=== PATIENT | male | born 1980 | race Caucasian/White ===

== ENCOUNTER 2016-07-07 21:27 | Inpatient (IN) | payer MEDICARE, MEDICAID ==
[~2016-07-07] VITALS: Ht 172.7 cm; Wt 85.8 kg
[~2016-07-07 21:27] MED LIST: CEPH500C3 PO; CLOZ200T PO; ENAL2.5 PO; HYDR-2768 PO; HYDR50TA94 PO; LEVO50TA4 PO; LITH300 PO; NALT50TA PO; ZOLP5TAB3 PO
[2016-07-07 21:29] VITALS: BP 150/85; PULSE 64; RESP 18; TEMP 97.6; O2SAT 100
[2016-07-07] MEDS ORDERED: HYDR25TA5 PO (21:45)
[2016-07-07] MEDS ORDERED: LITH300C2 PO (21:45)
[2016-07-07] MEDS ORDERED: LITH600C PO (21:45)
[2016-07-07] MEDS ORDERED: VIST50CA PO (21:45)
[2016-07-07] MEDS ORDERED: CLOZ50TA PO (21:56)
[2016-07-07] MEDS ORDERED: NALT50TA3 PO (21:56)
[2016-07-07] MEDS ORDERED: SYNT25TA PO (21:56)
[2016-07-07] MEDS ORDERED: HYDR50TA94 PO (21:57)
[2016-07-07 23:01] LABS: AUTOMATED NEUTROPHIL # 6.4 TH/MM3 (1.8-7.7); BASOPHIL # 0.1 TH/MM3 (0-0.2); BASOPHIL % 0.9 % (0.0-2.0); EOSINOPHIL # 0.4 TH/MM3 (0-0.4); EOSINOPHIL % 3.7 % (0.0-4.0); HEMATOCRIT 45.1 % (39.0-51.0); HEMO FLAGS DIFF FINAL; LYMPH % 30.4 % (9.0-44.0); LYMPHOCYTE # 3.4 TH/MM3 (1.0-4.8); MEAN CELL VOLUME 81.5 FL (80.0-100.0); MEAN CORPUSCULAR HEMOGLOBIN 28.1 PG (27.0-34.0); MEAN CORPUSCULAR HGB CONC 34.5 % (32.0-36.0); MONO % 8.6 % (0.0-8.0); NEUT % 56.4 % (16.0-70.0); PLATELET COUNT 180 TH/MM3 (150-450); RED BLOOD COUNT 5.53 MIL/MM3 (4.50-5.90); RED CELL DISTRIBUTION WIDTH 13.2 % (11.6-17.2); WHITE BLOOD COUNT 11.3 TH/MM3 (4.0-11.0)
--- NOTE | 2016-07-07 23:17 | PD ---
HPI Chief Complaint: Medication Refill Request Time Seen by Provider: 23:13 Travel History International Travel<30 days: No Contact w/Intl Traveler<30days: No Traveled to known affect area: No History of Present Illness HPI 36-year-old white male presents to emergency department requesting psychological evaluation. He states that he has not slept in over 3 days. He feels that his medication is requiring readjustment. He states that he is been on indications now for over 5 years and feels that 250 mg is too high. He feels like it needs to be reduced down to 150 mg. He states that he has not taken his last 3 days of medications due to this. He is having increasing anxiety. He has spoken to a psychiatrist but he has not adjusted his medications. He did not get any additional medicines for his anxiety. He lives at [facility]. He denies any suicidal or homicidal ideation. He states that he merely would like to have his medications readjusted. He would also like something for sleep. He denies any recent illness. No toxic ingestions. He states that he does not drink, smoke or do drugs. He claims that he is been compliant with all his other medications. [facility] Past Medical History Narrative Medical Bipolar, schizophrenia, hypertension Bipolar Disorder: Yes Anxiety: Yes Hypertension: Yes Insomnia: Yes Psychiatric: Yes Immunizations Current: Yes Schizophrenia: Yes (SCHIZOAFFECTIVE) Tetanus Vaccination: < 5 Years Past Surgical History Narrative Surgical Fever fracture with ORIF and hardware removal. Other Surgery: Yes (FEMUR FRACTURE A CHILD RIGHT LEG(HARDWARE REMOVED)) Social History Alcohol Use: No Tobacco Use: No Substance Use: No Allergies-Medications (Allergen,Severity, Reaction): Coded Allergies: No Known Allergies (Unverified , 07/07/16) Reported Meds & Prescriptions Reported Meds & Active Scripts Active Reported Synthroid (Levothyroxine Sodium) 25 Mcg Tab 50 Mcg PO DAILY Naltrexone (Naltrexone HCl) 50 Mg Tab 50 Mg PO DAILY Clozapine 50 Mg Tab 250 Mg PO HS Vistaril (Hydroxyzine Pamoate) 50 Mg Cap 50 Mg PO BID Hydrochlorothiazide 25 Mg Tab 25 Mg PO DAILY [place] Carbonate 600 Mg Cap 600 Mg PO HS [place] Carbonate 300 Mg Cap 300 Mg PO DAILY Review of Systems Except as stated in HPI: all other systems reviewed are Neg Psychiatric: Positive: Anxiety, Mood Disorder, No: Depression, Suicidal Ideations, Disorder of Thought, Substance Abuse, Homicidal Ideation Physical Exam Narrative GENERAL: Well-nourished, well-developed patient. SKIN: Warm and dry. HEAD: Normocephalic and atraumatic. EYES: No scleral icterus. No injection or drainage. ENT: No nasal drainage noted. Mucous membranes pink. Airway patent. NECK: Supple, trachea midline. Moves head freely without obvious discomfort. CARDIOVASCULAR: Regular rate and rhythm without murmurs, gallops, or rubs. RESPIRATORY: Breath sounds equal bilaterally. No accessory muscle use. GASTROINTESTINAL: Abdomen soft, non-tender, nondistended. EXTREMITIES: No cyanosis or edema. BACK: Nontender without obvious deformity. No CVA tenderness. NEURO: Patient is alert and oriented. no sensorimotor deficits. Nonfocal. Normal speech. PSYCH: No delusions. No auditory or visual hallucinations. Data Data Last Documented VS Vital Signs Date Time Temp Pulse Resp B/P Pulse Ox O2 Delivery O2 Flow Rate FiO2 07/07/16 21:29 97.6 64 18 150/85 100 Orders Complete Blood Count With Diff (07/07/16 22:22) Comprehensive Metabolic Panel (07/07/16 22:22) Psych Screen (07/07/16 22:22) [place] (Li) (07/07/16 22:22) Drug Screen, Random Urine (07/07/16 22:22) Alcohol (Ethanol) (07/07/16 22:22) Labs Laboratory Tests Test 07/07/16 22:41 White Blood Count 11.3 TH/MM3 Red Blood Count 5.53 MIL/MM3 Hemoglobin 15.6 GM/DL Hematocrit 45.1 % Mean Corpuscular Volume 81.5 FL Mean Corpuscular Hemoglobin 28.1 PG Mean Corpuscular Hemoglobin 34.5 % Concent Red Cell Distribution Width 13.2 % Platelet Count 180 TH/MM3 Mean Platelet Volume 10.4 FL Neutrophils (%) (Auto) 56.4 % Lymphocytes (%) (Auto) 30.4 % Monocytes (%) (Auto) 8.6 % Eosinophils (%) (Auto) 3.7 % Basophils (%) (Auto) 0.9 % Neutrophils # (Auto) 6.4 TH/MM3 Lymphocytes # (Auto) 3.4 TH/MM3 Monocytes # (Auto) 1.0 TH/MM3 Eosinophils # (Auto) 0.4 TH/MM3 Basophils # (Auto) 0.1 TH/MM3 CBC Comment DIFF FINAL Differential Comment Sodium Level 137 MEQ/L Potassium Level 4.0 MEQ/L Chloride Level 103 MEQ/L Carbon Dioxide Level 28.0 MEQ/L Anion Gap 6 MEQ/L Blood Urea Nitrogen 10 MG/DL Creatinine 1.12 MG/DL Estimat Glomerular Filtration 74 ML/MIN Rate Random Glucose 96 MG/DL Calcium Level 9.2 MG/DL Total Bilirubin 0.4 MG/DL Aspartate Amino Transf 18 U/L (AST/SGOT) Alanine Aminotransferase 25 U/L (ALT/SGPT) Alkaline Phosphatase 79 U/L Total Protein 7.1 GM/DL Albumin 4.3 GM/DL Urine Opiates Screen NEG Urine Barbiturates Screen NEG Urine Amphetamines Screen NEG Urine Benzodiazepines Screen NEG [place] Level 0.4 MEQ/L Urine Cocaine Screen NEG Urine Cannabinoids Screen NEG Ethyl Alcohol Level LESS THAN 3 MG/DL MDM Medical Decision Making Medical Screen Exam Complete: Yes Emergency Medical Condition: Yes Medical Record Reviewed: Yes Interpretation(s) Laboratory Tests Test 07/07/16 22:41 White Blood Count 11.3 TH/MM3 Red Blood Count 5.53 MIL/MM3 Hemoglobin 15.6 GM/DL Hematocrit 45.1 % Mean Corpuscular Volume 81.5 FL Mean Corpuscular Hemoglobin 28.1 PG Mean Corpuscular Hemoglobin 34.5 % Concent Red Cell Distribution Width 13.2 % Platelet Count 180 TH/MM3 Mean Platelet Volume 10.4 FL Neutrophils (%) (Auto) 56.4 % Lymphocytes (%) (Auto) 30.4 % Monocytes (%) (Auto) 8.6 % Eosinophils (%) (Auto) 3.7 % Basophils (%) (Auto) 0.9 % Neutrophils # (Auto) 6.4 TH/MM3 Lymphocytes # (Auto) 3.4 TH/MM3 Monocytes # (Auto) 1.0 TH/MM3 Eosinophils # (Auto) 0.4 TH/MM3 Basophils # (Auto) 0.1 TH/MM3 CBC Comment DIFF FINAL Differential Comment Sodium Level 137 MEQ/L Potassium Level 4.0 MEQ/L Chloride Level 103 MEQ/L Carbon Dioxide Level 28.0 MEQ/L Anion Gap 6 MEQ/L Blood Urea Nitrogen 10 MG/DL Creatinine 1.12 MG/DL Estimat Glomerular Filtration 74 ML/MIN Rate Random Glucose 96 MG/DL Calcium Level 9.2 MG/DL Total Bilirubin 0.4 MG/DL Aspartate Amino Transf 18 U/L (AST/SGOT) Alanine Aminotransferase 25 U/L (ALT/SGPT) Alkaline Phosphatase 79 U/L Total Protein 7.1 GM/DL Albumin 4.3 GM/DL Urine Opiates Screen NEG Urine Barbiturates Screen NEG Urine Amphetamines Screen NEG Urine Benzodiazepines Screen NEG [place] Level 0.4 MEQ/L Urine Cocaine Screen NEG Urine Cannabinoids Screen NEG Ethyl Alcohol Level LESS THAN 3 MG/DL Differential Diagnosis MDM: High Differential diagnoses: Schizophrenia, schizoaffective disorder, bipolar, anxiety, depression, adjustment reaction, mood disorder NOS, ODD, depressive disorder NOS, dementia, dementia with agitation, psychosis NOS, substance induced mood disorder, intermittent explosive disorder, Asperger syndrome, infection,electrolyte abnormality, malingering. Narrative Course Mental health screening discussed with the patient. Psychiatric screen ordered. The patient's been medically cleared. This is medical clearance Diagnosis Primary Impression: Medical clearance for psychiatric admission Condition: Stable Alex Bello Jul 07, 2016 23:17
[2016-07-07 23:20] LABS: ALKALINE PHOSPHATASE 79 U/L (45-117); TOTAL BILIRUBIN ADULT 0.4 MG/DL (0.2-1.0)
[2016-07-07 23:21] LABS: ALT (GPT) 25 U/L (12-78); ANION GAP 6 MEQ/L (5-15); AST (GOT) 18 U/L (15-37); BLOOD UREA NITROGEN 10 MG/DL (7-18); CHLORIDE 103 MEQ/L (98-107); GLOMERULAR FILTRATION RATE 74 ML/MIN (>89); SODIUM (NA) 137 MEQ/L (136-145)
[2016-07-07 23:23] LABS: AMPHETAMINE, URINE NEG (NEG); BARBITURATES, URINE NEG (NEG); COCAINE, URINE NEG (NEG)
[2016-07-08 00:45] VITALS: BP 135/87; PULSE 70; RESP 18; O2SAT 100
[2016-07-08] MEDS ORDERED: hydrOXYzine HCL 50 MG/ML VIAL IM ONE (03:00)
[2016-07-08 03:45] VITALS: BP 152/78; PULSE 72; RESP 14; O2SAT 98
[2016-07-08] MEDS ORDERED: ACETAMINOPHEN 325 MG TAB PO ONE (03:45)
[2016-07-08 06:22] VITALS: BP 144/82; PULSE 68; RESP 16; O2SAT 99
[2016-07-08 08:06] VITALS: BP 123/79; PULSE 53; RESP 20; O2SAT 99
[2016-07-08 11:27] VITALS: BP 150/89; PULSE 60; RESP 16; TEMP 97.6; O2SAT 99
[2016-07-08] MEDS ORDERED: cloZAPine 25 MG TAB PO SCH (13:30)
--- NOTE | 2016-07-08 13:32 | HHI.HP ---
Provisional Diagnosis Admission Date Jul 08, 2016 at 10:06 Eugene I. Schizoaffective disorder, paranoid type Eugene II. Deferred Eugene III. Hypertension, hypothyroidism Eugene IV. Noncompliance with medications Eugene V. 40 Certification of Person's Competence To Provide Express and Informed Consent I have personally examined Noe Brown , a person being served at [facility] on, Jul 08, 2016 13:18. Express and informed consent means consent voluntarily given in writing, by a competent person, after sufficient explanation and disclosure of the subject matter involved to enable the person to make a knowing and willful decision without any element of force, fraud, deceit, duress, or other form of constraint or coercion. This person is 18 years of age or older, is not now known to be incompetent to consent to treatment with a guardian advocate, and does not have a health care surrogate or proxy currently making medical treatment decisions. I have found this person to be one of the following: [X] Competent to provide express and informed consent, as defined above, for voluntary admission to this facility and is competent to provide express and informed consent for treatment. He/she has the consistent capacity to make well reasoned, willful, and knowing decisions concerning his or her medical or mental health treatment. The person fully and consistently understands the purpose of the admission for examination/placement and is fully capable of personally exercising all rights assured [place] Incompetent to provide express and informed consent to voluntary admission, and this is incompetent to provide express and informed consent to treatment. The person must be transferred to involuntary status and a petition for a guardian advocate filed with the Circuit Court. [] Refusing to provide express and informed consent to voluntary admission but is competent to provide express and informed consent for treatment. The person must be discharged or transferred to involuntary status. Form shall be completed within 24 hours of a person's arrival at the receiving facility and filed in the clinical record of each person: 1. Admitted on a voluntary basis 2. Permitted to provide express and informed consent to his/her own treatment 3. Allowed to transfer from involuntary to voluntary status 4. Prior to permitting a person to consent to his or her own treatment after having been previously found incompetent to consent to treatment. History of Present Illness Capacity: Has Capacity HPI The patient is a 36-year-old man, single, unemployed, lives at [facility], with psychiatric history of schizoaffective disorder, multiple hospitalizations in the past, suicidal attempts, he is on clozapine 250 mg, lithium 300 mg twice a day, hydroxyzine 25 mg twice a day, medical history hypertension and hypothyroidism,who presents to emergency department requesting psychological evaluation. He states that he has not slept in over 3 days "because I have been hearing voices, voices making fun of me, and calling my name". Patient says that he hasn't taken his clock sorry for 4 days now. He says that he decided to stop taking it "because I thought that he was a very high-dose fro me". He says that since he stopped taking Clozaril the voices has come back and he also has been feeling paranoid. Patient reports sad mood, anxiety related with perceptual disturbances. He denies suicidal or homicidal ideation, he denies visual and auditory hallucinations. Patient is fully oriented 3, no gross cognitive impairment is observed. No agitation, no aggressive behavior reported. Patient denies the use of drugs and alcohol. Review of Systems Constitutional: DENIES: Diaphoretic episodes, Fatigue, Fever, Weight gain, Weight loss, Chills, Dizziness, Change in appetite, Night Sweats Endocrine: DENIES: Heat/cold intolerance, Polydipsia, Polyuria, Polyphagia Eyes: DENIES: Blurred vision, Diplopia, Eye inflammation, Eye pain, Vision loss , Photosensitivity, Double Vision Ears, nose, mouth, throat: DENIES: Tinnitus, Hearing loss, Vertigo, Nasal discharge, Oral lesions, Throat pain, Hoarseness, Ear Pain, Running Nose, Epistaxis, Sinus Pain, Toothache, Odynophagia Respiratory: DENIES: Apneas, Cough, Snoring, Wheezing, Hemoptysis, Sputum production, Shortness of breath Cardiovascular: DENIES: Chest pain, Palpitations, Syncope, Dyspnea on Exertion , PND, Lower Extremity Edema, Orthopnea, Claudication Genitourinary: DENIES: Sexual dysfunction, Urinary frequency, Urinary incontinence, Urgency, Hematuria, Dysuria, Nocturia, Penile Discharge, Testicular Pain, Testicular Swelling Musculoskeletal: DENIES: Joint pain, Muscle aches, Stiffness, Joint Swelling, Back pain, Neck pain Integumentary: DENIES: Abnormal pigmentation, Nail changes, Pruritus, Rash Hematologic/lymphatic: DENIES: Bruising, Lymphadenopathy Immunologic/allergic: DENIES: Eczema, Urticaria Neurologic: COMPLAINS OF: Abnormal gait, Headache, Localized weakness, Paresthesias, Seizures, Speech Problems, Tremor, Poor Balance Psychiatric: COMPLAINS OF: Mood changes, Hallucinations Past Psych History Violence risk - self (6 mos) Increased Substance Abuse History Drugs/Alcohol past 12 months Patient denies the use of alcohol and drugs in the last 2 years Past Family Social History Coded Allergies: No Known Allergies (Unverified , 07/07/16) Reported Medications Levothyroxine (Synthroid)25 Mcg Tab50 Mcg PO DAILY #30 TAB Ref 0 07/07/16 Naltrexone 50 Mg Tab50 Mg PO DAILY Ref 0 07/07/16 Clozapine 50 Mg [id number] Mg PO HS Ref 0 07/07/16 Hydroxyzine Pamoate (Vistaril)50 Mg Cap50 Mg PO BID Ref 0 07/07/16 Hydrochlorothiazide 25 Mg Tab25 Mg PO DAILY #30 TAB Ref 0 07/07/[address] [place] Carbonate 600 Mg [id number] Mg PO HS Ref 0 07/07/[address] Carbonate 300 Mg [id number] Mg PO DAILY Ref 0 07/07/16 Discontinued Reported Medications Hydroxyzine HCl 50 Mg Tab50 Mg PO BID Ref 0 07/07/16 Enalapril Maleate 2.5 Mg Tab2.5 Mg PO DAILY 05/03/14 Current Medications Medications (Trade) Dose Ordered Sig/Shyann Route Start Time Stop Time Status Last Admin (Hydrodiuril) 25 mg DAILY PO 07/08/16 13:15 UNV (Vistaril) 50 mg BID PO 07/08/16 13:15 UNV (Synthroid) 50 mcg DAILY PO 07/08/16 13:15 UNV ([place] Carbonate) 300 mg DAILY PO 07/08/16 13:15 UNV ([place] Carbonate) 600 mg HS PO 07/08/16 21:00 UNV (Clozaril) 25 mg BID PO 07/08/16 13:30 Family History His mother has schizoaffective disorder Social History Patient lives in [facility]. Patient's Strengths (min. 2) Good insight Physical Exam Vital Signs Vital Signs Date Time Temp Pulse Resp B/P Pulse Ox O2 Delivery O2 Flow Rate FiO2 07/08/16 11:27 97.6 60 16 150/89 99 07/08/16 08:06 Room Air Lab Results [place] level is 0.4, WBC 11.3, toxicology is negative, BAL negative Mental Status Examination Appearance man, regular street clothes, good hygiene, he is calm and cooperative Orientation: x3 Memory: Unremarkable Thought Process: Logical, Goal Directed Thought Content: Unremarkable Hallucination Type: Auditory Suicidal Ideation: No Previous Suicide Attempts: No Homicidal Ideation: No Previous Homicide Attempts: No Insight: Good Affect: Other (inappropriate at times) Mood: Euthymic Motor Activity: Normal gait Assessment & Plan Problem List: (1) Schizoaffective disorder Assessment & Plan: On somatic evaluation patient reports progressively increased in severity and intensity auditory hallucinations of voices calling his name, making derogatory comments about him and paranoia of people wanting to hurt him. Psychotic exacerbation is related recent discontinuation of Clozaril 250 mg. Patient has an extensive history of hospitalizations, and psychosis refractory to multiple antipsychotics. At this moment the patient represents an increased risk of danger to self and others and needs psychiatric hospitalization for stabilization. Patient has a good insight of his psychiatric condition and was to be admitted in voluntarily basis. Will continue lithium 900 mg daily, but 100 mg in the morning, 600 mg at night. We will start Clozaril in 25 mg twice a day with the plan of increasing rapidly to previous dosing. Extensive psychoeducation, supportive motivation provided. curing room worker intervention for psychosocial assessment, collateral information, counseling, and to start discharge planning. Safety measures will be taken. Patient will participate in individual and group therapies. ICD Code: F25.9 Assessment & Plan Estimated LOS: days Problem Qualifiers (1) Schizoaffective disorder: Qualified Code: F25.0 - Schizoaffective disorder, bipolar type Omari Morin MD Jul 08, 2016 13:32
[2016-07-08] MEDS: HYDROCHLOROTHIAZIDE 25 MG TAB PO SCH (14:15)
[2016-07-08] MEDS: LEVOTHYROXINE SODIUM 50 MCG TAB PO SCH (14:15)
[2016-07-08] MEDS: LITHIUM CARBONATE 300 MG CAP PO SCH ×2 (14:15→20:57)
[2016-07-08 18:00] VITALS: BP 120/83; PULSE 63; RESP 18; TEMP 98.6; O2SAT 100
[2016-07-08] MEDS: cloZAPine 25 MG TAB PO SCH (20:57)
[2016-07-09] MEDS: LEVOTHYROXINE SODIUM 50 MCG TAB PO SCH (05:47)
[2016-07-09 06:50] VITALS: BP 107/65; PULSE 50; RESP 17; TEMP 98.4; O2SAT 95
[2016-07-09] MEDS: HYDROCHLOROTHIAZIDE 25 MG TAB PO SCH (08:34)
[2016-07-09] MEDS: LITHIUM CARBONATE 300 MG CAP PO SCH ×2 (08:35→21:13)
--- NOTE | 2016-07-09 14:54 | HHI.PYPN ---
Subjective Remarks Patient is calm, pleasant and cooperative. He continues to report hearing voices. He continues to have paranoid thinking. His medicines have been reordered but he has not responded to them adequately. Review of Systems ROS Limitations: Clinical Condition Objective Alert: Yes [place]: Person, Place, Date, Situation Mood: Calm Affect: Euthymic Memory Intact: Immediate, Recent, Remote Hallucinations: Auditory Delusions: Yes Delusion Type: Paranoid, Other Suicidal: Ideation Homicidal: Ideation Insight/Judgment Impaired Vitals/IOs Vital Signs Date Time Temp Pulse Resp B/P Pulse Ox O2 Delivery O2 Flow Rate FiO2 07/09/16 06:50 98.4 50 17 107/65 95 07/08/16 08:06 Room Air Intake and Output 07/08/16 07/08/16 07/09/16 08:00 16:00 00:00 Intake Total 360 ml Balance 360 ml Assessment & Plan Problem List: (1) Schizoaffective disorder ICD Code: F25.9 Assessment & Plan Estimated LOS: 5 days patient needs time to respond to his medicines. Justification for Cont. Inpt. Likely to decompensate with lower level of care. Problem Qualifiers (1) Schizoaffective disorder: Qualified Code: F25.0 - Schizoaffective disorder, bipolar type Manuel Mensah MD July 09, 2016 14:54
[2016-07-09] MEDS: cloZAPine 25 MG TAB PO SCH (21:13)
[2016-07-09 22:15] VITALS: BP 113/63; PULSE 70; RESP 18; TEMP 97.5; O2SAT 100
[2016-07-10 06:07] VITALS: BP 96/52; PULSE 52; RESP 18; TEMP 98.4; O2SAT 100
[2016-07-10] MEDS: LEVOTHYROXINE SODIUM 50 MCG TAB PO SCH (06:10)
[2016-07-10 07:53] LABS: BLOOD UREA NITROGEN 15 MG/DL (7-18); CHLORIDE 104 MEQ/L (98-107); GLOMERULAR FILTRATION RATE 77 ML/MIN (>89); POTASSIUM 3.8 MEQ/L (3.5-5.1); SODIUM (NA) 139 MEQ/L (136-145)
[2016-07-10 07:57] LABS: ANION GAP 5 MEQ/L (5-15); BICARBONATE 29.8 MEQ/L (21.0-32.0); HDL CHOLESTEROL 31.4 MG/DL (40.0-60.0); LDL CHOLESTEROL 85 MG/DL (0-99)
[2016-07-10] MEDS: LITHIUM CARBONATE 300 MG CAP PO SCH ×2 (08:38→21:15)
[2016-07-10] MEDS: HYDROCHLOROTHIAZIDE 25 MG TAB PO SCH (08:38)
[2016-07-10 14:14] LABS: HEMOGLOBIN A1b 0.9 %; HEMOGLOBIN F 0.8 %; HEMOGLOBIN LA1C 1.7 %; HEMOGLOBIN P3 3.3 %
--- NOTE | 2016-07-10 14:43 | HHI.PYPN ---
Subjective Remarks Continues to be hypomanic with rapid and sometimes pressured speech. Continues to demonstrate flight of ideas and elevated mood. Wants to go back on Clozaril but is afraid of being given too high a dose. Review of Systems ROS Limitations: Clinical Condition Objective Alert: Yes [place]: Person, Place, Date, Situation Mood: Calm Affect: Euthymic Memory Intact: Immediate, Recent, Remote Hallucinations: Auditory Delusions: Yes Delusion Type: Paranoid, Other Suicidal: Ideation Homicidal: Ideation Insight/Judgment Impaired Labs Test 07/10/16 06:13 Sodium Level 139 MEQ/L Potassium Level 3.8 MEQ/L Chloride Level 104 MEQ/L Carbon Dioxide Level 29.8 MEQ/L Anion Gap 5 MEQ/L Blood Urea Nitrogen 15 MG/DL Creatinine 1.08 MG/DL Estimat Glomerular Filtration 77 ML/MIN Rate Random Glucose 83 MG/DL Calcium Level 9.3 MG/DL Triglycerides Level 309 MG/DL Cholesterol Level 178 MG/DL LDL Cholesterol 85 MG/DL HDL Cholesterol 31.4 MG/DL Cholesterol/HDL Ratio 5.66 RATIO Vitals/IOs Vital Signs Date Time Temp Pulse Resp B/P Pulse Ox O2 Delivery O2 Flow Rate FiO2 07/10/16 06:07 98.4 52 18 96/52 100 07/08/16 08:06 Room Air Assessment & Plan Problem List: (1) Schizoaffective disorder ICD Code: F25.9 Assessment & Plan Estimated LOS: 5 days will titrate Clozaril per patient's request. Justification for Cont. Inpt. Likely to decompensate at lower level of care. Problem Qualifiers (1) Schizoaffective disorder: Qualified Code: F25.0 - Schizoaffective disorder, bipolar type Manuel Mensah MD July 10, 2016 14:43
[2016-07-10 16:59] VITALS: BP 118/68; PULSE 60; RESP 18; TEMP 99.3; O2SAT 97
[2016-07-10] MEDS ORDERED: cloZAPine 25 MG TAB PO SCH (21:00)
[2016-07-11 05:58] VITALS: BP 93/53; PULSE 55; RESP 18; TEMP 97.6; O2SAT 98
[2016-07-11] MEDS: LEVOTHYROXINE SODIUM 50 MCG TAB PO SCH (06:01)
[2016-07-11] MEDS: HYDROCHLOROTHIAZIDE 25 MG TAB PO SCH (09:00)
[2016-07-11] MEDS: LITHIUM CARBONATE 300 MG CAP PO SCH ×2 (09:00→21:23)
[2016-07-11 18:08] VITALS: BP 147/85; PULSE 54; RESP 18; TEMP 97.4; O2SAT 100
[2016-07-11] MEDS ORDERED: cloZAPine 25 MG TAB PO SCH (21:00)
[2016-07-12 06:27] VITALS: BP 114/56; PULSE 53; RESP 16; TEMP 97.6; O2SAT 98
[2016-07-12] MEDS: LEVOTHYROXINE SODIUM 50 MCG TAB PO SCH (06:31)
[2016-07-12] MEDS: LITHIUM CARBONATE 300 MG CAP PO SCH ×2 (08:40→21:20)
[2016-07-12] MEDS: HYDROCHLOROTHIAZIDE 25 MG TAB PO SCH (08:40)
--- NOTE | 2016-07-12 10:43 | HHI.PYPN ---
Subjective Remarks Continues to demonstrate rapid speech and flight of ideas. Appears to be tolerating medications adequately although as this physician increase his Clozaril, patient appears more sedated during the morning. This physician continues to believe we should titrate the dose of Clozaril to 150 mg at bedtime. Patient accepts this. Review of Systems ROS Limitations: Clinical Condition Objective Alert: Yes [place]: Person, Place, Date, Situation Mood: Anxious Affect: Manic Memory Intact: Immediate, Recent, Remote Hallucinations: Auditory Delusions: Yes Delusion Type: Other Suicidal: Ideation Homicidal: Ideation Insight/Judgment Impaired Vitals/IOs Vital Signs Date Time Temp Pulse Resp B/P Pulse Ox O2 Delivery O2 Flow Rate FiO2 07/12/16 06:27 97.6 53 16 114/56 98 07/08/16 08:06 Room Air Assessment & Plan Problem List: (1) Schizoaffective disorder ICD Code: F25.9 Assessment & Plan Estimated LOS: 3 days will continue to titrate Clozaril at 25 mg increments, daily, up to 150 mg. We will assess lithium level prior to discharge. Justification for Cont. Inpt. Needs continued treatment to titrate Clozaril to therapeutic level. Problem Qualifiers (1) Schizoaffective disorder: Qualified Code: F25.0 - Schizoaffective disorder, bipolar type Manuel Mensah MD July 12, 2016 10:43
[2016-07-12 20:22] VITALS: BP 133/69; PULSE 68; RESP 17; TEMP 98.3; O2SAT 98
[2016-07-12] MEDS ORDERED: cloZAPine 25 MG TAB PO SCH (21:00)
[2016-07-13] MEDS: LEVOTHYROXINE SODIUM 50 MCG TAB PO SCH (05:36)
[2016-07-13 06:11] VITALS: BP 101/64; PULSE 60; RESP 18; TEMP 96.7; O2SAT 97
[2016-07-13] MEDS: LITHIUM CARBONATE 300 MG CAP PO SCH ×2 (09:01→21:30)
[2016-07-13] MEDS: HYDROCHLOROTHIAZIDE 25 MG TAB PO SCH (09:01)
--- NOTE | 2016-07-13 13:40 | HHI.PYPN ---
Subjective Remarks Slowly improving ricky. Remains cooperative. Will titrate up his Clozaril per plan. Objective Alert: Yes [place]: Person, Place, Date, Situation Mood: Anxious Affect: Manic Memory Intact: Immediate, Recent, Remote Hallucinations: Auditory Delusions: Yes Delusion Type: Other Suicidal: Ideation Homicidal: Ideation Insight/Judgment Impaired Vitals/IOs Vital Signs Date Time Temp Pulse Resp B/P Pulse Ox O2 Delivery O2 Flow Rate FiO2 07/13/16 06:11 96.7 60 18 101/64 97 Assessment & Plan Problem List: (1) Schizoaffective disorder ICD Code: F25.9 Assessment & Plan Estimated LOS: 7 days Cont to require stabalization on Clozaril. Justification for Cont. Inpt. Hypomanic and likely to decompensate at lower level of care. Problem Qualifiers (1) Schizoaffective disorder: Qualified Code: F25.0 - Schizoaffective disorder, bipolar type Manuel Mensah MD July 13, 2016 13:40
[2016-07-13 18:49] VITALS: BP 137/60; PULSE 73; RESP 18; TEMP 99.2; O2SAT 99
[2016-07-13] MEDS: cloZAPine 25 MG TAB PO SCH (21:30)
[2016-07-13] MEDS: cloZAPine 100 MG TAB PO SCH (21:30)
[2016-07-14] MEDS ORDERED: MAGNESIUM HYDROXIDE SUSP 30 ML CUP PO PRN (00:45)
[2016-07-14] MEDS ORDERED: LORazepam 2 MG/ML VIAL IM PRN (00:45)
[2016-07-14] MEDS ORDERED: ACETAMINOPHEN 325 MG TAB PO PRN (00:45)
[2016-07-14] MEDS ORDERED: ALUMINUM/MAGNESIUM/SIMETH 30 ML CUP PO PRN (00:45)
[2016-07-14 05:26] VITALS: BP 133/81; PULSE 95; RESP 20; TEMP 97.8; O2SAT 98
[2016-07-14 05:50] VITALS: BP 103/56; PULSE 59; RESP 16; TEMP 97.4; O2SAT 99
[2016-07-14] MEDS: LEVOTHYROXINE SODIUM 50 MCG TAB PO SCH (05:57)
[2016-07-14] MEDS: HYDROCHLOROTHIAZIDE 25 MG TAB PO SCH (08:57)
[2016-07-14] MEDS: LITHIUM CARBONATE 300 MG CAP PO SCH ×2 (08:58→21:09)
--- NOTE | 2016-07-14 15:45 | HHI.PYPN ---
Subjective Remarks Patient was seen and case discussed with nursing. Patient is elevated, hyperverbal and pressured. He is perseverative on his Clazuril. Says his sleep has improved to 6-7 hours. Denies auditory hallucinations at this time. Behaving well per nursing and compliant with medications. Mood remains elevated Objective Alert: Yes [place]: Person, Place, Date, Situation Mood: Anxious Affect: Labile, Manic Memory Intact: Immediate, Recent, Remote Hallucinations: Auditory (denies today) Delusions: Yes Delusion Type: Other Suicidal: Ideation Homicidal: Ideation Insight/Judgment Fair Vitals/IOs Vital Signs Date Time Temp Pulse Resp B/P Pulse Ox O2 Delivery O2 Flow Rate FiO2 07/14/16 05:50 97.4 59 16 103/56 99 Assessment & Plan Problem List: (1) Schizoaffective disorder ICD Code: F25.9 Assessment & Plan Continue current treatment plan Justification for Cont. Inpt. Patient will decompensate in a less restrictive setting Problem Qualifiers (1) Schizoaffective disorder: Qualified Code: F25.0 - Schizoaffective disorder, bipolar type Carlos Desai DO July 14, 2016 15:45
[2016-07-14 18:04] VITALS: BP 136/82; PULSE 69; RESP 18; TEMP 98.2; O2SAT 97
[2016-07-14] MEDS: cloZAPine 25 MG TAB PO SCH (21:08)
[2016-07-14] MEDS: cloZAPine 100 MG TAB PO SCH (21:09)
[2016-07-15] MEDS: LEVOTHYROXINE SODIUM 50 MCG TAB PO SCH (06:20)
[2016-07-15 06:34] VITALS: BP 105/53; PULSE 59; RESP 17; TEMP 98.4; O2SAT 97
[2016-07-15] MEDS: HYDROCHLOROTHIAZIDE 25 MG TAB PO SCH (09:20)
[2016-07-15] MEDS: LITHIUM CARBONATE 300 MG CAP PO SCH ×2 (09:20→21:30)
--- NOTE | 2016-07-15 11:17 | HHI.PYPN ---
Subjective Remarks Patient was seen and case discussed with nursing. Patient makes various psychotic statements today. Describes auditory hallucinations of the mafia telling him to go suck a ruby. He says he feels that other people have control of spiritual energy that can cause him to do things. Remains seclusive to his room. Speech remains pressured Objective Alert: Yes [place]: Person, Place, Date, Situation Mood: Anxious Affect: Labile, Manic Memory Intact: Immediate, Recent, Remote Hallucinations: Auditory (various bizarre statements) Delusions: Yes Delusion Type: Other (bizarre delusions, sexual delusions) Suicidal: Ideation (denies) Homicidal: Ideation (denies) Insight/Judgment Poor Vitals/IOs Vital Signs Date Time Temp Pulse Resp B/P Pulse Ox O2 Delivery O2 Flow Rate FiO2 07/15/16 06:34 98.4 59 17 105/53 97 Assessment & Plan Problem List: (1) Schizoaffective disorder ICD Code: F25.9 Assessment & Plan Consider increasing antipsychotic medication Justification for Cont. Inpt. Patient will decompensate in a less restrictive setting Problem Qualifiers (1) Schizoaffective disorder: Qualified Code: F25.0 - Schizoaffective disorder, bipolar type Carlos Desai DO July 15, 2016 11:17
[2016-07-15] MEDS: LORazepam 1 MG TAB PO PRN (19:35)
[2016-07-15] MEDS: cloZAPine 100 MG TAB PO SCH (21:31)
[2016-07-15] MEDS: cloZAPine 25 MG TAB PO SCH (21:31)
[2016-07-15 21:58] VITALS: BP 109/60; PULSE 51; RESP 16; TEMP 96.4; O2SAT 98
[2016-07-16] MEDS: LEVOTHYROXINE SODIUM 50 MCG TAB PO SCH (06:09)
[2016-07-16 06:15] VITALS: BP 98/50; PULSE 65; RESP 16; TEMP 98.1
[2016-07-16] MEDS: LITHIUM CARBONATE 300 MG CAP PO SCH ×2 (09:12→21:00)
[2016-07-16] MEDS: HYDROCHLOROTHIAZIDE 25 MG TAB PO SCH (09:12)
--- NOTE | 2016-07-16 16:49 | HHI.PYPN ---
Subjective Remarks Patient feels he remains slightly manic. He had an episode yesterday where he became irritable. Tolerating the medicine and slept better. Review of Systems Except as stated in HPI: all other systems reviewed are Neg Objective Alert: Yes [place]: Person, Place, Date, Situation Mood: Anxious Affect: Labile, Manic Memory Intact: Immediate, Recent, Remote Hallucinations: Auditory (various bizarre statements) Delusions: Yes Delusion Type: Other (bizarre delusions, sexual delusions) Suicidal: Ideation (denies) Homicidal: Ideation (denies) Insight/Judgment Impaired Vitals/IOs Vital Signs Date Time Temp Pulse Resp B/P Pulse Ox O2 Delivery O2 Flow Rate FiO2 07/16/16 06:15 98.1 65 16 98/50 07/15/16 21:58 98 Assessment & Plan Problem List: (1) Schizoaffective disorder ICD Code: F25.9 Assessment & Plan Estimated LOS: 1-2 days titrate Clozaril one more time. Justification for Cont. Inpt. Titrating dose of medication. Problem Qualifiers (1) Schizoaffective disorder: Qualified Code: F25.0 - Schizoaffective disorder, bipolar type Manuel Mensah MD July 16, 2016 16:49
[2016-07-16] MEDS ORDERED: PILL SPLITTER OTHER PRN (17:15)
[2016-07-16 18:00] VITALS: BP 137/85; PULSE 90; RESP 19; TEMP 96.4; O2SAT 97
[2016-07-16] MEDS: LORazepam 1 MG TAB PO PRN (21:40)
[2016-07-17 04:43] VITALS: BP 105/52; PULSE 68; RESP 18; TEMP 97.3; O2SAT 98
[2016-07-17] MEDS: LEVOTHYROXINE SODIUM 50 MCG TAB PO SCH (06:16)
[2016-07-17 07:57] LABS: AUTOMATED NEUTROPHIL # 4.4 TH/MM3 (1.8-7.7); BASOPHIL # 0.1 TH/MM3 (0-0.2); BASOPHIL % 0.7 % (0.0-2.0); EOSINOPHIL # 0.4 TH/MM3 (0-0.4); HEMATOCRIT 42.6 % (39.0-51.0); HEMO FLAGS DIFF FINAL; LYMPH % 26.9 % (9.0-44.0); LYMPHOCYTE # 2.1 TH/MM3 (1.0-4.8); MEAN CELL VOLUME 81.9 FL (80.0-100.0); MEAN CORPUSCULAR HEMOGLOBIN 28.5 PG (27.0-34.0); MEAN CORPUSCULAR HGB CONC 34.8 % (32.0-36.0); MONO % 9.3 % (0.0-8.0); NEUT % 58.1 % (16.0-70.0); PLATELET COUNT 149 TH/MM3 (150-450); RED CELL DISTRIBUTION WIDTH 13.3 % (11.6-17.2); WHITE BLOOD COUNT 7.6 TH/MM3 (4.0-11.0)
[2016-07-17] MEDS: HYDROCHLOROTHIAZIDE 25 MG TAB PO SCH (09:33)
[2016-07-17] MEDS: LITHIUM CARBONATE 300 MG CAP PO SCH ×2 (09:33→21:19)
[2016-07-17 18:12] VITALS: BP 142/75; PULSE 108; RESP 18; TEMP 99; O2SAT 95
[2016-07-17] MEDS: LORazepam 1 MG TAB PO PRN (20:33)
[2016-07-17] MEDS: cloZAPine 100 MG TAB PO SCH ×2 (21:00→21:19)
[2016-07-18] MEDS: LEVOTHYROXINE SODIUM 50 MCG TAB PO SCH (05:19)
[2016-07-18 06:13] VITALS: BP 106/51; PULSE 67; RESP 16; TEMP 97.8
[2016-07-18] MEDS: LITHIUM CARBONATE 300 MG CAP PO SCH ×2 (09:31→21:12)
[2016-07-18] MEDS: HYDROCHLOROTHIAZIDE 25 MG TAB PO SCH (09:31)
--- NOTE | 2016-07-18 14:31 | HHI.PYPN ---
Subjective Remarks This is psychiatric progress note for July 17, 2016. Patient continues to be hypomanic but is improved. Cooperative and calm. Wants his 150 mg of Clozaril at bedtime. Review of Systems Except as stated in HPI: all other systems reviewed are Neg Objective Alert: Yes [place]: Person, Place, Date, Situation Mood: Anxious Affect: Labile, Manic Memory Intact: Immediate, Recent, Remote Hallucinations: Auditory (various bizarre statements) Delusions: Yes Delusion Type: Other (bizarre delusions, sexual delusions) Suicidal: Ideation (denies) Homicidal: Ideation (denies) Insight/Judgment Impaired Vitals/IOs Vital Signs Date Time Temp Pulse Resp B/P Pulse Ox O2 Delivery O2 Flow Rate FiO2 07/18/16 06:13 97.8 67 16 106/51 07/17/16 18:12 95 Assessment & Plan Problem List: (1) Schizoaffective disorder ICD Code: F25.9 Assessment & Plan Estimated LOS: 2 days patient needs slightly more time to stabilize on Clozaril. Justification for Cont. Inpt. Likely to decompensate at lower level of care. Problem Qualifiers (1) Schizoaffective disorder: Qualified Code: F25.0 - Schizoaffective disorder, bipolar type Manuel Mensah MD July 18, 2016 14:31
--- NOTE | 2016-07-18 14:32 | HHI.PYPN ---
Subjective Remarks Patient states he wants to stay until tomorrow. He did not sleep well last night. He remains hypomanic. Review of Systems Except as stated in HPI: all other systems reviewed are Neg Objective Alert: Yes [place]: Person, Place, Date, Situation Mood: Anxious Affect: Labile, Manic Memory Intact: Immediate, Recent, Remote Hallucinations: Auditory (various bizarre statements) Delusions: Yes Delusion Type: Other (bizarre delusions, sexual delusions) Suicidal: Ideation (denies) Homicidal: Ideation (denies) Insight/Judgment Impaired Vitals/IOs Vital Signs Date Time Temp Pulse Resp B/P Pulse Ox O2 Delivery O2 Flow Rate FiO2 07/18/16 06:13 97.8 67 16 106/51 07/17/16 18:12 95 Assessment & Plan Problem List: (1) Schizoaffective disorder ICD Code: F25.9 Assessment & Plan Estimated LOS: 1 days continue Clozaril. Justification for Cont. Inpt. Will decompensate without appropriate disposition. Problem Qualifiers (1) Schizoaffective disorder: Qualified Code: F25.0 - Schizoaffective disorder, bipolar type Manuel Mensah MD July 18, 2016 14:32
[2016-07-18 17:43] VITALS: BP 139/87; PULSE 63; RESP 16; TEMP 98.4; O2SAT 94
[2016-07-18] MEDS: LORazepam 1 MG TAB PO PRN (20:41)
[2016-07-18] MEDS: cloZAPine 100 MG TAB PO SCH (21:09)
[2016-07-19] MEDS: LEVOTHYROXINE SODIUM 50 MCG TAB PO SCH (05:52)
[2016-07-19 06:12] VITALS: BP 98/65; PULSE 64; RESP 18; TEMP 98.4; O2SAT 100
[2016-07-19] MEDS: HYDROCHLOROTHIAZIDE 25 MG TAB PO SCH (08:36)
[2016-07-19] MEDS: LITHIUM CARBONATE 300 MG CAP PO SCH (08:36)
--- NOTE | 2016-07-19 14:07 | HHI.DS ---
Psychiatry Discharge Summary Inpatient Psychiatric care?: Yes Advance Directive: No Reason Not Provided: Declined Mental Health AdvanceDirective: No Health Care Proxy: No Admission Admission Date Jul 08, 2016 at 10:06 Admission Diagnosis: (1) Schizoaffective disorder ICD Code: F25.9 Brief History The patient is a 36-year-old man, single, unemployed, lives at [facility], with psychiatric history of schizoaffective disorder, multiple hospitalizations in the past, suicidal attempts, he is on clozapine 250 mg, lithium 300 mg twice a day, hydroxyzine 25 mg twice a day, medical history hypertension and hypothyroidism,who presents to emergency department requesting psychological evaluation. He states that he has not slept in over 3 days "because I have been hearing voices, voices making fun of me, and calling my name". Patient says that he hasn't taken his clock sorry for 4 days now. He says that he decided to stop taking it "because I thought that he was a very high-dose fro me". He says that since he stopped taking Clozaril the voices has come back and he also has been feeling paranoid. Patient reports sad mood, anxiety related with perceptual disturbances. He denies suicidal or homicidal ideation, he denies visual and auditory hallucinations. Patient is fully oriented 3, no gross cognitive impairment is observed. No agitation, no aggressive behavior reported. Patient denies the use of drugs and alcohol. Tobacco Use In Past 30 Days: No Tobacco Past 30 Days Alcohol Use: Never Hospital Course Participated in individual and group therapies. Placed on Clozaril and titrated up to 150 mg at night. No procedures performed. Results Blood Pressure 98 / 65 Vital Signs Date Time Temp Pulse Resp B/P Pulse Ox O2 Delivery O2 Flow Rate FiO2 07/19/16 06:12 98.4 64 18 98/65 100 Laboratory Tests Test 07/17/16 07:23 Platelet Count 149 TH/MM3 (150-450) Monocytes (%) (Auto) 9.3 % (0.0-8.0) Eosinophils (%) (Auto) 5.0 % (0.0-4.0) Summary of Procedures None Pending results at discharge: No Medications # of Antipsychotic meds at D/C: 1 Appropriate >1 Antipsych meds?: 1 Approp Antipsych med options 1 - Minimum of three failed multiple trials of monotherapy. 2 - Documented plan to taper to monotherapy due to previous use of multiple meds OR cross-taper in progress at D/C. 3 - Documentation of augmentation of Clozapine. 4 - Justification other than those listed in allowable values 1-3, document here : Discharge Discharge Date: July 19, 2016 Discharge Diagnosis: (1) Schizoaffective disorder ICD Code: F25.9 Mental Status Exam at Disch No suicidal or homicidal ideation, plan or intent. Cognition intact. Verbally contracts for safety. No psychotic symptoms. Pt Condition on Discharge: Stable Discharge Disposition: Discharge Home Discharge Instructions Diet Instructions: As Tolerated, No Restrictions Activities you can perform: Regular-No Restrictions Discharge Time <= 30 minutes Discharge/Advance Care Plan Health Problems: (1) Schizoaffective disorder Goals to promote your health * To prevent worsening of your condition and complications * To maintain your health at the optimal level Directions to meet your goals Take your medications as prescribed Follow your dietary instruction Follow activity as directed Keep your appointments as scheduled Take your immunizations and boosters as scheduled If your symptoms worsen call your PCP, if no PCP go to Urgent Care Center or Emergency Room For 01/10 questions related to your inpatient stay or results of tests pending at discharge, please contact Dr. Manuel Mensah at Smoking is Dangerous to Your Health. Avoid second hand smoking Problem Qualifiers (1) Schizoaffective disorder: Qualified Code: F25.0 - Schizoaffective disorder, bipolar type Manuel Mensah MD July 19, 2016 14:07
[2016-07-19] MEDS ORDERED: HYDR50CA PO (14:11)
[2016-07-19] MEDS ORDERED: LITH300C2 PO ×2 (14:11)
[2016-07-19] MEDS ORDERED: HYDR25TA5 PO (14:11)
[2016-07-19] MEDS ORDERED: CLOZ100 PO (14:11)
[2016-07-19] MEDS ORDERED: LEVO.05 PO (14:11)
== END 2016-07-19 14:55 | disposition home or self-care (01) | DRG 885 ==
LOC: NEPD 21:27 → H260 07-08 09:56 → NEPD 07-08 10:05 → H260 07-08 10:06
PROVIDERS: ADMIT Psychiatry & Neurology Psychiatry; ATTEND Psychiatry & Neurology Psychiatry
DX: F25.0 Schizoaffective disorder, bipolar type (principal); Z91.14 Patient's other noncompliance with medication regimen; I10 Essential (primary) hypertension; E03.9 Hypothyroidism, unspecified; Z91.5 Personal history of self-harm; F41.9 Anxiety disorder, unspecified; G47.00 Insomnia, unspecified
CPT/HCPCS: 80048; 80053; 80061; 80178; 80307; 83036; 85025; 96372; J3410

== ENCOUNTER 2016-08-27 11:18 | Inpatient (IN) | payer MEDICARE, MEDICAID ==
[~2016-08-27] VITALS: Ht 180.3 cm; Wt 86.4 kg
[~2016-08-27 11:18] MED LIST changes: -CEPH500C3 PO; +CLOZ100 PO; -CLOZ200T PO; +CLOZ50TA PO; -ENAL2.5 PO; -HYDR-2768 PO; +HYDR25TA5 PO; +HYDR50CA PO; -HYDR50TA94 PO; +LEVO.05 PO; -LEVO50TA4 PO; -LITH300 PO; +LITH300C2 PO; -NALT50TA PO; +NALT50TA3 PO; -ZOLP5TAB3 PO
[2016-08-27 11:19] VITALS: BP 142/77; PULSE 80; RESP 15; TEMP 98.2; O2SAT 98
--- NOTE | 2016-08-27 11:57 | PD ---
HPI Chief Complaint: Psychiatric Symptoms Time Seen by Provider: 11:49 Travel History International Travel<30 days: No Contact w/Intl Traveler<30days: No Traveled to known affect area: No History of Present Illness HPI 36-year-old male comes in the emergency Department voluntarily with history of depression, suicidal ideation, homicidal ideation, and admission of auditory hallucinations. She was recently hospitalized here with medications in placed in a [facility] house approximately 2 months ago. He states he was doing well at first but he is continued to have increasing anxiety and difficulty sleeping since that time. He is not feels medications are currently working. He denies any type of additional drug use or changes in his medications. He does not feel safe and is here for psychiatric evaluation. He has no medical complaints at this time. He has no known drug allergies. PFSH Past Medical History Bipolar Disorder: Yes Anxiety: Yes Hypertension: Yes Insomnia: Yes Psychiatric: Yes Immunizations Current: Yes Schizophrenia: Yes (SCHIZOAFFECTIVE) Past Surgical History Other Surgery: Yes (FEMUR FRACTURE A CHILD RIGHT LEG(HARDWARE REMOVED)) Social History Alcohol Use: No Tobacco Use: No Substance Use: Yes (Hx Marijuana) Allergies-Medications (Allergen,Severity, Reaction): Coded Allergies: No Known Allergies (Unverified , 08/27/16) Reported Meds & Prescriptions Reported Meds & Active Scripts Active [place] Carbonate 300 Mg Cap 600 Mg PO HS [place] Carbonate 300 Mg Cap 300 Mg PO DAILY Synthroid (Levothyroxine Sodium) 50 Mcg Tab 50 Mcg PO DAILY@06 Hydroxyzine Pamoate 50 Mg Cap 50 Mg PO BID Hydrochlorothiazide 25 Mg Tab 25 Mg PO DAILY Clozaril (Clozapine) 100 Mg Tab 50 Mg PO 3 QHS Reported Naltrexone (Naltrexone HCl) 50 Mg Tab 50 Mg PO DAILY Clozapine 50 Mg Tab 250 Mg PO HS Review of Systems General / Constitutional: No: Fever Eyes: No: Visual changes HENT: No: Headaches Cardiovascular: No: Chest Pain or Discomfort Respiratory: No: Shortness of Breath Gastrointestinal: No: Abdominal Pain Genitourinary: No: Dysuria Musculoskeletal: No: Pain Skin: No Rash Neurologic: No: Weakness Psychiatric: Positive: Anxiety, Depression, Suicidal Ideations, Homicidal Ideation, No: Disorder of Thought, Mood Disorder, Substance Abuse Endocrine: No: Polydipsia Hematologic/Lymphatic: No: Easy Bruising Physical Exam Narrative GENERAL: Patient appears anxious with pressured speech. SKIN: Warm and dry. Normal color. Normal turgor. HEAD: Atraumatic. Normocephalic. EYES: Pupils equal and round. No scleral icterus. No injection or drainage. ENT: No nasal bleeding or discharge. Mucous membranes pink and moist. NECK: Trachea midline. Supple and nontender. CARDIOVASCULAR: Regular rate and rhythm. RESPIRATORY: No accessory muscle use. Clear to auscultation. Breath sounds equal bilaterally. MUSCULOSKELETAL: Extremities without clubbing, cyanosis, or edema. No obvious deformities. NEUROLOGICAL: Awake and alert. No obvious cranial nerve deficits. Motor grossly within normal limits. Five out of 5 muscle strength in the arms and legs. Normal speech. PSYCHIATRIC: Patient has pressured speech and appears manic. He is appropriate however and cooperative. Data Data Last Documented VS Vital Signs Date Time Temp Pulse Resp B/P Pulse Ox O2 Delivery O2 Flow Rate FiO2 08/27/16 12:23 88 16 08/27/16 11:19 98.2 142/77 98 Orders Complete Blood Count With Diff (08/27/16 11:57) Comprehensive Metabolic Panel (08/27/16 11:57) Psych Screen (08/27/16 11:57) Drug Screen, Random Urine (08/27/16 11:57) Lorazepam (Ativan) (08/27/16 12:00) Labs Laboratory Tests Test 08/27/16 12:00 White Blood Count 9.0 TH/MM3 Red Blood Count 5.56 MIL/MM3 Hemoglobin 15.5 GM/DL Hematocrit 45.2 % Mean Corpuscular Volume 81.3 FL Mean Corpuscular Hemoglobin 27.9 PG Mean Corpuscular Hemoglobin 34.3 % Concent Red Cell Distribution Width 13.1 % Platelet Count 166 TH/MM3 Mean Platelet Volume 9.7 FL Neutrophils (%) (Auto) 62.6 % Lymphocytes (%) (Auto) 26.0 % Monocytes (%) (Auto) 8.1 % Eosinophils (%) (Auto) 2.6 % Basophils (%) (Auto) 0.7 % Neutrophils # (Auto) 5.6 TH/MM3 Lymphocytes # (Auto) 2.3 TH/MM3 Monocytes # (Auto) 0.7 TH/MM3 Eosinophils # (Auto) 0.2 TH/MM3 Basophils # (Auto) 0.1 TH/MM3 CBC Comment DIFF FINAL Differential Comment Sodium Level 138 MEQ/L Potassium Level 4.1 MEQ/L Chloride Level 104 MEQ/L Carbon Dioxide Level 25.3 MEQ/L Anion Gap 9 MEQ/L Blood Urea Nitrogen 12 MG/DL Creatinine 1.06 MG/DL Estimat Glomerular Filtration 79 ML/MIN Rate Random Glucose 91 MG/DL Calcium Level 9.7 MG/DL Total Bilirubin 0.5 MG/DL Aspartate Amino Transf 11 U/L (AST/SGOT) Alanine Aminotransferase 21 U/L (ALT/SGPT) Alkaline Phosphatase 85 U/L Total Protein 7.1 GM/DL Albumin 4.3 GM/DL Urine Opiates Screen NEG Urine Barbiturates Screen NEG Urine Amphetamines Screen NEG Urine Benzodiazepines Screen NEG Urine Cocaine Screen NEG Urine Cannabinoids Screen NEG MDM Medical Decision Making Medical Screen Exam Complete: Yes Emergency Medical Condition: Yes Differential Diagnosis Anxiety. Manic. Need for psychiatric evaluation. Narrative Course Patient appears medically stable at time of exam. Labs ordered including CBC, CMP, urinalysis, urine drug screen, and psych screen is ordered. Patient is medically stable for psychiatric evaluation. Diagnosis Primary Impression: Medical clearance for psychiatric admission Additional Impression: Schizoaffective disorder Qualified Code: F25.9 - Schizoaffective disorder, unspecified type Condition: Stable Moustapha Mary Aug 27, 2016 11:57
[2016-08-27] MEDS ORDERED: LORazepam 1 MG TAB PO ONE (12:00)
[2016-08-27 12:18] LABS: AUTOMATED NEUTROPHIL # 5.6 TH/MM3 (1.8-7.7); BASOPHIL # 0.1 TH/MM3 (0-0.2); BASOPHIL % 0.7 % (0.0-2.0); EOSINOPHIL # 0.2 TH/MM3 (0-0.4); EOSINOPHIL % 2.6 % (0.0-4.0); HEMATOCRIT 45.2 % (39.0-51.0); HEMO FLAGS DIFF FINAL; LYMPHOCYTE # 2.3 TH/MM3 (1.0-4.8); MEAN CELL VOLUME 81.3 FL (80.0-100.0); MEAN CORPUSCULAR HEMOGLOBIN 27.9 PG (27.0-34.0); MEAN CORPUSCULAR HGB CONC 34.3 % (32.0-36.0); MONO % 8.1 % (0.0-8.0); NEUT % 62.6 % (16.0-70.0); PLATELET COUNT 166 TH/MM3 (150-450); RED BLOOD COUNT 5.56 MIL/MM3 (4.50-5.90); RED CELL DISTRIBUTION WIDTH 13.1 % (11.6-17.2)
[2016-08-27 12:37] LABS: AMPHETAMINE, URINE NEG (NEG); BARBITURATES, URINE NEG (NEG); COCAINE, URINE NEG (NEG)
[2016-08-27 12:43] LABS: ANION GAP 9 MEQ/L (5-15); BICARBONATE 25.3 MEQ/L (21.0-32.0); BLOOD UREA NITROGEN 12 MG/DL (7-18); CHLORIDE 104 MEQ/L (98-107); GLOMERULAR FILTRATION RATE 79 ML/MIN (>89); POTASSIUM 4.1 MEQ/L (3.5-5.1); SODIUM (NA) 138 MEQ/L (136-145)
[2016-08-27 12:44] LABS: ALT (GPT) 21 U/L (12-78)
[2016-08-27 12:46] LABS: ALKALINE PHOSPHATASE 85 U/L (45-117); AST (GOT) 11 U/L (15-37); TOTAL BILIRUBIN ADULT 0.5 MG/DL (0.2-1.0)
[2016-08-27] MEDS ORDERED: LORazepam 1 MG TAB PO PRN (15:45)
[2016-08-27] MEDS ORDERED: LORazepam 0.5 MG TAB PO PRN (15:45)
[2016-08-27] MEDS ORDERED: LORazepam 2 MG/ML VIAL IM PRN ×2 (15:45)
[2016-08-27] MEDS ORDERED: MAGNESIUM HYDROXIDE SUSP 30 ML CUP PO PRN (15:45)
[2016-08-27] MEDS ORDERED: ACETAMINOPHEN 325 MG TAB PO PRN (15:45)
[2016-08-27] MEDS: HYDROCHLOROTHIAZIDE 25 MG TAB PO SCH (15:45)
[2016-08-27] MEDS ORDERED: traZODone HCL 50 MG TAB PO PRN (15:45)
[2016-08-27] MEDS ORDERED: ALUMINUM/MAGNESIUM/SIMETH 30 ML CUP PO PRN (15:45)
--- NOTE | 2016-08-27 15:59 | HHI.HP ---
Provisional Diagnosis Admission Date Aug 27, 2016 at 15:44 Arnold I. Schizoaffective disorder, bipolar type Certification of Person's Competence To Provide Express and Informed Consent I have personally examined Noe Brown , a person being served at [facility] on, Aug 27, 2016 15:49. Express and informed consent means consent voluntarily given in writing, by a competent person, after sufficient explanation and disclosure of the subject matter involved to enable the person to make a knowing and willful decision without any element of force, fraud, deceit, duress, or other form of constraint or coercion. This person is 18 years of age or older, is not now known to be incompetent to consent to treatment with a guardian advocate, and does not have a health care surrogate or proxy currently making medical treatment decisions. I have found this person to be one of the following: [X] Competent to provide express and informed consent, as defined above, for voluntary admission to this facility and is competent to provide express and informed consent for treatment. He/she has the consistent capacity to make well reasoned, willful, and knowing decisions concerning his or her medical or mental health treatment. The person fully and consistently understands the purpose of the admission for examination/placement and is fully capable of personally exercising all rights assured [place] Incompetent to provide express and informed consent to voluntary admission, and this is incompetent to provide express and informed consent to treatment. The person must be transferred to involuntary status and a petition for a guardian advocate filed with the Circuit Court. [] Refusing to provide express and informed consent to voluntary admission but is competent to provide express and informed consent for treatment. The person must be discharged or transferred to involuntary status. Form shall be completed within 24 hours of a person's arrival at the receiving facility and filed in the clinical record of each person: 1. Admitted on a voluntary basis 2. Permitted to provide express and informed consent to his/her own treatment 3. Allowed to transfer from involuntary to voluntary status 4. Prior to permitting a person to consent to his or her own treatment after having been previously found incompetent to consent to treatment. History of Present Illness Capacity: Has Capacity HPI This is a 36-year-old male admitted voluntarily. Patient is well known to this physician from previous psychiatric hospitalizations. He has a history of schizoaffective disorder, bipolar type. He has been living at a [facility]iary house with people who have drug and alcohol problems. He states he has been hearing voices that they want to kill him. He is reportedly experiencing both suicidal and homicidal thoughts as well as experiencing panic attacks. He states that he is scared for his life. He would like help adjusting his medications and help with his thinking. He reports "I do not want to harm society". He has also indicated to the emergency department staff that he was here 5 weeks ago and needs to get his medications level and his anxiety reduced. He wants to leave his current neighborhood because it is not good and he is "hearing a lot of voices, a voice of other men threatening to kill me and it makes me act out in my thoughts." Upon interview with this physician, the patient is obviously demonstrating racing thoughts, flight of ideas, reported auditory hallucinations and suicidal ideation. He feels his recent environment markedly escalated his anxiety and therefore his auditory hallucinations increased and he began having suicidal thoughts. He does not feel he can control himself and would like to be admitted for stabilization and medication change. Review of Systems Except as stated in HPI: all other systems reviewed are Neg Past Psych History Psychological trauma history Multiple episodes of inpatient and outpatient psychiatric treatment. He is currently seen by a nurse practitioner, Ale, at [facility]. Last hospitalization here at [facility] was approximately 6 weeks ago. Violence risk - others (6 mos) Moderate Violence risk - self (6 mos) High Substance Abuse History Drugs/Alcohol past 12 months Denied Past Family Social History Coded Allergies: No Known Allergies (Unverified , 08/27/16) Active Scripts [place] Carbonate 300 Mg [id number] Mg PO HS #60 CAP Prov:Manuel Mensah MD 07/19/16 [place] Carbonate 300 Mg [id number] Mg PO DAILY #30 CAP Prov:Manuel Mensah MD 07/19/16 Levothyroxine (Synthroid)50 Mcg Tab50 Mcg PO DAILY@06 #30 TAB Prov:Manuel Mensah MD 07/19/16 Hydroxyzine Pamoate 50 Mg Cap50 Mg PO BID #60 CAP Prov:Manuel Mensah MD 07/19/16 Hydrochlorothiazide 25 Mg Tab25 Mg PO DAILY #30 TAB Prov:Manuel Mensah MD 07/19/16 Clozapine (Clozaril)100 Mg Tab50 Mg PO 3 qhs #90 TAB Prov:Manuel Mensah MD 07/19/16 Reported Medications Naltrexone 50 Mg Tab50 Mg PO DAILY Ref 0 07/07/16 Clozapine 50 Mg [id number] Mg PO HS Ref 0 07/07/16 Current Medications Medications (Trade) Dose Ordered Sig/Shyann Route Start Time Stop Time Status Last Admin (Ativan) 1 mg Q6H PRN PO 08/27/16 15:45 (Ativan Inj) 1 mg Q6H PRN IM 08/27/16 15:45 (Ativan) 0.5 mg Q12H PRN PO 08/27/16 15:45 UNV (Ativan Inj) 0.5 mg Q12H PRN IM 08/27/16 15:45 UNV (Tylenol) 650 mg Q4H PRN PO 08/27/16 15:45 (Milk Of Magnesia Liq) 30 ml DAILY PRN PO 08/27/16 15:45 UNV (Mag-Al Plus Susp Liq) 30 ml Q6H PRN PO 08/27/16 15:45 UNV (Desyrel) 50 mg HS PRN PO 08/27/16 15:45 UNV Family History Denied for mental illness, substance abuse and alcoholism. Social History Patient is currently unemployed. He receives Medicaid and states he has been accepted for Social Security disability and Medicare. He does not generally abuse alcohol or drugs. He has indeed been living in a penitentiary house since his last hospitalization here at [facility]. Patient's Strengths (min. 2) Verbal and resilient. Physical Exam GENERAL: SKIN: Warm and dry. HEAD: Normocephalic. EYES: No scleral icterus. No injection or drainage. NECK: Supple, trachea midline. No JVD or lymphadenopathy. CARDIOVASCULAR: Regular rate and rhythm without murmurs, gallops, or rubs. RESPIRATORY: Breath sounds equal bilaterally. No accessory muscle use. GASTROINTESTINAL: Abdomen soft, non-tender, nondistended. MUSCULOSKELETAL: No cyanosis, or edema. BACK: Nontender without obvious deformity. No CVA tenderness. Vital Signs Vital Signs Date Time Temp Pulse Resp B/P Pulse Ox O2 Delivery O2 Flow Rate FiO2 08/27/16 12:23 88 16 08/27/16 11:19 98.2 142/77 98 Mental Status Examination Speech: Rapid, Circumstantial, Tangential Orientation: x3 Memory: Unremarkable Thought Process: Circumstantial, Flight of Ideas, Goal Directed Thought Content: Bizarre thinking, Paranoid, Ideas of Reference Hallucination Type: Auditory Attention and Concentration: Abnormal Suicidal Ideation: Yes Previous Suicide Attempts: No Homicidal Ideation: Yes Previous Homicide Attempts: No Insight: Fair Judgment: WNL, Unrealistic Affect: Anxious Mood: Anxious Motor Activity: Normal gait Assessment & Plan Problem List: (1) Schizoaffective disorder, bipolar type ICD Code: F25.0 Assessment & Plan Estimated LOS: days this is a 36-year-old male with a multiyear history of schizoaffective disorder, bipolar type. He is in a living situation that markedly increases his anxiety and thereby his auditory hallucinations and thereby his suicidal ideations. At this time he is considered at high risk for harming himself and he presented himself voluntarily as a result. The patient does not feel that his medications are adequately controlling his hallucinations and paranoia. This physician is admitting him in order to reevaluate his medicines and stabilize him. The patient will get lithium levels and make sure his lithium is in the therapeutic range. He will also have his electrolytes and CBC checked. Because he is on Clozaril, he may be subject to blood dyscrasias, which need to be evaluated with a CBC. He also needs the electrolytes checked due to his anxious lifestyle. He also needs his electrolytes checked because he is on lithium and we do not know how much water he is consuming or if he's possibly toxic. This physician has also ordered vitamin B-12 and vitamin D levels to ascertain if he has a vitamin deficiency exacerbating his psychosis. Furthermore, the patient has a history of thyroid disease and therefore his TSH is being evaluated to determine if it is contributing to his mood or psychosis. Finally, he will also get an EKG to determine his cardiac conduction and response to his multiple psychotropic medicines. This physician spoke with the patient's nurse regarding his current behavior. This physician will also ask the patient's admitting coordinator to assist with information gathering and placement with outpatient disposition. Manuel Mensah MD Aug 27, 2016 15:59
[2016-08-27 18:00] VITALS: BP 145/97; PULSE 202; RESP 18; TEMP 98.6; O2SAT 98
[2016-08-27 18:47] VITALS: BP 145/97; PULSE 74; RESP 16; TEMP 98.6; O2SAT 98
[2016-08-27] MEDS: LITHIUM CARBONATE 300 MG CAP PO SCH (20:47)
[2016-08-27] MEDS: cloZAPine 100 MG TAB PO SCH (20:48)
[2016-08-28] MEDS: LEVOTHYROXINE SODIUM 50 MCG TAB PO SCH (06:09)
[2016-08-28 06:23] VITALS: BP 97/61; PULSE 64; RESP 18; TEMP 97.1; O2SAT 98
[2016-08-28] MEDS: LITHIUM CARBONATE 300 MG CAP PO SCH ×2 (08:30→21:36)
[2016-08-28] MEDS: HYDROCHLOROTHIAZIDE 25 MG TAB PO SCH (08:32)
[2016-08-28] MEDS ORDERED: NALTREXONE HCL 50 MG TAB PO SCH (09:00)
--- NOTE | 2016-08-28 09:50 | HHI.PYPN ---
Subjective Remarks Patient seen and examined with counselor. Chart reviewed. Case discussed with nursing staff. On my examination today, the patient presents as somewhat vigilant. He says that he has been dealing with a lot of "situational stress and a hostile environment" referring to the sober living where he has been residing. He says that he has been experiencing auditory hallucinations of people threatening to kill him. He denies any suicidal or homicidal ideation. He endorses a high level of anxiety. He reports that he follows with Ale at [employer]. He works at [employer]. His current medications are clozapine and lithium. He says that he has not been on the naltrexone in several months. He says that he is unable to tolerate a higher dose of Clozaril pain because it worsens his anxiety. He also endorses previous unsuccessful trials of Seroquel, Geodon and Abilify. He also reports that he was unable to tolerate typical antipsychotics when they have been tried in the past. Denies side effects from current medications. No physical complaints. Review of Systems ROS Limitations: Psychotic Except as stated in HPI: all other systems reviewed are Neg Objective Alert: Yes [place]: Person, Place, Date, Situation Mood: Anxious Affect: Blunted Memory Intact: Comment (intact on clinical exam) Hallucinations: Auditory (as noted above), Visual (no VH) Delusions: Yes Delusion Type: Other (watchful and vigilant, possibly some degree of paranoia) Suicidal: Ideation (denies suicidal ideation) Homicidal: Ideation (denies homicidal ideation) Insight/Judgment Fair Remarks No motor abnormalities noted. Thought process linear. Speech within normal limits for rate, tone and volume. Grooming and hygiene fair. Labs Test 08/27/16 12:00 White Blood Count 9.0 TH/MM3 Red Blood Count 5.56 MIL/MM3 Hemoglobin 15.5 GM/DL Hematocrit 45.2 % Mean Corpuscular Volume 81.3 FL Mean Corpuscular Hemoglobin 27.9 PG Mean Corpuscular Hemoglobin 34.3 % Concent Red Cell Distribution Width 13.1 % Platelet Count 166 TH/MM3 Mean Platelet Volume 9.7 FL Neutrophils (%) (Auto) 62.6 % Lymphocytes (%) (Auto) 26.0 % Monocytes (%) (Auto) 8.1 % Eosinophils (%) (Auto) 2.6 % Basophils (%) (Auto) 0.7 % Neutrophils # (Auto) 5.6 TH/MM3 Lymphocytes # (Auto) 2.3 TH/MM3 Monocytes # (Auto) 0.7 TH/MM3 Eosinophils # (Auto) 0.2 TH/MM3 Basophils # (Auto) 0.1 TH/MM3 CBC Comment DIFF FINAL Differential Comment Sodium Level 138 MEQ/L Potassium Level 4.1 MEQ/L Chloride Level 104 MEQ/L Carbon Dioxide Level 25.3 MEQ/L Anion Gap 9 MEQ/L Blood Urea Nitrogen 12 MG/DL Creatinine 1.06 MG/DL Estimat Glomerular Filtration 79 ML/MIN Rate Random Glucose 91 MG/DL Calcium Level 9.7 MG/DL Total Bilirubin 0.5 MG/DL Aspartate Amino Transf 11 U/L (AST/SGOT) Alanine Aminotransferase 21 U/L (ALT/SGPT) Alkaline Phosphatase 85 U/L Total Protein 7.1 GM/DL Albumin 4.3 GM/DL Urine Opiates Screen NEG Urine Barbiturates Screen NEG Urine Amphetamines Screen NEG Urine Benzodiazepines Screen NEG Urine Cocaine Screen NEG Urine Cannabinoids Screen NEG Labs reviewed. Mild thrombocytopenia, within patient's historic baseline. GFR decreased, again within his historic baseline. Vitals/IOs Vital Signs Date Time Temp Pulse Resp B/P Pulse Ox O2 Delivery O2 Flow Rate FiO2 08/28/16 06:23 97.1 64 18 97/61 98 Assessment & Plan Problem List: (1) Schizoaffective disorder, bipolar type ICD Code: F25.0 Assessment & Plan Continue Clozaril pain as ordered. Continue lithium as ordered, could consider titrating this agent if needed for mood stabilization. Add Latuda 40 mg with dinner with plans to titrate to effect. Risks and benefits of this medication discussed with patient. Encouraged participation in groups and unit activities. Continue to monitor on the inpatient unit. Continue other medications and care as ordered. Justification for Cont. Inpt. Impairment in reality construction. Medication changes in process. High risk for decompensation in a less restrictive environment. Discharge Planning Pending psychiatric stabilization. I anticipate the patient will require between 5 and 7 inpatient days. Request HC Surrog/Guard Advoc?: No Javad Connolly MD Aug 28, 2016 09:49
[2016-08-28 10:06] LABS: AUTOMATED NEUTROPHIL # 3.5 TH/MM3 (1.8-7.7); BASOPHIL % 0.8 % (0.0-2.0); EOSINOPHIL # 0.3 TH/MM3 (0-0.4); EOSINOPHIL % 4.2 % (0.0-4.0); HEMO FLAGS DIFF FINAL; LYMPH % 30.3 % (9.0-44.0); LYMPHOCYTE # 1.8 TH/MM3 (1.0-4.8); MEAN CELL VOLUME 81.8 FL (80.0-100.0); MEAN CORPUSCULAR HEMOGLOBIN 28.5 PG (27.0-34.0); MEAN CORPUSCULAR HGB CONC 34.8 % (32.0-36.0); MONO % 7.3 % (0.0-8.0); NEUT % 57.4 % (16.0-70.0); PLATELET COUNT 148 TH/MM3 (150-450); RED BLOOD COUNT 5.25 MIL/MM3 (4.50-5.90); RED CELL DISTRIBUTION WIDTH 13.1 % (11.6-17.2); WHITE BLOOD COUNT 6.1 TH/MM3 (4.0-11.0)
[2016-08-28 10:57] LABS: ALKALINE PHOSPHATASE 75 U/L (45-117); ALT (GPT) 19 U/L (12-78); ANION GAP 12 MEQ/L (5-15); AST (GOT) 10 U/L (15-37); BLOOD UREA NITROGEN 11 MG/DL (7-18); CHLORIDE 103 MEQ/L (98-107); GLOMERULAR FILTRATION RATE 75 ML/MIN (>89); HDL CHOLESTEROL 30.3 MG/DL (40.0-60.0); LDL CHOLESTEROL 78 MG/DL (0-99); POTASSIUM 3.8 MEQ/L (3.5-5.1); SODIUM (NA) 140 MEQ/L (136-145); TOTAL BILIRUBIN ADULT 0.3 MG/DL (0.2-1.0)
[2016-08-28 15:44] VITALS: BP 121/57; PULSE 55; RESP 17; TEMP 97.5; O2SAT 100
[2016-08-28 16:43] LABS: HEMOGLOBIN A1a 1.1 %; HEMOGLOBIN A1b 0.9 %; HEMOGLOBIN Ao 86.8 %; HEMOGLOBIN F 0.8 %; HEMOGLOBIN LA1C 1.8 %; HEMOGLOBIN P3 3.2 %
[2016-08-28] MEDS: LURASIDONE 40 MG TAB PO SCH (18:00)
[2016-08-28] MEDS: cloZAPine 100 MG TAB PO SCH (21:37)
[2016-08-29] MEDS: LEVOTHYROXINE SODIUM 50 MCG TAB PO SCH (05:36)
[2016-08-29 05:50] VITALS: BP 95/50; PULSE 56; RESP 17; TEMP 97.3; O2SAT 99
[2016-08-29] MEDS: LITHIUM CARBONATE 300 MG CAP PO SCH ×2 (08:54→21:22)
[2016-08-29] MEDS: HYDROCHLOROTHIAZIDE 25 MG TAB PO SCH ×2 (09:00→16:17)
--- NOTE | 2016-08-29 12:31 | HHI.PYPN ---
Subjective Remarks Patient seen and examined with counselor. Chart reviewed. Case discussed with nursing staff. On my examination today, the patient remains somewhat pressured and interpersonally intense. He says that the addition of Latuda has helped "slow my thoughts down and quiet my mind." He continues to endorse some vague AH but no reported CAH. He feels less anxious on the inpatient unit. Denies side effects from medications but reluctant to titrate Latuda on daily basis because he is fearful that this will make him overly sedated. No physical complaints. Review of Systems ROS Limitations: Psychotic, Poor Historian Except as stated in HPI: all other systems reviewed are Neg Objective Alert: Yes [place]: Person, Place, Date, Situation Mood: Anxious (lessened today) Affect: Blunted Memory Intact: Comment (remains intact) Hallucinations: Auditory (lessening) Delusions: No Delusion Type: Other (no delusions elicited today) Suicidal: Ideation (no SI) Homicidal: Ideation (no HI) Insight/Judgment Fair Remarks Thought process linear. Speech remains little pressured. Grooming and hygiene good. Labs Labs reviewed. Vitals/IOs Vital Signs Date Time Temp Pulse Resp B/P Pulse Ox O2 Delivery O2 Flow Rate FiO2 08/29/16 05:50 97.3 56 17 95/50 99 Assessment & Plan Problem List: (1) Schizoaffective disorder, bipolar type ICD Code: F25.0 Assessment & Plan Continue Latuda augmenting clozapine as ordered. To consider further titration of this agent. Continue other psychotropics as ordered. Continue to monitor on the inpatient unit. Continue other medications and care as ordered. Justification for Cont. Inpt. Impairment in reality construction. High risk for decompensation in a less restrictive environment. Discharge Planning Pending psychiatric stabilization. Request HC Surrog/Guard Advoc?: No Javad Connolly MD Aug 29, 2016 12:31
[2016-08-29 16:23] VITALS: BP 165/92; PULSE 18; RESP 18; TEMP 98.2; O2SAT 97
[2016-08-29] MEDS: LURASIDONE 40 MG TAB PO SCH (17:55)
[2016-08-29] MEDS: cloZAPine 100 MG TAB PO SCH (21:22)
[2016-08-30] MEDS: LEVOTHYROXINE SODIUM 50 MCG TAB PO SCH (06:00)
[2016-08-30 06:17] VITALS: BP 109/55; PULSE 97; RESP 16; TEMP 97.8; O2SAT 98
[2016-08-30] MEDS: LITHIUM CARBONATE 300 MG CAP PO SCH ×2 (08:17→21:22)
[2016-08-30] MEDS: HYDROCHLOROTHIAZIDE 25 MG TAB PO SCH (08:19)
--- NOTE | 2016-08-30 15:19 | HHI.PYPN ---
Subjective Remarks Patient seen and examined. Chart reviewed. Case discussed with nursing staff. Nursing informs me that the patient was charted as having received a dose of trazodone to which he has a listed allergy yesterday evening. However, nursing staff has spoken with the patient and he has told them that he did not in fact take the trazodone. Patient has been no behavioral problem, nor has he had any physical complaints. On my examination today, the patient says that he did not take the trazodone. He says that when he has had trazodone in the past he has felt confused. Allergies list indicates that the patient develops a rash from trazodone. On my examination today, the patient says that he feels like the Latuda is working "perfect." He says "I haven't been having any racing thoughts , I can focus better, I have not been feeling manic." He denies any suicidal or homicidal ideation. He denies any audiovisual hallucinations. Mood is good. Denies side effects from medications. No physical complaints. No rash. Patient says he might go to stay with some friends of his in [facility] after discharge. Review of Systems Except as stated in HPI: all other systems reviewed are Neg Objective Alert: Yes [place]: Person, Place, Date, Situation Mood: Calm Affect: Euthymic Memory Intact: Comment (intact) Hallucinations: Other (denies AVH) Delusions: No Delusion Type: Other (no delusional material) Suicidal: Ideation (denies SI) Homicidal: Ideation (denies HI) Insight/Judgment Fair Remarks No abnormal motor movements noted. Thought process linear. Grooming and hygiene good. Speech remains a little hurried not really pressured. No visible rash. Labs Labs reviewed. Vitals/IOs Vital Signs Date Time Temp Pulse Resp B/P Pulse Ox O2 Delivery O2 Flow Rate FiO2 08/30/16 06:17 97.8 97 16 109/55 98 Assessment & Plan Problem List: (1) Schizoaffective disorder, bipolar type ICD Code: F25.0 Assessment & Plan Continue Latuda as ordered. Patient is pleased with this medication as it is currently dosed and does not wish to make adjustments at this time. Continue other psychotropics as ordered. Continue other medications and care as ordered. Justification for Cont. Inpt. Discharge planning Discharge Planning Anticipate discharge tomorrow, Saturday or perhaps Saturday. Request HC Surrog/Guard Advoc?: No Javad Connolly MD Aug 30, 2016 15:19
[2016-08-30 17:02] VITALS: BP 159/92; PULSE 63; RESP 17; TEMP 97.3; O2SAT 99
[2016-08-30] MEDS: LURASIDONE 40 MG TAB PO SCH (17:33)
[2016-08-30] MEDS: cloZAPine 100 MG TAB PO SCH (21:22)
[2016-08-31] MEDS: LEVOTHYROXINE SODIUM 50 MCG TAB PO SCH (05:31)
[2016-08-31 05:38] VITALS: BP 103/58; PULSE 58; RESP 16; TEMP 98; O2SAT 98
[2016-08-31] MEDS: LITHIUM CARBONATE 300 MG CAP PO SCH (08:57)
[2016-08-31] MEDS: HYDROCHLOROTHIAZIDE 25 MG TAB PO SCH (08:57)
[2016-08-31] MEDS ORDERED: CHOLECALCIFEROL (VIT D3) 1000 UNIT TAB PO SCH (09:00)
[2016-08-31] MEDS ORDERED: CLOZ100 PO (13:24)
[2016-08-31] MEDS ORDERED: LORA-392 PO (13:24)
[2016-08-31] MEDS ORDERED: VITA1000 PO (13:24)
[2016-08-31] MEDS ORDERED: LURA40 PO (13:24)
[2016-08-31] MEDS ORDERED: HYDR25TA5 PO (13:24)
--- NOTE | 2016-08-31 13:24 | HHI.DS ---
Psychiatry Discharge Summary Inpatient Psychiatric care?: Yes Advance Directive: No Reason Not Provided: Refused Mental Health AdvanceDirective: No Health Care Proxy: No Admission Admission Date Aug 27, 2016 at 15:44 Admission Diagnosis: (1) Schizoaffective disorder, bipolar type ICD Code: F25.0 Brief History This is a 36-year-old male admitted voluntarily. Patient is well known to this physician from previous psychiatric hospitalizations. He has a history of schizoaffective disorder, bipolar type. He has been living at a longterm house with people who have drug and alcohol problems. He states he has been hearing voices that they want to kill him. He is reportedly experiencing both suicidal and homicidal thoughts as well as experiencing panic attacks. He states that he is scared for his life. He would like help adjusting his medications and help with his thinking. He reports "I do not want to harm society". He has also indicated to the emergency department staff that he was here 5 weeks ago and needs to get his medications level and his anxiety reduced. He wants to leave his current neighborhood because it is not good and he is "hearing a lot of voices, a voice of other men threatening to kill me and it makes me act out in my thoughts." Upon interview with this physician, the patient is obviously demonstrating racing thoughts, flight of ideas, reported auditory hallucinations and suicidal ideation. He feels his recent environment markedly escalated his anxiety and therefore his auditory hallucinations increased and he began having suicidal thoughts. He does not feel he can control himself and would like to be admitted for stabilization and medication change. Tobacco Use In Past 30 Days: 4 or Less Cigarettes/Day Alcohol Use: Never Hospital Course Patient was admitted to a locked, inpatient psychiatric unit. Appropriate precautions were in place throughout patient's hospital stay. Patient was seen and examined daily on the unit by psychiatry and also visited by counselor. Psychotropic medications were adjusted. Patient tolerated medication changes well without side effects. Patient had improvement in presenting psychiatric symptomatology during the course of his hospital stay. There was no evidence of any suicidality or homicidality on the inpatient unit. Patient remained in good behavioral control and was medication compliant. On the day of discharge: Patient seen and examined. Chart reviewed. Case discussed with nursing staff. No behavioral issues noted overnight. On my examination today, the patient is in good spirits. He feels improved versus admission and is requesting discharge from the inpatient psychiatric unit. No depressive or hypomanic/ manic symptoms. He denies any audiovisual hallucinations and I can elicit no delusional beliefs. He denies any suicidal or homicidal ideation, intent or plan on direct questioning. Denies side effects from medications. No physical complaints. Weighing the acute, chronic, and protective factors and based on the available evidence, I manager administrative to reasonable degree of medical certainty that the patient is at low imminent risk of harm to self or others from a mental illness as defined under the [place] act and his level of function is adequate for outpatient care. Patient will be discharged today with psychiatric follow- up as arranged by counselor. Patient is also follow-up with primary care. I have counseled the patient regarding warning signs for need to return to the psychiatric emergency room as part of the general safety plan. I have also cautioned the patient against combining any of his psychotropics with drugs or alcohol. Results Blood Pressure 103 / 58 Vital Signs Date Time Temp Pulse Resp B/P Pulse Ox O2 Delivery O2 Flow Rate FiO2 08/31/16 05:38 98.0 58 16 103/58 98 Laboratory Results Test 08/28/16 09:03 Hemoglobin A1c 5.2 % (4.3-6.0) Triglycerides Level 271 MG/DL (42-150) Cholesterol Level 162 MG/DL (120-200) LDL Cholesterol 78 MG/DL (0-99) HDL Cholesterol 30.3 MG/DL (40.0-60.0) Summary of Procedures None done Imaging None done Pending results at discharge: No Medications # of Antipsychotic meds at D/C: 2 Appropriate >1 Antipsych meds?: 3 Approp Antipsych med options 1 - Minimum of three failed multiple trials of monotherapy. 2 - Documented plan to taper to monotherapy due to previous use of multiple meds OR cross-taper in progress at D/C. 3 - Documentation of augmentation of Clozapine. 4 - Justification other than those listed in allowable values 1-3, document here : Discharge Discharge Date: Aug 31, 2016 Discharge Diagnosis: (1) Schizoaffective disorder, bipolar type Diagnosis: Principal (stabilized) ICD Code: F25.0 GAF on discharge is 60 Mental Status Exam at Disch Patient is casually dressed. He is well groomed. He is awake and alert and oriented 3. No abnormal motor movements noted. Speech is within normal limits for rate, tone and volume. Language and fund of knowledge seemed at least average. Focus and concentration intact. Memory intact on clinical exam. Mood is good and affect is full and reactive. Thought process linear. No loosening of associations. No evident delusional material. Denies audiovisual hallucinations. Denies suicidal or homicidal ideation, intent or plan. Insight and judgment are fair. Pt Condition on Discharge: Stable Discharge Disposition: Discharge Home Discharge Instructions Diet Instructions: As Tolerated, No Restrictions Activities you can perform: Weight Bearing as Miguel Scheduled Appointment: as per counselor's notes New Orders: PLATELET COUNT - 1 Week New Medications: Lorazepam (Ativan) 0.5 Mg Tab 0.5 MG PO Q6H PRN ANXIETY AND/OR AGITATION #7 Ref 0 TAB Cholecalciferol (D 1000) 1,000 Unit Tab 1000 UNITS PO DAILY Vitamin D Supplement Days 15 Ref 1 TAB Clozapine (Clozaril) 100 Mg Tab 100 MG PO HS Order is to update med rec only. Pt has adequate supply. Mental Health Days 0 Ref 0 TAB Levothyroxine (Synthroid) 50 Mcg Tab 50 MCG PO DAILY@06 Mental Health Days 15 Ref 1 TAB Lurasidone (Latuda) 40 Mg Tab 40 MG PO WITH DINNER Mental Health Days 15 Ref 1 TAB Continued Medications: Hydrochlorothiazide (Hydrochlorothiazide) 25 Mg Tab 25 MG PO DAILY Blood Pressure Management Days 15 Ref 1 TAB (This prescription has been renewed) [place] Carbonate ([place] Carbonate) 300 Mg Cap 300 MG PO DAILY Depression Control #30 CAP [place] Carbonate ([place] Carbonate) 300 Mg Cap 600 MG PO HS Depression Control #60 CAP Discontinued Medications: Clozapine (Clozapine) 50 Mg Tab 250 MG PO HS Schizophrenia Ref 0 TAB Clozapine (Clozaril) 100 Mg Tab 50 MG PO 3 qhs Psychosis #90 TAB Hydroxyzine Pamoate (Hydroxyzine Pamoate) 50 Mg Cap 50 MG PO BID Anxiety #60 CAP Naltrexone (Naltrexone) 50 Mg Tab 50 MG PO DAILY Ref 0 TAB Discharge Time <= 30 minutes Discharge/Advance Care Plan Health Problems: (1) Schizoaffective disorder, bipolar type Goals to promote your health * To prevent worsening of your condition and complications * To maintain your health at the optimal level Directions to meet your goals Take your medications as prescribed Follow your dietary instruction Follow activity as directed Keep your appointments as scheduled Take your immunizations and boosters as scheduled If your symptoms worsen call your PCP, if no PCP go to Urgent Care Center or Emergency Room For 01/10 questions related to your inpatient stay or results of tests pending at discharge, please contact Dr. Javad Connolly at Smoking is Dangerous to Your Health. Avoid second hand smoking Javad Connolly MD Aug 31, 2016 13:24
[2016-08-31] MEDS ORDERED: LEVO.05 PO (14:02)
[2016-08-31] MEDS ORDERED: LITH600C PO (16:55)
[2016-08-31] MEDS ORDERED: CLOZ100T3 PO (16:55)
[2016-08-31] MEDS ORDERED: HYDR50TA94 PO (16:55)
[2016-08-31] MEDS ORDERED: LITH300T3 PO (16:55)
== END 2016-08-31 13:45 | disposition home or self-care (01) | DRG 885 ==
LOC: NEPD 11:18 → NEDA 15:44 → H260 17:43
PROVIDERS: ADMIT Psychiatry & Neurology Psychiatry; ATTEND Psychiatry & Neurology Psychiatry
DX: F25.0 Schizoaffective disorder, bipolar type (principal); R45.851 Suicidal ideations; R45.850 Homicidal ideations; F41.0 Panic disorder [episodic paroxysmal anxiety]
CPT/HCPCS: 80053; 80061; 80307; 82306; 82607; 83036; 84443; 85025

== ENCOUNTER 2017-01-24 15:38 | Inpatient (IN) | payer MEDICARE, OTHER ==
[~2017-01-24] VITALS: Ht 180.3 cm; Wt 88.2 kg
[~2017-01-24 15:38] MED LIST changes: -CLOZ100 PO; +CLOZ100T3 PO; -CLOZ50TA PO; -HYDR50CA PO; +HYDR50TA94 PO; -LITH300C2 PO; +LITH300T3 PO; +LITH600C PO; +LORA-392 PO; +LURA40 PO; -NALT50TA3 PO; +VITA1000 PO
[2017-01-24 15:39] VITALS: BP 142/95; PULSE 93; RESP 20; TEMP 99.1; O2SAT 100
[2017-01-24] MEDS ORDERED: LURA1TAB2 PO (17:04)
[2017-01-24 17:23] LABS: AUTOMATED NEUTROPHIL # 7.6 TH/MM3 (1.8-7.7); BASOPHIL # 0.1 TH/MM3 (0-0.2); EOSINOPHIL # 0.3 TH/MM3 (0-0.4); EOSINOPHIL % 2.3 % (0.0-4.0); HEMATOCRIT 47.3 % (39.0-51.0); HEMO FLAGS DIFF FINAL; LYMPH % 23.7 % (9.0-44.0); LYMPHOCYTE # 2.7 TH/MM3 (1.0-4.8); MEAN CELL VOLUME 86.1 FL (80.0-100.0); MEAN CORPUSCULAR HEMOGLOBIN 29.4 PG (27.0-34.0); MEAN CORPUSCULAR HGB CONC 34.2 % (32.0-36.0); MONO % 6.1 % (0.0-8.0); NEUT % 66.9 % (16.0-70.0); PLATELET COUNT 164 TH/MM3 (150-450); RED CELL DISTRIBUTION WIDTH 13.3 % (11.6-17.2); WHITE BLOOD COUNT 11.4 TH/MM3 (4.0-11.0)
--- NOTE | 2017-01-24 17:33 | PD ---
HPI Chief Complaint: Suicide Ideation/Attempt Time Seen by Provider: 16:55 Travel History International Travel<30 days: No Contact w/Intl Traveler<30days: No Traveled to known affect area: No History of Present Illness HPI 36-year-old male that presents to the ED for evaluation of suicidal ideation. Per patient has a history of schizoaffective disorder. His been compliant with his medications but continues to have symptoms. Per patient he recently lost his mother and this has put more stress on him. Patient denies any actual plan but states that he has hallucinations and thoughts of hurting himself. Per patient he also been having more panic attacks. Per patient he believes his medications aren't helping him. He denies any medical issues alert and tired disorder and hypertension. He takes his medications as prescribed. He has an allergy to trazodone. He denies any other medical issue. Per patient the symptoms have been exacerbated secondary to the mother's that recently. Patient came here voluntarily to seek help. He denies any homicidal ideation. No drug abuse or alcohol. PFSH Past Medical History Bipolar Disorder: Yes Anxiety: Yes Depression: Yes Cardiovascular Problems: No Diabetes: No Headaches: No Hypertension: Yes Insomnia: Yes Psychiatric: Yes (Bipolar) Immunizations Current: Yes Schizophrenia: Yes (SCHIZOAFFECTIVE) Seizures: No Past Surgical History Other Surgery: Yes (FEMUR FRACTURE A CHILD RIGHT LEG(HARDWARE REMOVED)) Social History Alcohol Use: Yes Tobacco Use: Yes Substance Use: Yes (OPIATES, MARIJUANA AT TIMES) Allergies-Medications (Allergen,Severity, Reaction): Coded Allergies: trazodone (Unverified Allergy, Intermediate, Rash, 10/23/16) Reported Meds & Prescriptions Reported Meds & Active Scripts Active [place] Carbonate 600 Mg Cap 600 Mg PO HS 15 Days [place] Carbonate 300 Mg Tab 300 Mg PO DAILY 15 Days Clozapine 100 Mg Tab 100 Mg PO HS 15 Days Synthroid (Levothyroxine Sodium) 50 Mcg Tab 50 Mcg PO DAILY@06 15 Days D 1000 (Cholecalciferol) 1,000 Unit Tab 1,000 Units PO DAILY 15 Days Hydrochlorothiazide 25 Mg Tab 25 Mg PO DAILY 15 Days Reported Latuda (Lurasidone) 60 Mg Tab 60 Mg PO HS Review of Systems Except as stated in HPI: all other systems reviewed are Neg Physical Exam Narrative GENERAL: SKIN: Warm and dry. HEAD: Atraumatic. Normocephalic. EYES: Pupils equal and round. No scleral icterus. No injection or drainage. ENT: No nasal bleeding or discharge. Mucous membranes pink and moist. Tongue is midline. No uvula deviation. NECK: Trachea midline. No JVD. CARDIOVASCULAR: Regular rate and rhythm. No murmurs, S3, S4. RESPIRATORY: No accessory muscle use. Clear to auscultation. Breath sounds equal bilaterally. GASTROINTESTINAL: Abdomen soft, non-tender, nondistended. Hepatic and splenic margins not palpable. MUSCULOSKELETAL: Extremities without clubbing, cyanosis, or edema. No obvious deformities. Full range of motion of the upper and lower extremities bilaterally. 2+ pulses bilaterally. NEUROLOGICAL: Awake and alert. No obvious cranial nerve deficits. Motor grossly within normal limits. Five out of 5 muscle strength in the arms and legs. Normal speech. PSYCHIATRIC: Appropriate mood and affect; insight and judgment normal. Data Data Last Documented VS Vital Signs Date Time Temp Pulse Resp B/P (MAP) Pulse Ox O2 Delivery O2 Flow Rate FiO2 01/24/17 15:39 99.1 93 20 142/95 (111) 100 Room Air Orders Orders Complete Blood Count With Diff (01/24/17 16:55) Comprehensive Metabolic Panel (01/24/17 16:55) Psych Screen (01/24/17 16:55) Drug Screen, Random Urine (01/24/17 16:55) Alcohol (Ethanol) (01/24/17 16:55) Salicylates (Aspirin) (01/24/17 16:55) Tylenol (Acetaminophen) (01/24/17 16:55) Labs Laboratory Tests Test 01/24/17 17:10 White Blood Count 11.4 TH/MM3 Red Blood Count 5.50 MIL/MM3 Hemoglobin 16.2 GM/DL Hematocrit 47.3 % Mean Corpuscular Volume 86.1 FL Mean Corpuscular Hemoglobin 29.4 PG Mean Corpuscular Hemoglobin Concent 34.2 % Red Cell Distribution Width 13.3 % Platelet Count 164 TH/MM3 Mean Platelet Volume 10.9 FL Neutrophils (%) (Auto) 66.9 % Lymphocytes (%) (Auto) 23.7 % Monocytes (%) (Auto) 6.1 % Eosinophils (%) (Auto) 2.3 % Basophils (%) (Auto) 1.0 % Neutrophils # (Auto) 7.6 TH/MM3 Lymphocytes # (Auto) 2.7 TH/MM3 Monocytes # (Auto) 0.7 TH/MM3 Eosinophils # (Auto) 0.3 TH/MM3 Basophils # (Auto) 0.1 TH/MM3 CBC Comment DIFF FINAL Differential Comment MDM Medical Decision Making Medical Screen Exam Complete: Yes Emergency Medical Condition: Yes Medical Record Reviewed: Yes Interpretation(s) CBC Diagram 01/24/17 17:10 Differential Diagnosis Depression versus suicidal ideation versus anxiety versus adjustment disorder versus mood disorder versus bipolar disorder versus schizophrenia versus paranoid disorder versus psychosis versus substance abuse versus alcohol abuse versus alcohol induced psychosis versus homicidality addition versus cutting versus personality disorder Narrative Course 36-year-old male that presents to the ED for evaluation of psych. Patient was properly examined and was found to have signs and symptoms consistent psychiatric illness. No sign of acute medical distress. Labs were drawn. Patient was medically cleared. Okay to be seen by psych. Mental health screening was discussed with the patient. Diagnosis Primary Impression: Schizoaffective disorder Qualified Codes: F25.0 - Schizoaffective disorder, bipolar type Jermaine Mirza Jan 24, 2017 17:33
[2017-01-24 17:59] LABS: ANION GAP 7 MEQ/L (5-15)
[2017-01-24 18:00] VITALS: BP 125/80; PULSE 56; RESP 18; TEMP 97.7; O2SAT 99
[2017-01-24 18:06] LABS: ALKALINE PHOSPHATASE 89 U/L (45-117); ALT (GPT) 27 U/L (12-78); AST (GOT) 20 U/L (15-37); BICARBONATE 28.4 MEQ/L (21.0-32.0); BLOOD UREA NITROGEN 11 MG/DL (7-18); CHLORIDE 102 MEQ/L (98-107); GLOMERULAR FILTRATION RATE 71 ML/MIN (>89); POTASSIUM 4.4 MEQ/L (3.5-5.1); SODIUM (NA) 137 MEQ/L (136-145); TOTAL BILIRUBIN ADULT 0.4 MG/DL (0.2-1.0)
[2017-01-24 18:15] LABS: ACETAMINOPHEN LESS THAN 2.0 MCG/ML (10.0-30.0); ALCOHOL LESS THAN 3 MG/DL (0-5)
[2017-01-25 02:22] VITALS: BP 138/71; PULSE 62; RESP 17; O2SAT 99
[2017-01-25 06:25] VITALS: BP 123/64; PULSE 64; RESP 18; TEMP 97.9; O2SAT 98
[2017-01-25 11:08] VITALS: BP 140/73; PULSE 60; RESP 16; TEMP 98; O2SAT 100
[2017-01-25] MEDS ORDERED: diphenhydrAMINE HCL 50 MG CAP PO PRN (12:00)
[2017-01-25] MEDS ORDERED: MAGNESIUM HYDROXIDE SUSP 30 ML CUP PO PRN (12:00)
[2017-01-25] MEDS ORDERED: diphenhydrAMINE HCL 50 MG/ML VIAL IM PRN (12:00)
[2017-01-25] MEDS ORDERED: ACETAMINOPHEN 325 MG TAB PO PRN (12:00)
[2017-01-25] MEDS ORDERED: ALUMINUM/MAGNESIUM/SIMETH 30 ML CUP PO PRN (12:00)
[2017-01-25] MEDS ORDERED: LORazepam 2 MG/ML VIAL IM PRN (12:00)
--- NOTE | 2017-01-25 12:12 | HHI.HP ---
Provisional Diagnosis Admission Date Jan 25, 2017 at 11:55 [place] I. Schizoaffective disorder Certification of Person's Competence To Provide Express and Informed Consent I have personally examined Noe Brown , a person being served at [facility] on, Jan 25, 2017 12:10. Express and informed consent means consent voluntarily given in writing, by a competent person, after sufficient explanation and disclosure of the subject matter involved to enable the person to make a knowing and willful decision without any element of force, fraud, deceit, duress, or other form of constraint or coercion. This person is 18 years of age or older, is not now known to be incompetent to consent to treatment with a guardian advocate, and does not have a health care surrogate or proxy currently making medical treatment decisions. I have found this person to be one of the following: [X] Competent to provide express and informed consent, as defined above, for voluntary admission to this facility and is competent to provide express and informed consent for treatment. He/she has the consistent capacity to make well reasoned, willful, and knowing decisions concerning his or her medical or mental health treatment. The person fully and consistently understands the purpose of the admission for examination/placement and is fully capable of personally exercising all rights [place] Incompetent to provide express and informed consent to voluntary admission, and this is incompetent to provide express and informed consent to treatment. The person must be transferred to involuntary status and a petition for a guardian advocate filed with the Circuit Court. [] Refusing to provide express and informed consent to voluntary admission but is competent to provide express and informed consent for treatment. The person must be discharged or transferred to involuntary status. Form shall be completed within 24 hours of a person's arrival at the receiving facility and filed in the clinical record of each person: 1. Admitted on a voluntary basis 2. Permitted to provide express and informed consent to his/her own treatment 3. Allowed to transfer from involuntary to voluntary status 4. Prior to permitting a person to consent to his or her own treatment after having been previously found incompetent to consent to treatment. History of Present Illness Capacity: Has Capacity HPI 36-year-old male with history of schizoaffective disorder, presents voluntarily for evaluation and treatment due to increasing thoughts of suicide and command auditory hallucinations. Patient is well known to this physician from previous treatment here at [facility]. On this occasion, he states that he has been compliant with his psychotropic medicine. Unfortunately, his mother recently and he has decompensated since that time. He feels his medicines are not adequately treating his symptoms. He is reporting auditory hallucinations of a command nature, telling him to harm himself. The patient states he does not have a specific plan but he is quite anxious and depressed secondary to the loss of his mother as well as his ongoing auditory hallucinations. He is unable to verbally contract for safety but he is willing to be admitted voluntarily. Review of Systems Psychiatric: COMPLAINS OF: Anxiety, Depression, Hallucinations, Suicidal Ideation Except as stated in HPI: all other systems reviewed are Neg Past Psych History Psychological trauma history Denied for psychological trauma although the patient did recently lose his mother. Violence risk - others (6 mos) Minimal Violence risk - self (6 mos) High Substance Abuse History Drugs/Alcohol past 12 months Denied Past Family Social History Coded Allergies: trazodone (Unverified Allergy, Intermediate, Rash, 10/23/16) Active Scripts Sudden [place] Carbonate (Sudden Valley Carbonate) 600 Mg Cap, 600 MG PO HS for Mental Health for 15 Days, CAP 1 Refill Prov:Javad Connolly MD 08/31/16 [place]den [place] Carbonate ([place]den [place] Carbonate) 300 Mg Tab, 300 MG PO DAILY for Mental Health for 15 Days, TAB 1 Refill Prov:Javad Connolly MD 08/31/16 Clozapine (Clozapine) 100 Mg Tab, 100 MG PO HS for Mental Health for 15 Days, TAB 1 Refill Prov:Javad Connolly MD 08/31/16 Levothyroxine (Synthroid) 50 Mcg Tab, 50 MCG PO DAILY@06 for Mental Health for 15 Days, TAB 1 Refill Prov:Javad Connolly MD 08/31/16 Cholecalciferol (D 1000) 1,000 Unit Tab, 1000 UNITS PO DAILY for Vitamin D Supplement for 15 Days, TAB 1 Refill Prov:Javad Connolly MD 08/31/16 Hydrochlorothiazide (Hydrochlorothiazide) 25 Mg Tab, 25 MG PO DAILY for Blood Pressure Management for 15 Days, TAB 1 Refill Prov:Javad Connolly MD 08/31/16 Reported Medications Lurasidone (Latuda) 60 Mg Tab, 60 MG PO HS, TAB 0 Refills 01/24/17 Discontinued Scripts Hydroxyzine HCl (Hydroxyzine HCl) 50 Mg Tab, 50 MG PO BID for Mental Health for 15 Days, TAB 1 Refill Prov:Javad Connolly MD 08/31/16 Lorazepam (Ativan) 0.5 Mg Tab, 0.5 MG PO Q6H Y for ANXIETY AND/OR AGITATION, #7 TAB 0 Refills Prov:Javad Connolly MD 08/31/16 Lurasidone (Latuda) 40 Mg Tab, 40 MG PO WITH DINNER for Mental Health for 15 Days, TAB 1 Refill Prov:Javad Connolly MD 08/31/16 Current Medications Medications (Trade) Dose Ordered Sig/Shyann Route Start Time Stop Time Status Last Admin (Ativan) 1 mg Q6H PRN PO 01/25/17 12:00 (Ativan Inj) 1 mg Q6H PRN IM 01/25/17 12:00 (Benadryl) 50 mg Q6H PRN PO 01/25/17 12:00 (Benadryl Inj) 50 mg Q6H PRN IM 01/25/17 12:00 (Tylenol) 650 mg Q4H PRN PO 01/25/17 12:00 (Milk Of Magnesia Liq) 30 ml DAILY PRN PO 01/25/17 12:00 (Mag-Al Plus Susp Liq) 30 ml Q6H PRN PO 01/25/17 12:00 (Vitamin D3) 1,000 units DAILY PO 01/26/17 09:00 (Clozaril) 100 mg HS PO 01/25/17 21:00 UNV (Hydrodiuril) 25 mg DAILY PO 01/25/17 12:00 UNV (Synthroid) 50 mcg DAILY@06 PO 01/26/17 06:00 UNV (Lithotabs) 300 mg DAILY PO 01/25/17 12:00 UNV ([place] Carbonate) 600 mg HS PO 01/25/17 21:00 UNV (Latuda) 60 mg HS PO 01/25/17 21:00 UNV Family Psych History Positive for mood and anxiety disorders. Social History Unemployed and lives on disability. Denies alcohol and substance abuse. Positive for benzodiazepines but these are likely prescribed for him, either here in the emergency department or as an outpatient. Not . Has minimal family support. Patient's Strengths (min. 2) Verbal and has access to healthcare. Physical Exam GENERAL: SKIN: Warm and dry. HEAD: Normocephalic. EYES: No scleral icterus. No injection or drainage. NECK: Supple, trachea midline. No JVD or lymphadenopathy. CARDIOVASCULAR: Regular rate and rhythm without murmurs, gallops, or rubs. RESPIRATORY: Breath sounds equal bilaterally. No accessory muscle use. GASTROINTESTINAL: Abdomen soft, non-tender, nondistended. MUSCULOSKELETAL: No cyanosis, or edema. BACK: Nontender without obvious deformity. No CVA tenderness. Vital Signs Vital Signs Date Time Temp Pulse Resp B/P (MAP) Pulse Ox O2 Delivery O2 Flow Rate FiO2 01/25/17 11:08 98.0 60 16 140/73 (95) 100 Room Air Lab Results Test 01/24/17 17:10 White Blood Count 11.4 TH/MM3 Red Blood Count 5.50 MIL/MM3 Hemoglobin 16.2 GM/DL Hematocrit 47.3 % Mean Corpuscular Volume 86.1 FL Mean Corpuscular Hemoglobin 29.4 PG Mean Corpuscular Hemoglobin Concent 34.2 % Red Cell Distribution Width 13.3 % Platelet Count 164 TH/MM3 Mean Platelet Volume 10.9 FL Neutrophils (%) (Auto) 66.9 % Lymphocytes (%) (Auto) 23.7 % Monocytes (%) (Auto) 6.1 % Eosinophils (%) (Auto) 2.3 % Basophils (%) (Auto) 1.0 % Neutrophils # (Auto) 7.6 TH/MM3 Lymphocytes # (Auto) 2.7 TH/MM3 Monocytes # (Auto) 0.7 TH/MM3 Eosinophils # (Auto) 0.3 TH/MM3 Basophils # (Auto) 0.1 TH/MM3 CBC Comment DIFF FINAL Differential Comment Blood Urea Nitrogen 11 MG/DL Creatinine 1.16 MG/DL Random Glucose 105 MG/DL Total Protein 7.8 GM/DL Albumin 4.5 GM/DL Calcium Level 9.3 MG/DL Alkaline Phosphatase 89 U/L Aspartate Amino Transf (AST/SGOT) 20 U/L Alanine Aminotransferase (ALT/SGPT) 27 U/L Total Bilirubin 0.4 MG/DL Sodium Level 137 MEQ/L Potassium Level 4.4 MEQ/L Chloride Level 102 MEQ/L Carbon Dioxide Level 28.4 MEQ/L Anion Gap 7 MEQ/L Estimat Glomerular Filtration Rate 71 ML/MIN Salicylates Level LESS THAN 1.7 MG/DL Urine Opiates Screen NEG Acetaminophen Level LESS THAN 2.0 MCG/ML Urine Barbiturates Screen NEG Urine Amphetamines Screen NEG Urine Benzodiazepines Screen POS Urine Cocaine Screen NEG Urine Cannabinoids Screen NEG Ethyl Alcohol Level LESS THAN 3 MG/DL Mental Status Examination Appearance: Disheveled Consciousness: Alert Orientation: x4 Motor Activity: Normal gait Speech: Unremarkable Language: Adequate Fund of Knowledge: Adequate Attention and Concentration: Adequate Memory: Unremarkable Mood: Sad, Anxious Affect: Sad, Anxious Thought Process & Associations: Other Thought Content: Hallucinations Hallucination Type: Auditory Delusion Type: None Suicidal Ideation: Yes Suicidal Plan: No Suicidal Intention: Yes Homicidal Ideation: No Homicidal Plan: No Homicidal Intention: No Insight: Fair Judgment: Impulsive Assessment & Plan Problem List: (1) Schizoaffective disorder ICD Codes: F25.9 - Schizoaffective disorder, unspecified Status: Acute Assessment & Plan Estimated LOS: days. 36-year-old male with history of schizoaffective disorder , presents voluntarily due to the of his mother, with command auditory hallucinations telling him to kill himself. Patient does express suicidal ideation with intent but he currently has no plan. He is felt to be at high risk for harming himself and is therefore being admitted for further evaluation and treatment. This physician has ordered a CBC and comprehensive metabolic panel to determine if the patient has an infectious process or metabolic process which is causing or contributing to his psychosis and depression. Patient is also ordered to have a thyroid-stimulating hormone level, vitamin B-12 and vitamin D levels, again to ascertain if deficiencies in these areas are causing or contributing to his psychosis. He is noted to have a history of thyroid disease and a hospitalist consult has been ordered to address this issue as well as the patient's issue of hypertension. Patient is also noted to be on lithium and HCTZ, which may cause electrolyte imbalances and this is being evaluated by the hospitalist. This physician is also ordered an EKG to determine the patient cardiac conduction status while he has been taking lithium and HCTZ and to determine if there are better alternatives which might not adversely affect his cardiac conduction. This physician spoke with the patient's nurse regarding his recent behavior. Case management will be involved to assist with further information gathering and disposition planning. Problem Qualifiers (1) Schizoaffective disorder: Qualified Codes: F25.0 - Schizoaffective disorder, bipolar type Manuel Mensah MD Jan 25, 2017 12:12
[2017-01-25] MEDS ORDERED: PILL SPLITTER OTHER PRN (12:30)
--- NOTE | 2017-01-25 13:10 | PD.CONS ---
HPI Service [facility] Hospitalists Consult Requested By Dr. Mensah Reason for Consult History of thyroid disease and hypertension. Please evaluate and treat. Patient noted to be on HCTZ and lithium. Primary Care Physician Unknown Diagnoses: (1) Hypothyroidism (2) Hypertension (3) Tobacco abuse History of Present Illness The patient is a 36-year-old male with history of hypertension and hypothyroidism who is currently admitted to the inpatient psychiatric service. Hospitalist consultation was requested for management of his chronic medical problems. He states that his blood pressure has been well controlled and is compliant with his medication. He states that his thyroid labs were normal when checked about 2 weeks ago. He states that he is trying to quit smoking. He denies chest pain, dyspnea, nausea, vomiting. Review of Systems Constitutional: DENIES: Fever, Chills, Night Sweats Eyes: DENIES: Blurred vision, Vision loss Ears, nose, mouth, throat: DENIES: Hearing loss Respiratory: DENIES: Cough, Wheezing, Sputum production, Shortness of breath Cardiovascular: DENIES: Chest pain, Palpitations, Dyspnea on Exertion, Lower Extremity Edema Gastrointestinal: DENIES: Abdominal pain, Constipation, Diarrhea, Nausea, Vomiting Genitourinary: DENIES: Urinary frequency, Urinary incontinence, Urgency, Hematuria, Dysuria, Nocturia Musculoskeletal: DENIES: Joint pain, Muscle aches Integumentary: DENIES: Pruritus, Rash Hematologic/lymphatic: DENIES: Bruising Neurologic: DENIES: Headache Past Family Social History Allergies: Coded Allergies: trazodone (Unverified Allergy, Intermediate, Rash, 10/23/16) Past Medical History Hypertension Hyperlipidemia Schizoaffective disorder Anxiety Past Surgical History Femur fracture repair Reported Medications See list Family History Psychiatric illness Mother of lung cancer Social History Smokes one half pack per day, states that he is trying to quit. Drinks alcohol 2 -3 times per week, approximately 3 drinks each time. Occasionally takes a benzodiazepine on the street to self medicate. Denies IV drug use. Physical Exam Vital Signs Vital Signs Date Time Temp Pulse Resp B/P (MAP) Pulse Ox O2 Delivery O2 Flow Rate FiO2 01/25/17 11:08 98.0 60 16 140/73 (95) 100 Room Air 01/25/17 06:25 97.9 64 18 123/64 (83) 98 01/25/17 02:22 62 17 138/71 (93) 99 Room Air 01/24/17 18:00 97.7 56 18 125/80 (95) 99 Room Air 01/24/17 15:39 99.1 93 20 142/95 (111) 100 Room Air Physical Exam GENERAL: Well-nourished, well-developed male in no acute distress. HEENT: Normocephalic, atraumatic. Pupils equal, round and reactive. Extraocular movements intact. No scleral icterus. No injection or drainage. Oropharynx is clear. Mucous membranes are moist. CARDIOVASCULAR: Regular rate and rhythm without murmurs, gallops, or rubs. RESPIRATORY: Clear to auscultation. No wheezes, rales, or rhonchi. Breathing is non-labored. GASTROINTESTINAL: Abdomen soft, non-tender, nondistended. EXTREMITIES: No lower extremity edema. No calf tenderness. PSYCH: Alert and oriented x 3. Laboratory Laboratory Tests Test 01/24/17 17:10 White Blood Count 11.4 Red Blood Count 5.50 Hemoglobin 16.2 Hematocrit 47.3 Mean Corpuscular Volume 86.1 Mean Corpuscular Hemoglobin 29.4 Mean Corpuscular Hemoglobin Concent 34.2 Red Cell Distribution Width 13.3 Platelet Count 164 Mean Platelet Volume 10.9 Neutrophils (%) (Auto) 66.9 Lymphocytes (%) (Auto) 23.7 Monocytes (%) (Auto) 6.1 Eosinophils (%) (Auto) 2.3 Basophils (%) (Auto) 1.0 Neutrophils # (Auto) 7.6 Lymphocytes # (Auto) 2.7 Monocytes # (Auto) 0.7 Eosinophils # (Auto) 0.3 Basophils # (Auto) 0.1 CBC Comment DIFF FINAL Differential Comment Blood Urea Nitrogen 11 Creatinine 1.16 Random Glucose 105 Total Protein 7.8 Albumin 4.5 Calcium Level 9.3 Alkaline Phosphatase 89 Aspartate Amino Transf (AST/SGOT) 20 Alanine Aminotransferase (ALT/SGPT) 27 Total Bilirubin 0.4 Sodium Level 137 Potassium Level 4.4 Chloride Level 102 Carbon Dioxide Level 28.4 Anion Gap 7 Estimat Glomerular Filtration Rate 71 Salicylates Level LESS THAN 1.7 Urine Opiates Screen NEG Acetaminophen Level LESS THAN 2.0 Urine Barbiturates Screen NEG Urine Amphetamines Screen NEG Urine Benzodiazepines Screen POS Urine Cocaine Screen NEG Urine Cannabinoids Screen NEG Ethyl Alcohol Level LESS THAN 3 Result Diagram: 01/24/17 17101/24/17 171 Assessment and Plan Assessment and Plan 1. Schizoaffective disorder: Management per psychiatry. 2. Hypertension: Blood pressure well controlled. Continue HCTZ. 3. Hypothyroidism: Continue Synthroid. Check thyroid labs. 4. Tobacco abuse: Counseled to quit smoking. [facility] will sign off. Please reconsult if thyroid labs are abnormal or other medical issues arise. Paul Vail MD Jan 25, 2017 13:09
[2017-01-25 15:10] VITALS: BP 143/82; PULSE 55; RESP 18; TEMP 96.5; O2SAT 100
[2017-01-25] MEDS: LITHIUM CARBONATE 300 MG TAB PO SCH (15:32)
[2017-01-25] MEDS: HYDROCHLOROTHIAZIDE 25 MG TAB PO SCH (15:32)
[2017-01-25] MEDS ORDERED: LURASIDONE 40 MG TAB PO SCH (21:00)
[2017-01-25] MEDS: cloZAPine 100 MG TAB PO SCH (21:03)
[2017-01-25] MEDS: LITHIUM CARBONATE 300 MG CAP PO SCH (21:04)
[2017-01-25] MEDS: LORazepam 1 MG TAB PO PRN (21:26)
[2017-01-26 05:55] VITALS: BP 103/62; PULSE 55; RESP 16; TEMP 98; O2SAT 98
[2017-01-26] MEDS: LEVOTHYROXINE SODIUM 50 MCG TAB PO SCH (06:15)
[2017-01-26] MEDS: LITHIUM CARBONATE 300 MG TAB PO SCH (09:00)
[2017-01-26] MEDS: CHOLECALCIFEROL (VIT D3) 1000 UNIT TAB PO SCH (09:27)
[2017-01-26 09:43] VITALS: BP 123/57
[2017-01-26] MEDS: HYDROCHLOROTHIAZIDE 25 MG TAB PO SCH (09:48)
[2017-01-26 10:44] LABS: BASOPHIL % 0.6 % (0.0-2.0); EOSINOPHIL # 0.2 TH/MM3 (0-0.4); EOSINOPHIL % 3.1 % (0.0-4.0); HEMATOCRIT 43.7 % (39.0-51.0); HEMO FLAGS DIFF FINAL; LYMPH % 25.1 % (9.0-44.0); MEAN CELL VOLUME 85.4 FL (80.0-100.0); MONO % 7.9 % (0.0-8.0); NEUT % 63.3 % (16.0-70.0); PLATELET COUNT 135 TH/MM3 (150-450); RED BLOOD COUNT 5.11 MIL/MM3 (4.50-5.90); RED CELL DISTRIBUTION WIDTH 13.4 % (11.6-17.2)
[2017-01-26 11:04] LABS: ALT (GPT) 21 U/L (12-78); ANION GAP 5 MEQ/L (5-15); AST (GOT) 13 U/L (15-37); BICARBONATE 30.1 MEQ/L (21.0-32.0); BLOOD UREA NITROGEN 14 MG/DL (7-18); CHLORIDE 105 MEQ/L (98-107); GLOMERULAR FILTRATION RATE 69 ML/MIN (>89); POTASSIUM 3.8 MEQ/L (3.5-5.1); SODIUM (NA) 140 MEQ/L (136-145)
[2017-01-26 11:32] LABS: ALKALINE PHOSPHATASE 71 U/L (45-117); HDL CHOLESTEROL 34.3 MG/DL (40.0-60.0); LDL CHOLESTEROL 66 MG/DL (0-99); TOTAL BILIRUBIN ADULT 0.4 MG/DL (0.2-1.0)
--- NOTE | 2017-01-26 15:47 | EKG ---
Date Performed: 01/26/2017 Time Performed: 10:17:18 PTAGE: 36 years EKG: SINUS BRADYCARDIA BORDERLINE RIGHT AXIS DEVIATION BORDERLINE ECG NO PREVIOUS TRACING DOCTOR: Javad Samuels Interpretating Date/Time 01/26/2017 15:45:41
--- NOTE | 2017-01-26 15:55 | HHI.PYPN ---
Subjective Remarks Pt seen and discussed with staff. He continues to respond to internal stimuli and c/o of AH and depressed mood. He reports that he was on a higher dose of clozapine but dose was lowered because he felt more agitated. He states that latuda addition has been helpful but he is still symptomatic. He has not been diligent about making sure he takes medication with proper amount of calories. No SI/HI. Mental Status Examination Appearance: Disheveled Consciousness: Alert Orientation: x4 Motor Activity: Normal gait Speech: Unremarkable Language: Adequate Fund of Knowledge: Adequate Attention and Concentration: Adequate Memory: Unremarkable Mood: Sad, Anxious Affect: Sad, Anxious Thought Process & Associations: Other Thought Content: Hallucinations Hallucination Type: Auditory Delusion Type: None Suicidal Ideation: Yes Suicidal Plan: No Suicidal Intention: No Homicidal Ideation: No Homicidal Plan: No Homicidal Intention: No Insight: Fair Judgment: Impulsive Results Labs Test 01/26/17 10:10 White Blood Count 8.0 TH/MM3 Red Blood Count 5.11 MIL/MM3 Hemoglobin 14.8 GM/DL Hematocrit 43.7 % Mean Corpuscular Volume 85.4 FL Mean Corpuscular Hemoglobin 29.0 PG Mean Corpuscular Hemoglobin Concent 34.0 % Red Cell Distribution Width 13.4 % Platelet Count 135 TH/MM3 Mean Platelet Volume 10.8 FL Neutrophils (%) (Auto) 63.3 % Lymphocytes (%) (Auto) 25.1 % Monocytes (%) (Auto) 7.9 % Eosinophils (%) (Auto) 3.1 % Basophils (%) (Auto) 0.6 % Neutrophils # (Auto) 5.0 TH/MM3 Lymphocytes # (Auto) 2.0 TH/MM3 Monocytes # (Auto) 0.6 TH/MM3 Eosinophils # (Auto) 0.2 TH/MM3 Basophils # (Auto) 0.0 TH/MM3 CBC Comment DIFF FINAL Differential Comment Blood Urea Nitrogen 14 MG/DL Creatinine 1.19 MG/DL Random Glucose 82 MG/DL Total Protein 6.5 GM/DL Albumin 3.7 GM/DL Calcium Level 8.6 MG/DL Alkaline Phosphatase 71 U/L Aspartate Amino Transf (AST/SGOT) 13 U/L Alanine Aminotransferase (ALT/SGPT) 21 U/L Total Bilirubin 0.4 MG/DL Sodium Level 140 MEQ/L Potassium Level 3.8 MEQ/L Chloride Level 105 MEQ/L Carbon Dioxide Level 30.1 MEQ/L Anion Gap 5 MEQ/L Estimat Glomerular Filtration Rate 69 ML/MIN Triglycerides Level 330 MG/DL Cholesterol Level 166 MG/DL LDL Cholesterol 66 MG/DL HDL Cholesterol 34.3 MG/DL Cholesterol/HDL Ratio 4.83 RATIO Vitamin B12 Level 679 PG/ML 25-Hydroxy Vitamin D Total 31.8 ng/ML Thyroid Stimulating Hormone 3rd Gen 0.859 uIU/ML Vitals/IOs Vital Signs Date Time Temp Pulse Resp B/P (MAP) Pulse Ox O2 Delivery O2 Flow Rate FiO2 01/26/17 09:43 123/57 (79) 01/26/17 05:55 98.0 55 16 98 01/25/17 11:08 Room Air Assessment & Plan Problem List: (1) Schizoaffective disorder ICD Codes: F25.9 - Schizoaffective disorder, unspecified Status: Acute Assessment & Plan Will change administration of latuda to dinner time and titrate dose. Estimated LOS: days Justification for Cont. Inpt. impairments in reality testing. Problem Qualifiers (1) Schizoaffective disorder: Qualified Codes: F25.0 - Schizoaffective disorder, bipolar type Ledy Gallagher MD Jan 26, 2017 15:55
[2017-01-26] MEDS ORDERED: LURASIDONE 40 MG TAB PO SCH (17:00)
[2017-01-26 17:42] VITALS: BP 122/55; PULSE 54; RESP 16; TEMP 98.6; O2SAT 98
[2017-01-26] MEDS: LITHIUM CARBONATE 300 MG CAP PO SCH (21:37)
[2017-01-26] MEDS: cloZAPine 100 MG TAB PO SCH (21:38)
[2017-01-27 05:56] VITALS: BP 107/65; PULSE 55; RESP 16; TEMP 98.2; O2SAT 98
[2017-01-27] MEDS: LEVOTHYROXINE SODIUM 50 MCG TAB PO SCH (06:12)
[2017-01-27] MEDS: CHOLECALCIFEROL (VIT D3) 1000 UNIT TAB PO SCH (09:35)
[2017-01-27] MEDS: HYDROCHLOROTHIAZIDE 25 MG TAB PO SCH (09:35)
[2017-01-27] MEDS: LITHIUM CARBONATE 300 MG TAB PO SCH (09:35)
[2017-01-27 10:09] LABS: HEMOGLOBIN A1a 1.2 %; HEMOGLOBIN A1b 0.9 %; HEMOGLOBIN Ao 86.2 %; HEMOGLOBIN LA1C 1.9 %; HEMOGLOBIN P3 3.4 %
--- NOTE | 2017-01-27 14:04 | HHI.PYPN ---
Subjective Remarks Pt seen and discussed with staff. Pt has been seclusive to room and bed most of the day. He reported to RN he felt as if he had "an episode of psychosis" . He c /o of disordered thoughts. No SI/HI. Mental Status Examination Appearance: Disheveled Consciousness: Alert Orientation: x4 Motor Activity: Normal gait Speech: Unremarkable Language: Adequate Fund of Knowledge: Adequate Attention and Concentration: Adequate Memory: Unremarkable Mood: Sad, Anxious Affect: Sad, Anxious Thought Process & Associations: Other Thought Content: Hallucinations Hallucination Type: Auditory Delusion Type: None Suicidal Ideation: Yes Suicidal Plan: No Suicidal Intention: No Homicidal Ideation: No Homicidal Plan: No Homicidal Intention: No Insight: Fair Judgment: Impulsive Results Vitals/IOs Vital Signs Date Time Temp Pulse Resp B/P (MAP) Pulse Ox O2 Delivery O2 Flow Rate FiO2 01/27/17 05:56 98.2 55 16 107/65 (79) 98 01/25/17 11:08 Room Air Assessment & Plan Problem List: (1) Schizoaffective disorder ICD Codes: F25.9 - Schizoaffective disorder, unspecified Status: Acute Assessment & Plan increase latuda to 80mg to target psychosis. Estimated LOS: days Justification for Cont. Inpt. psychosis Problem Qualifiers (1) Schizoaffective disorder: Qualified Codes: F25.0 - Schizoaffective disorder, bipolar type Ledy Gallagher MD Jan 27, 2017 14:04
[2017-01-27] MEDS ORDERED: LURASIDONE 40 MG TAB PO SCH ×2 (17:00→21:00)
[2017-01-27 17:31] VITALS: BP 136/78; PULSE 61; RESP 17; TEMP 97.4; O2SAT 61; O2SAT 97
[2017-01-27] MEDS: LITHIUM CARBONATE 300 MG CAP PO SCH (21:19)
[2017-01-27] MEDS: LURASIDONE 40 MG TAB PO SCH (21:19)
[2017-01-27] MEDS: LORazepam 1 MG TAB PO PRN (21:20)
[2017-01-27] MEDS: cloZAPine 100 MG TAB PO SCH (21:20)
[2017-01-28] MEDS: LEVOTHYROXINE SODIUM 50 MCG TAB PO SCH (05:53)
[2017-01-28 06:30] VITALS: BP 107/61; PULSE 56; RESP 16; TEMP 98.5; O2SAT 98
[2017-01-28] MEDS: LITHIUM CARBONATE 300 MG TAB PO SCH (09:29)
[2017-01-28] MEDS: HYDROCHLOROTHIAZIDE 25 MG TAB PO SCH (09:30)
[2017-01-28] MEDS: CHOLECALCIFEROL (VIT D3) 1000 UNIT TAB PO SCH (09:30)
--- NOTE | 2017-01-28 11:27 | HHI.PYPN ---
Subjective Remarks Patient seen and examined. Chart reviewed. Case discussed with nursing staff who notes that the patient has been quiet and somewhat seclusive but no real behavioral problem. On my examination today, the patient cites the recent passing of his mother as an acute stressor and cause for this hospitalization. He displays an anxious, somewhat obsessional, style and has compiled an extensive journal of symptoms and questions. Reading from this document, he notes that he has "semi-frequent and very severe psychosis problems at work" as well as "constant anxiety and OCD-like symptoms." He says that one of his goals is to stop smoking tobacco. He does admit that he occasionally self- medicates with alcohol, although presenting toxicology was negative for this substance. He reports resolving AH, no CAH reported. He feels like the Latuda is helping and prefers to take it at HS (noting, before I even ask, that he is taking it with 350cals). He feels like scheduled benzos have been helpful in the past for his anxiety and requests that we consider adding one now. Extensive d/w pt re: R/B/A of adding a scheduled benzodiazepine. I highlight the potential risk for dependence on benzos. I have reviewed his E-FORCSE report and see no controlled substance Rx in last year. Denies side effects from medications. No physical complaints. Review of Systems Except as stated in HPI: all other systems reviewed are Neg Mental Status Examination Appearance: Appropriate Consciousness: Alert, Vigilant Orientation: x4 Motor Activity: Normal gait, Other (no motor abnormalities noted) Speech: Other (somewhat stilted in quality and mildly loud) Language: Adequate Fund of Knowledge: Adequate Attention and Concentration: Adequate Memory: Unremarkable Mood: Anxious Affect: Anxious Thought Process & Associations: Circumstantial Thought Content: Hallucinations Hallucination Type: Auditory ("mild". No CAH.) Delusion Type: None Suicidal Ideation: No Homicidal Ideation: No Insight: Fair Judgment: Impulsive Results Labs Item Value Date Time White Blood Count 8.0 TH/MM3 01/26/17 1010 Hemoglobin 14.8 GM/DL 01/26/17 1010 Platelet Count 135 TH/MM3 L 01/26/17 1010 Sodium Level 140 MEQ/L 01/26/17 1010 Potassium Level 3.8 MEQ/L 01/26/17 1010 Chloride Level 105 MEQ/L 01/26/17 1010 Carbon Dioxide Level 30.1 MEQ/L 01/26/17 1010 Blood Urea Nitrogen 14 MG/DL 01/26/17 1010 Creatinine 1.19 MG/DL 01/26/17 1010 Estimat Glomerular Filtration Rate 69 ML/MIN L 01/26/17 1010 Random Glucose 82 MG/DL 01/26/17 1010 Aspartate Amino Transf (AST/SGOT) 13 U/L L 01/26/17 1010 Alanine Aminotransferase (ALT/SGPT) 21 U/L 01/26/17 1010 Alkaline Phosphatase 71 U/L 01/26/17 1010 Vitamin B12 Level 679 PG/ML 01/26/17 1010 25-Hydroxy Vitamin D Total 31.8 ng/ML 01/26/17 1010 Thyroid Stimulating Hormone 3rd Gen 0.859 uIU/ML 01/26/17 1010 Urine Benzodiazepines Screen POS H 01/24/17 1710 Ethyl Alcohol Level LESS THAN 3 MG/DL 01/24/17 1710 Laboratories reviewed. Mild thrombocytopenia noted. Toxicological findings noted. It does not appear that her lithium level was obtained so far this hospitalization. I did order a lithium level and BMP stat this morning with instructions for RN to call lab if not done in ~1 hour, but it does not appear this was done. I have instructed the nurse to call the lab to have these labs drawn pre-dose this evening. Vitals/IOs Vital Signs Date Time Temp Pulse Resp B/P (MAP) Pulse Ox O2 Delivery O2 Flow Rate FiO2 01/28/17 06:30 98.5 56 16 107/61 (76) 98 01/25/17 11:08 Room Air Intake and Output 01/28/17 01/28/17 01/29/17 08:00 16:00 00:00 Intake Total 240 ml Balance 240 ml Assessment & Plan Problem List: (1) Schizoaffective disorder ICD Codes: F25.9 - Schizoaffective disorder, unspecified Status: Acute Assessment & Plan Add Klonopin 0.5mg BID for anxiety. Continue Latuda 80mg qHS per patient preference augmenting clozapine. I see from my previous notes that patient cannot tolerate a higher dose of clozapine. Continue lithium as ordered and follow up lithium level and BMP. Hospitalist input noted and appreciated. Continue other meds and care as ordered. Justification for Cont. Inpt. Med changes. Discharge Planning Total ELOS: 5-7 days. Request HC Surrog/Guard Advoc?: No Problem Qualifiers (1) Schizoaffective disorder: Qualified Codes: F25.0 - Schizoaffective disorder, bipolar type Javad Connolly MD Jan 28, 2017 11:27
[2017-01-28 14:01] LABS: BICARBONATE 26.2 MEQ/L (21.0-32.0); POTASSIUM 3.6 MEQ/L (3.5-5.1)
[2017-01-28 18:12] VITALS: BP 131/73; PULSE 61; RESP 18; TEMP 98.2; O2SAT 99
[2017-01-28] MEDS: cloZAPine 100 MG TAB PO SCH (21:21)
[2017-01-28] MEDS: clonazePAM 0.5 MG TAB PO SCH (21:21)
[2017-01-28] MEDS: LITHIUM CARBONATE 300 MG CAP PO SCH (21:22)
[2017-01-28] MEDS: LURASIDONE 40 MG TAB PO SCH (21:22)
[2017-01-29 05:39] VITALS: BP 119/58; PULSE 53; RESP 18; TEMP 98.2; O2SAT 98
[2017-01-29] MEDS: LEVOTHYROXINE SODIUM 50 MCG TAB PO SCH (05:49)
--- NOTE | 2017-01-29 08:41 | HHI.PYPN ---
Subjective Remarks Patient seen and examined with nurse. Chart reviewed. Case discussed in treatment team and with nursing staff. No behavioral issues noted overnight. On my examination today, patient reports that he is feeling "awesome." He slept well overnight. He feels more level and less anxious with addition of Klonopin. He reports decreased obsessionality, decreased irritability. He denies SI/HI. Denies AVH. I can elicit no delusional material. Denies side effects from medications. No physical complaints. Review of Systems Except as stated in HPI: all other systems reviewed are Neg Mental Status Examination Appearance: Appropriate Consciousness: Alert Orientation: x4 Motor Activity: Normal gait, Other (no motor abnormalities noted) Speech: Other (somewhat stilted in quality and mildly loud) Language: Adequate Fund of Knowledge: Adequate Attention and Concentration: Adequate Memory: Unremarkable Mood: Good Affect: Appropriate, Euthymic Thought Process & Associations: Logical, Linear Thought Content: Appropriate Hallucination Type: None Delusion Type: None Suicidal Ideation: No Suicidal Plan: No Suicidal Intention: No Homicidal Ideation: No Homicidal Plan: No Homicidal Intention: No Insight: Fair Judgment: Adequate (fair) Results Labs Test 01/28/17 13:00 01/28/17 20:27 Blood Urea Nitrogen 13 MG/DL Creatinine 1.08 MG/DL Random Glucose 110 MG/DL Calcium Level 9.2 MG/DL Sodium Level 139 MEQ/L Potassium Level 3.6 MEQ/L Chloride Level 104 MEQ/L Carbon Dioxide Level 26.2 MEQ/L Anion Gap 9 MEQ/L Estimat Glomerular Filtration Rate 77 ML/MIN [place] Level 0.7 MEQ/L 0.5 MEQ/L Labs reviewed. GFR improved. Initial lithium level of 0.7 was drawn and inappropriately early and post-dose. Repeat lithium level of 0.5 was appropriately drawn. Vitals/IOs Vital Signs Date Time Temp Pulse Resp B/P (MAP) Pulse Ox O2 Delivery O2 Flow Rate FiO2 01/29/17 05:39 98.2 53 18 119/58 (78) 98 01/25/17 11:08 Room Air Intake and Output 01/29/17 01/29/17 01/30/17 08:00 16:00 00:00 Intake Total 360 ml Balance 360 ml Assessment & Plan Problem List: (1) Schizoaffective disorder ICD Codes: F25.9 - Schizoaffective disorder, unspecified Status: Acute Assessment & Plan Continue current psychotropics as ordered. I have discussed with patient the risks and benefits of titrating lithium to bring level within the therapeutic range, and the patient prefers to hold off on making changes to this medication and discussed with his outpatient provider. Given that he seems to be doing well from a psychiatric standpoint, I have no objection to this plan. Continue other medications and care as ordered. Justification for Cont. Inpt. Final discharge planning Discharge Planning Anticipate discharge tomorrow, Saturday. Case discussed with counselor. Request HC Surrog/Guard Advoc?: No Problem Qualifiers (1) Schizoaffective disorder: Qualified Codes: F25.0 - Schizoaffective disorder, bipolar type Javad Connolly MD Jan 29, 2017 08:41
[2017-01-29] MEDS: clonazePAM 0.5 MG TAB PO SCH ×2 (09:15→21:27)
[2017-01-29] MEDS: CHOLECALCIFEROL (VIT D3) 1000 UNIT TAB PO SCH (09:15)
[2017-01-29] MEDS: HYDROCHLOROTHIAZIDE 25 MG TAB PO SCH (09:16)
[2017-01-29] MEDS: LITHIUM CARBONATE 300 MG TAB PO SCH (09:16)
--- NOTE | 2017-01-29 13:09 | PD.TTN ---
Patient Problems 1. Discharge planning 2. Medication compliance 3. Knowledge deficit 4. Lack of coping skills Progress Toward Goals Provider Present: Dr. Barry Connolly Provider Input: Dr. Connolly's treatment team met to discuss patient's treatment plan, discharge, and medication. Patient presents anxious, possible discharge today or tomorrow. Will follow with outpatient services. Patient is medication compliant. Nurse(s) Input: Patient's nurse Marnie reports patient is overly pleasant and complimentary. Focused on medication dose and effects. Agrees that tomorrow will be a good day shea be discharged. Attending groups Psychiatric Counselors Present: ESTRADA Wolf Psych Therapist Input: Patient presents pleasant, cooperative, anxious, affect appropriate. Patient's speech was clear, organized and pressured. Patient is denying suicidal and homicidal ideation. Patient reports he will follow up with his psychiatrist and therapist located at the facility [facility] when discharged. Patient made good eye contact. Patient reports once discharged will go home with family. Patient is medication compliant. eating and sleeping well. Does not present with any delusional content or with any delusional content Group Spec/RT/OT/VIDES Present: PEEWEE Walker Spec/RT/OT/VIDES Input: Patient has been isolating to his bed. Patient has not attended any groups Ginny Charles Jan 29, 2017 13:09
[2017-01-29 18:00] VITALS: BP 118/73; PULSE 58; RESP 16; TEMP 98.1; O2SAT 99
[2017-01-29] MEDS: LITHIUM CARBONATE 300 MG CAP PO SCH (21:26)
[2017-01-29] MEDS: cloZAPine 100 MG TAB PO SCH (21:26)
[2017-01-29] MEDS: LURASIDONE 40 MG TAB PO SCH (21:27)
[2017-01-30 05:33] VITALS: BP 114/57; PULSE 53; RESP 18; TEMP 97.8; O2SAT 98
[2017-01-30] MEDS: LEVOTHYROXINE SODIUM 50 MCG TAB PO SCH (06:09)
[2017-01-30] MEDS: CHOLECALCIFEROL (VIT D3) 1000 UNIT TAB PO SCH (08:31)
[2017-01-30] MEDS: clonazePAM 0.5 MG TAB PO SCH (08:31)
[2017-01-30] MEDS: LITHIUM CARBONATE 300 MG TAB PO SCH (08:31)
[2017-01-30] MEDS: HYDROCHLOROTHIAZIDE 25 MG TAB PO SCH (08:31)
[2017-01-30] MEDS ORDERED: LEVO.05 PO (10:25)
[2017-01-30] MEDS ORDERED: CLON.5 PO (10:25)
[2017-01-30] MEDS ORDERED: HYDR25TA5 PO (10:25)
[2017-01-30] MEDS ORDERED: LURA80 PO (10:25)
--- NOTE | 2017-01-30 10:25 | HHI.DS ---
Psychiatry Discharge Summary Inpatient Psychiatric care?: Yes Advance Directive: No Reason Not Provided: refused Mental Health AdvanceDirective: No Health Care Proxy: No Admission Admission Date Jan 25, 2017 at 11:55 Admission Diagnosis: (1) Schizoaffective disorder, bipolar type ICD Code: F25.0 - Schizoaffective disorder, bipolar type Brief History 36-year-old male with history of schizoaffective disorder, presents voluntarily for evaluation and treatment due to increasing thoughts of suicide and command auditory hallucinations. Patient is well known to this physician from previous treatment here at [facility]. On this occasion, he states that he has been compliant with his psychotropic medicine. Unfortunately, his mother recently and he has decompensated since that time. He feels his medicines are not adequately treating his symptoms. He is reporting auditory hallucinations of a command nature, telling him to harm himself. The patient states he does not have a specific plan but he is quite anxious and depressed secondary to the loss of his mother as well as his ongoing auditory hallucinations. He is unable to verbally contract for safety but he is willing to be admitted voluntarily. Tobacco Use In Past 30 Days: 5 or More Cigarettes/Day Alcohol Use: Monthly or Less Hospital Course Patient was admitted to a locked, inpatient psychiatric unit. A general medical consultation was obtained. Appropriate precautions were in place throughout patient's hospital stay. Patient was seen and examined daily on the unit by psychiatry and also visited by counselor. Psychotropic medications were adjusted. Patient tolerated medications well without side effects. Patient had improvement in presenting psychiatric symptomatology during the course of his hospital stay. There was no evidence of any suicidality or homicidality on the inpatient unit. The patient's behavior remained in good control and he was compliant with medications. On the day of discharge: Patient seen and examined. Chart reviewed. Case discussed with counselor and with nurse. No behavioral issues noted overnight. On my examination today, the patient reports that he feels ready to leave the hospital today. He denies any suicidal or homicidal ideation, intent or plan on direct questioning and contracts for safety. Mood is good and I can elicit no depressive or hypomanic/ manic symptoms. He is future oriented. He is looking forward to spending time with his father and paternal grandmother. He says that he is feeling "way less agitated. Less anxious." He denies any audiovisual hallucinations. I can elicit no delusional material. He denies any side effects from medications. No physical complaints. Weighing the acute, chronic, and protective factors and based on the available evidence, I factory lay out engineer to a reasonable degree of medical certainty that the patient is at low imminent risk of harm to self or others from a mental illness as defined under the Qu[place] act and is level of function is adequate for outpatient care. The patient has maximized benefit from this inpatient psychiatric hospital stay and will be discharged today with psychiatric follow-up as arranged by counselor. Patient is also to follow-up with primary care. I have counseled the patient regarding warning signs for need to return to the psychiatric emergency room as part of a general safety plan. Results Blood Pressure 114 / 57 Vital Signs Date Time Temp Pulse Resp B/P (MAP) Pulse Ox O2 Delivery O2 Flow Rate FiO2 01/30/17 05:33 97.8 53 18 114/57 (76) 98 Laboratory Tests Test 01/28/17 13:00 01/28/17 20:27 Random Glucose 110 MG/DL (74-106) Estimat Glomerular Filtration Rate 77 ML/MIN (>89) Laboratory Results Test 01/26/17 10:10 01/28/17 20:27 Cholesterol Level 166 MG/DL (120-200) HDL Cholesterol 34.3 MG/DL (40.0-60.0) Hemoglobin A1c 5.2 % (4.3-6.0) LDL Cholesterol 66 MG/DL (0-99) Triglycerides Level 330 MG/DL (42-150) [place]d Level 0.5 MEQ/L (0.5-1.5) Summary of Procedures None done Imaging None done Pending results at discharge: No Medications # of Antipsychotic meds at D/C: 2 Appropriate >1 Antipsych meds?: 4 Approp Antipsych med options 1 - Minimum of three failed multiple trials of monotherapy. 2 - Documented plan to taper to monotherapy due to previous use of multiple meds OR cross-taper in progress at D/C. 3 - Documentation of augmentation of Clozapine. 4 - Justification other than those listed in allowable values 1-3, document here : More than one antipsychotic required for acute stabilization Discharge Discharge Date: Jan 30, 2017 Discharge Diagnosis: (1) Schizoaffective disorder, bipolar type Diagnosis: Principal (stabilized) ICD Code: F25.0 - Schizoaffective disorder, bipolar type Status: Acute Pt Condition on Discharge: Stable Discharge Disposition: Discharge Home Discharge Instructions Diet Instructions: As Tolerated, No Restrictions Activities you can perform: Weight Bearing as Miguel Scheduled Appointment: as per counselor's notes New Medications: Lurasidone (Latuda) 80 Mg Tab 80 MG PO HS for Mental Health for 15 Days, TAB 1 Refill Take with food. Clonazepam (Klonopin) 0.5 Mg Tab 0.5 MG PO Q12HR for Mental Health for 15 Days, TAB 1 Refill Continued Medications: Cholecalciferol (D 1000) 1,000 Unit Tab 1000 UNITS PO DAILY for Vitamin D Supplement for 15 Days, TAB 1 Refill Clozapine (Clozapine) 100 Mg Tab 100 MG PO HS for Mental Health for 15 Days, TAB 1 Refill Hydrochlorothiazide (Hydrochlorothiazide) 25 Mg Tab 25 MG PO DAILY for Blood Pressure Management for 15 Days, TAB 1 Refill (This prescription has been renewed) Levothyroxine (Synthroid) 50 Mcg Tab 50 MCG PO DAILY@06 for Mental Health for 15 Days, TAB 1 Refill (This prescription has been renewed) Decherd Carbonate (Decherd Carbonate) 300 Mg Tab 300 MG PO DAILY for Mental Health for 15 Days, TAB 1 Refill Decherd Carbonate (Decherd Carbonate) 600 Mg Cap 600 MG PO HS for Mental Health for 15 Days, CAP 1 Refill Discontinued Medications: Lurasidone (Latuda) 60 Mg Tab 60 MG PO HS, TAB 0 Refills Discharge Time <= 30 minutes Mental Status Examination Appearance: Appropriate Consciousness: Alert Orientation: x4 Motor Activity: Normal gait, Other (no abnormal motor movements noted) Speech: Unremarkable Language: Adequate Fund of Knowledge: Adequate Attention and Concentration: Adequate Memory: Unremarkable Mood: Good Affect: Appropriate, Euthymic Thought Process & Associations: Intact, Logical, Goal directed, Linear Thought Content: Appropriate Hallucination Type: None Delusion Type: None Suicidal Ideation: No Suicidal Plan: No Suicidal Intention: No Homicidal Ideation: No Homicidal Plan: No Homicidal Intention: No Insight: Adequate Judgment: Adequate Discharge/Advance Care Plan Health Problems: (1) Schizoaffective disorder Goals to promote your health * To prevent worsening of your condition and complications * To maintain your health at the optimal level Directions to meet your goals Take your medications as prescribed Follow your dietary instruction Follow activity as directed Keep your appointments as scheduled Take your immunizations and boosters as scheduled If your symptoms worsen call your PCP, if no PCP go to Urgent Care Center or Emergency Room For 01/10 questions related to your inpatient stay or results of tests pending at discharge, please contact Dr. Javad Connolly at Smoking is Dangerous to Your Health. Avoid second hand smoking Javad Connolly MD Jan 30, 2017 10:25
== END 2017-01-30 12:45 | disposition home or self-care (01) | DRG 885 ==
LOC: NEPJ 15:38 → NEDA 01-25 11:55 → H260 01-25 15:10 → H250 01-30 11:13
PROVIDERS: ADMIT Psychiatry & Neurology Psychiatry; ATTEND Psychiatry & Neurology Psychiatry
DX: F25.0 Schizoaffective disorder, bipolar type (principal); R45.851 Suicidal ideations; I10 Essential (primary) hypertension; E03.9 Hypothyroidism, unspecified; F17.210 Nicotine dependence, cigarettes, uncomplicated; E78.5 Hyperlipidemia, unspecified; F41.0 Panic disorder [episodic paroxysmal anxiety]
CPT/HCPCS: 80048; 80053; 80061; 80178; 80307; 82306; 82607; 83036; 84443; 85025; 93005

== ENCOUNTER 2017-05-07 05:44 | Inpatient (IN) | payer MEDICARE, MEDICAID ==
[~2017-05-07] VITALS: Ht 180.3 cm; Wt 90.8 kg
[~2017-05-07 05:44] MED LIST changes: +CLON.5 PO; -HYDR50TA94 PO; -LORA-392 PO; -LURA40 PO; +LURA80 PO
[2017-05-07 05:47] VITALS: BP_SYST 182; BP_SYST 189; BP_DIAS 102; BP_DIAS 95; PULSE 75; RESP 16; TEMP 99.1; O2SAT 100
--- NOTE | 2017-05-07 06:37 | PD ---
HPI Chief Complaint: Psychiatric Symptoms Time Seen by Provider: 06:01 Travel History International Travel<30 days: No Contact w/Intl Traveler<30days: No Traveled to known affect area: No History of Present Illness HPI Patient is a 37-year-old male presenting voluntarily to the emergency department for psychiatric evaluation. Patient reports increased hallucinations for the last 2 weeks. He reports noncompliance with medications , he states that he does not know why he has not been taking his medicines correctly. Patient admits to drinking alcohol and taking Xanax. He states he takes a Xanax every other day or so. He denies drinking daily. He felt as if he was going through detox. He denies any suicidal or homicidal ideations. He has no physical complaints at this time. Symptom onset was gradual, symptom severity is moderate, symptoms are exacerbated due to medication noncompliance and possibly due to alcohol. PFSH Past Medical History Bipolar Disorder: Yes Anxiety: Yes Depression: Yes Cancer: No Cardiovascular Problems: No Diabetes: No Genitourinary: No Headaches: No Hypertension: Yes Insomnia: Yes Musculoskeletal: No Neurologic: No Psychiatric: Yes Reproductive: No Respiratory: No Immunizations Current: Yes Schizophrenia: Yes (SCHIZOAFFECTIVE) Seizures: No Past Surgical History Other Surgery: Yes (FEMUR FRACTURE A CHILD RIGHT LEG(HARDWARE REMOVED)) Social History Alcohol Use: Yes Tobacco Use: Yes Substance Use: Yes (beer and benzos) Allergies-Medications (Allergen,Severity, Reaction): Coded Allergies: trazodone (Unverified Allergy, Intermediate, Rash, 05/07/17) Reported Meds & Prescriptions Reported Meds & Active Scripts Active Latuda (Lurasidone) 80 Mg Tab 80 Mg PO HS 15 Days Take with food. Klonopin (Clonazepam) 0.5 Mg Tab 0.5 Mg PO Q12HR 15 Days Synthroid (Levothyroxine Sodium) 50 Mcg Tab 50 Mcg PO DAILY@06 15 Days Hydrochlorothiazide 25 Mg Tab 25 Mg PO DAILY 15 Days Moran Carbonate 600 Mg Cap 600 Mg PO HS 15 Days Moran Carbonate 300 Mg Tab 300 Mg PO DAILY 15 Days Clozapine 100 Mg Tab 100 Mg PO HS 15 Days Review of Systems Except as stated in HPI: all other systems reviewed are Neg Psychiatric: Positive: Disorder of Thought, Mood Disorder Physical Exam Narrative GENERAL: Well-developed, well-nourished, well-appearing male. Presenting in no acute distress. SKIN: Warm and dry. HEAD: Atraumatic. Normocephalic. EYES: Pupils equal and round. No scleral icterus. No injection or drainage. ENT: No nasal bleeding or discharge. Mucous membranes pink and moist. NECK: Trachea midline. No JVD. CARDIOVASCULAR: Regular rate and rhythm. RESPIRATORY: No accessory muscle use. Clear to auscultation. Breath sounds equal bilaterally. GASTROINTESTINAL: Abdomen soft, non-tender, nondistended. Hepatic and splenic margins not palpable. MUSCULOSKELETAL: Extremities without clubbing, cyanosis, or edema. No obvious deformities. NEUROLOGICAL: Awake and alert. No obvious cranial nerve deficits. Motor grossly within normal limits. Five out of 5 muscle strength in the arms and legs. Normal speech. PSYCHIATRIC: Appropriate mood and affect; insight and judgment normal. Data Data Last Documented VS Vital Signs Date Time Temp Pulse Resp B/P (MAP) Pulse Ox O2 Delivery O2 Flow Rate FiO2 05/07/17 05:47 99.1 75 16 182/95 (124) 100 Orders Orders Complete Blood Count With Diff (05/07/17 06:02) Comprehensive Metabolic Panel (05/07/17 06:02) Thyroid Stimulating Hormone (05/07/17 06:02) Psych Screen (05/07/17 06:02) Moran (Li) (05/07/17 06:02) Drug Screen, Random Urine (05/07/17 06:02) Labs Laboratory Tests Test 05/07/17 06:25 White Blood Count 8.4 TH/MM3 Red Blood Count 5.26 MIL/MM3 Hemoglobin 15.7 GM/DL Hematocrit 44.2 % Mean Corpuscular Volume 84.1 FL Mean Corpuscular Hemoglobin 29.9 PG Mean Corpuscular Hemoglobin Concent 35.5 % Red Cell Distribution Width 12.9 % Platelet Count 153 TH/MM3 Mean Platelet Volume 9.8 FL Neutrophils (%) (Auto) 71.5 % Lymphocytes (%) (Auto) 20.0 % Monocytes (%) (Auto) 6.9 % Eosinophils (%) (Auto) 1.1 % Basophils (%) (Auto) 0.5 % Neutrophils # (Auto) 6.0 TH/MM3 Lymphocytes # (Auto) 1.7 TH/MM3 Monocytes # (Auto) 0.6 TH/MM3 Eosinophils # (Auto) 0.1 TH/MM3 Basophils # (Auto) 0.0 TH/MM3 CBC Comment AUTO DIFF MDM Medical Decision Making Medical Screen Exam Complete: Yes Emergency Medical Condition: Yes Interpretation(s) Vital Signs Date Time Temp Pulse Resp B/P (MAP) Pulse Ox O2 Delivery O2 Flow Rate FiO2 05/07/17 05:47 99.1 75 16 182/95 (124) 100 Differential Diagnosis Metabolic abnormality versus substance abuse versus psychosis versus schizoaffective disorder versus other Narrative Course Patient is a 37-year-old male presented voluntarily to the emergency department for psychiatric evaluation. Patient is well-appearing, calm, cooperative and pleasant. Mental health screening discussed with the patient. Psychiatric screen ordered. Labs are pending, care of patient transferred to Moustapha CHAVES who will determine patient's disposition. Lisa Jane May 07, 2017 06:37
[2017-05-07 06:44] LABS: BASOPHIL % 0.5 % (0.0-2.0); EOSINOPHIL # 0.1 TH/MM3 (0-0.4); EOSINOPHIL % 1.1 % (0.0-4.0); HEMATOCRIT 44.2 % (39.0-51.0); HEMOGLOBIN 15.7 GM/DL (13.0-17.0); LYMPHOCYTE # 1.7 TH/MM3 (1.0-4.8); MEAN CELL VOLUME 84.1 FL (80.0-100.0); MEAN CORPUSCULAR HEMOGLOBIN 29.9 PG (27.0-34.0); MEAN CORPUSCULAR HGB CONC 35.5 % (32.0-36.0); MEAN PLATELET VOLUME 9.8 FL (7.0-11.0); MONO % 6.9 % (0.0-8.0); MONOCYTE # 0.6 TH/MM3 (0-0.9); NEUT % 71.5 % (16.0-70.0); PLATELET COUNT 153 TH/MM3 (150-450); RED BLOOD COUNT 5.26 MIL/MM3 (4.50-5.90); RED CELL DISTRIBUTION WIDTH 12.9 % (11.6-17.2); WHITE BLOOD COUNT 8.4 TH/MM3 (4.0-11.0)
[2017-05-07 06:57] LABS: ALBUMIN 4.2 GM/DL (3.4-5.0); AST (GOT) 17 U/L (15-37); BICARBONATE 26.3 MEQ/L (21.0-32.0); BLOOD UREA NITROGEN 8 MG/DL (7-18); CALCIUM 8.9 MG/DL (8.5-10.1); CHLORIDE 104 MEQ/L (98-107); CREATININE 1.04 MG/DL (0.60-1.30); GLOMERULAR FILTRATION RATE 80 ML/MIN (>89); GLUCOSE,RANDOM 102 MG/DL (74-106); SODIUM (NA) 136 MEQ/L (136-145)
[2017-05-07 07:08] LABS: ALKALINE PHOSPHATASE 82 U/L (45-117); ALT (GPT) 17 U/L (12-78); TOTAL BILIRUBIN ADULT 0.5 MG/DL (0.2-1.0); TOTAL PROTEIN 7.3 GM/DL (6.4-8.2)
[2017-05-07 07:13] LABS: OVALOCYTES 1+ (NORMAL)
[2017-05-07] MEDS ORDERED: LORazepam 1 MG TAB PO ONE (07:30)
--- NOTE | 2017-05-07 07:30 | PD ---
Physical Exam Date Seen by Provider: May 07, 2017 Time Seen by Provider: 07:29 Narrative 37-year-old male previously seen by Lisa Jane NP, I turned over to me at shift change, with voluntary arrival at the emergency department for psychiatric evaluation. Patient admits to substance abuse, and is here for suicidal ideation and detox. Data Data Last Documented VS Vital Signs Date Time Temp Pulse Resp B/P (MAP) Pulse Ox O2 Delivery O2 Flow Rate FiO2 05/07/17 05:47 99.1 75 16 182/95 (124) 100 Orders Orders Complete Blood Count With Diff (05/07/17 06:02) Comprehensive Metabolic Panel (05/07/17 06:02) Thyroid Stimulating Hormone (05/07/17 06:02) Psych Screen (05/07/17 06:02) [place] (Li) (05/07/17 06:02) Drug Screen, Random Urine (05/07/17 06:02) Lorazepam (Ativan) (05/07/17 07:30) Labs Laboratory Tests Test 05/07/17 06:25 White Blood Count 8.4 TH/MM3 Red Blood Count 5.26 MIL/MM3 Hemoglobin 15.7 GM/DL Hematocrit 44.2 % Mean Corpuscular Volume 84.1 FL Mean Corpuscular Hemoglobin 29.9 PG Mean Corpuscular Hemoglobin Concent 35.5 % Red Cell Distribution Width 12.9 % Platelet Count 153 TH/MM3 Mean Platelet Volume 9.8 FL Neutrophils (%) (Auto) 71.5 % Lymphocytes (%) (Auto) 20.0 % Monocytes (%) (Auto) 6.9 % Eosinophils (%) (Auto) 1.1 % Basophils (%) (Auto) 0.5 % Neutrophils # (Auto) 6.0 TH/MM3 Lymphocytes # (Auto) 1.7 TH/MM3 Monocytes # (Auto) 0.6 TH/MM3 Eosinophils # (Auto) 0.1 TH/MM3 Basophils # (Auto) 0.0 TH/MM3 CBC Comment AUTO DIFF Differential Comment AUTO DIFF CONFIRMED Platelet Estimate LOW Platelet Morphology Comment ENLARGED Ovalocytes 1+ Blood Urea Nitrogen 8 MG/DL Creatinine 1.04 MG/DL Random Glucose 102 MG/DL Total Protein 7.3 GM/DL Albumin 4.2 GM/DL Calcium Level 8.9 MG/DL Alkaline Phosphatase 82 U/L Aspartate Amino Transf (AST/SGOT) 17 U/L Alanine Aminotransferase (ALT/SGPT) 17 U/L Total Bilirubin 0.5 MG/DL Sodium Level 136 MEQ/L Potassium Level 3.9 MEQ/L Chloride Level 104 MEQ/L Carbon Dioxide Level 26.3 MEQ/L Anion Gap 6 MEQ/L Estimat Glomerular Filtration Rate 80 ML/MIN Thyroid Stimulating Hormone 3rd Gen 1.330 uIU/ML Urine Opiates Screen NEG Urine Barbiturates Screen NEG Urine Amphetamines Screen NEG Urine Benzodiazepines Screen NEG [place] Level LESS THAN 0.1 MEQ/L Urine Cocaine Screen NEG Urine Cannabinoids Screen NEG MDM Medical Record Reviewed: Yes Supervised Visit with DAVIS: Yes Differential Diagnosis Metabolic abnormality versus substance abuse versus psychosis versus schizoaffective disorder versus other Narrative Course Labs are reviewed and the patient is felt to be medically stable for psychiatric evaluation. Patient is given 1 mg of lorazepam p.o. for his anxiety and agitation in the department. Patient is medically cleared for psychiatric evaluation. Condition: Stable Moustapha Mary May 07, 2017 07:30
[2017-05-07 07:41] VITALS: BP 151/89; PULSE 69; RESP 20; O2SAT 98
[2017-05-07] MEDS ORDERED: HALOPERIDOL LACTATE 5 MG/ML AMP IM ONE (07:45)
--- NOTE | 2017-05-07 10:15 | PD ---
History of Present Illness Chief Complaint: Schizoaffective disorder, bipolar type Time Seen by Provider: 09:53 Travel History International Travel<30 Days: No Contact w/Intl Traveler<30days: No Known affected area: No Legal Status Legal Status: Voluntary History of Present Illness: Mr. Brown is a 37-year-old single, male who presents to the ED voluntarily for complaints of suicidal ideation and auditory and visual hallucinations. He has had multiple visits to this facility. His last inpatient admission was January 2017. Reviewed electronic medical record and labs. Discussed patient's case with staff. I examined Mr. Brown in room D 38 in the main ED. He is awake alert and oriented. He is neatly groomed and clean.0 his speech is pressured but organized. He maintains eye contact almost to the point of staring. Mr. Brown reports that he has been hearing derogatory auditory hallucinations, and "specks of light". He advises that he drank approximately 8 beers and 4 hours yesterday. He states that when he enters his manic phase, he feels it is okay to drink alcohol, but "afterwards I always feel terrible". When asked if he was currently experiencing thoughts of self-harm, Mr. Brown reported that he had "thought about smashed my head against the window". He reports previous threatened suicide but no actual attempts. He also exhibits some religiosity, stating that "God delivered me in The demons out of my body, I feel a little better now". Mr. Brown advises that his current outpatient provider is from [facility] and he needs to get established with someone local. He reports being compliant with his medications. His last inpatient stay was in January here. Denies chronic substance abuse. Toxicology screen negative. He receives Social Security disability and works at [employer]. He reports that he rents a room. Mr. Brown states that he has an uncle and aunt in the area whom he is close with and are supportive. He denies history of violence. Mr. Brown and endorses suicidal ideation however, his plan is vague. He does report feeling homicidal towards "the demons in me and the people working against me, but not anyone here". Patient appears to be experiencing some paranoid delusions. [facility] Past Medical History Narrative Medical Cleared medically by ED staff. Bipolar Disorder: Yes Anxiety: Yes Depression: Yes Cancer: No Cardiovascular Problems: No Diabetes: No Genitourinary: No Headaches: No Hypertension: Yes Insomnia: Yes Musculoskeletal: No Neurologic: No Psychiatric: Yes Reproductive: No Respiratory: No Immunizations Current: Yes Schizophrenia: Yes (SCHIZOAFFECTIVE) Seizures: No Past Surgical History Other Surgery: Yes (FEMUR FRACTURE A CHILD RIGHT LEG(HARDWARE REMOVED)) Psychiatric History Psychiatric History Last inpatient admission for schizoaffective disorder was to this facility in January 2017. Hx Psychiatric Treatment: PATIENT WAS LAST ADMITTED TO [facility] FROM 08/27/16 TO 08/31/16 FOR SCHIZOAFFECTIVE DISORDER, BIPOLAR History of Inpatient Treatment: Yes Social History Patient is on Social Security disability. 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 Works at [employer]. Denies chronic use of alcohol and illicit substances. Reports an uncle and aunt in the area whom are supportive. He is single and has never been . Hx Alcohol Use: Yes Hx Tobacco Use: Yes Hx Substance Use: Yes (beer and benzos) Substance Use Type: Alcohol, Marijuana, Benzos (Valium,Xanax), Cocaine, Synth Opiates-Pain Pills Other Substances Used: CLEAN SINCE OVER A YEAR Hx of Substance Use Treatment: No Family Psychiatric History Mr. Brown states that his father has suffered with addiction, and his uncle Tomás has been diagnosed with bipolar disorder. He denies any familial suicide attempts. Allergies-Medications (Allergen,Severity, Reaction): Coded Allergies: trazodone (Unverified Allergy, Intermediate, Rash, 05/07/17) Reported Meds & Prescriptions Reported Meds & Active Scripts Active Latuda (Lurasidone) 80 Mg Tab 80 Mg PO HS 15 Days Take with food. Klonopin (Clonazepam) 0.5 Mg Tab 0.5 Mg PO Q12HR 15 Days Synthroid (Levothyroxine Sodium) 50 Mcg Tab 50 Mcg PO DAILY@06 15 Days Hydrochlorothiazide 25 Mg Tab 25 Mg PO DAILY 15 Days [place] Carbonate 600 Mg Cap 600 Mg PO HS 15 Days [place] Carbonate 300 Mg Tab 300 Mg PO DAILY 15 Days Clozapine 100 Mg Tab 100 Mg PO HS 15 Days Mental Status Examination Appearance: Appropriate, Well dressed/well groomed Consciousness: Alert Orientation: x4 Motor Activity: Normal gait Speech: Pressured, Rapid Language: Adequate Fund of Knowledge: Adequate Attention and Concentration: Adequate (Extremely attentive) Memory: Unremarkable Mood: Appropriate, Good Affect: Anxious Thought Process & Associations: Intact, Linear Thought Content: Bizarre thinking (Wants to kill the demons), Hallucinations ( Reports auditory and visual), Delusional (Vague paranoia) Hallucination Type: Auditory (Reports derogatory voices), Visual ("Specks of light") Delusion Type: Paranoid Suicidal Ideation: Yes Suicidal Plan: No (Vague) Suicidal Intention: No Homicidal Ideation: No (Reports only against his delusions.) Homicidal Plan: No Homicidal Intention: No Insight: Fair Judgment: Impulsive MDM Medical Decision Making Medical Record Reviewed: Yes Assessment/Plan Mr. Brown is a 37-year-old single, male who presents to the emergency department with complaints of auditory and visual hallucinations, and thoughts of self-harm. He is presenting with heightened religiosity, and reporting some paranoia against his hallucinations. He does endorse thoughts of self-harm which seem to come and go. His speech is pressured and he remains extremely attentive throughout the interview, although he has to be redirected to answer questions on multiple occasions. His mood is anxious but pleasant. His memory is intact. At this time, due to his thoughts of self-harm, hallucinations, and delusion he meets inpatient criteria. He will be admitted to the 2600 unit for psychiatric stabilization and medication adjustments as required. Orders Orders Complete Blood Count With Diff (05/07/17 06:02) Comprehensive Metabolic Panel (05/07/17 06:02) Thyroid Stimulating Hormone (05/07/17 06:02) Psych Screen (05/07/17 06:02) [place] (Li) (05/07/17 06:02) Drug Screen, Random Urine (05/07/17 06:02) Lorazepam (Ativan) (05/07/17 07:30) Haloperidol Inj (Haldol Inj) (05/07/17 07:45) Results Vital Signs Date Time Temp Pulse Resp B/P (MAP) Pulse Ox O2 Delivery O2 Flow Rate FiO2 05/07/17 07:41 69 20 151/89 (109) 98 Room Air 05/07/17 05:47 99.1 75 16 182/95 (124) 100 Laboratory Tests Test 05/07/17 06:25 White Blood Count 8.4 Red Blood Count 5.26 Hemoglobin 15.7 Hematocrit 44.2 Mean Corpuscular Volume 84.1 Mean Corpuscular Hemoglobin 29.9 Mean Corpuscular Hemoglobin Concent 35.5 Red Cell Distribution Width 12.9 Platelet Count 153 Mean Platelet Volume 9.8 Neutrophils (%) (Auto) 71.5 Lymphocytes (%) (Auto) 20.0 Monocytes (%) (Auto) 6.9 Eosinophils (%) (Auto) 1.1 Basophils (%) (Auto) 0.5 Neutrophils # (Auto) 6.0 Lymphocytes # (Auto) 1.7 Monocytes # (Auto) 0.6 Eosinophils # (Auto) 0.1 Basophils # (Auto) 0.0 CBC Comment AUTO DIFF Differential Comment AUTO DIFF CONFIRMED Platelet Estimate LOW Platelet Morphology Comment ENLARGED Ovalocytes 1+ Blood Urea Nitrogen 8 Creatinine 1.04 Random Glucose 102 Total Protein 7.3 Albumin 4.2 Calcium Level 8.9 Alkaline Phosphatase 82 Aspartate Amino Transf (AST/SGOT) 17 Alanine Aminotransferase (ALT/SGPT) 17 Total Bilirubin 0.5 Sodium Level 136 Potassium Level 3.9 Chloride Level 104 Carbon Dioxide Level 26.3 Anion Gap 6 Estimat Glomerular Filtration Rate 80 Thyroid Stimulating Hormone 3rd Gen 1.330 Urine Opiates Screen NEG Urine Barbiturates Screen NEG Urine Amphetamines Screen NEG Urine Benzodiazepines Screen NEG [place] Level LESS THAN 0.1 Urine Cocaine Screen NEG Urine Cannabinoids Screen NEG Diagnosis Primary Impression: Schizoaffective disorder, bipolar type Admitting Information Admitting Physician Requests: Admit Condition: Stable LivanAnnita allen LORETA May 07, 2017 10:15
[2017-05-07] MEDS ORDERED: ACETAMINOPHEN 325 MG TAB PO PRN (10:30)
[2017-05-07] MEDS ORDERED: ALUMINUM/MAGNESIUM/SIMETH 30 ML CUP PO PRN (10:30)
[2017-05-07] MEDS ORDERED: MAGNESIUM HYDROXIDE SUSP 30 ML CUP PO PRN (10:30)
[2017-05-07 11:25] VITALS: BP 131/81; PULSE 71; RESP 18; TEMP 97.6; O2SAT 100
[2017-05-07] MEDS: HYDROCHLOROTHIAZIDE 25 MG TAB PO SCH (16:00)
[2017-05-07 18:27] VITALS: BP 134/62; PULSE 57; RESP 16; TEMP 98.5; O2SAT 99
[2017-05-07] MEDS: clonazePAM 0.5 MG TAB PO SCH (20:47)
[2017-05-07] MEDS: LITHIUM CARBONATE 300 MG CAP PO SCH (20:47)
[2017-05-07] MEDS: cloZAPine 100 MG TAB PO SCH (20:47)
[2017-05-07] MEDS ORDERED: LURASIDONE 80 MG TAB PO SCH (21:00)
--- NOTE | 2017-05-07 21:51 | EKG ---
Date Performed: 05/07/2017 Time Performed: 10:34:29 PTAGE: 37 years EKG: SINUS BRADYCARDIA BORDERLINE ECG PREVIOUS TRACING : 01/26/2017 10.17 Since the prior tracing, there has been no significant pretty jinny DOCTOR: Yocasta Wellington Interpretating Date/Time 05/07/2017 21:49:21
[2017-05-08] MEDS: LEVOTHYROXINE SODIUM 50 MCG TAB PO SCH (06:06)
[2017-05-08 06:22] VITALS: BP 119/76; PULSE 75; RESP 16; TEMP 97.8; O2SAT 96
[2017-05-08 08:43] LABS: BICARBONATE 30.2 MEQ/L (21.0-32.0); BLOOD UREA NITROGEN 11 MG/DL (7-18); CALCIUM 9.3 MG/DL (8.5-10.1); CHLORIDE 105 MEQ/L (98-107); CHOLESTEROL 178 MG/DL (120-200); CREATININE 1.04 MG/DL (0.60-1.30); GLOMERULAR FILTRATION RATE 80 ML/MIN (>89); GLUCOSE,RANDOM 85 MG/DL (74-106); SODIUM (NA) 141 MEQ/L (136-145)
[2017-05-08 08:45] LABS: CHOLESTEROL/ HDL RATIO 4.54 RATIO; HDL CHOLESTEROL 39.2 MG/DL (40.0-60.0); LDL CHOLESTEROL 86 MG/DL (0-99); TRIGLYCERIDES 265 MG/DL (42-150)
[2017-05-08 11:06] LABS: HEMOGLOBIN A1C 5.1 % (4.3-6.0)
--- NOTE | 2017-05-08 11:07 | HHI.HP ---
Provisional Diagnosis Admission Date May 07, 2017 at 10:26 [place] I. 1. Schizoaffective disorder, bipolar type, acute exacerbation 2. Alcohol abuse [place] II. Deferred Certification of Person's Competence To Provide Express and Informed Consent I have personally examined Noe Brown , a person being served at [facility] on, May 08, 2017 11:07. Express and informed consent means consent voluntarily given in writing, by a competent person, after sufficient explanation and disclosure of the subject matter involved to enable the person to make a knowing and willful decision without any element of force, fraud, deceit, duress, or other form of constraint or coercion. This person is 18 years of age or older, is not now known to be incompetent to consent to treatment with a guardian advocate, and does not have a health care surrogate or proxy currently making medical treatment decisions. I have found this person to be one of the following: [x] Competent to provide express and informed consent, as defined above, for voluntary admission to this facility and is competent to provide express and informed consent for treatment. He/she has the consistent capacity to make well reasoned, willful, and knowing decisions concerning his or her medical or mental health treatment. The person fully and consistently understands the purpose of the admission for examination/placement and is fully capable of personally exercising all rights assured [place] Incompetent to provide express and informed consent to voluntary admission, and this is incompetent to provide express and informed consent to treatment. The person must be transferred to involuntary status and a petition for a guardian advocate filed with the Circuit Court. [] Refusing to provide express and informed consent to voluntary admission but is competent to provide express and informed consent for treatment. The person must be discharged or transferred to involuntary status. Form shall be completed within 24 hours of a person's arrival at the receiving facility and filed in the clinical record of each person: 1. Admitted on a voluntary basis 2. Permitted to provide express and informed consent to his/her own treatment 3. Allowed to transfer from involuntary to voluntary status 4. Prior to permitting a person to consent to his or her own treatment after having been previously found incompetent to consent to treatment. History of Present Illness Capacity: Has Capacity Psych Chief Complaint: Psychosis HPI Mr. Brown is a 37-year-old male with a history of schizoaffective disorder, well known to the psychiatric service here from previous admissions who presented to the emergency department voluntarily for psychiatric evaluation. He was seen by the psychiatric nurse practitioner in the ED. Reviewing the electronic medical record, I note that the patient was most recently admitted under my care in January of last year. Patient seen and examined with nurse. Chart reviewed. Case discussed with nursing staff. On my examination today, the patient is somewhat disheveled. He says that he relapsed to drinking on Saturday evening and in the middle of the night on Saturday he started hallucinating. He also says that there was "a spiritual component, demons inside my soul. God released me from it." He denies AVH presently. He denies suicidal or homicidal ideation. Mood is somewhat dysphoric. No hypomanic or manic symptoms. The patient admits that he is been off of his psychotropic medications for about the last week or so, and his lithium level was undetectable in the ED. Remainder of the psychiatric ROS is negative. The patient has no physical complaints. Past psychiatric history: The patient has a history of schizoaffective disorder. He follows at [facility] in [place] and remains on psychotropic medications as he was discharged last time, except his Latuda has been tapered to 60 mg per day. His most recent psychiatric admission was here at [place] [place]. He denies any interval suicide attempts. Family history: No reported changes from previous assessments. Chemical dependency history: Patient reports that he had 6 or 7 beers on Saturday. Prior to that he had been more or less sober with only a few drinks in the last several months by his report. Social history: Patient reports that he lives in [place] with friends. 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 Review of Systems Except as stated in HPI: all other systems reviewed are Neg Past Family Social History Coded Allergies: trazodone (Unverified Allergy, Intermediate, Rash, 05/07/17) Past Medical History See EMR Active Scripts Lurasidone (Latuda) 80 Mg Tab, 80 MG PO HS for Mental Health for 15 Days, TAB 1 Refill Take with food. Prov:Javad Connolly MD 01/30/17 Clonazepam (Klonopin) 0.5 Mg Tab, 0.5 MG PO Q12HR for Mental Health for 15 Days , TAB 1 Refill Prov:Javad Connolly MD 01/30/17 Levothyroxine (Synthroid) 50 Mcg Tab, 50 MCG PO DAILY@06 for Mental Health for 15 Days, TAB 1 Refill Prov:Javad Connolly MD 01/30/17 Hydrochlorothiazide (Hydrochlorothiazide) 25 Mg Tab, 25 MG PO DAILY for Blood Pressure Management for 15 Days, TAB 1 Refill Prov:Javad Connolly MD 01/30/17 Morrice Carbonate (Morrice Carbonate) 600 Mg Cap, 600 MG PO HS for Mental Health for 15 Days, CAP 1 Refill Prov:Javad Connolly MD 08/31/16 Morrice Carbonate (Morrice Carbonate) 300 Mg Tab, 300 MG PO DAILY for Mental Health for 15 Days, TAB 1 Refill Prov:Javad Connolly MD 08/31/16 Clozapine (Clozapine) 100 Mg Tab, 100 MG PO HS for Mental Health for 15 Days, TAB 1 Refill Prov:Javad Connolly MD 08/31/16 Discontinued Scripts Cholecalciferol (D 1000) 1,000 Unit Tab, 1000 UNITS PO DAILY for Vitamin D Supplement for 15 Days, TAB 1 Refill Prov:Javad Connolly MD 08/31/16 Current Medications Medications (Trade) Dose Ordered Sig/Shyann Route Start Time Stop Time Status Last Admin (Tylenol) 650 mg Q4H PRN PO 05/07/17 10:30 (Milk Of Magnesia Liq) 30 ml DAILY PRN PO 05/07/17 10:30 (Mag-Al Plus Susp Liq) 30 ml Q6H PRN PO 05/07/17 10:30 (KlonoPIN) 0.5 mg Q12HR PO 05/07/17 21:00 05/07/17 20:47 (Clozaril) 100 mg HS PO 05/07/17 21:00 05/07/17 20:47 (Hydrodiuril) 25 mg DAILY PO 05/07/17 14:45 05/07/17 16:00 (Synthroid) 50 mcg DAILY@06 PO 05/08/17 06:00 05/08/17 06:06 (Lithotabs) 300 mg DAILY PO 05/08/17 09:00 (Morrice Carbonate) 600 mg HS PO 05/07/17 21:00 05/07/17 20:47 (Latuda) 80 mg HS PO 05/07/17 21:00 Physical Exam Physical exam completed by ED provider. On my examination today, the patient appears to be in no acute physical distress. No signs of intoxication or withdrawal noted. No motor abnormalities noted otherwise. Labs and vitals reviewed: Vital Signs Vital Signs Date Time Temp Pulse Resp B/P (MAP) Pulse Ox O2 Delivery O2 Flow Rate FiO2 05/08/17 06:22 97.8 75 16 119/76 (90) 96 05/07/17 07:41 Room Air Lab Results Item Value Date Time White Blood Count 8.4 TH/MM3 05/07/17 0625 Hemoglobin 15.7 GM/DL 05/07/17 06 Platelet Count 153 TH/MM3 05/07/17 0625 Sodium Level 141 MEQ/L 05/08/17 0705 Potassium Level 3.8 MEQ/L 05/08/17 0705 Chloride Level 105 MEQ/L 05/08/17 0705 Carbon Dioxide Level 30.2 MEQ/L 05/08/17 0705 Blood Urea Nitrogen 11 MG/DL 05/08/17 0705 Creatinine 1.04 MG/DL 05/08/17 0705 Estimat Glomerular Filtration Rate 80 ML/MIN L 05/08/17 0705 Thyroid Stimulating Hormone 3rd Gen 1.330 uIU/ML 05/07/17 0625 Aspartate Amino Transf (AST/SGOT) 17 U/L 05/07/17 0625 Alanine Aminotransferase (ALT/SGPT) 17 U/L 05/07/17 0625 Alkaline Phosphatase 82 U/L 05/07/17 0625 Mental Status Examination Appearance: Other (mildly disheveled but maintaining basic hygiene) Consciousness: Alert Orientation: x4 Motor Activity: Other (no motor abnormalities noted) Speech: Unremarkable Language: Adequate Fund of Knowledge: Adequate Attention and Concentration: Adequate Memory: Unremarkable Mood: Appropriate Affect: Anxious Thought Process & Associations: Intact, Linear Thought Content: Other (episcopalian preoccupation but generally appropriate) Hallucination Type: None Delusion Type: None Suicidal Ideation: No Suicidal Plan: No Suicidal Intention: No Homicidal Ideation: No Homicidal Plan: No Homicidal Intention: No Insight: Fair Judgment: Impulsive Assessment & Plan Problem List: (1) Schizoaffective disorder, bipolar type ICD Codes: F25.0 - Schizoaffective disorder, bipolar type Status: Acute (2) Alcohol abuse ICD Codes: F10.10 - Alcohol abuse, uncomplicated Assessment & Plan 37-year-old male with psychiatric history as detailed above who is presently voluntarily admitted to the inpatient unit. On my examination today, the patient reports 1 week of medication nonadherence and relapse to heavier drinking with subsequent onset of psychotic symptoms. Patient's lithium level was undetectable in the ED. Patient requires psychiatric hospitalization at this time for observation and stabilization. Admit inpatient. Voluntary status. Resume psychotropic medications: Morrice 300/600 mg, clozapine 100 mg at bedtime, Latuda 60 mg with dinner, Klonopin 0.5 mg twice daily. Renal function and TSH unremarkable. Plan to check a lithium level after the appropriate interval. ANC is adequate for clozapine therapy. Atarax as needed for anxiety. Monitor for any withdrawal. Vitals every shift. Counselor to see. Disposition planning. Encourage participation in groups and unit activities. Estimated length of stay: 3-5 days. Discharge Planning Pending psychiatric stabilization Request HC Surrog/Guard Advoc?: No Javad Connolly MD May 08, 2017 11:07
[2017-05-08] MEDS: clonazePAM 0.5 MG TAB PO SCH ×2 (11:27→21:15)
[2017-05-08] MEDS: LITHIUM CARBONATE 300 MG TAB PO SCH (11:27)
[2017-05-08] MEDS: HYDROCHLOROTHIAZIDE 25 MG TAB PO SCH (11:27)
[2017-05-08] MEDS ORDERED: PILL SPLITTER OTHER PRN (11:45)
[2017-05-08] MEDS ORDERED: LURASIDONE 40 MG TAB PO SCH (18:00)
[2017-05-08 18:13] VITALS: BP 126/71; PULSE 54; RESP 18; TEMP 97.6; O2SAT 100
[2017-05-08] MEDS: LITHIUM CARBONATE 300 MG CAP PO SCH (21:14)
[2017-05-08] MEDS: cloZAPine 100 MG TAB PO SCH (21:14)
[2017-05-09 05:28] VITALS: BP 113/66; PULSE 67; RESP 16; TEMP 98.2; O2SAT 98
[2017-05-09] MEDS: LEVOTHYROXINE SODIUM 50 MCG TAB PO SCH (06:00)
[2017-05-09] MEDS: clonazePAM 0.5 MG TAB PO SCH ×2 (08:09→20:31)
[2017-05-09] MEDS: HYDROCHLOROTHIAZIDE 25 MG TAB PO SCH (08:09)
[2017-05-09] MEDS: LITHIUM CARBONATE 300 MG TAB PO SCH (08:09)
--- NOTE | 2017-05-09 12:05 | HHI.PYPN ---
Subjective Chief Complaint: Psychosis Remarks Patient seen and examined with nurse. Chart reviewed. Case discussed with nursing staff. No behavioral issues noted overnight. On my examination today, the patient reports that his mood is "great." He denies any AVH. No SI or HI. Denies side effects from medications but is requesting that his Latuda be moved back to HS as he feels foggy headed if he takes it with dinner. He tells me without prompting that he knows he needs to take the Latuda with 350cal. No physical complaints. Hopeful for discharge tomorrow. Review of Systems Except as stated in HPI: all other systems reviewed are Neg Mental Status Examination Appearance: Appropriate Consciousness: Alert Orientation: x4 Motor Activity: Other (no abnormal motor movements noted) Speech: Unremarkable Language: Adequate Fund of Knowledge: Adequate Attention and Concentration: Adequate Memory: Unremarkable Mood: Appropriate Affect: Appropriate Thought Process & Associations: Intact, Logical, Goal directed, Linear Thought Content: Appropriate Hallucination Type: None Delusion Type: None Suicidal Ideation: No Suicidal Plan: No Suicidal Intention: No Homicidal Ideation: No Homicidal Plan: No Homicidal Intention: No Insight: Adequate Judgment: Adequate Mental Status Exam Remarks No signs of withdrawal noted. Results Labs Labs reviewed. No new labs. Vitals/IOs Vital Signs Date Time Temp Pulse Resp B/P (MAP) Pulse Ox O2 Delivery O2 Flow Rate FiO2 05/09/17 05:28 98.2 67 16 113/66 (82) 98 05/07/17 07:41 Room Air Assessment & Plan Problem List: (1) Schizoaffective disorder, bipolar type ICD Codes: F25.0 - Schizoaffective disorder, bipolar type Status: Acute (2) Alcohol abuse ICD Codes: F10.10 - Alcohol abuse, uncomplicated Assessment & Plan Adjust Latuda dosing per patient preference. Continue other psychotropics as ordered. Continue to monitor on the inpatient unit. Continue other medications and care as ordered. Justification for Cont. Inpt. Risk for decompensation. Discharge Planning Anticipate discharge tomorrow, Saturday. Patient will require a lithium level and BMP in 2-3 days after discharge. I will discuss the case with counselor. Request HC Surrog/Guard Advoc?: No Javad Connolly MD May 09, 2017 12:05
[2017-05-09 17:40] VITALS: BP 129/59; PULSE 57; RESP 16; TEMP 98.5; O2SAT 98
[2017-05-09] MEDS: cloZAPine 100 MG TAB PO SCH (20:31)
[2017-05-09] MEDS: LITHIUM CARBONATE 300 MG CAP PO SCH (20:31)
[2017-05-09] MEDS ORDERED: LURASIDONE 40 MG TAB PO SCH (21:00)
[2017-05-10] MEDS: LEVOTHYROXINE SODIUM 50 MCG TAB PO SCH (05:18)
[2017-05-10 05:24] VITALS: BP 122/73; PULSE 67; RESP 16; TEMP 97.3; O2SAT 99
[2017-05-10] MEDS: LITHIUM CARBONATE 300 MG TAB PO SCH (09:19)
[2017-05-10] MEDS: clonazePAM 0.5 MG TAB PO SCH (09:19)
[2017-05-10] MEDS: HYDROCHLOROTHIAZIDE 25 MG TAB PO SCH (09:19)
--- NOTE | 2017-05-10 11:18 | HHI.DS ---
Psychiatry Discharge Summary Inpatient Psychiatric care?: Yes Advance Directive: No Reason Not Provided: Due to Patient Condition Mental Health AdvanceDirective: No Health Care Proxy: No Admission Admission Date May 07, 2017 at 10:26 Admission Diagnosis: (1) Schizoaffective disorder, bipolar type ICD Code: F25.0 - Schizoaffective disorder, bipolar type (2) Alcohol abuse ICD Code: F10.10 - Alcohol abuse, uncomplicated Brief History Mr. Brown is a 37-year-old male with a history of schizoaffective disorder, well known to the psychiatric service here from previous admissions who presented to the emergency department voluntarily for psychiatric evaluation. He was seen by the psychiatric nurse practitioner in the ED. Reviewing the electronic medical record, I note that the patient was most recently admitted under my care in January of last year. Patient seen and examined with nurse. Chart reviewed. Case discussed with nursing staff. On my examination today, the patient is somewhat disheveled. He says that he relapsed to drinking on Saturday evening and in the middle of the night on Saturday he started hallucinating. He also says that there was "a spiritual component, demons inside my soul. God released me from it." He denies AVH presently. He denies suicidal or homicidal ideation. Mood is somewhat dysphoric. No hypomanic or manic symptoms. The patient admits that he is been off of his psychotropic medications for about the last week or so, and his lithium level was undetectable in the ED. Remainder of the psychiatric ROS is negative. The patient has no physical complaints. Past psychiatric history: The patient has a history of schizoaffective disorder. He follows at [facility] in [place] and remains on psychotropic medications as he was discharged last time, except his Latuda has been tapered to 60 mg per day. His most recent psychiatric admission was here at [facility]. He denies any interval suicide attempts. Family history: No reported changes from previous assessments. Chemical dependency history: Patient reports that he had 6 or 7 beers on Saturday. Prior to that he had been more or less sober with only a few drinks in the last several months by his report. Social history: Patient reports that he lives in [place] with friends. 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 Tobacco Use In Past 30 Days: 5 or More Cigarettes/Day Alcohol Use: 2-3 Times Per Week Hospital Course Patient was admitted to a locked, inpatient psychiatric unit. He was medically cleared by the emergency department staff. There are appropriate precautions in place throughout his stay. He was seen and examined daily while on the unit by psychiatry; he also is visited by a counselor. Psychotropic medications were adjusted. Patient tolerated these medications without side effect. Patient reports improvement in his symptoms during the course of his stay. He has shown no evidence of suicide duality or homicidality while on the unit. His behavior has remained in good control, and he has been compliant with all medications. On the day of his discharge: Reviewed in electronic medical record , and discussed case with staff. Patient examined in his room with nurse present. Also discussed case with counselor. There were no behavioral issues noted overnight. During today's examination, he reports that he had a good night sleep, and he has a healthy appetite. Patient denies thoughts of self- harm, homicidal ideation, auditory or visual hallucinations, and is not delusional. Mr. Brown states "I have stabilized quite well". He has no physical complaints at this time, and denies any side effects from medication. Weighing the acute, chronic, protective factors and based upon the available evidence, I judged to reasonable degree of medical certainty this patient is at low imminent risk of harm to self or others from a mental illness as defined under the Quiros act his level of function is adequate for outpatient care. He has maximized benefit from this inpatient psychiatric hospital stay and will be discharged today with psychiatric follow-up as arranged by counselor. He is also to follow-up with his primary care. I have counseled the patient regarding warning signs for need to return to psychiatric emergency room as part of a general safety plan. Results Blood Pressure 122 / 73 Vital Signs Date Time Temp Pulse Resp B/P (MAP) Pulse Ox O2 Delivery O2 Flow Rate FiO2 05/10/17 05:24 97.3 67 16 122/73 (89) 99 05/07/17 07:41 Room Air Laboratory Tests Test 05/08/17 07:05 Estimat Glomerular Filtration Rate 80 ML/MIN (>89) Triglycerides Level 265 MG/DL (42-150) HDL Cholesterol 39.2 MG/DL (40.0-60.0) Laboratory Results Test 05/07/17 06:25 05/08/17 07:05 [place] Level LESS THAN 0.1 MEQ/L Cholesterol Level 178 MG/DL (120-200) HDL Cholesterol 39.2 MG/DL (40.0-60.0) Hemoglobin A1c 5.1 % (4.3-6.0) LDL Cholesterol 86 MG/DL (0-99) Triglycerides Level 265 MG/DL (42-150) Summary of Procedures None done. Imaging None done. Pending results at discharge: No Medications # of Antipsychotic meds at D/C: 2 Appropriate >1 Antipsych meds?: 4 Approp Antipsych med options 1 - Minimum of three failed multiple trials of monotherapy. 2 - Documented plan to taper to monotherapy due to previous use of multiple meds OR cross-taper in progress at D/C. 3 - Documentation of augmentation of Clozapine. 4 - Justification other than those listed in allowable values 1-3, document here : Discharge Discharge Date: May 10, 2017 Discharge Diagnosis: (1) Schizoaffective disorder, bipolar type Diagnosis: Principal (Stabilized) ICD Code: F25.0 - Schizoaffective disorder, bipolar type Status: Acute Pt Condition on Discharge: Stable Discharge Disposition: Discharge Home Discharge Instructions Diet Instructions: As Tolerated, No Restrictions Activities you can perform: Weight Bearing as Miguel Scheduled Appointment: [facility] Appointment Date: May 15, 2017 Appointment Time: 8:30 a.m. Discharge Time > 30 minutes Mental Status Examination Appearance: Appropriate Consciousness: Alert Orientation: x4 Motor Activity: Other (no abnormal motor movements noted) Speech: Unremarkable Language: Adequate Fund of Knowledge: Adequate Attention and Concentration: Adequate Memory: Unremarkable Mood: Appropriate Affect: Appropriate Thought Process & Associations: Intact, Logical, Goal directed, Linear Thought Content: Appropriate Hallucination Type: None Delusion Type: None Suicidal Ideation: No Suicidal Plan: No Suicidal Intention: No Homicidal Ideation: No Homicidal Plan: No Homicidal Intention: No Insight: Adequate Judgment: Adequate Discharge/Advance Care Plan Health Problems: (1) Schizoaffective disorder, bipolar type (2) Alcohol abuse Goals to promote your health * To prevent worsening of your condition and complications * To maintain your health at the optimal level Directions to meet your goals Take your medications as prescribed Follow your dietary instruction Follow activity as directed Keep your appointments as scheduled Take your immunizations and boosters as scheduled If your symptoms worsen call your PCP, if no PCP go to Urgent Care Center or Emergency Room For 24/7 questions related to your inpatient stay or results of tests pending at discharge, please contact Dr. Annita Licona at Smoking is Dangerous to Your Health. Avoid second hand smoking Annita Licona May 10, 2017 11:18
[2017-05-10] MEDS ORDERED: CLOZ100T3 PO (11:24)
[2017-05-10] MEDS ORDERED: LITH300T3 PO (11:24)
[2017-05-10] MEDS ORDERED: LITH600C PO (11:24)
[2017-05-10] MEDS ORDERED: CLON.5 PO (11:24)
[2017-05-10] MEDS ORDERED: LURA80 PO (11:24)
== END 2017-05-10 14:50 | disposition home or self-care (01) | DRG 885 ==
LOC: NEPD 05:44 → NEDA 10:26 → H260 11:19
PROVIDERS: ADMIT Psychiatry & Neurology Psychiatry; ATTEND Psychiatry & Neurology Psychiatry
DX: F25.0 Schizoaffective disorder, bipolar type (principal); Z91.14 Patient's other noncompliance with medication regimen; F10.10 Alcohol abuse, uncomplicated
CPT/HCPCS: 80048; 80053; 80061; 80178; 80307; 83036; 84443; 85025; 93005; 99285

== ENCOUNTER 2017-05-28 10:59 | Emergency (ER) | payer MEDICARE, OTHER ==
[~2017-05-28 10:59] MED LIST changes: -VITA1000 PO
[2017-05-28 12:03] VITALS: BP 142/96; PULSE 72; RESP 16; TEMP 98.4; O2SAT 99
--- NOTE | 2017-05-28 12:18 | PD ---
HPI Chief Complaint: Medication Refill Request Time Seen by Provider: 12:16 Travel History International Travel<30 days: No Contact w/Intl Traveler<30days: No Traveled to known affect area: No History of Present Illness HPI 37 YO M presents to the ED requesting medication refill. Patient states that he takes clonazepam for anxiety, last dose 4 days ago. On presentation he complains of anxiety attack at work. He states that he has been taking the medications as prescribed and was last provided a 7 day supply at last visit on 05/07. History Past Medical Histgory Hx Cancer: No Social History Alcohol Use: Yes Tobacco Use: Yes Allergies-Medications (Allergen,Severity, Reaction): Coded Allergies: trazodone (Unverified Allergy, Intermediate, Rash, 05/07/17) Reported Meds & Prescriptions Reported Meds & Active Scripts Active Latuda (Lurasidone) 80 Mg Tab 80 Mg PO HS 7 Days Take with food. Klonopin (Clonazepam) 0.5 Mg Tab 0.5 Mg PO Q12HR 7 Days [place] Carbonate 600 Mg Cap 600 Mg PO HS 7 Days [place] Carbonate 300 Mg Tab 300 Mg PO DAILY 7 Days Clozapine 100 Mg Tab 100 Mg PO HS 7 Days Synthroid (Levothyroxine Sodium) 50 Mcg Tab 50 Mcg PO DAILY@06 15 Days Hydrochlorothiazide 25 Mg Tab 25 Mg PO DAILY 15 Days Review of Systems Except as stated in HPI: all other systems reviewed are Neg Physical Exam Narrative GENERAL: Well-nourished, well-developed anxious white male in no acute distress. SKIN: Focused skin assessment warm/dry. HEAD: Normocephalic. EYES: No scleral icterus. No injection or drainage. Pupils pinpoint bilaterally. NECK: Supple, trachea midline. No JVD or lymphadenopathy. CARDIOVASCULAR: Regular rate and rhythm without murmurs, gallops, or rubs. RESPIRATORY: Breath sounds clear and equal bilaterally. No accessory muscle use. GASTROINTESTINAL: Abdomen soft, non-tender, nondistended. MUSCULOSKELETAL: No cyanosis, or edema. BACK: Nontender without obvious deformity. No CVA tenderness. Data Data Last Documented VS Vital Signs Date Time Temp Pulse Resp B/P (MAP) Pulse Ox O2 Delivery O2 Flow Rate FiO2 05/28/17 12:03 98.4 72 16 142/96 (111) 99 MDM Medical Screen Exam Complete: Yes Emergency Medical Condition: No Narrative Course 37 YO M presents to the ED requesting medication refill. Patient states that he takes clonazepam for anxiety, last dose 4 days ago. On presentation he complains of anxiety attack at work. He states that he has been taking the medications as prescribed and was last provided a 7 day supply at last visit on 05/07. Vitals reviewed. On exam this is an anxious white male in no acute distress. Pupils are pinpoint bilaterally. Exam otherwise unremarkable. I reviewed [facility]. Patient was prescribed 60 tablets of 0.5 mg clonazepam on 05/16. When confronted with this information the patient does admit that he was prescribed these pills. He also admits that he has been misusing them. I explained to the patient that due to concerns about his misuse and history of substance abuse I would not refill this prescription. The patient became belligerent, cursing. He can follow up with [facility] for treatment for substance abuse. A medical screening exam was performed: At the time of evaluation the presenting medical condition was determined not to be of an emergent nature. The patient was given the option of receiving additional care, but declined. Patient was given options for additional community resources from which to obtain care. The Patient Has Been advised to seek medical attention for their presenting complaint. The patient has been advised to return to the ER at any time if an emergent condition develops. Primary Impression: Encounter for medical screening examination Condition: Alexus Torres May 28, 2017 12:18
== END 2017-05-28 13:26 | disposition left against medical advice (07) ==
LOC: NED 10:59 → NEPK 13:26
DX: F41.1 Generalized anxiety disorder (principal)
CPT/HCPCS: 99281

== ENCOUNTER 2017-07-09 15:39 | Inpatient (IN) | payer MEDICARE, MEDICAID ==
[~2017-07-09] VITALS: Ht 180.3 cm; Wt 89.0 kg
[2017-07-09 15:47] VITALS: BP 181/100; PULSE 83; RESP 20; TEMP 99.3; O2SAT 98
--- NOTE | 2017-07-09 15:57 | PD ---
HPI Chief Complaint: Psychiatric Symptoms Time Seen by Provider: 15:55 Travel History International Travel<30 days: No Contact w/Intl Traveler<30days: No Traveled to known affect area: No History of Present Illness HPI 37-year-old male presents to the emergency department with complaint of depression and suicidal ideation for the past 4 months. He says he has "been in a living situation that is very turbulent and the people are trying to kill him in the "spiritual world."" He has history of schizoaffective bipolar disorder and says he has been compliant with his medications. He says he does not feel safe at the place that he lives. He feels like they are going to kill him. He has been buying them Roxicet and benzodiazepines at their request so they do not harm him. He reports both auditory and visual hallucinations. Says he is having equal thoughts. Reports suicidal ideation but has no current plan. Reports homicidal ideations and having thoughts to harm people but does not have a current plan. He says "all of his thoughts are all in his mind." He reports taking Roxicet and his prescribed Klonopin. He denies other illicit drug use. Denies IV drug use. Reports alcohol use. Symptoms aggravated by his living situation. No known relieving factors. Onset and duration chronic. Allergies to trazodone. Does not have a primary care provider. Has a psychiatrist and has a appointment on July 11. Psychiatrist is Dr. Evans. Has no other medical complaints. No other modifying factors or associated signs and symptoms. PFSH Past Medical History Arthritis: No Asthma: No Bipolar Disorder: Yes Anxiety: Yes Depression: Yes Heart Rhythm Problems: No Cancer: No Cardiovascular Problems: No High Cholesterol: No Chest Pain: No Congestive Heart Failure: No COPD: No Cerebrovascular Accident: No Diabetes: No GERD: No Genitourinary: No Headaches: No Hiatal Hernia: No Hypertension: Yes Insomnia: Yes Kidney Stones: No Musculoskeletal: No Neurologic: No Psychiatric: Yes (Schizoaffective Disorder, Schizophrenia, BiPolar Disorder) Reproductive: No Respiratory: No Immunizations Current: Yes Migraines: No Renal Failure: No Schizophrenia: Yes (SCHIZOAFFECTIVE) Seizures: No Sleep Apnea: No Ulcer: No Past Surgical History Abdominal Surgery: No Ear Surgery: No Endocrine Surgery: No Eye Surgery: No Genitourinary Surgery: No Gynecologic Surgery: No Oral Surgery: No Thoracic Surgery: No Other Surgery: Yes (FEMUR FRACTURE A CHILD RIGHT LEG(HARDWARE REMOVED)) Social History Alcohol Use: Yes Tobacco Use: Yes Substance Use: Yes (beer and benzos) Allergies-Medications (Allergen,Severity, Reaction): Coded Allergies: trazodone (Unverified Allergy, Intermediate, Rash, 07/09/17) Reported Meds & Prescriptions Reported Meds & Active Scripts Active Latuda (Lurasidone) 80 Mg Tab 80 Mg PO HS 7 Days Take with food. Klonopin (Clonazepam) 0.5 Mg Tab 0.5 Mg PO Q12HR 7 Days [place] Carbonate 600 Mg Cap 600 Mg PO HS 7 Days [place] Carbonate 300 Mg Tab 300 Mg PO DAILY 7 Days Clozapine 100 Mg Tab 100 Mg PO HS 7 Days Synthroid (Levothyroxine Sodium) 50 Mcg Tab 50 Mcg PO DAILY@06 15 Days Hydrochlorothiazide 25 Mg Tab 25 Mg PO DAILY 15 Days Review of Systems Except as stated in HPI: all other systems reviewed are Neg Physical Exam Narrative GENERAL: Well-nourished, well-developed male patient, in no acute distress SKIN: Warm and dry. HEAD: Atraumatic. Normocephalic. EYES: Pupils equal and round. ENT: Mucosa pink and moist. NECK: Supple. Trachea midline. CARDIOVASCULAR: Regular rate and rhythm. No murmur appreciated. RESPIRATORY: No accessory muscle use. Clear to auscultation. Breath sounds equal bilaterally. GASTROINTESTINAL: Abdomen soft, non-tender, nondistended. Hepatic and splenic margins not palpable. Bowel sounds are active 4 quadrants. MUSCULOSKELETAL: No obvious deformities. No clubbing. No cyanosis. No edema. NEUROLOGICAL: Awake and alert. Oriented 3. No obvious cranial nerve deficits. Motor grossly within normal limits. Normal speech. Moves all extremities. 5/5 strength to all extremities. PSYCHIATRIC: Delusional thought processes. Hallucinations. Data Data Last Documented VS Vital Signs Date Time Temp Pulse Resp B/P (MAP) Pulse Ox O2 Delivery O2 Flow Rate FiO2 07/09/17 15:47 99.3 83 20 181/100 (127) 98 Orders Orders Complete Blood Count With Diff (07/09/17 15:57) Comprehensive Metabolic Panel (07/09/17 15:57) Thyroid Stimulating Hormone (07/09/17 15:57) Psych Screen (07/09/17 15:57) Drug Screen, Random Urine (07/09/17 15:57) Alcohol (Ethanol) (07/09/17 15:57) Salicylates (Aspirin) (07/09/17 15:57) Tylenol (Acetaminophen) (07/09/17 15:57) [place] (Li) (07/09/17 16:39) Diet Regular Basic (07/09/17 Dinner) Labs Laboratory Tests Test 07/09/17 16:45 White Blood Count 12.4 TH/MM3 Red Blood Count 5.35 MIL/MM3 Hemoglobin 15.8 GM/DL Hematocrit 46.2 % Mean Corpuscular Volume 86.4 FL Mean Corpuscular Hemoglobin 29.5 PG Mean Corpuscular Hemoglobin Concent 34.2 % Red Cell Distribution Width 13.2 % Platelet Count 152 TH/MM3 Mean Platelet Volume 10.4 FL Neutrophils (%) (Auto) 78.4 % Lymphocytes (%) (Auto) 13.7 % Monocytes (%) (Auto) 6.3 % Eosinophils (%) (Auto) 1.1 % Basophils (%) (Auto) 0.5 % Neutrophils # (Auto) 9.7 TH/MM3 Lymphocytes # (Auto) 1.7 TH/MM3 Monocytes # (Auto) 0.8 TH/MM3 Eosinophils # (Auto) 0.1 TH/MM3 Basophils # (Auto) 0.1 TH/MM3 CBC Comment DIFF FINAL Differential Comment Salicylates Level 1.8 MG/DL Urine Opiates Screen NEG Urine Barbiturates Screen NEG Urine Amphetamines Screen NEG Urine Benzodiazepines Screen NEG [place] Level 0.2 MEQ/L Urine Cocaine Screen NEG Urine Cannabinoids Screen NEG MDM Medical Decision Making Medical Screen Exam Complete: Yes Emergency Medical Condition: Yes Medical Record Reviewed: Yes Differential Diagnosis Psychosis, schizoaffective disorder, medical clearance for psychiatric admission Narrative Course Patient presents voluntarily. Dr. Hernandez evaluated the patient and initiate a Quiros act. Physical examination and vital signs are essentially unremarkable. Patient has no medical complaints to report. Psych screen has been ordered. If the laboratory results are unremarkable, the patient will be medically cleared for psychiatric evaluation and disposition. Diagnosis Primary Impression: Encounter for psychological evaluation Condition: Stable Irene Berry July 09, 2017 15:57
[2017-07-09 17:19] LABS: AUTOMATED NEUTROPHIL # 9.7 TH/MM3 (1.8-7.7); BASOPHIL # 0.1 TH/MM3 (0-0.2); BASOPHIL % 0.5 % (0.0-2.0); EOSINOPHIL # 0.1 TH/MM3 (0-0.4); EOSINOPHIL % 1.1 % (0.0-4.0); HEMATOCRIT 46.2 % (39.0-51.0); HEMOGLOBIN 15.8 GM/DL (13.0-17.0); LYMPH % 13.7 % (9.0-44.0); LYMPHOCYTE # 1.7 TH/MM3 (1.0-4.8); MEAN CELL VOLUME 86.4 FL (80.0-100.0); MEAN CORPUSCULAR HEMOGLOBIN 29.5 PG (27.0-34.0); MEAN CORPUSCULAR HGB CONC 34.2 % (32.0-36.0); MEAN PLATELET VOLUME 10.4 FL (7.0-11.0); MONO % 6.3 % (0.0-8.0); MONOCYTE # 0.8 TH/MM3 (0-0.9); NEUT % 78.4 % (16.0-70.0); PLATELET COUNT 152 TH/MM3 (150-450); RED BLOOD COUNT 5.35 MIL/MM3 (4.50-5.90); RED CELL DISTRIBUTION WIDTH 13.2 % (11.6-17.2); WHITE BLOOD COUNT 12.4 TH/MM3 (4.0-11.0)
[2017-07-09 17:40] LABS: ALBUMIN 4.3 GM/DL (3.4-5.0); ALT (GPT) 24 U/L (12-78); AST (GOT) 19 U/L (15-37); BICARBONATE 25.1 MEQ/L (21.0-32.0); BLOOD UREA NITROGEN 15 MG/DL (7-18); CALCIUM 8.7 MG/DL (8.5-10.1); CHLORIDE 109 MEQ/L (98-107); CREATININE 1.21 MG/DL (0.60-1.30); GLOMERULAR FILTRATION RATE 67 ML/MIN (>89); GLUCOSE,RANDOM 105 MG/DL (74-106); SODIUM (NA) 142 MEQ/L (136-145)
[2017-07-09 17:50] LABS: ALKALINE PHOSPHATASE 82 U/L (45-117); TOTAL BILIRUBIN ADULT 0.4 MG/DL (0.2-1.0); TOTAL PROTEIN 7.2 GM/DL (6.4-8.2)
[2017-07-09 18:03] LABS: ACETAMINOPHEN LESS THAN 2.0 MCG/ML (10.0-30.0)
[2017-07-09 22:54] VITALS: BP 120/81; PULSE 58; RESP 17; O2SAT 99
[2017-07-10 05:57] VITALS: BP 127/58; PULSE 58; RESP 16; O2SAT 98
[2017-07-10] MEDS ORDERED: MAGNESIUM HYDROXIDE SUSP 30 ML CUP PO PRN (08:45)
[2017-07-10] MEDS ORDERED: LORazepam 0.5 MG TAB PO PRN (08:45)
[2017-07-10] MEDS ORDERED: ACETAMINOPHEN 325 MG TAB PO PRN (08:45)
[2017-07-10] MEDS ORDERED: LORazepam 1 MG TAB PO PRN (08:45)
[2017-07-10] MEDS ORDERED: LORazepam 2 MG/ML VIAL IM PRN ×2 (08:45)
[2017-07-10] MEDS ORDERED: ALUMINUM/MAGNESIUM/SIMETH 30 ML CUP PO PRN (08:45)
[2017-07-10] MEDS: HYDROCHLOROTHIAZIDE 25 MG TAB PO SCH (09:00)
[2017-07-10 09:20] VITALS: BP 122/68; PULSE 50; RESP 16; TEMP 98.2; O2SAT 100
[2017-07-10] MEDS: LITHIUM CARBONATE 300 MG TAB PO SCH ×2 (10:39→20:26)
[2017-07-10] MEDS: clonazePAM 0.5 MG TAB PO SCH ×2 (10:40→20:26)
[2017-07-10] MEDS: NICOTINE 21 MG/24 HR PATCH T-DERMAL SCH (10:40)
--- NOTE | 2017-07-10 12:05 | HHI.HP ---
Provisional Diagnosis Admission Date July 10, 2017 at 08:39 [place] I. Schizoaffective disorder, bipolar type, cocaine and alcohol use disorder [place] II. 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 [place] III. Hypothyroidism and HTN A[place] IV. Multiple psychiatric admissions A[place] V. 40 Certification of Person's Competence To Provide Express and Informed Consent I have personally examined Noe Brown , a person being served at [facility] on, July 10, 2017 11:46. Express and informed consent means consent voluntarily given in writing, by a competent person, after sufficient explanation and disclosure of the subject matter involved to enable the person to make a knowing and willful decision without any element of force, fraud, deceit, duress, or other form of constraint or coercion. This person is 18 years of age or older, is not now known to be incompetent to consent to treatment with a guardian advocate, and does not have a health care surrogate or proxy currently making medical treatment decisions. I have found this person to be one of the following: [] Competent to provide express and informed consent, as defined above, for voluntary admission to this facility and is competent to provide express and informed consent for treatment. He/she has the consistent capacity to make well reasoned, willful, and knowing decisions concerning his or her medical or mental health treatment. The person fully and consistently understands the purpose of the admission for examination/placement and is fully capable of personally exercising all rights [place] Incompetent to provide express and informed consent to voluntary admission, and this is incompetent to provide express and informed consent to treatment. The person must be transferred to involuntary status and a petition for a guardian advocate filed with the Circuit Court. [x] Refusing to provide express and informed consent to voluntary admission but is competent to provide express and informed consent for treatment. The person must be discharged or transferred to involuntary status. Form shall be completed within 24 hours of a person's arrival at the receiving facility and filed in the clinical record of each person: 1. Admitted on a voluntary basis 2. Permitted to provide express and informed consent to his/her own treatment 3. Allowed to transfer from involuntary to voluntary status 4. Prior to permitting a person to consent to his or her own treatment after having been previously found incompetent to consent to treatment. History of Present Illness Capacity: Has Capacity HPI The patient is 37-year-old presents man, domiciled with friends in [place], single, unemployed, supported by [facility], with psychiatric history of schizoaffective disorder, alcohol and cocaine use disorder, multiple psychiatric hospitalizations, previous suicidal attempts, he is well known by our service, his last hospitalization was here at [facility] in April 2017, recommendation reviewed, is currently in lithium 300 mg in the morning, 600 at night, Latuda 60 mg, clozapine 100 mg at bedtime, clonazepam 0.5 mg twice daily , he has medical history hypertension and hypothyroidism, who was brought to the emergency department with complaint of depression and suicidal ideation for the past 4 months. On psychiatric evaluation the patient is calm, superficially cooperative, with a prominent flat affect, internally preoccupied , guarded and with concrete thought process. He says he has "been in a living situation that is very turbulent and the people are trying to kill him in the "spiritual world." . He says he does not feel safe at the place that he lives. He feels like they are going to kill him. He states that they have been trespassing his personal space, they have "been hearing his telephone conversations, still my morning and eating my food". The patient reports that he feels very stressed "I am about to lose to control myself" he reports that he has been hearing voices to telling him to kill himself or kill them. The patient started crying profusely stating "if they want to kill me and will have to defend myself and I am going to have to kill". The patient seems to be quite anxious and dysregulated. He reports that he is fully compliant with his psychotropics. He reports that he uses alcohol just occasionally, as well as cocaine. He has not used cocaine or alcohol in the last week. His toxicology is negative. The patient is fully oriented 3. No attention deficit, no fluctuation of consciousness present. The patient is no agitated or aggressive. Review of Systems Constitutional: DENIES: Diaphoretic episodes, Fatigue, Fever, Weight gain, Weight loss, Chills, Dizziness, Change in appetite, Night Sweats Endocrine: DENIES: Heat/cold intolerance, Polydipsia, Polyuria, Polyphagia Eyes: DENIES: Blurred vision, Diplopia, Eye inflammation, Eye pain, Vision loss , Photosensitivity, Double Vision Ears, nose, mouth, throat: DENIES: Tinnitus, Hearing loss, Vertigo, Nasal discharge, Oral lesions, Throat pain, Hoarseness, Ear Pain, Running Nose, Epistaxis, Sinus Pain, Toothache, Odynophagia Respiratory: DENIES: Apneas, Cough, Snoring, Wheezing, Hemoptysis, Sputum production, Shortness of breath Cardiovascular: DENIES: Chest pain, Palpitations, Syncope, Dyspnea on Exertion , PND, Lower Extremity Edema, Orthopnea, Claudication Gastrointestinal: DENIES: Abdominal pain, Black stools, Bloody stools, Constipation, Diarrhea, Nausea, Vomiting, Difficulty Swallowing, Anorexia Genitourinary: DENIES: Sexual dysfunction, Urinary frequency, Urinary incontinence, Urgency, Hematuria, Dysuria, Nocturia, Penile Discharge, Testicular Pain, Testicular Swelling Musculoskeletal: DENIES: Joint pain, Muscle aches, Stiffness, Joint Swelling, Back pain, Neck pain Integumentary: DENIES: Abnormal pigmentation, Nail changes, Pruritus, Rash Hematologic/lymphatic: DENIES: Bruising, Lymphadenopathy Immunologic/allergic: DENIES: Eczema, Urticaria Neurologic: DENIES: Abnormal gait, Headache, Localized weakness, Paresthesias, Seizures, Speech Problems, Tremor, Poor Balance Psychiatric: COMPLAINS OF: Mood changes, Suicidal Ideation, Homicidal Ideation , Delusions, DENIES: Anxiety, Confusion, Depression, Hallucinations, Agitation Past Psych History Violence risk - self (6 mos) Increased Substance Abuse History Drugs/Alcohol past 12 months Patient reports occasional use of alcohol and cocaine Past Family Social History Coded Allergies: trazodone (Unverified Allergy, Intermediate, Rash, 07/09/17) Active Scripts Lurasidone (Latuda) 80 Mg Tab, 80 MG PO HS for Mental Health for 7 Days, #7 TAB 1 Refill Take with food. Prov:Annita Licona 05/10/17 Clonazepam (Klonopin) 0.5 Mg Tab, 0.5 MG PO Q12HR for Mental Health for 7 Days, #14 TAB 1 Refill Prov:Annita Licona 05/10/17 [place] Pryor Carbonate ([place]or Carbonate) 600 Mg Cap, 600 MG PO HS for Mental Health for 7 Days, #7 CAP 1 Refill Prov:Annita Licona 05/10/17 [place] Carbonate ([place] Carbonate) 300 Mg Tab, 300 MG PO DAILY for Mental Health for 7 Days, #7 TAB 1 Refill Prov:Annita LiconaP 05/10/17 Clozapine (Clozapine) 100 Mg Tab, 100 MG PO HS for Mental Health for 7 Days, #7 TAB 1 Refill Prov:Annita LiconaP 05/10/17 Levothyroxine (Synthroid) 50 Mcg Tab, 50 MCG PO DAILY@06 for Mental Health for 15 Days, TAB 1 Refill Prov:Javad Connolly MD 01/30/17 Hydrochlorothiazide (Hydrochlorothiazide) 25 Mg Tab, 25 MG PO DAILY for Blood Pressure Management for 15 Days, TAB 1 Refill Prov:Javad Connolly MD 01/30/17 Current Medications Medications (Trade) Dose Ordered Sig/Shyann Route Start Time Stop Time Status Last Admin (KlonoPIN) 0.5 mg Q12HR PO 07/10/17 09:00 07/10/17 10:40 (Clozaril) 100 mg HS PO 07/10/17 21:00 (Hydrodiuril) 25 mg DAILY PO 07/10/17 09:00 (Synthroid) 50 mcg DAILY@06 PO 07/11/17 06:00 (Lithotabs) 300 mg DAILY PO 07/10/17 09:00 07/10/17 10:39 (Lithotabs) 600 mg HS PO 07/10/17 21:00 (Latuda) 80 mg HS PO 07/10/17 21:00 (Ativan) 1 mg Q6H PRN PO 07/10/17 08:45 (Ativan Inj) 1 mg Q6H PRN IM 07/10/17 08:45 (Tylenol) 650 mg Q4H PRN PO 07/10/17 08:45 (Milk Of Magnesia Liq) 30 ml DAILY PRN PO 07/10/17 08:45 (Mag-Al Plus Susp Liq) 30 ml Q6H PRN PO 07/10/17 08:45 (Habitrol 21 Mg Patch.24 Hr) 1 patch DAILY T-DERMAL 07/10/17 09:00 07/10/17 10:40 Miscellaneous Information 1 HS T-DERMAL 07/10/17 21:00 Family Psych History No family psychiatric history Social History Patient was born raised in [place], he lives in [place] with friends, he is unemployed, supported by [facility], single, he reports that he has some college education Patient's Strengths (min. 2) Outpatient psychiatric care, compliant with medication Physical Exam No tremors, no EPS, no psychomotor agitation or retardation, no gait disturbance Vital Signs Vital Signs Date Time Temp Pulse Resp B/P (MAP) Pulse Ox O2 Delivery O2 Flow Rate FiO2 07/10/17 09:21 07/10/17 09:20 98.2 50 16 100 07/10/17 05:57 Room Air Lab Results Test 07/09/17 16:45 White Blood Count 12.4 TH/MM3 Red Blood Count 5.35 MIL/MM3 Hemoglobin 15.8 GM/DL Hematocrit 46.2 % Mean Corpuscular Volume 86.4 FL Mean Corpuscular Hemoglobin 29.5 PG Mean Corpuscular Hemoglobin Concent 34.2 % Red Cell Distribution Width 13.2 % Platelet Count 152 TH/MM3 Mean Platelet Volume 10.4 FL Neutrophils (%) (Auto) 78.4 % Lymphocytes (%) (Auto) 13.7 % Monocytes (%) (Auto) 6.3 % Eosinophils (%) (Auto) 1.1 % Basophils (%) (Auto) 0.5 % Neutrophils # (Auto) 9.7 TH/MM3 Lymphocytes # (Auto) 1.7 TH/MM3 Monocytes # (Auto) 0.8 TH/MM3 Eosinophils # (Auto) 0.1 TH/MM3 Basophils # (Auto) 0.1 TH/MM3 CBC Comment DIFF FINAL Differential Comment Blood Urea Nitrogen 15 MG/DL Creatinine 1.21 MG/DL Random Glucose 105 MG/DL Total Protein 7.2 GM/DL Albumin 4.3 GM/DL Calcium Level 8.7 MG/DL Alkaline Phosphatase 82 U/L Aspartate Amino Transf (AST/SGOT) 19 U/L Alanine Aminotransferase (ALT/SGPT) 24 U/L Total Bilirubin 0.4 MG/DL Sodium Level 142 MEQ/L Potassium Level 3.5 MEQ/L Chloride Level 109 MEQ/L Carbon Dioxide Level 25.1 MEQ/L Anion Gap 8 MEQ/L Estimat Glomerular Filtration Rate 67 ML/MIN Thyroid Stimulating Hormone 3rd Gen 0.428 uIU/ML Salicylates Level 1.8 MG/DL Urine Opiates Screen NEG Acetaminophen Level LESS THAN 2.0 MCG/ML Urine Barbiturates Screen NEG Urine Amphetamines Screen NEG Urine Benzodiazepines Screen NEG [place] Level 0.2 MEQ/L Urine Cocaine Screen NEG Urine Cannabinoids Screen NEG Ethyl Alcohol Level LESS THAN 3 MG/DL Mental Status Examination Appearance: Appropriate Consciousness: Alert Orientation: x4 Motor Activity: Normal gait Speech: Unremarkable Language: Adequate Fund of Knowledge: Adequate Attention and Concentration: Adequate Memory: Unremarkable Mood: Angry Affect: Other (Odd) Thought Process & Associations: Intact, Goal directed Thought Content: Appropriate, Ideas of reference, Preoccupations, Delusional Hallucination Type: Auditory Delusion Type: Paranoid Suicidal Ideation: Yes Suicidal Plan: No Suicidal Intention: No Homicidal Ideation: Yes Homicidal Plan: No Homicidal Intention: No Insight: Poor Judgment: Poor Assessment & Plan Problem List: (1) Schizoaffective disorder, bipolar type ICD Codes: F25.0 - Schizoaffective disorder, bipolar type Status: Acute Assessment & Plan: Psychiatric evaluation the patient presents with flat/odd affect, goal directed and concrete thought process, paranoid and reference delusions, the patient reports that people from his last residential facility has been following him, went to kill him, are recording his telephone conversations and he is so stressed that he wants to kill himself or kill them. Patient seems to be in acute distress, dysregulated he also reports commanding type auditory hallucinations of voices telling him to "kill himself or to kill them". This is a patient with a extensive history of schizoaffective disorder, multiple psychiatric hospitalizations, substance abuse , previous suicide attempts, well known by the service, and at this moment due to the level of psychosis and distress the patient is in a high risk of danger to self and others and he needs psychiatric hospitalization for stabilization. I will restart his outpatient psychotropics, clozapine 100 mg hs, Latuda 60 mg daily, lithium 300/600, clonazepam 0.5 mg twice daily. Will order lithium levels. Transfer patient to 2700 unit. We will consult psychiatry for second opinion. jet worker intervention for psychosocial assessment, collateral information, individual and group therapies, to coordinate safe discharge. Brief supportive psychotherapy and psychoeducation provided. Assessment & Plan Estimated LOS: Omari Al MD July 10, 2017 12:05
[2017-07-10] MEDS: LURASIDONE 80 MG TAB PO SCH (20:26)
[2017-07-10] MEDS: REMOVE OLD NICODERM (NICOTINE) PATCH T-DERMAL SCH (20:31)
[2017-07-10] MEDS ORDERED: cloZAPine 100 MG TAB PO SCH (21:00)
[2017-07-11] MEDS: LEVOTHYROXINE SODIUM 50 MCG TAB PO SCH ×2 (06:00→06:21)
[2017-07-11 06:02] VITALS: PULSE 57; RESP 17; TEMP 98.3; O2SAT 100
[2017-07-11 06:57] LABS: BICARBONATE 26.2 MEQ/L (21.0-32.0); BLOOD UREA NITROGEN 13 MG/DL (7-18); CALCIUM 9.1 MG/DL (8.5-10.1); CHLORIDE 112 MEQ/L (98-107); CHOLESTEROL 164 MG/DL (120-200); CREATININE 1.07 MG/DL (0.60-1.30); GLOMERULAR FILTRATION RATE 78 ML/MIN (>89); GLUCOSE,RANDOM 93 MG/DL (74-106); SODIUM (NA) 143 MEQ/L (136-145); TRIGLYCERIDES 249 MG/DL (42-150)
[2017-07-11 07:00] LABS: CHOLESTEROL/ HDL RATIO 5.17 RATIO; HDL CHOLESTEROL 31.7 MG/DL (40.0-60.0); LDL CHOLESTEROL 83 MG/DL (0-99)
[2017-07-11] MEDS: clonazePAM 0.5 MG TAB PO SCH ×2 (08:51→21:01)
[2017-07-11] MEDS: HYDROCHLOROTHIAZIDE 25 MG TAB PO SCH (08:51)
[2017-07-11] MEDS: NICOTINE 21 MG/24 HR PATCH T-DERMAL SCH (08:52)
[2017-07-11] MEDS: LITHIUM CARBONATE 300 MG TAB PO SCH ×2 (08:52→21:03)
[2017-07-11 12:44] LABS: HEMOGLOBIN A1C 4.9 % (4.3-6.0)
--- NOTE | 2017-07-11 13:53 | HHI.PYPN ---
Subjective Remarks Patient initially seen and admitted by Dr. Nash his psychiatric H&P reviewed and agreed with. I have finished the initial psychiatric template orders and review of the med reconciliation. Patient seen by me in his room with nurse Iman, he is alert oriented with rapid pressured speech quite intense and somewhat intrusive. Though overall calm acknowledge living in a stressful situation renting a room in a trailer with people who do use drugs. He acknowledges being noncompliant albeit somewhat inadvertently with his medications. He goes to [facility] in the [facility] because she can get his Klonopin prescribed through that mental health clinic. He is vague about some intermittent auditory hallucinations, though he does deny suicidality with me. Patient lithium level was low at 0.2 on admission we will continue his medication as ordered at this time recheck lithium level in about 2 days we will increase his Clozaril to 150 mg at bedtime. We will continue the Klonopin at 0.5 twice daily but no other benzos. Will discuss with him possible placement in a more appropriate situation Review of Systems Except as stated in HPI: all other systems reviewed are Neg Mental Status Examination Appearance: Appropriate Consciousness: Alert Orientation: x4 Motor Activity: Normal gait Speech: Unremarkable Language: Adequate Fund of Knowledge: Adequate Attention and Concentration: Adequate Memory: Unremarkable Mood: Angry Affect: Other (Odd) Thought Process & Associations: Intact, Goal directed Thought Content: Appropriate, Ideas of reference, Preoccupations, Delusional Hallucination Type: Auditory Delusion Type: Paranoid Suicidal Ideation: Yes Suicidal Plan: No Suicidal Intention: No Homicidal Ideation: Yes Homicidal Plan: No Homicidal Intention: No Insight: Poor Judgment: Poor Results Labs Test 07/11/17 06:04 Blood Urea Nitrogen 13 MG/DL Creatinine 1.07 MG/DL Random Glucose 93 MG/DL Calcium Level 9.1 MG/DL Sodium Level 143 MEQ/L Potassium Level 4.0 MEQ/L Chloride Level 112 MEQ/L Carbon Dioxide Level 26.2 MEQ/L Anion Gap 5 MEQ/L Estimat Glomerular Filtration Rate 78 ML/MIN Triglycerides Level 249 MG/DL Cholesterol Level 164 MG/DL LDL Cholesterol 83 MG/DL HDL Cholesterol 31.7 MG/DL Cholesterol/HDL Ratio 5.17 RATIO Vitals/IOs Vital Signs Date Time Temp Pulse Resp B/P (MAP) Pulse Ox O2 Delivery O2 Flow Rate FiO2 07/11/17 06:02 98.3 57 17 100 07/10/17 05:57 Room Air Assessment & Plan Problem List: (1) Schizoaffective disorder, bipolar type ICD Codes: F25.0 - Schizoaffective disorder, bipolar type Status: Acute Assessment & Plan Estimated LOS: days patient remained somewhat manic and psychotic foot appear somewhat softer. He does have some small amount of insight into his disease. For now continue treatment she medication adjustments above Justification for Cont. Inpt. At this time patient would decompensate a place to a lower level of care Discharge Planning We perhaps need to find a placement for this gentleman Javier Hinson MD July 11, 2017 13:53
[2017-07-11 18:00] VITALS: BP 129/62; PULSE 68; RESP 18; TEMP 98.2; O2SAT 99
[2017-07-11] MEDS: REMOVE OLD NICODERM (NICOTINE) PATCH T-DERMAL SCH (21:00)
[2017-07-11] MEDS: cloZAPine 100 MG TAB PO SCH (21:01)
[2017-07-11] MEDS: LURASIDONE 80 MG TAB PO SCH (21:01)
[2017-07-12 05:55] VITALS: BP 118/77; PULSE 94; RESP 18; TEMP 97.1; O2SAT 98
[2017-07-12 05:57] VITALS: BP 118/77; PULSE 94; RESP 18; TEMP 97.1; O2SAT 98
[2017-07-12] MEDS: LEVOTHYROXINE SODIUM 50 MCG TAB PO SCH (06:31)
[2017-07-12] MEDS: NICOTINE 21 MG/24 HR PATCH T-DERMAL SCH (09:00)
[2017-07-12] MEDS: LITHIUM CARBONATE 300 MG TAB PO SCH ×2 (09:11→21:03)
[2017-07-12] MEDS: clonazePAM 0.5 MG TAB PO SCH ×2 (09:11→21:02)
[2017-07-12] MEDS: HYDROCHLOROTHIAZIDE 25 MG TAB PO SCH (09:12)
--- NOTE | 2017-07-12 09:52 | HHI.PYPN ---
Subjective Remarks Patient seen in the activities room with Counselor Saranya, chart reviewed, patient discussed with nurse, patient complaint medications. Today he states the voices are diminished and not intrusive. He denies suicidality. He continues to express a willingness to go to a sober living facility.. We will check lithium level over on 07/14 Review of Systems Except as stated in HPI: all other systems reviewed are Neg Mental Status Examination Appearance: Appropriate Consciousness: Alert Orientation: x4 Motor Activity: Normal gait Speech: Unremarkable Language: Adequate Fund of Knowledge: Adequate Attention and Concentration: Adequate Memory: Unremarkable Mood: Angry Affect: Other (Odd) Thought Process & Associations: Intact, Goal directed Thought Content: Appropriate, Ideas of reference, Preoccupations, Delusional Hallucination Type: Auditory Delusion Type: Paranoid Suicidal Ideation: Yes Suicidal Plan: No Suicidal Intention: No Homicidal Ideation: Yes Homicidal Plan: No Homicidal Intention: No Insight: Poor Judgment: Poor Results Vitals/IOs Vital Signs Date Time Temp Pulse Resp B/P (MAP) Pulse Ox O2 Delivery O2 Flow Rate FiO2 07/12/17 05:57 97.1 94 18 118/77 (91) 98 07/10/17 05:57 Room Air Assessment & Plan Problem List: (1) Schizoaffective disorder, bipolar type ICD Codes: F25.0 - Schizoaffective disorder, bipolar type Status: Acute Assessment & Plan Estimated LOS: days patient complaint medications, says the voices are diminishing, denies suicidality. Continues to get verification of willingness to go to sober living, though is done this before and want up finding his own living accommodations Justification for Cont. Inpt. At this time patient would decompensate a place to the lower level of care Discharge Planning Possible sober living facility Javier Hinson MD July 12, 2017 09:52
[2017-07-12 16:43] VITALS: BP 120/67; PULSE 79; RESP 17; TEMP 97.7; O2SAT 99
[2017-07-12] MEDS: REMOVE OLD NICODERM (NICOTINE) PATCH T-DERMAL SCH (21:00)
[2017-07-12] MEDS: cloZAPine 100 MG TAB PO SCH (21:02)
[2017-07-12] MEDS: LURASIDONE 80 MG TAB PO SCH (21:02)
[2017-07-13 06:24] VITALS: BP 119/67; PULSE 58; RESP 16; TEMP 97.5; O2SAT 100
[2017-07-13] MEDS: LEVOTHYROXINE SODIUM 50 MCG TAB PO SCH (06:39)
[2017-07-13] MEDS: LITHIUM CARBONATE 300 MG TAB PO SCH ×2 (08:57→21:16)
[2017-07-13] MEDS: HYDROCHLOROTHIAZIDE 25 MG TAB PO SCH (08:57)
[2017-07-13] MEDS: clonazePAM 0.5 MG TAB PO SCH ×2 (08:57→21:15)
[2017-07-13] MEDS: NICOTINE 21 MG/24 HR PATCH T-DERMAL SCH (08:57)
--- NOTE | 2017-07-13 15:22 | HHI.PYPN ---
Subjective Remarks Patient was seen and case discussed with nursing. Patient is pleasant and cooperative with exam. He continues to improve. Describes his date today is "calming down." Denies any hallucinations. Insight improving Mental Status Examination Appearance: Appropriate Consciousness: Alert Orientation: x4 Motor Activity: Normal gait Speech: Unremarkable Language: Adequate Fund of Knowledge: Adequate Attention and Concentration: Adequate Memory: Unremarkable Mood: Angry Affect: Other (Odd) Thought Process & Associations: Intact, Goal directed Thought Content: Appropriate, Ideas of reference, Preoccupations, Delusional Hallucination Type: Auditory Delusion Type: Paranoid Suicidal Ideation: Yes Suicidal Plan: No Suicidal Intention: No Homicidal Ideation: Yes Homicidal Plan: No Homicidal Intention: No Insight: Adequate Judgment: Poor Results Vitals/IOs Vital Signs Date Time Temp Pulse Resp B/P (MAP) Pulse Ox O2 Delivery O2 Flow Rate FiO2 07/13/17 06:24 97.5 58 16 119/67 (84) 100 07/10/17 05:57 Room Air Assessment & Plan Problem List: (1) Schizoaffective disorder, bipolar type ICD Codes: F25.0 - Schizoaffective disorder, bipolar type Status: Acute Assessment & Plan Continue current treatment plan Justification for Cont. Inpt. Patient would decompensate in a less restrictive setting Carlos Desai DO July 13, 2017 15:22
[2017-07-13 18:17] VITALS: BP 124/79; PULSE 78; RESP 18; TEMP 99.9; O2SAT 99
[2017-07-13] MEDS: REMOVE OLD NICODERM (NICOTINE) PATCH T-DERMAL SCH (21:00)
[2017-07-13] MEDS: LURASIDONE 80 MG TAB PO SCH (21:15)
[2017-07-13] MEDS: cloZAPine 100 MG TAB PO SCH (21:15)
[2017-07-14 06:43] VITALS: BP 111/66; PULSE 67; RESP 17; TEMP 97.2; O2SAT 99
[2017-07-14] MEDS: LEVOTHYROXINE SODIUM 50 MCG TAB PO SCH (06:49)
[2017-07-14] MEDS: clonazePAM 0.5 MG TAB PO SCH ×2 (08:57→20:15)
[2017-07-14] MEDS: HYDROCHLOROTHIAZIDE 25 MG TAB PO SCH (08:57)
[2017-07-14] MEDS: LITHIUM CARBONATE 300 MG TAB PO SCH ×2 (08:57→20:16)
[2017-07-14] MEDS: NICOTINE 21 MG/24 HR PATCH T-DERMAL SCH (08:57)
--- NOTE | 2017-07-14 14:14 | HHI.PYPN ---
Subjective Remarks Patient was seen and case discussed with nursing. Patient is pleasant and cooperative with exam. He expresses his gratitude for treatment. Is looking forward to discharge. No psychotic symptoms elicited. Compliant with medications and is behaving well on the unit Mental Status Examination Appearance: Appropriate Consciousness: Alert Orientation: x4 Motor Activity: Normal gait Speech: Unremarkable Language: Adequate Fund of Knowledge: Adequate Attention and Concentration: Adequate Memory: Unremarkable Mood: Angry Affect: Other (Odd) Thought Process & Associations: Intact, Goal directed Thought Content: Appropriate, Ideas of reference, Preoccupations, Delusional Hallucination Type: None Delusion Type: Paranoid Suicidal Ideation: Yes Suicidal Plan: No Suicidal Intention: No Homicidal Ideation: Yes Homicidal Plan: No Homicidal Intention: No Insight: Adequate Judgment: Poor Results Vitals/IOs Vital Signs Date Time Temp Pulse Resp B/P (MAP) Pulse Ox O2 Delivery O2 Flow Rate FiO2 07/14/17 06:43 97.2 67 17 111/66 (81) 99 Assessment & Plan Problem List: (1) Schizoaffective disorder, bipolar type ICD Codes: F25.0 - Schizoaffective disorder, bipolar type Status: Acute Assessment & Plan Continue current treatment plan Justification for Cont. Inpt. Patient would decompensate in a less restrictive setting Carlos Desai DO July 14, 2017 14:14
[2017-07-14 17:13] VITALS: BP 136/85; PULSE 72; RESP 16; TEMP 98.3; O2SAT 99
[2017-07-14] MEDS: LURASIDONE 80 MG TAB PO SCH (20:15)
[2017-07-14] MEDS: cloZAPine 100 MG TAB PO SCH (20:15)
[2017-07-14] MEDS: REMOVE OLD NICODERM (NICOTINE) PATCH T-DERMAL SCH (21:00)
[2017-07-15] MEDS: LEVOTHYROXINE SODIUM 50 MCG TAB PO SCH (05:01)
[2017-07-15 07:12] VITALS: BP 116/71; PULSE 71; RESP 19; TEMP 97.9; O2SAT 99
[2017-07-15] MEDS: NICOTINE 21 MG/24 HR PATCH T-DERMAL SCH (09:00)
[2017-07-15] MEDS: LITHIUM CARBONATE 300 MG TAB PO SCH (09:25)
[2017-07-15] MEDS: HYDROCHLOROTHIAZIDE 25 MG TAB PO SCH (09:25)
[2017-07-15] MEDS: clonazePAM 0.5 MG TAB PO SCH (09:25)
[2017-07-15] MEDS ORDERED: LEVO.05 PO (09:42)
[2017-07-15] MEDS ORDERED: CLON.5 PO (09:42)
[2017-07-15] MEDS ORDERED: HYDR25TA5 PO (09:42)
[2017-07-15] MEDS ORDERED: LURA80 PO (09:43)
[2017-07-15] MEDS ORDERED: LITH300T3 PO (09:43)
[2017-07-15] MEDS ORDERED: CLOZ100T PO (09:43)
--- NOTE | 2017-07-15 09:52 | HHI.DS ---
Psychiatry Discharge Summary Inpatient Psychiatric care?: Yes Advance Directive: No Reason Not Provided: Due to Patient Condition Mental Health AdvanceDirective: No Health Care Proxy: No Admission Admission Date July 10, 2017 at 08:39 Admission Diagnosis: (1) Schizoaffective disorder, bipolar type ICD Code: F25.0 - Schizoaffective disorder, bipolar type Brief History The patient is 37-year-old presents man, domiciled with friends in [place], single, unemployed, supported by [facility], with psychiatric history of schizoaffective disorder, alcohol and cocaine use disorder, multiple psychiatric hospitalizations, previous suicidal attempts, he is well known by our service, his last hospitalization was here at [facility] in April 2017, recommendation reviewed, is currently in lithium 300 mg in the morning, 600 at night, Latuda 60 mg, clozapine 100 mg at bedtime, clonazepam 0.5 mg twice daily , he has medical history hypertension and hypothyroidism, who was brought to the emergency department with complaint of depression and suicidal ideation for the past 4 months. On psychiatric evaluation the patient is calm, superficially cooperative, with a prominent flat affect, internally preoccupied , guarded and with concrete thought process. He says he has "been in a living situation that is very turbulent and the people are trying to kill him in the "spiritual world." . He says he does not feel safe at the place that he lives. He feels like they are going to kill him. He states that they have been trespassing his personal space, they have "been hearing his telephone conversations, still my morning and eating my food". The patient reports that he feels very stressed "I am about to lose to control myself" he reports that he has been hearing voices to telling him to kill himself or kill them. The patient started crying profusely stating "if they want to kill me and will have to defend myself and I am going to have to kill". The patient seems to be quite anxious and dysregulated. He reports that he is fully compliant with his psychotropics. He reports that he uses alcohol just occasionally, as well as cocaine. He has not used cocaine or alcohol in the last week. His toxicology is negative. The patient is fully oriented 3. No attention deficit, no fluctuation of consciousness present. The patient is no agitated or aggressive. Tobacco Use In Past 30 Days: 5 or More Cigarettes/Day Alcohol Use: 2-4 Times Per Month Hospital Course Patient's hospital course was uneventful, he showed compliance with medication from day of admission. The adjustment of medications did help him calm his paranoia and psychosis. His mood stabilized. He denied suicidality and homicidality voices or visions. Patient is seen today said he slept well had a good weekend. That he feels "much more focused" today he feels the adjustment in the Clozaril dose was significant in his improvement. At the stomach feel patient has reached maximum benefit of this hospitalization. He states he has a place to stay with a friend of his for a few days while he determines future placement. He feels safe going there is a sober environment. He also will be following up with [facility] in the [facility] thus patient will be discharged today with Rx 1 month though also only a one-week supply of the Klonopin with one refill will be given. Results Blood Pressure 116 / 71 Vital Signs Date Time Temp Pulse Resp B/P (MAP) Pulse Ox O2 Delivery O2 Flow Rate FiO2 07/15/17 07:12 97.9 71 19 116/71 (86) 99 Laboratory Results Test 07/09/17 16:45 07/11/17 06:04 [place] 0.2 MEQ/L (0.5-1.5) Cholesterol Level 164 MG/DL (120-200) HDL Cholesterol 31.7 MG/DL (40.0-60.0) Hemoglobin A1c 4.9 % (4.3-6.0) LDL Cholesterol 83 MG/DL (0-99) Triglycerides Level 249 MG/DL (42-150) Summary of Procedures None done Pending results at discharge: No Medications # of Antipsychotic meds at D/C: 2 Appropriate >1 Antipsych meds?: 3 Approp Antipsych med options 1 - Minimum of three failed multiple trials of monotherapy. 2 - Documented plan to taper to monotherapy due to previous use of multiple meds OR cross-taper in progress at D/C. 3 - Documentation of augmentation of Clozapine. 4 - Justification other than those listed in allowable values 1-3, document here : Discharge Discharge Date: July 15, 2017 Discharge Diagnosis: (1) Schizoaffective disorder, bipolar type Diagnosis: Principal ICD Code: F25.0 - Schizoaffective disorder, bipolar type Status: Acute Pt Condition on Discharge: Stable Discharge Disposition: Discharge Home Discharge Instructions Diet Instructions: As Tolerated, No Restrictions Activities you can perform: Regular-No Restrictions Scheduled Appointment: Shortness of care Discharge Time > 30 minutes Mental Status Examination Appearance: Appropriate Consciousness: Alert Orientation: x4 Motor Activity: Normal gait Speech: Unremarkable Language: Adequate Fund of Knowledge: Adequate Attention and Concentration: Adequate Memory: Unremarkable Mood: Angry Affect: Other (Odd) Thought Process & Associations: Intact, Goal directed Thought Content: Appropriate, Ideas of reference, Preoccupations, Delusional Hallucination Type: None Delusion Type: Paranoid Suicidal Ideation: Yes Suicidal Plan: No Suicidal Intention: No Homicidal Ideation: Yes Homicidal Plan: No Homicidal Intention: No Insight: Adequate Judgment: Poor Discharge/Advance Care Plan Health Problems: (1) Schizoaffective disorder, bipolar type Goals to promote your health * To prevent worsening of your condition and complications * To maintain your health at the optimal level Directions to meet your goals Take your medications as prescribed Follow your dietary instruction Follow activity as directed Keep your appointments as scheduled Take your immunizations and boosters as scheduled If your symptoms worsen call your PCP, if no PCP go to Urgent Care Center or Emergency Room For 01/10 questions related to your inpatient stay or results of tests pending at discharge, please contact Dr. Javier Hinson at Smoking is Dangerous to Your Health. Avoid second hand smoking Javier Hinson MD July 15, 2017 09:52
== END 2017-07-15 12:45 | disposition home or self-care (01) | DRG 885 ==
LOC: NEPD 15:39 → NEDA 07-10 08:39 → H270 07-10 09:15
PROVIDERS: ADMIT Psychiatry & Neurology Psychiatry; ATTEND Psychiatry & Neurology Psychiatry
DX: F25.0 Schizoaffective disorder, bipolar type (principal); R45.851 Suicidal ideations; R45.850 Homicidal ideations; F41.9 Anxiety disorder, unspecified; I10 Essential (primary) hypertension; G47.00 Insomnia, unspecified; E03.9 Hypothyroidism, unspecified; F14.10 Cocaine abuse, uncomplicated; Z72.0 Tobacco use; Z91.19 Patient's noncompliance with other medical treatment and regimen; Z91.5 Personal history of self-harm
CPT/HCPCS: 80048; 80053; 80061; 80178; 80307; 83036; 84443; 85025; 99285

== ENCOUNTER 2017-09-05 11:39 | Inpatient (IN) ==
[2017-09-08] MEDS ORDERED: Levothyroxine 50 MCG Tablet ONE (05:03)
[2017-09-08] MEDS ORDERED: clonazePAM 0.5 MG Tablet ONE (07:49)
[2017-09-08] MEDS ORDERED: hydroCHLOROthiazide 25 MG Tablet ONE (07:50)
[2017-09-08] MEDS ORDERED: Aluminum/Magnesium/Simethacone Susp 30 ML UDC PO PRN (08:13)
[2017-09-08] MEDS ORDERED: Acetaminophen 325 MG Tablet PO PRN (08:16)
[2017-09-08] MEDS: clonazePAM 0.5 MG Tablet PO SCH ×2 (09:22→21:01)
[2017-09-08] MEDS: hydroCHLOROthiazide 25 MG Tablet PO SCH (09:23)
--- NOTE | 2017-09-08 13:04 | P.PNPSY ---
Subjective Remarks: Patient was seen and case discussed with nursing. Patient is in bright spirits today. He is now compliant with his Clozaril now that the dosing was changed to nightly. Patient says that his hallucinations have resolved with the higher dose. He is tolerating the medications well without any side effects. Social on the unit. Eating and sleeping well. Says he is looking forward to getting back to work Mental Status Examination Appearance: Appropriate Consciousness: Alert Orientation: x4 Motor Activity: Normal gait Speech: Unremarkable Language: Adequate Fund of Knowledge: Adequate Attention and Concentration: Adequate Memory: Unremarkable Mood: Appropriate Affect: Appropriate Thought Process & Associations: Intact Thought Content: Appropriate Hallucination Type: None Delusion Type: None Suicidal Ideation: No Suicidal Plan: No Suicidal Intention: No Homicidal Ideation: No Homicidal Plan: No Homicidal Intention: No Insight: Adequate Judgment: Adequate Assessment and Plan - Assessment (1) Schizoaffective disorder, bipolar type Code(s): F25.0 - Schizoaffective disorder, bipolar type Status: Acute - Plan Plan: Estimated LOS: [] days Continue current treatment plan Justification for Continued Inpatient Stay: Patient would decompensate in a less restrictive setting
[2017-09-09] MEDS: Levothyroxine 50 MCG Tablet PO SCH (06:33)
[2017-09-09] MEDS: hydroCHLOROthiazide 25 MG Tablet PO SCH (09:28)
[2017-09-09] MEDS: clonazePAM 0.5 MG Tablet PO SCH ×2 (09:29→21:38)
--- NOTE | 2017-09-09 14:20 | P.PNPSY ---
Subjective Remarks: Patient seen and examined with nurse in coverage for Dr. Hinson. Chart reviewed. Case discussed with nursing staff. No behavioral issues noted overnight. On my examination today, the patient is in good spirits. He tells me that he had a "very bad episode of psychosis last " but believes that this was short lived and is resolved now. He is looking forward to getting back to work and also wants to get involved in Alcoholics Anonymous again after discharge. He would like to leave the hospital tomorrow. He denies any SI or HI. Denies any AVH. No side effects from medications, and he is pleased with his current psychotropic regimen. No physical complaints. Vital Signs Temp Pulse Resp BP Pulse Ox 09/09/17 05:57 97.8 F 59 L 16 107/62 99 09/08/17 18:00 98.7 F 69 18 120/80 97 Intake and Output 09/09/17 09/09/17 09/09/17 06:59 14:59 22:59 Other: Weight 90.3 kg Labs reviewed. ANC adequate for clozapine therapy. [place] level subtherapeutic. Review of Systems All other systems reviewed negative except as stated in HPI Mental Status Examination Appearance: Appropriate Consciousness: Alert Orientation: Person, Place (At least) Motor Activity: Normal gait, Other (No motor abnormalities noted) Speech: Unremarkable Language: Adequate Fund of Knowledge: Adequate Attention and Concentration: Adequate Memory: Unremarkable (Grossly intact on clinical exam) Mood: Appropriate Affect: Appropriate, Euthymic Thought Process & Associations: Intact, Logical, Linear Thought Content: Appropriate Hallucination Type: None Delusion Type: None Suicidal Ideation: No Suicidal Plan: No Suicidal Intention: No Homicidal Ideation: No Homicidal Plan: No Homicidal Intention: No Insight: Adequate Judgment: Adequate Assessment and Plan - Assessment (1) Schizoaffective disorder, bipolar type Code(s): F25.0 - Schizoaffective disorder, bipolar type Status: Acute - Plan Plan: Continue current psychotropic medications as ordered. Continue to monitor on the inpatient unit. Continue other medications and care as ordered. Justification for Continued Inpatient Stay: Final discharge planning Discharge Planning: Possible discharge tomorrow, Saturday
[2017-09-10] MEDS: Levothyroxine 50 MCG Tablet PO SCH (06:47)
[2017-09-10] MEDS: hydroCHLOROthiazide 25 MG Tablet PO SCH (08:26)
[2017-09-10] MEDS: clonazePAM 0.5 MG Tablet PO SCH (08:26)
--- NOTE | 2017-09-10 10:36 | P.DSPSY ---
Psychiatry Discharge Summary Inpatient Psychiatric care?: Yes Advance Directives: No Mental Health Advance Directive: No Health Care Proxy: No - Admission Admission Date: September 05, 2017 16:02 - Admission Diagnosis (1) Schizoaffective disorder, bipolar type Code(s): F25.0 - Schizoaffective disorder, bipolar type Brief History: Patient is a 37-year-old white male known to us from multiple prior contacts comes here voluntarily complaining of increased auditory hallucinations and suicidal ideation. Patient seen and screened in the ED urine toxicology negative lithium level less than 0.2. Of interest patient was hospitalized here 07/09/17 through 07/15/17 under visit [id number] under my care. Patient states he had an episode yesterday of what he calls "psychosis" with increased auditory hallucinations of a command nature threatening to himself telling him to kill himself or perhaps kill others. Patient became distraught by them did come to the hospital for assessment of this. 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 Patient lives with a roommate. He says he has a good relationship with this man. Patient states he also did miss 3 or 4 days worth of his lithium, and has has had a few episodes of drinking beer. He denies any other drug use. However he states that he has no suicidal ideation today since he is not hearing voices today. He does follow outpatient care through [facility]. At this time patient does not meet criteria for further psychiatric hospitalization on a voluntary basis I will increase patient's Clozaril back up to 150 mg daily from 100 mg daily, we will continue his lithium total daily dose of 900 mg recheck a level in a few days. We will continue his Latuda at 60 mg daily we will monitor him over the weekend. Patient is making a good attempt to live as independently as he possibly can Tobacco Use In Past 30 Days: Yes How Often Do You Have a Drink Containing Alcohol: Monthly or less Hospital Course: Patient was admitted to a locked, inpatient psychiatric unit. Appropriate precautions were in place throughout patient's hospital stay. Patient was seen and examined on the unit by psychiatry and also visited by counselor. Psychotropic medications were adjusted. Patient tolerated medication changes well without side effects. Patient had improvement in presenting psychiatric symptomatology during the course of his hospital stay. There was no evidence of any suicidality or homicidality on the inpatient unit. There was no evidence of self-care deficit. On the day of discharge: Patient seen and examined with nurse. Chart reviewed. Case discussed with nursing staff. No behavioral issues noted overnight. Case discussed in treatment team. On my examination today, the patient reports that he feels very much improved and ready for discharge today. He is requesting discharge today from the inpatient psychiatric unit today. He denies any suicidal or homicidal ideation, intent or plan and contracts for safety. I can elicit no depressive or hypomanic/ manic symptoms. He denies any audiovisual hallucinations. I can elicit no delusional material. There is no evidence of impairment in reality construction. He denies side effects from medications. He has no physical complaints. Weighing the relevant factors and based on the available evidence, I dressage judge that the patient does not meet criteria for involuntary psychiatric hospitalization. There is no evidence of any imminent risk of harm to self or others from mental illness, nor is there evidence of self-care deficit to substantiate involuntary psychiatric hospitalization. The patient is requesting discharge from the inpatient psychiatric unit today, and I have no basis to retain him over his objection. Patient will be discharged home today with psychiatric follow-up as arranged by counselor. Patient is also to follow up with primary care. I have supported the patient in his desire for abstinence from alcohol. Patient says that he plans to pursue Alcoholics Anonymous and seems to have good insight into chemical dependency issues. I have reminded the patient to return to the psychiatric emergency room for any concerning symptoms as part of a general safety plan. - Discharge Discharge Date: 09/10/17 - Discharge Diagnosis (1) Schizoaffective disorder, bipolar type Diagnosis: Principal (Stabilized) Code(s): F25.0 - Schizoaffective disorder, bipolar type Status: Acute Discharge Disposition: Home - Discharge Instructions Discharge Diet: Regular Diet Activities You Can Perform: Weight Bearing As Tolerat - Discharge Time > 30 minutes Mental Status Examination Appearance: Appropriate Consciousness: Alert Orientation: x4 Motor Activity: Normal gait, Other (No abnormal motor movements noted. No signs of withdrawal noted.) Speech: Unremarkable Language: Adequate Fund of Knowledge: Adequate Attention and Concentration: Adequate Memory: Unremarkable (Remains grossly intact on clinical exam) Mood: Appropriate, Good Affect: Appropriate, Euthymic Thought Process & Associations: Intact, Logical, Goal directed, Linear Thought Content: Appropriate Hallucination Type: None Delusion Type: None Suicidal Ideation: No Suicidal Plan: No Suicidal Intention: No Homicidal Ideation: No Homicidal Plan: No Homicidal Intention: No Insight: Adequate Judgment: Adequate Discharge/Advance Care Plan - Results Vital Signs: Last Vital Signs Temp 97.8 F 09/09/17 05:57 Pulse 59 L 09/09/17 05:57 Resp 16 09/09/17 05:57 BP 107/62 09/09/17 05:57 Pulse Ox 99 09/09/17 05:57 Lab Results: Laboratory Results Hemoglobin A1c 4.9 % (4.3-6.0) 09/06/17 10:18 Triglycerides 190 MG/DL (42-150) H 09/06/17 10:18 Cholesterol 217 MG/DL (120-200) H 09/06/17 10:18 HDL Cholesterol 40.7 MG/DL (40.0-60.0) 09/06/17 10:18 [place] 0.2 MEQ/L (0.5-1.5) L 09/05/17 12:21 Summary of Procedures: None done Pending Results: None - Medications Number of antipsychotic medications at discharge: 2 Appropriate use of more than 1 antipsychotic med: Justification other than those in allowable values 1-3, document here: (Required multiple antipsychotics for stabilization) - Discharge Care Plan Goals to Promote Your Health: * To prevent worsening of your condition and complications * To maintain your health at the optimal level Directions to Meet Your Goals: Take your medications as prescribed Follow your dietary instruction Follow activity as directed Keep your appointments as scheduled Take your immunizations and boosters as scheduled If your symptoms worsen call your PCP, if no PCP go to Urgent Care Center or Emergency Room For 01/10 questions related to your inpatient stay or results of tests pending at discharge, please contact Dr. Javad Connolly MD at Smoking is Dangerous to Your Health. Avoid second hand smoking
== END 2017-09-10 12:35 | disposition home or self-care (01) ==
LOC: H260 16:02
PROVIDERS: ADMIT Psychiatry & Neurology Psychiatry; ATTEND Psychiatry & Neurology Psychiatry

== ENCOUNTER 2017-11-12 17:18 | Inpatient (IN) ==
--- NOTE | 2017-11-12 18:39 | ED ---
HPI General Chief Complaint: Psychiatric Symptoms Stated Complaint: Anahy carlos Time Seen by Provider: 11/12/17 17:38 Source: patient Mode of arrival: ambulatory Limitations: no limitations History of Present Illness HPI Narrative: 37-year-old male, with history of schizoaffective bipolar disorder, presents to the emergency department voluntarily for psychiatric evaluation. He says he is having thoughts of suicide. Denies a plan. Says the has put a knife to his wrist in the past, but has not made any action to kill himself. Says he is feeling "very psychotic." He reports visual and auditory hallucinations. Says the voices are saying evil things to him. Says he is compliant with his psychiatric and hypothyroid medications. He reports marijuana use. Reports alcohol use occasionally. Denies IV drug use. Denies chest pain, shortness of breath, abdominal pain, nausea, vomiting, change in urine or stool. No treatments tried. Onset unknown. Duration chronic. Says it has been going on since he was 22-23 years old. Says it is aggravated by his hallucinations. No known relieving factors. His psychiatrist is Dr. Emmanuel. No primary care provider. No known allergies. History of hypertension, hypothyroidism. Has no other medical complaints. No other modifying factors or associated signs and symptoms. Related Data Home Medications Medication Instructions Recorded Confirmed clonazepam 0.5 mg PO BID 09/07/17 11/12/17 clozapine 150 mg PO HS 09/07/17 09/07/17 lithium carbonate 300 mg PO BID 09/07/17 09/07/17 Latuda 60 PO HS 11/12/17 hydrochlorothiazide 25 PO DAILY 11/12/17 levothyroxine 0.25 PO DAILY 11/12/17 Allergies Allergy/AdvReac Type Severity Reaction Status Date / Time trazodone Allergy Intermediate Agitation Verified 09/09/17 21:27 Review of Systems ROS: all other systems reviewed are negative PMFSH Social History Social History Substance History: Past History How Often Do You Have a Drink Containing Alcohol: Monthly or less Recent Travel in [facility] within the Last 8 Weeks: No Exam Narrative Exam Narrative: GENERAL: Well-nourished, well-developed male patient, in no acute distress SKIN: Warm and dry. HEAD: Atraumatic. Normocephalic. EYES: Pupils equal and round. ENT: Mucosa pink and moist. NECK: Supple. Trachea midline. CARDIOVASCULAR: Regular rate and rhythm. No murmur appreciated. RESPIRATORY: No accessory muscle use. Clear to auscultation. Breath sounds equal bilaterally. GASTROINTESTINAL: Abdomen soft, non-tender, nondistended. Hepatic and splenic margins not palpable. Bowel sounds are active 4 quadrants. MUSCULOSKELETAL: No obvious deformities. No clubbing. No cyanosis. No edema. BACK: No CVA tenderness. NEUROLOGICAL: Awake and alert. Oriented 3. No obvious cranial nerve deficits. Motor grossly within normal limits. Normal speech. Moves all extremities. 5/5 strength to all extremities. PSYCHIATRIC: No delusional thought processes. No hallucinations. Course Initial Documented Vital Signs Temperature 98.5 F 11/12/17 17:26 Pulse Rate 108 H 11/12/17 17:26 Respiratory Rate 18 11/12/17 17:26 Blood Pressure 178/87 H 11/12/17 17:26 Pulse Oximetry 98 11/12/17 17:26 Last Documented Vital Signs Temperature 98.5 F 11/12/17 17:26 Pulse Rate 108 H 11/12/17 17:26 Respiratory Rate 18 11/12/17 17:26 Blood Pressure 178/87 H 11/12/17 17:26 Pulse Oximetry 98 11/12/17 17:26 Medical Decision Making MDM Narrative Medical decision making narrative: Patient presents voluntarily. I feel the patient is a threat to himself and Quiros act initiated at this time. Physical examination and vital signs are essentially unremarkable. Patient has no medical complaints to report. Psych screen has been ordered. If the laboratory results are unremarkable, the patient will be medically cleared for psychiatric evaluation and disposition. Patient's laboratory tests have been reviewed. Is considered medically cleared. Medical Screen Exam Complete: Yes Emergency Medical Condition: Yes Lab Data Result diagrams: 11/12/17 20:28 11/12/17 20:28 Lab Results 11/12/17 11/12/17 11/12/17 Range/Units 20:28 20:28 20:28 WBC 11.2 H (4.0-11.0) th/mm3 RBC 5.04 (4.50-5.90) mil/mm3 Hgb 15.3 (13.0-17.0) gm/dL Hct 44.8 (39.0-51.0) % MCV 89.0 (80.0-100.0) fL MCH 30.4 (27.0-34.0) pg MCHC 34.1 (32.0-36.0) % RDW 13.2 (11.6-17.2) % Plt Count 125 L (150-450) th/mm3 MPV 10.4 (7.0-11.0) fL Neut % (Auto) 67.9 (16.0-70.0) % Lymph % (Auto) 24.0 (9.0-44.0) % Boyd % (Auto) 6.2 (0.0-8.0) % Eos % (Auto) 1.3 (0.0-4.0) % Baso % (Auto) 0.6 (0.0-2.0) % Neut # (Auto) 7.6 (1.8-7.7) th/mm3 Lymph # (Auto) 2.7 (1.0-4.8) th/mm3 Boyd # (Auto) 0.7 (0.0-0.9) th/mm3 Eos # (Auto) 0.1 (0.0-0.4) th/mm3 Baso # (Auto) 0.1 (0.0-0.2) th/mm3 WBC Differential . Differential Comment Auto diff final Sodium 144 (136-145) meq/L Potassium 3.6 (3.5-5.1) meq/L Chloride 105 (98-107) meq/L Carbon Dioxide 24.2 (21.0-32.0) meq/L Anion Gap 15 (5-15) meq/L BUN 9 (7-18) mg/dL Creatinine 1.04 (0.60-1.30) mg/dL Estimated GFR 80 L (>89) mL/min Random Glucose 82 (74-106) mg/dL Calcium 8.9 (8.5-10.1) mg/dL Total Bilirubin 0.4 (0.2-1.0) mg/dL AST 20 (15-37) U/L ALT 24 (12-78) U/L Alkaline Phosphatase 78 (45-117) U/L Total Protein 6.9 (6.4-8.2) g/dL Albumin 3.9 (3.4-5.0) g/dL TSH 0.277 L (0.358-3.740) uIU/mL Salicylates 2.0 L (2.8-20.0) mg/dL Urine Opiates Screen (Neg) Acetaminophen Less than 2.0 L (10.0-30.0) mcg/mL Ur Barbiturates Screen (Neg) Ur Amphetamines Screen (Neg) U Benzodiazepines Scrn (Neg) [place] (0.5-1.5) meq/L Urine Cocaine Screen (Neg) U Cannabinoids Screen (Neg) Serum Alcohol 4 (0-5) mg/dL 11/12/17 11/12/17 Range/Units 20:28 22:23 WBC (4.0-11.0) th/mm3 RBC (4.50-5.90) mil/mm3 Hgb (13.0-17.0) gm/dL Hct (39.0-51.0) % MCV (80.0-100.0) fL MCH (27.0-34.0) pg MCHC (32.0-36.0) % RDW (11.6-17.2) % Plt Count (150-450) th/mm3 MPV (7.0-11.0) fL Neut % (Auto) (16.0-70.0) % Lymph % (Auto) (9.0-44.0) % Boyd % (Auto) (0.0-8.0) % Eos % (Auto) (0.0-4.0) % Baso % (Auto) (0.0-2.0) % Neut # (Auto) (1.8-7.7) th/mm3 Lymph # (Auto) (1.0-4.8) th/mm3 Boyd # (Auto) (0.0-0.9) th/mm3 Eos # (Auto) (0.0-0.4) th/mm3 Baso # (Auto) (0.0-0.2) th/mm3 WBC Differential Differential Comment Sodium (136-145) meq/L Potassium (3.5-5.1) meq/L Chloride (98-107) meq/L Carbon Dioxide (21.0-32.0) meq/L Anion Gap (5-15) meq/L BUN (7-18) mg/dL Creatinine (0.60-1.30) mg/dL Estimated GFR (>89) mL/min Random Glucose (74-106) mg/dL Calcium (8.5-10.1) mg/dL Total Bilirubin (0.2-1.0) mg/dL AST (15-37) U/L ALT (12-78) U/L Alkaline Phosphatase (45-117) U/L Total Protein (6.4-8.2) g/dL Albumin (3.4-5.0) g/dL TSH (0.358-3.740) uIU/mL Salicylates (2.8-20.0) mg/dL Urine Opiates Screen Neg (Neg) Acetaminophen (10.0-30.0) mcg/mL Ur Barbiturates Screen Neg (Neg) Ur Amphetamines Screen Neg (Neg) U Benzodiazepines Scrn Pos H (Neg) [place] 0.1 L (0.5-1.5) meq/L Urine Cocaine Screen Neg (Neg) U Cannabinoids Screen Pos H (Neg) Serum Alcohol (0-5) mg/dL Discharge Plan Discharge Disposition Patient Disposition: 30 Still Patient Discharge Condition Condition: Stable Physicians Team ED Provider: Esteban Lombardo ED Midlevel Provider: Alex Bello Primary Care Provider: Primary Care Daphnie Monk Rxs /Orders / Referrals /Forms Prescriptions: No Action clozapine 100 mg Tablet 150 mg PO HS RF: 0 clonazepam 0.5 mg Tablet 0.5 mg PO BID RF: 0 lithium carbonate 300 mg Tablet 300 mg PO BID RF: 0 Latuda 60 PO HS RF: 0 hydrochlorothiazide 25 PO DAILY RF: 0 levothyroxine 25 mcg Tablet 0.25 PO DAILY RF: 0 Status ED Status: Medically Cleared
[2017-11-12 22:06] LABS: Baso # (Auto) 0.1 th/mm3 (0.0-0.2); Baso % (Auto) 0.6 % (0.0-2.0); Eos # (Auto) 0.1 th/mm3 (0.0-0.4); Eos % (Auto) 1.3 % (0.0-4.0); Hematocrit 44.8 % (39.0-51.0); Hemoglobin 15.3 gm/dL (13.0-17.0); Lymph # (Auto) 2.7 th/mm3 (1.0-4.8); Mean Corpuscular HGB Conc 34.1 % (32.0-36.0); Mean Corpuscular Hemoglobin 30.4 pg (27.0-34.0); Mean Platelet Volume 10.4 fL (7.0-11.0); Mono # (Auto) 0.7 th/mm3 (0.0-0.9); Mono % (Auto) 6.2 % (0.0-8.0); Neut # (Auto) 7.6 th/mm3 (1.8-7.7); Neut % (Auto) 67.9 % (16.0-70.0); Platelet Count 125 th/mm3 (150-450); Red Blood Count 5.04 mil/mm3 (4.50-5.90); Red Cell Distribution Width 13.2 % (11.6-17.2); White Blood Count 11.2 th/mm3 (4.0-11.0)
[2017-11-12 22:28] LABS: Albumin 3.9 g/dL (3.4-5.0); Anion Gap 15 meq/L (5-15); Aspartate Aminotransferase 20 U/L (15-37); Blood Urea Nitrogen 9 mg/dL (7-18); Calcium 8.9 mg/dL (8.5-10.1); Carbon Dioxide 24.2 meq/L (21.0-32.0); Chloride 105 meq/L (98-107); Glomerular Filtration Rate 80 mL/min (>89); Glucose,Random 82 mg/dL (74-106); Potassium 3.6 meq/L (3.5-5.1); Sodium 144 meq/L (136-145)
[2017-11-12 22:29] LABS: Alanine Aminotransferase 24 U/L (12-78)
[2017-11-12 22:36] LABS: Alcohol 4 mg/dL (0-5)
[2017-11-12 22:39] LABS: Alkaline Phosphatase 78 U/L (45-117); Thyroid Stimulating Hormone 0.277 uIU/mL (0.358-3.740); Total Protein 6.9 g/dL (6.4-8.2)
[2017-11-12 22:59] LABS: Amphetamine Screen,Urine Neg (Neg); Barbiturate Screen,Urine Neg (Neg); Cannabinoid Screen,Urine Pos (Neg); Cocaine Screen,Urine Neg (Neg)
[2017-11-12 23:01] LABS: Opiate Screen,Urine Neg (Neg)
[2017-11-13] MEDS ORDERED: Aluminum/Magnesium/Simethacone Susp 30 ML UDC PO PRN (01:38)
[2017-11-13] MEDS ORDERED: LORazepam 1 MG Tablet PO PRN (01:38)
[2017-11-13] MEDS ORDERED: Acetaminophen 325 MG Tablet PO PRN (01:38)
[2017-11-13] MEDS: Levothyroxine 50 MCG Tablet PO SCH (06:06)
[2017-11-13] MEDS: clonazePAM 0.5 MG Tablet PO SCH ×2 (08:11→21:25)
[2017-11-13] MEDS: hydroCHLOROthiazide 25 MG Tablet PO SCH (08:11)
--- NOTE | 2017-11-13 12:15 | P.HPPSY ---
Provisional Diagnosis Admission Date: November 12, 2017 23:29 [place] 1. Schizoaffective disorder, bipolar type, acute exacerbation [place].: Deferred Competence Certification of Person's Competence To Provide Express and Informed Consent I have personally examined Noe Brown, a person being served at [facility] on, November 13, 2017 1215. Express and informed consent means consent voluntarily given in writing, by a competent person, after sufficient explanation and disclosure of the subject matter involved to enable the person to make a knowing and willful decision without any element of force, fraud, deceit, duress, or other form of constraint or coercion. This person is 18 years of age or older, is not now known to be incompetent to consent to treatment with a guardian advocate, and does not have a health care surrogate or proxy currently making medical treatment decisions. I have found this person to be one of the following: [X] Competent to provide express and informed consent, as defined above, for voluntary admission to this facility and is competent to provide express and informed consent for treatment. He/she has the consistent capacity to make well reasoned, willful, and knowing decisions concerning his or her medical or mental health treatment. The person fully and consistently understands the purpose of the admission for examination/placement and is fully capable of personally exercising all rights assured under [place] [] Incompetent to provide express and informed consent to voluntary admission, and this is incompetent to provide express and informed consent to treatment. The person must be transferred to involuntary status and a petition for a guardian advocate filed with the Circuit Court. [] Refusing to provide express and informed consent to voluntary admission but is competent to provide express and informed consent for treatment. The person must be discharged or transferred to involuntary status. Form shall be completed within 24 hours of a person's arrival at the receiving facility and filed in the clinical record of each person: 1. Admitted on a voluntary basis 2. Permitted to provide express and informed consent to his/her own treatment 3. Allowed to transfer from involuntary to voluntary status 4. Prior to permitting a person to consent to his or her own treatment after having been previously found incompetent to consent to treatment. History of Present Illness Capacity: Has capacity Chief Complaint: Psychosis, SI History of Present Illness: Mr. Brown is a 37-year-old male with a history of schizoaffective disorder who presented to the emergency department voluntarily complaining of suicidal ideation and psychosis. [place] level was subtherapeutic and urine toxicology was positive for benzodiazepines (prescribed) and cannabis. He was placed under the Quiros act by the ED provider. Patient is well-known to the psychiatric service here from previous admissions. He was most recently admitted under my care in September of this year. Patient seen and examined with nurses. Chart reviewed. Case discussed with nursing staff. On my examination today, the patient says that following his discharge from the inpatient psychiatric unit last time he has had "a couple of psychotic episodes." He says that these episodes have been mild and transient and did not require psychiatric hospitalization, but the most recent episode which began a few days ago has seemed more persistent, and so the patient thought it prudent to come into the ED. He endorses ongoing vague hallucinations. No reported command auditory hallucinations to hurt self or others. He endorses suicidal ideation without specific plan. No reported urge to hurt himself on the inpatient unit. He does exhibit a anglican preoccupation, and anglican/philosophical concerns in general seem to be weighing heavily upon him. He tells me that "when I have a breakdown of free will, I get suicidal." He further tells me, "I am like a monroy seed cone picker, I'm always trying to do the right thing." Mood is dysphoric. No hypomanic or manic symptoms. No other psychotic material. Remainder of the psychiatric ROS is negative. No acute physical complaints. Interval psychiatric history: Patient is presently following with Dr. Emmanuel. He reports that he has been adherent with his psychotropic medication regimen, which includes Klonopin, Clozaril, lithium and Latuda. He denies any interval psychiatric admissions or suicide attempts. Family history, chemical dependency history, and social history have been previously obtained and are essentially unchanged today. See, for example, my H &P from [id number]. - Inpatient Certification I certify that the inpatient services were ordered in accordance with Medicare regulations governing the order. This includes certification that hospital inpatient services are reasonable and necessary and in the case of services not specified as inpatient-only under 42 CFR 419.22(n), that they are appropriately provided as inpatient services in accordance to with the 2-midnight benchmark under 43 CFR 412.3(e) I certify that inpatient psychiatric hospital services are medically necessary. Evaluation and treatment and/or diagnostic testing are expected to improve the patient's condition. The patient needs on a daily basis, active treatment furnished directly by or requiring the supervision of inpatient psychiatric facility personnel. Estimated Total Length of Stay (Days): 5 (3-5) Plans for Post Hospital Care: Home Review of Systems All other systems reviewed negative except as stated in [facility] - History History Provided By: Patient, Medical Record - Tobacco History Second Hand Smoke Exposure: No Tobacco Use In Past 30 Days: Yes Smoking Status: Current every day smoker Tobacco Type: Cigarettes - Alcohol History How Often Do You Have a Drink Containing Alcohol: 2 to 4 times a month - Substance Use History Substance History: Active Abuse, Past History - Substance Use Type Marijuana Status: Active Route Used: Inhalation Comment: REPORTS THAT HE USED MARIJUANA ONCE RECENTLY BUT DOES NOT USE IT OFTEN. ANGRY AT HIMSELF FOR DOING IT AND IS FEELING THE NEED TO GO TO MEETINGS OVER IT. - Travel History Recent Travel in the [place] Within the Last 8 Weeks: No Recent Travel Out of the Country Within the Last 8 Weeks: No - Immunization History Tetanus Immunization: Unsure Hx Influenza Vaccine This Season: No Quality Measures - Psychiatric History Psychological trauma history: No reported trauma history to me. - Patient Strengths Patient's strengths (minimum of 2): In monitored setting. Verbally fluent. Medications and Allergies Active Medications: Active Medications Acetaminophen (Tylenol) 650 mg PO Q4H PRN PRN Reason: Pain 1-5 or Temp >101F Al Hydrox/Mg Hydrox/Simethicone (Mag-Al Plus Susp Liq) 30 ml PO Q6H PRN PRN Reason: DYSPEPSIA Al Hydroxide/Mg Hydroxide (Milk Of Magnesia Liq) 30 ml PO Q12H PRN PRN Reason: Mild Constipation Clonazepam (Klonopin) 0.5 mg PO BID [facility] Last Admin: 11/13/17 08:11 Dose: 0.5 mg Clozapine (Clozaril) 150 mg PO HS DARREN Diphenhydramine HCl (Benadryl Inj) 50 mg IM HS PRN PRN Reason: INSOMNIA Diphenhydramine HCl (Benadryl) 50 mg PO HS PRN PRN Reason: INSOMNIA Hydrochlorothiazide (Hydrodiuril) 25 mg PO DAILY DARREN Last Admin: 11/13/17 08:11 Dose: 25 mg Levothyroxine Sodium (Synthroid) 50 mcg PO DAILY@0600 [facility] Last Admin: 11/13/17 06:06 Dose: 50 mcg [place] Carbonate ([place] Carbonate) 300 mg PO BID [facility] Last Admin: 11/13/17 08:11 Dose: 300 mg Lorazepam (Ativan) 1 mg PO Q6H PRN PRN Reason: MODERATE TO SEVERE ANXIETY Last Admin: 11/13/17 02:02 Dose: 1 mg Lorazepam (Ativan Inj) 1 mg IM Q6H PRN PRN Reason: MODERATE TO SEVERE ANXIETY Lurasidone HCl (Latuda) 60 mg PO [facility] Nicotine (Habitrol 21 Mg Patch.24 Hr) 1 patch T-DERMAL DAILY [facility] Allergies Allergy/AdvReac Type Severity Reaction Status Date / Time trazodone Allergy Intermediate Agitation Verified 09/09/17 21:27 Home Medications Medication Instructions Recorded Confirmed Type clonazepam 0.5 mg PO BID 09/07/17 11/12/17 History clozapine 150 mg PO HS 09/07/17 09/07/17 History lithium carbonate 300 mg PO BID 09/07/17 09/07/17 History Latuda 60 PO HS 11/12/17 History hydrochlorothiazide 25 PO DAILY 11/12/17 History levothyroxine 0.25 PO DAILY 11/12/17 History Results - Labs CBC & Chem 7: 11/12/17 20:28 11/12/17 20:28 Labs: Laboratory Results - last 24 hr 11/12/17 11/12/17 11/12/17 20:28 20:28 20:28 WBC 11.2 H RBC 5.04 Hgb 15.3 Hct 44.8 MCV 89.0 MCH 30.4 MCHC 34.1 RDW 13.2 Plt Count 125 L MPV 10.4 Neut % (Auto) 67.9 Lymph % (Auto) 24.0 [place] % (Auto) 6.2 Eos % (Auto) 1.3 Baso % (Auto) 0.6 Neut # (Auto) 7.6 Lymph # (Auto) 2.7 [place] # (Auto) 0.7 Eos # (Auto) 0.1 Baso # (Auto) 0.1 WBC Differential . Differential Comment Auto diff final Sodium 144 Potassium 3.6 Chloride 105 Carbon Dioxide 24.2 Anion Gap 15 BUN 9 Creatinine 1.04 Estimated GFR 80 L Random Glucose 82 Calcium 8.9 Total Bilirubin 0.4 AST 20 ALT 24 Alkaline Phosphatase 78 Total Protein 6.9 Albumin 3.9 TSH 0.277 L Salicylates 2.0 L Urine Opiates Screen Acetaminophen Less than 2.0 L Ur Barbiturates Screen Ur Amphetamines Screen U Benzodiazepines Scrn [place] Urine Cocaine Screen U Cannabinoids Screen Serum Alcohol 4 11/12/17 11/12/17 20:28 22:23 WBC RBC Hgb Hct MCV MCH MCHC RDW Plt Count MPV Neut % (Auto) Lymph % (Auto) [place] % (Auto) Eos % (Auto) Baso % (Auto) Neut # (Auto) Lymph # (Auto) [place] # (Auto) Eos # (Auto) Baso # (Auto) WBC Differential Differential Comment Sodium Potassium Chloride Carbon Dioxide Anion Gap BUN Creatinine Estimated GFR Random Glucose Calcium Total Bilirubin AST ALT Alkaline Phosphatase Total Protein Albumin TSH Salicylates Urine Opiates Screen Neg Acetaminophen Ur Barbiturates Screen Neg Ur Amphetamines Screen Neg U Benzodiazepines Scrn Pos H [place] 0.1 L Urine Cocaine Screen Neg U Cannabinoids Screen Pos H Serum Alcohol Labs reviewed. ANC adequate for clozapine therapy. Exam Vital signs: Vital Signs 11/12/17 17:26 11/13/17 00:45 11/13/17 02:17 Temperature 98.5 F 98.2 F Pulse Rate 108 H 80 61 Respiratory Rate 18 18 18 Blood Pressure 178/87 H 125/75 139/90 Pulse Oximetry 98 100 98 11/13/17 06:15 Temperature 98.4 F Pulse Rate 65 Respiratory Rate 18 Blood Pressure 139/93 H Pulse Oximetry 100 Intake & Output 11/12/17 11/13/17 11/13/17 18:59 06:59 18:59 Weight 86.183 kg 88.2 kg Other: Weight On Admission 88.2 kg Narrative: Physical examination completed by the ED provider. On my examination today, the patient appears to be in no acute physical distress. No motoric abnormalities noted. Labs and vital signs reviewed. Mental Status Examination Appearance: Appropriate Consciousness: Alert Orientation: x4 Motor Activity: Normal gait Speech: Unremarkable Language: Adequate Fund of Knowledge: Adequate Attention and Concentration: Adequate Memory: Unremarkable (Grossly intact on clinical exam) Mood: Other (Dysphoric) Affect: Other (Somewhat interpersonally intense, as is typical for patient) Thought Process & Associations: Intact Thought Content: Hallucinations Hallucination Type: Auditory Delusion Type: Other (Sabianist preoccupation) Suicidal Ideation: Yes Suicidal Plan: No Suicidal Intention: No Homicidal Ideation: No Homicidal Plan: No Homicidal Intention: No Insight: Adequate Judgment: Adequate Assessment and Plan - Assessment (1) Schizoaffective disorder, bipolar type Code(s): F25.0 - Schizoaffective disorder, bipolar type Status: Acute - Plan Plan: 37-year-old male with psychiatric history as detailed above who presents with complaints of psychosis and SI. On my examination today, patient continues to endorse vague AH and SI without specific plan. He reports that he has been adherent with psychotropic medications, although subtherapeutic lithium level of 0.1 may suggest some degree of medication nonadherence. I will plan to admit the patient to the inpatient psychiatric unit for observation and stabilization. Admit inpatient. Voluntary status. Titrate Latuda to 80 mg at bedtime to target psychotic symptoms. We have discussed the need to take this medication with food. I will continue the patient's clozapine and lithium as previously ordered. Plan to check a lithium level and BMP after the appropriate interval. TSH is somewhat low, perhaps reflective of lithium affect, nonadherence with thyroid supplement or some other factor. I will check a free T4. I will continue the patient's Klonopin as ordered. E-FORCSE report reviewed. Atarax as needed for anxiety. Benadryl as needed for sleep. R/B/A for medications discussed with patient. Vitals every shift. Counselor to see. Disposition planning. Estimated length of stay: 3-5 days. Justification for Continued Inpatient Stay: See above Discharge Planning: Pending stabilization Request Healthcare Surrogate/Guardian Advocate?: No
[2017-11-14 05:39] VITALS: RESP 16
[2017-11-14] MEDS: Levothyroxine 50 MCG Tablet PO SCH (06:04)
[2017-11-14] MEDS: hydroCHLOROthiazide 25 MG Tablet PO SCH (10:05)
[2017-11-14] MEDS: clonazePAM 0.5 MG Tablet PO SCH ×2 (10:10→20:48)
--- NOTE | 2017-11-14 13:29 | P.PNPSY ---
Subjective Chief Complaint: Psychosis, SI Remarks: Patient seen and examined with nurse. Chart reviewed. Case discussed with nursing staff. No behavioral issues noted overnight. Case discussed with counselor. On my examination today, the patient reports that he is feeling improved. He complains of some ongoing intermittent voices but denies any command auditory hallucinations. He denies any suicidal ideation. No side effects from medications. No physical complaints. Vital Signs Temp Pulse Resp BP Pulse Ox 11/14/17 05:38 97.4 F L 74 16 116/55 L 96 Intake and Output 11/14/17 11/14/17 11/14/17 06:59 14:59 22:59 Intake Total 360 / 360 Balance 360 / 360 Intake: Oral 360 / 360 Other: Weight 88.4 kg Labs reviewed. Free T4 within normal limits. Review of Systems All other systems reviewed negative except as stated in HPI Mental Status Examination Appearance: Appropriate Consciousness: Alert Orientation: x4 Motor Activity: Normal gait, Other (No motoric abnormalities noted) Speech: Unremarkable Language: Adequate Fund of Knowledge: Adequate Attention and Concentration: Adequate Memory: Unremarkable (Grossly intact on clinical exam) Mood: Appropriate Affect: Appropriate (Remains a little interpersonally intense) Thought Process & Associations: Intact Thought Content: Hallucinations Hallucination Type: Auditory Delusion Type: None Suicidal Ideation: No Suicidal Plan: No Suicidal Intention: No Homicidal Ideation: No Homicidal Plan: No Homicidal Intention: No Insight: Adequate Judgment: Adequate Assessment and Plan - Assessment (1) Schizoaffective disorder, bipolar type Code(s): F25.0 - Schizoaffective disorder, bipolar type Status: Acute - Plan Plan: Continue increased dose of Latuda as ordered. To consider further titration of this medication tomorrow if the patient continues to exhibit psychotic symptoms. Continue other psychotropics as ordered. [place] level ordered for later in the week. Continue other medications and care as ordered. Justification for Continued Inpatient Stay: Impairment in reality construction. Discharge Planning: Pending psychiatric stabilization. Request Healthcare Surrogate/Guardian Advocate?: No
[2017-11-15] MEDS: Levothyroxine 50 MCG Tablet PO SCH (05:50)
[2017-11-15 06:31] VITALS: BP 121/67; PULSE 63; TEMP 98.1; O2SAT 99
[2017-11-15] MEDS: hydroCHLOROthiazide 25 MG Tablet PO SCH (08:59)
[2017-11-15] MEDS: clonazePAM 0.5 MG Tablet PO SCH (08:59)
[2017-11-15 09:05] LABS: Calcium 9.3 mg/dL (8.5-10.1); Carbon Dioxide 28.9 meq/L (21.0-32.0); Potassium 4.2 meq/L (3.5-5.1)
--- NOTE | 2017-11-15 16:18 | P.DSPSY ---
Psychiatry Discharge Summary Inpatient Psychiatric care?: Yes Advance Directives: No Mental Health Advance Directive: No Health Care Proxy: No - Admission Admission Date: November 12, 2017 23:29 - Admission Diagnosis (1) Schizoaffective disorder, bipolar type Code(s): F25.0 - Schizoaffective disorder, bipolar type Brief History: Mr. Brown is a 37-year-old male with a history of schizoaffective disorder who presented to the emergency department voluntarily complaining of suicidal ideation and psychosis. [place] level was subtherapeutic and urine toxicology was positive for benzodiazepines (prescribed) and cannabis. He was placed under the Quiros act by the ED provider. Patient is well-known to the psychiatric service here from previous admissions. He was most recently admitted under my care in September of this year. Patient seen and examined with nurses. Chart reviewed. Case discussed with nursing staff. On my examination today, the patient says that following his discharge from the inpatient psychiatric unit last time he has had "a couple of psychotic episodes." He says that these episodes have been mild and transient and did not require psychiatric hospitalization, but the most recent episode which began a few days ago has seemed more persistent, and so the patient thought it prudent to come into the ED. He endorses ongoing vague hallucinations. No reported command auditory hallucinations to hurt self or others. He endorses suicidal ideation without specific plan. No reported urge to hurt himself on the inpatient unit. He does exhibit a islam preoccupation, and islam/philosophical concerns in general seem to be weighing heavily upon him. He tells me that "when I have a breakdown of free will, I get suicidal." He further tells me, "I am like a monroy picker feeder, I'm always trying to do the right thing." Mood is dysphoric. No hypomanic or manic symptoms. No other psychotic material. Remainder of the psychiatric ROS is negative. No acute physical complaints. Interval psychiatric history: Patient is presently following with Dr. Emmanuel. He reports that he has been adherent with his psychotropic medication regimen, which includes Klonopin, Clozaril, lithium and Latuda. He denies any interval psychiatric admissions or suicide attempts. Family history, chemical dependency history, and social history have been previously obtained and are essentially unchanged today. See, for example, my H &P from [id number]. Tobacco Use In Past 30 Days: Yes How Often Do You Have a Drink Containing Alcohol: 2 to 4 times a month Hospital Course: Patient was admitted to a locked, inpatient psychiatric unit. Appropriate precautions were in place throughout patient's hospital stay. Patient was seen and examined on the unit by psychiatry and also visited by counselor. Psychotropic medications were adjusted. Patient's Latuda was titrated to 80 mg/ day. Patient had improvement in presenting psychiatric symptomatology during the course of his hospital stay. There was no evidence of any suicidality or homicidality on the inpatient unit. There was no evidence of self-care deficit. On the day of discharge: Patient seen and examined with nurse. Chart reviewed. I note that the patient's lithium level is subtherapeutic, but I have elected not to titrate patient's lithium as his GFR is also somewhat decreased. I will instead order a repeat BMP and lithium level in one week with further adjustments as per outpatient provider. Case discussed with nursing staff. No behavioral issues noted overnight. Case discussed in treatment team. On my examination today, the patient is requesting discharge from the inpatient psychiatric unit today. He denies any suicidal or homicidal ideation, intent or plan. I can elicit no depressive or hypomanic/manic symptoms. He denies any audiovisual hallucinations. I can elicit no delusional material. There is no evidence of any impairment in reality construction. He denies side effects from medications. He has no physical complaints. Suicide and violence risk assessment on day of discharge both suggest lower imminent risk from mental illness and the patient's level of function is adequate for outpatient care. There are no significant acute risk factors. No low mood, no suicidal or homicidal ideation, no impairment in reality construction, no substance intoxication. Patient has several protective factors including access to outpatient psychiatric care and life affirming islam beliefs. Patient will be discharged today with psychiatric follow-up as arranged by counselor. Patient is also to follow up with primary care. Patient to return to psychiatric emergency room for any concerning symptoms as part of a general safety plan. - Discharge Discharge Date: 11/15/17 - Discharge Diagnosis (1) Schizoaffective disorder, bipolar type Diagnosis: Principal (Stabilized) Code(s): F25.0 - Schizoaffective disorder, bipolar type Status: Acute Discharge Disposition: Home - Discharge Instructions Discharge Diet: Regular Diet Activities You Can Perform: Weight Bearing As Tolerat - Discharge Time > 30 minutes Mental Status Examination Appearance: Appropriate Consciousness: Alert Orientation: x4 Motor Activity: Normal gait, Other (No abnormal motor movements noted) Speech: Unremarkable Language: Adequate Fund of Knowledge: Adequate Attention and Concentration: Adequate Memory: Unremarkable (Grossly intact on clinical exam) Mood: Appropriate Affect: Appropriate (Remains a little interpersonally intense), Euthymic Thought Process & Associations: Intact, Logical, Goal directed, Linear Thought Content: Appropriate Hallucination Type: None Delusion Type: None Suicidal Ideation: No Suicidal Plan: No Suicidal Intention: No Homicidal Ideation: No Homicidal Plan: No Homicidal Intention: No Insight: Adequate Judgment: Adequate Discharge/Advance Care Plan - Results Vital Signs: Last Vital Signs Temp 98.1 F 11/15/17 06:30 Pulse 63 11/15/17 06:30 Resp 16 11/15/17 06:30 BP 121/67 11/15/17 06:30 Pulse Ox 99 11/15/17 06:30 Lab Results: Abnormal Lab Results 11/15/17 11/15/17 08:08 08:08 Sodium 140 Potassium 4.2 Chloride 105 Carbon Dioxide 28.9 Anion Gap 6 BUN 14 Creatinine 1.21 Estimated GFR 67 L Random Glucose 136 H Calcium 9.3 [place] 0.3 L Laboratory Results TSH 0.277 uIU/mL (0.358-3.740) L 11/12/17 20:28 Free T4 1.05 ng/dL (0.76-1.46) 11/12/17 20:28 [place] 0.3 meq/L (0.5-1.5) L 11/15/17 08:08 Summary of Procedures: None done Pending Results: None - Medications Number of antipsychotic medications at discharge: 2 Appropriate use of more than 1 antipsychotic med: Justification other than those in allowable values 1-3, document here: (Outpatient regimen) - Discharge Care Plan Goals to Promote Your Health: * To prevent worsening of your condition and complications * To maintain your health at the optimal level Directions to Meet Your Goals: Take your medications as prescribed Follow your dietary instruction Follow activity as directed Keep your appointments as scheduled Take your immunizations and boosters as scheduled If your symptoms worsen call your PCP, if no PCP go to Urgent Care Center or Emergency Room For 01/10 questions related to your inpatient stay or results of tests pending at discharge, please contact Dr. Javad Connolly MD at [phone] Smoking is Dangerous to Your Health. Avoid second hand smoking
== END 2017-11-15 15:30 | disposition home or self-care (01) ==
LOC: NEPJ 17:18 → NEDA 23:29 → H260 11-13 00:58
PROVIDERS: ADMIT Psychiatry & Neurology Psychiatry; ATTEND Psychiatry & Neurology Psychiatry

== ENCOUNTER 2017-12-02 17:46 | Inpatient (IN) ==
[2017-12-02 18:49] LABS: Baso % (Auto) 0.3 % (0.0-2.0); Eos # (Auto) 0.1 th/mm3 (0.0-0.4); Eos % (Auto) 0.5 % (0.0-4.0); Hematocrit 45.8 % (39.0-51.0); Lymph % (Auto) 16.1 % (9.0-44.0); Mean Corpuscular Hemoglobin 30.9 pg (27.0-34.0); Mean Corpuscular Volume 88.4 fL (80.0-100.0); Mean Platelet Volume 10.3 fL (7.0-11.0); Mono # (Auto) 0.9 th/mm3 (0.0-0.9); Mono % (Auto) 6.9 % (0.0-8.0); Neut # (Auto) 9.5 th/mm3 (1.8-7.7); Neut % (Auto) 76.2 % (16.0-70.0); Platelet Count 156 th/mm3 (150-450); Red Blood Count 5.18 mil/mm3 (4.50-5.90); Red Cell Distribution Width 13.3 % (11.6-17.2); White Blood Count 12.5 th/mm3 (4.0-11.0)
[2017-12-02 19:06] LABS: Albumin 4.5 g/dL (3.4-5.0); Anion Gap 9 meq/L (5-15); Blood Urea Nitrogen 11 mg/dL (7-18); Calcium 8.7 mg/dL (8.5-10.1); Carbon Dioxide 22.5 meq/L (21.0-32.0); Chloride 108 meq/L (98-107); Glomerular Filtration Rate 67 mL/min (>89); Glucose,Random 77 mg/dL (74-106); Potassium 3.7 meq/L (3.5-5.1); Sodium 139 meq/L (136-145)
[2017-12-02 19:07] LABS: Aspartate Aminotransferase 20 U/L (15-37)
[2017-12-02 19:18] LABS: Alanine Aminotransferase 28 U/L (12-78); Alcohol 17 mg/dL (0-5); Alkaline Phosphatase 92 U/L (45-117); Total Protein 7.7 g/dL (6.4-8.2)
[2017-12-02] MEDS ORDERED: Haloperidol Inj 5 MG/ML Ampul IM ONE (19:40)
--- NOTE | 2017-12-02 20:19 | ED ---
HPI General Chief complaint: Psychiatric Symptoms Stated complaint: Psych Eval - Vol Time Seen by Provider: 12/02/17 19:13 Source: patient Mode of arrival: other Limitations: no limitations History of Present Illness HPI narrative: 37-year-old male presents emergency department under Quiros act for psychiatric evaluation. Patient has history of schizoaffective disorder. States he has been using his medication as prescribed, however he drank some alcohol about 3 days ago and took some pain pills. He states that he has been having worsening auditory and visual hallucinations. He states the voices are telling him to do "FUCKED UP THINGS" and he is seeing demons and angels. He states that he wants to kill himself in order to get away from this. He tells me he does drink one beer today. Denies any fever chills or recent illnesses. He has no other symptoms to report. Related Data Home Medications Medication Instructions Recorded Confirmed clonazepam 0.5 mg PO BID 09/07/17 11/13/17 clozapine 150 mg PO HS 09/07/17 11/13/17 lithium carbonate 300 mg PO BID 09/07/17 11/13/17 Previous Rx's Medication Instructions Recorded hydrochlorothiazide 25 mg PO DAILY tab 11/15/17 levothyroxine [Synthroid] 50 mcg PO DAILY@0600 tab 11/15/17 lurasidone [Latuda] 80 mg PO HS 15 Days #30 tab 11/15/17 Allergies Allergy/AdvReac Type Severity Reaction Status Date / Time trazodone Allergy Intermediate Agitation Verified 12/02/17 19:12 Review of Systems ROS: all other systems reviewed are negative PMFSH History History Provided By: Patient Social History Social History Substance History: No History of Abuse Second Hand Smoke Exposure: No Smoking Status: Current every day smoker Tobacco Type: Cigarettes How Often Do You Have a Drink Containing Alcohol: 2 to 4 times a month Recent Travel in [facility] within the Last 8 Weeks: No Recent Out of Country Travel within the Last 8 Weeks: No Exam Narrative Exam Narrative: GENERAL: Nourished male patient, ambulatory and in no acute distress SKIN: Focused skin assessment warm/dry. HEAD: Atraumatic. Normocephalic. EYES: Pupils equal and round. No scleral icterus. No injection or drainage. ENT: No nasal bleeding or discharge. Mucous membranes pink and moist. NECK: Trachea midline. No JVD. CARDIOVASCULAR: Regular rate and rhythm. No murmur appreciated. RESPIRATORY: No accessory muscle use. Clear to auscultation. Breath sounds equal bilaterally. GASTROINTESTINAL: Abdomen soft, non-tender, nondistended. Hepatic and splenic margins not palpable. MUSCULOSKELETAL: No obvious deformities. No clubbing. No cyanosis. No edema. NEUROLOGICAL: Awake and alert. No obvious cranial nerve deficits. Motor grossly within normal limits. Normal speech. PSYCHIATRIC: Bizarre affect Course Initial Documented Vital Signs Temperature 98.7 F 12/02/17 17:48 Pulse Rate 90 12/02/17 17:48 Respiratory Rate 16 12/02/17 17:48 Blood Pressure 171/110 H 12/02/17 17:48 Pulse Oximetry 98 12/02/17 17:48 Last Documented Vital Signs Temperature 98.4 F 12/02/17 18:29 Pulse Rate 81 12/02/17 22:59 Respiratory Rate 18 12/02/17 22:59 Blood Pressure 116/56 L 12/02/17 22:59 Pulse Oximetry 98 12/02/17 22:59 Medical Decision Making DAVIS Attestation DAVIS supervised visit: Yes MDM Narrative Medical decision making narrative: 37-year-old male presents emergency department under Quiros act for psychiatric evaluation. Patient appears without distress. Vital signs are stable. Patient is agitated, pacing the room, responding to internal stimuli. He will be given Haldol, Benadryl, and Ativan. Lab work is reviewed and without acute concern. Patient is medically cleared to undergo psychiatric screening for further evaluation and disposition. Mental health screening discussed with the patient. Psychiatric screen ordered. Medical Screen Exam Complete: Yes Emergency Medical Condition: Yes Differential Diagnosis Differential Diagnosis: Mood disorder versus personality disorder versus adjustment reaction disorder Lab Data Lab results reviewed: Yes I reviewed the patient's lab results. Result diagrams: 12/02/17 18:25 12/02/17 18:25 Lab Results 12/02/17 12/02/17 12/02/17 Range/Units 18:25 18:25 18:25 WBC 12.5 H (4.0-11.0) th/mm3 RBC 5.18 (4.50-5.90) mil/mm3 Hgb 16.0 (13.0-17.0) gm/dL Hct 45.8 (39.0-51.0) % MCV 88.4 (80.0-100.0) fL MCH 30.9 (27.0-34.0) pg MCHC 35.0 (32.0-36.0) % RDW 13.3 (11.6-17.2) % Plt Count 156 (150-450) th/mm3 MPV 10.3 (7.0-11.0) fL Neut % (Auto) 76.2 H (16.0-70.0) % Lymph % (Auto) 16.1 (9.0-44.0) % [place] % (Auto) 6.9 (0.0-8.0) % Eos % (Auto) 0.5 (0.0-4.0) % Baso % (Auto) 0.3 (0.0-2.0) % Neut # (Auto) 9.5 H (1.8-7.7) th/mm3 Lymph # (Auto) 2.0 (1.0-4.8) th/mm3 [place] # (Auto) 0.9 (0.0-0.9) th/mm3 Eos # (Auto) 0.1 (0.0-0.4) th/mm3 Baso # (Auto) 0.0 (0.0-0.2) th/mm3 WBC Differential . Differential Comment Auto diff final Sodium 139 (136-145) meq/L Potassium 3.7 (3.5-5.1) meq/L Chloride 108 H (98-107) meq/L Carbon Dioxide 22.5 (21.0-32.0) meq/L Anion Gap 9 (5-15) meq/L BUN 11 (7-18) mg/dL Creatinine 1.22 (0.60-1.30) mg/dL Estimated GFR 67 L (>89) mL/min Random Glucose 77 (74-106) mg/dL Calcium 8.7 (8.5-10.1) mg/dL Total Bilirubin 0.6 (0.2-1.0) mg/dL AST 20 (15-37) U/L ALT 28 (12-78) U/L Alkaline Phosphatase 92 (45-117) U/L Total Protein 7.7 (6.4-8.2) g/dL Albumin 4.5 (3.4-5.0) g/dL TSH 1.050 (0.358-3.740) uIU/mL Salicylates Less than 1.7 L (2.8-20.0) mg/dL Acetaminophen Less than 2.0 L (10.0-30.0) mcg/mL [place] (0.5-1.5) meq/L Serum Alcohol 17 H (0-5) mg/dL 12/02/17 Range/Units 18:25 WBC (4.0-11.0) th/mm3 RBC (4.50-5.90) mil/mm3 Hgb (13.0-17.0) gm/dL Hct (39.0-51.0) % MCV (80.0-100.0) fL MCH (27.0-34.0) pg MCHC (32.0-36.0) % RDW (11.6-17.2) % Plt Count (150-450) th/mm3 MPV (7.0-11.0) fL Neut % (Auto) (16.0-70.0) % Lymph % (Auto) (9.0-44.0) % [place] % (Auto) (0.0-8.0) % Eos % (Auto) (0.0-4.0) % Baso % (Auto) (0.0-2.0) % Neut # (Auto) (1.8-7.7) th/mm3 Lymph # (Auto) (1.0-4.8) th/mm3 [place] # (Auto) (0.0-0.9) th/mm3 Eos # (Auto) (0.0-0.4) th/mm3 Baso # (Auto) (0.0-0.2) th/mm3 WBC Differential Differential Comment Sodium (136-145) meq/L Potassium (3.5-5.1) meq/L Chloride (98-107) meq/L Carbon Dioxide (21.0-32.0) meq/L Anion Gap (5-15) meq/L BUN (7-18) mg/dL Creatinine (0.60-1.30) mg/dL Estimated GFR (>89) mL/min Random Glucose (74-106) mg/dL Calcium (8.5-10.1) mg/dL Total Bilirubin (0.2-1.0) mg/dL AST (15-37) U/L ALT (12-78) U/L Alkaline Phosphatase (45-117) U/L Total Protein (6.4-8.2) g/dL Albumin (3.4-5.0) g/dL TSH (0.358-3.740) uIU/mL Salicylates (2.8-20.0) mg/dL Acetaminophen (10.0-30.0) mcg/mL [place] 0.2 L (0.5-1.5) meq/L Serum Alcohol (0-5) mg/dL Discharge Plan Discharge Disposition Patient Disposition: 30 Still Patient Discharge Condition Condition: Stable Discharge Details Diagnosis: Schizoaffective disorder, bipolar type Physicians Team ED Provider: Irina Quiros ED Midlevel Provider: Ariana Curiel Primary Care Provider: Primary Care Daphnie Monk Rxs /Orders / Referrals /Forms Prescriptions: No Action clozapine 100 mg Tablet 150 mg PO HS RF: 0 clonazepam 0.5 mg Tablet 0.5 mg PO BID RF: 0 lithium carbonate 300 mg Tablet 300 mg PO BID RF: 0 levothyroxine [Synthroid] 50 mcg Tablet 50 mcg PO DAILY@0600 RF: 0 hydrochlorothiazide 25 mg Tablet 25 mg PO DAILY RF: 0 lurasidone [Latuda] 40 mg Tablet 80 mg PO HS 15 Days Qty: 30 RF: 1 Discharge Interventions Interventions: Vital Signs Last Done: 12/02/17 22:59 Status ED Status: Medically Cleared
[2017-12-03] MEDS ORDERED: clonazePAM 1 MG Tablet PO ONE (11:20)
--- NOTE | 2017-12-03 11:29 | ED ---
HPI - Psych - General Source: patient, RN notes reviewed, old records reviewed Mode of arrival: ambulatory Limitations: no limitations - History of Present Illness MD complaint: suicidal ideation, feels depressed Onset (ago): day(s) Duration: constant, getting worse History of same: Yes Exacerbating factors: alcohol Context: recent alcohol abuse (Decrease in his psychiatric medications), other Associated psychiatric symptoms: depression, suicidal ideation, auditory hallucinations Associated symptoms: denies other symptoms Treatments prior to arrival: none If self harm: admits thoughts of self harm - General Chief Complaint: Psychiatric Symptoms Stated Complaint: Psych Eval - Vol Time Seen by Provider: 12/03/17 11:15 - History of Present Illness HPI Narrative: History of Present Illness HPI narrative: 37-year-old, single, male with history of schizoaffective disorder, bipolar type presents to emergency department under a voluntary status for psychiatric evaluation and complaining of increased and auditory hallucinations command type to harm himself, increase in symptoms of depression for the past 3 days. He reported to ED provider " the voices are telling him to do FUCKED UP THINGS" and he is seeing derrell and eugenio. He states that he wants to "kill himself in order to get away from this" . He was at work yesterday and had to leave work due to the increase in his hallucinations. The patient states that he has decreased his current lithium dosage by half by omitting his morning dose because he felt he was too hot outside and he did not want to have complications. His lithium level is subtherapeutic at 0.2. He also has been "drinking a beer here and there" and on arrival his blood alcohol level is 17. EMR reviewed. He has had at least 6 admissions to [facility] psychiatry unit in the last year. Patient is seen in J pod. Alert and oriented. Speech is clear and logical. Patient appears quite psychologically distressed by his auditory hallucinations. He becomes very anxious and agitated but is able to de escalate very quickly with verbal redirection. He expresses his frustration that historically he has been able to" come out of his episodes" more quickly but is not feeling that way now he endorses suicidal thoughts without a plan and contracts for safety while here in the hospital. Remainder of psychiatric review of system is negative. (Luzma Sandoval) - Related Data Home Medications Medication Instructions Recorded Confirmed clonazepam 0.5 mg PO BID 09/07/17 12/03/17 clozapine 150 mg PO HS 09/07/17 12/03/17 lithium carbonate 300 mg PO BID 09/07/17 12/03/17 Previous Rx's Medication Instructions Recorded hydrochlorothiazide 25 mg PO DAILY tab 11/15/17 levothyroxine [Synthroid] 50 mcg PO DAILY@0600 tab 11/15/17 lurasidone [Latuda] 80 mg PO HS 15 Days #30 tab 11/15/17 Allergies Allergy/AdvReac Type Severity Reaction Status Date / Time trazodone Allergy Intermediate Agitation Verified 12/02/17 19:12 PMFSH - History History Provided By: Patient - Medical History Medical History: Medical History (Last Updated 12/03/17 @ 10:54 by Ivonne Villatoro RN) Hypertension Hypothyroidism Right femoral fracture Schizophrenia - Tobacco History Second Hand Smoke Exposure: No Tobacco Use In Past 30 Days: Yes Smoking Status: Heavy tobacco smoker Tobacco Type: Cigarettes - Alcohol History How Often Do You Have a Drink Containing Alcohol: 2 to 4 times a month - Substance Use History Substance History: Active Abuse - Substance Use Type Marijuana Frequency: 1-2x/month Reason for Use: Calm Down - Travel History Recent Travel in the [place] Within the Last 8 Weeks: No Recent Travel Out of the Country Within the Last 8 Weeks: No - Immunization History Tetanus Immunization: Unsure Hx Influenza Vaccine This Season: No Psychiatric History - Psychiatric History History of Inpatient Treatment: Yes Firearms in Home: No - Psychiatric History Multiple previous psychiatric hospitalizations at [facility] as well and is in other facilities. Receives outpatient psychiatric care by Dr. Emmanuel. (Luzma Sandoval) Physical Exam - General Limitations: no limitations Mental Status Examination Consciousness: Alert Orientation: x4 Motor Activity: Normal gait Speech: Unremarkable Language: Adequate Fund of Knowledge: Adequate Attention and Concentration: Inadequate Memory: Unremarkable Mood: Angry, Anxious Affect: Appropriate Thought Process & Associations: Intact, Goal directed Thought Content: Hallucinations Hallucination Type: Auditory Delusion Type: None Suicidal Ideation: Yes Suicidal Plan: No Suicidal Intention: No Homicidal Ideation: No Homicidal Plan: No Homicidal Intention: No Insight: Adequate Judgment: Adequate Initial Documented Vital Signs Temperature 98.7 F 12/02/17 17:48 Pulse Rate 90 12/02/17 17:48 Respiratory Rate 16 12/02/17 17:48 Blood Pressure 171/110 H 12/02/17 17:48 Pulse Oximetry 98 12/02/17 17:48 Last Documented Vital Signs Temperature 98.4 F 12/02/17 18:29 Pulse Rate 80 12/03/17 06:38 Respiratory Rate 18 12/03/17 06:38 Blood Pressure 127/82 12/03/17 06:38 Pulse Oximetry 99 12/03/17 06:38 MDM - Psych - Diagnosis (1) Schizoaffective disorder, bipolar type Status: Acute - Lab Data Result diagrams: 12/02/17 18:25 12/02/17 18:25 - MDM Narrative Medical decision making narrative: 37-year-old male with history of schizoaffective disorder bipolar type, known to this hospital due to previous psychiatric admissions, who in context of recent self-directed decrease in psychiatric medications Actiq has experienced an acute exacerbation of psychiatric symptoms including auditory hallucinations , command type, increase in anxiety, increase in depressed mood, suicidal ideation with no reported plan. The patient meets criteria for increase in level of care such as inpatient psychiatric treatment and will be admitted for safety, stabilization, medication adjustment. (Luzma Sandoval) - Lab Data Lab Results 12/02/17 12/02/17 12/02/17 Range/Units 18:25 18:25 18:25 WBC 12.5 H (4.0-11.0) th/mm3 RBC 5.18 (4.50-5.90) mil/mm3 Hgb 16.0 (13.0-17.0) gm/dL Hct 45.8 (39.0-51.0) % MCV 88.4 (80.0-100.0) fL MCH 30.9 (27.0-34.0) pg MCHC 35.0 (32.0-36.0) % RDW 13.3 (11.6-17.2) % Plt Count 156 (150-450) th/mm3 MPV 10.3 (7.0-11.0) fL Neut % (Auto) 76.2 H (16.0-70.0) % Lymph % (Auto) 16.1 (9.0-44.0) % [place] % (Auto) 6.9 (0.0-8.0) % Eos % (Auto) 0.5 (0.0-4.0) % Baso % (Auto) 0.3 (0.0-2.0) % Neut # (Auto) 9.5 H (1.8-7.7) th/mm3 Lymph # (Auto) 2.0 (1.0-4.8) th/mm3 [place] # (Auto) 0.9 (0.0-0.9) th/mm3 Eos # (Auto) 0.1 (0.0-0.4) th/mm3 Baso # (Auto) 0.0 (0.0-0.2) th/mm3 WBC Differential . Differential Comment Auto diff final Sodium 139 (136-145) meq/L Potassium 3.7 (3.5-5.1) meq/L Chloride 108 H (98-107) meq/L Carbon Dioxide 22.5 (21.0-32.0) meq/L Anion Gap 9 (5-15) meq/L BUN 11 (7-18) mg/dL Creatinine 1.22 (0.60-1.30) mg/dL Estimated GFR 67 L (>89) mL/min Random Glucose 77 (74-106) mg/dL Calcium 8.7 (8.5-10.1) mg/dL Total Bilirubin 0.6 (0.2-1.0) mg/dL AST 20 (15-37) U/L ALT 28 (12-78) U/L Alkaline Phosphatase 92 (45-117) U/L Total Protein 7.7 (6.4-8.2) g/dL Albumin 4.5 (3.4-5.0) g/dL TSH 1.050 (0.358-3.740) uIU/mL Salicylates Less than 1.7 L (2.8-20.0) mg/dL Acetaminophen Less than 2.0 L (10.0-30.0) mcg/mL [place] (0.5-1.5) meq/L Serum Alcohol 17 H (0-5) mg/dL 12/02/17 Range/Units 18:25 WBC (4.0-11.0) th/mm3 RBC (4.50-5.90) mil/mm3 Hgb (13.0-17.0) gm/dL Hct (39.0-51.0) % MCV (80.0-100.0) fL MCH (27.0-34.0) pg MCHC (32.0-36.0) % RDW (11.6-17.2) % Plt Count (150-450) th/mm3 MPV (7.0-11.0) fL Neut % (Auto) (16.0-70.0) % Lymph % (Auto) (9.0-44.0) % [place] % (Auto) (0.0-8.0) % Eos % (Auto) (0.0-4.0) % Baso % (Auto) (0.0-2.0) % Neut # (Auto) (1.8-7.7) th/mm3 Lymph # (Auto) (1.0-4.8) th/mm3 [place] # (Auto) (0.0-0.9) th/mm3 Eos # (Auto) (0.0-0.4) th/mm3 Baso # (Auto) (0.0-0.2) th/mm3 WBC Differential Differential Comment Sodium (136-145) meq/L Potassium (3.5-5.1) meq/L Chloride (98-107) meq/L Carbon Dioxide (21.0-32.0) meq/L Anion Gap (5-15) meq/L BUN (7-18) mg/dL Creatinine (0.60-1.30) mg/dL Estimated GFR (>89) mL/min Random Glucose (74-106) mg/dL Calcium (8.5-10.1) mg/dL Total Bilirubin (0.2-1.0) mg/dL AST (15-37) U/L ALT (12-78) U/L Alkaline Phosphatase (45-117) U/L Total Protein (6.4-8.2) g/dL Albumin (3.4-5.0) g/dL TSH (0.358-3.740) uIU/mL Salicylates (2.8-20.0) mg/dL Acetaminophen (10.0-30.0) mcg/mL [place] 0.2 L (0.5-1.5) meq/L Serum Alcohol (0-5) mg/dL
[2017-12-03] MEDS ORDERED: Aluminum/Magnesium/Simethacone Susp 30 ML UDC PO PRN (11:58)
[2017-12-03 12:41] LABS: Amphetamine Screen,Urine Neg (Neg); Barbiturate Screen,Urine Neg (Neg); Cannabinoid Screen,Urine Neg (Neg); Cocaine Screen,Urine Neg (Neg)
[2017-12-03 12:53] LABS: Opiate Screen,Urine Neg (Neg)
[2017-12-03] MEDS: hydroCHLOROthiazide 25 MG Tablet PO SCH (14:00)
[2017-12-03] MEDS: Senna/Docusate Sodium 8.6/50 MG Tablet PO SCH (20:58)
[2017-12-03] MEDS: clonazePAM 0.5 MG Tablet PO SCH (21:03)
[2017-12-04] MEDS: Levothyroxine 50 MCG Tablet PO SCH (05:56)
[2017-12-04 07:41] LABS: Calcium 8.8 mg/dL (8.5-10.1); Potassium 3.8 meq/L (3.5-5.1)
[2017-12-04 07:46] LABS: Chol/HDL Ratio 4.25 Ratio; HDL Cholesterol 41.6 mg/dL (40.0-60.0)
[2017-12-04] MEDS: hydroCHLOROthiazide 25 MG Tablet PO SCH (08:31)
[2017-12-04] MEDS: clonazePAM 0.5 MG Tablet PO SCH ×2 (08:32→21:25)
--- NOTE | 2017-12-04 09:50 | P.HPPSY ---
Provisional Diagnosis Admission Date: December 03, 2017 11:57 [place] I.: 1. Schizoaffective disorder, bipolar type 2. Alcohol abuse Canby II.: Deferred Competence Certification of Person's Competence To Provide Express and Informed Consent I have personally examined Noe Brown, a person being served at [facility] on, December 04, 2017 0950. Express and informed consent means consent voluntarily given in writing, by a competent person, after sufficient explanation and disclosure of the subject matter involved to enable the person to make a knowing and willful decision without any element of force, fraud, deceit, duress, or other form of constraint or coercion. This person is 18 years of age or older, is not now known to be incompetent to consent to treatment with a guardian advocate, and does not have a health care surrogate or proxy currently making medical treatment decisions. I have found this person to be one of the following: [X] Competent to provide express and informed consent, as defined above, for voluntary admission to this facility and is competent to provide express and informed consent for treatment. He/she has the consistent capacity to make well reasoned, willful, and knowing decisions concerning his or her medical or mental health treatment. The person fully and consistently understands the purpose of the admission for examination/placement and is fully capable of personally exercising all rights assured under [place] [] Incompetent to provide express and informed consent to voluntary admission, and this is incompetent to provide express and informed consent to treatment. The person must be transferred to involuntary status and a petition for a guardian advocate filed with the Circuit Court. [] Refusing to provide express and informed consent to voluntary admission but is competent to provide express and informed consent for treatment. The person must be discharged or transferred to involuntary status. Form shall be completed within 24 hours of a person's arrival at the receiving facility and filed in the clinical record of each person: 1. Admitted on a voluntary basis 2. Permitted to provide express and informed consent to his/her own treatment 3. Allowed to transfer from involuntary to voluntary status 4. Prior to permitting a person to consent to his or her own treatment after having been previously found incompetent to consent to treatment. History of Present Illness Capacity: Has capacity Chief Complaint: Psychosis History of Present Illness: Mr. Brown is a 37-year-old male with a history of schizoaffective disorder who presented to the emergency department voluntarily for psychiatric evaluation. He is well-known to the psychiatric service here from previous ED visits and psychiatric admissions. He was most recently admitted under my care at the beginning of this month. Patient was evaluated by the psychiatric nurse practitioner in the emergency department. EMR reviewed. Patient seen and examined. Chart reviewed. Case discussed with nursing staff. On my examination today, the patient says that he has been taking his medications as prescribed and trying to stay away from alcohol, although he did apparently drink somewhat prior to admission. He reports that at the beginning of the week he began hallucinating and "kept downgrading" and told his roommates ultimately to drive him to [place] for psychiatric evaluation. He endorses vague visual hallucinations but no auditory hallucinations. He denies suicidal or homicidal ideation. He says that he was experiencing some suicidal ideation prior to admission but "never had a plan" and says that he is "too scared to take my own life." He does say that he has been feeling somewhat more depressed and "crying a lot." He believes this is related to "circumstantial stress" including his father's medical illness. No other psychotic or mood symptoms. Remainder of the psychiatric ROS is negative. No acute physical complaints. Past psychiatric history: History of schizoaffective disorder as noted above. Follows with Dr. Emmanuel for psychiatric care on an outpatient basis and has seen a psychotherapist in the past. He is open to resuming psychotherapy now. Multiple previous inpatient psychiatric hospitalizations, most recently at the beginning of this month. Family history: Unchanged from previous assessments. Chemical dependency history: Patient admits to recent alcohol use. He says that his car has broken down and so he cannot go to [employer] meetings. Social history: Patient resides with roommates. He notes that 1 of his roommates, Yogi has mental illness issues also. Patient reports that his family is supportive. - Inpatient Certification I certify that the inpatient services were ordered in accordance with Medicare regulations governing the order. This includes certification that hospital inpatient services are reasonable and necessary and in the case of services not specified as inpatient-only under 42 CFR 419.22(n), that they are appropriately provided as inpatient services in accordance to with the 2-midnight benchmark under 43 CFR 412.3(e) I certify that inpatient psychiatric hospital services are medically necessary. Evaluation and treatment and/or diagnostic testing are expected to improve the patient's condition. The patient needs on a daily basis, active treatment furnished directly by or requiring the supervision of inpatient psychiatric facility personnel. Estimated Total Length of Stay (Days): 7 Plans for Post Hospital Care: Home Review of Systems All other systems reviewed negative except as stated in HPI [facility] - History History Provided By: Patient - Medical History Medical History: Medical History (Last Reviewed 12/03/17 @ 17:04 by Iman Forman RN) Hypertension Hypothyroidism Right femoral fracture Schizophrenia - Tobacco History Second Hand Smoke Exposure: Yes Tobacco Use In Past 30 Days: Yes Smoking Status: Heavy tobacco smoker Tobacco Type: Cigarettes - Alcohol History How Often Do You Have a Drink Containing Alcohol: Monthly or less - Substance Use History Substance History: No History of Abuse - Substance Use Type Marijuana Status: Sustained Remission Route Used: Inhalation Frequency: 1-2x/month Last Used: 17 YEARS AGO Reason for Use: Calm Down - Travel History Recent Travel in the [place] Within the Last 8 Weeks: No Recent Travel Out of the Country Within the Last 8 Weeks: No - Immunization History Tetanus Immunization: Unsure Hx Influenza Vaccine This Season: No Quality Measures - Psychiatric History Psychological trauma history: No reported trauma history to me - Patient Strengths Patient's strengths (minimum of 2): In a monitored setting. Verbally fluent. Medications and Allergies Active Medications: Active Medications Al Hydrox/Mg Hydrox/Simethicone (Mag-Al Plus Susp Liq) 30 ml PO Q6H PRN PRN Reason: DYSPEPSIA Al Hydroxide/Mg Hydroxide (Milk Of Magnesia Liq) 30 ml PO Q12H PRN PRN Reason: Mild Constipation Clonazepam (Klonopin) 0.5 mg PO BID [facility] Last Admin: 12/04/17 08:32 Dose: 0.5 mg Clozapine (Clozaril) 150 mg PO HS [facility] Last Admin: 12/03/17 20:56 Dose: 150 mg Hydrochlorothiazide (Hydrodiuril) 25 mg PO DAILY [facility] Last Admin: 12/04/17 08:31 Dose: 25 mg Levothyroxine Sodium (Synthroid) 50 mcg PO DAILY@0600 [facility] Last Admin: 12/04/17 05:56 Dose: 50 mcg Ghent Carbonate (Ghent Carbonate) 300 mg PO BID [facility] Last Admin: 12/04/17 08:31 Dose: 300 mg Lurasidone HCl (Latuda) 80 mg PO HS [facility] Last Admin: 12/03/17 20:58 Dose: 80 mg Nicotine (Habitrol 21 Mg Patch.24 Hr) 1 patch T-DERMAL DAILY [facility] Last Admin: 12/04/17 08:32 Dose: 1 patch Patch Removal (Remove Old Patch) 1 each T-DERMAL DAILY [facility] Senna/Docusate Sodium (Jaimie-Colace) 1 tab PO BID [facility] Last Admin: 12/03/17 20:58 Dose: 1 tab Allergies Allergy/AdvReac Type Severity Reaction Status Date / Time trazodone Allergy Intermediate Agitation Verified 12/03/17 17:05 Home Medications Medication Instructions Recorded Confirmed Type clonazepam 0.5 mg PO BID 09/07/17 12/03/17 History clozapine 150 mg PO HS 09/07/17 12/03/17 History lithium carbonate 300 mg PO BID 09/07/17 12/03/17 History Results - Labs CBC & Chem 7: 12/02/17 18:25 12/04/17 06:15 Labs: Laboratory Results - last 24 hr 12/03/17 12/04/17 10:50 06:15 Sodium 138 Potassium 3.8 Chloride 105 Carbon Dioxide 26.0 Anion Gap 7 BUN 12 Creatinine 1.16 Estimated GFR 71 L Random Glucose 95 Calcium 8.8 Triglycerides 219 H Cholesterol 177 LDL Cholesterol, Calc 92 HDL Cholesterol 41.6 Cholesterol/HDL Ratio 4.25 Urine Opiates Screen Neg Ur Barbiturates Screen Neg Ur Amphetamines Screen Neg U Benzodiazepines Scrn Neg Urine Cocaine Screen Neg U Cannabinoids Screen Neg Labs reviewed. Renal function within recent levels. Patient does have a mild leukocytosis without signs or symptoms of infection, perhaps a benign neutrophilia related to lithium treatment. [place]hent level is subtherapeutic. ANC adequate for clozapine therapy. Exam Vital signs: Vital Signs 12/03/17 12:25 12/03/17 17:32 12/04/17 05:58 Temperature 97.8 F 98.3 F 98.2 F Pulse Rate 61 60 67 Respiratory Rate 18 18 17 Blood Pressure 140/83 148/89 H 124/70 Pulse Oximetry 99 95 Intake & Output 12/03/17 12/04/17 12/04/17 18:59 06:59 18:59 Intake Total 480 / 480 240 / 240 Balance 480 / 480 240 / 240 Weight 87.317 kg Intake: Oral 480 / 480 240 / 240 Other: Weight On Admission 87.317 kg Narrative: Physical examination was completed by the ED provider. On my examination today , the patient appears to be in no acute physical distress. No motoric abnormalities noted. No signs of intoxication or withdrawal. Labs and vital signs reviewed: Mental Status Examination Appearance: Appropriate Consciousness: Alert Orientation: Person, Place (At least) Motor Activity: Normal gait Speech: Unremarkable Language: Adequate Fund of Knowledge: Adequate Attention and Concentration: Adequate Memory: Unremarkable Mood: Sad Affect: Appropriate Thought Process & Associations: Intact, Logical, Linear Thought Content: Hallucinations Hallucination Type: Visual Delusion Type: None Suicidal Ideation: No Suicidal Plan: No Suicidal Intention: No Homicidal Ideation: No Homicidal Plan: No Homicidal Intention: No Insight: Fair Judgment: Impulsive Assessment and Plan - Assessment (1) Schizoaffective disorder, bipolar type Code(s): F25.0 - Schizoaffective disorder, bipolar type Status: Acute - Plan Plan: 37-year-old male with psychiatric history as detailed above who presents voluntarily for psychiatric evaluation. Although the patient presented complaining primarily of psychotic symptoms, on my evaluation mood symptoms seem more prominent. His lithium level is subtherapeutic, and he is agreeable to titration of this agent for mood stabilization. Patient will be psychiatrically admitted for safety, observation and stabilization. Admit inpatient. Voluntary status. Titrate lithium to 300 mg in the morning and 600 mg at bedtime with plans to check a follow-up level later in the week. Continue other psychotropics as ordered. Continue general medical medications as ordered. Monitor for any signs of withdrawal. No withdrawal signs presently. Vitals every shift. Counselor to see. Disposition planning. Given recent repeated hospitalizations, patient may require more extended stabilization or transition to, e.g. IOP or PHP if feasible. ELOS: 7+ days. Justification for Continued Inpatient Stay: See above Discharge Planning: Pending psychiatric stabilization Request Healthcare Surrogate/Guardian Advocate?: No
[2017-12-04] MEDS: Senna/Docusate Sodium 8.6/50 MG Tablet PO SCH ×2 (12:08→21:23)
[2017-12-04 15:44] LABS: Hemoglobin A1c 5.2 % (4.3-6.0)
[2017-12-05 05:50] VITALS: RESP 16; O2SAT 95
[2017-12-05] MEDS: Levothyroxine 50 MCG Tablet PO SCH (06:10)
[2017-12-05] MEDS: Senna/Docusate Sodium 8.6/50 MG Tablet PO SCH ×2 (10:15→21:33)
[2017-12-05] MEDS: hydroCHLOROthiazide 25 MG Tablet PO SCH (10:16)
[2017-12-05] MEDS: clonazePAM 0.5 MG Tablet PO SCH ×2 (10:16→21:33)
--- NOTE | 2017-12-05 12:29 | P.PNPSY ---
Subjective Chief Complaint: Psychosis Remarks: Patient seen and examined with nurse. Chart reviewed. Case discussed with nursing staff. On my examination today, the patient says that he is feeling improved. "The clarity!" he exclaims. He feels that his cognition has been "enhanced" by his stay on the unit. He denies any AVH. No SI/HI. Says that he wants to pursue psychotherapy outside of the hospital and also resume 12- step meetings. He is advocating for a Saturday discharge, but I have encouraged him to remain for more extended stabilization given recent re- hospitalization after relatively brief interval. Denies side effects from medications. No physical complaints. Vital Signs Temp Pulse Resp BP Pulse Ox 12/05/17 05:49 97.6 F 63 16 116/58 L 95 12/04/17 18:01 98.6 F 68 135/69 96 Intake and Output 12/04/17 12/05/17 12/05/17 22:59 06:59 14:59 Intake Total 240 / 240 Balance 240 / 240 Intake: Oral 240 / 240 Other: Weight 88.7 kg Laboratory Results - last 24 hr 12/04/17 06:15 Hemoglobin A1c 5.2 Labs reviewed. Review of Systems All other systems reviewed negative except as stated in HPI Mental Status Examination Appearance: Appropriate Consciousness: Alert Orientation: Person, Place (At least) Motor Activity: Normal gait, Other (No motor abnormalities noted) Speech: Unremarkable Language: Adequate Fund of Knowledge: Adequate Attention and Concentration: Adequate Memory: Unremarkable Mood: Appropriate Affect: Appropriate, Euthymic, Other (Somewhat interpersonally intense, which is typical of his baseline) Thought Process & Associations: Intact, Logical, Linear Thought Content: Appropriate Hallucination Type: None Delusion Type: None Suicidal Ideation: No Suicidal Plan: No Suicidal Intention: No Homicidal Ideation: No Homicidal Plan: No Homicidal Intention: No Insight: Fair Judgment: Impulsive Assessment and Plan - Assessment (1) Schizoaffective disorder, bipolar type Code(s): F25.0 - Schizoaffective disorder, bipolar type Status: Acute - Plan Plan: Patient tolerating increased dose of lithium well. Continue increased dose of lithium and plan to check a level likely over the weekend. As noted above, I have advocated for the patient to remain on the unit for more extended stabilization. I am concerned about a process liane to flight into health. Continue other psychotropics as ordered. Continue other medications and care as ordered. Justification for Continued Inpatient Stay: High risk for decompensation in less restrictive environment. Discharge Planning: Pending psychiatric stabilization. Request Healthcare Surrogate/Guardian Advocate?: No
[2017-12-06 05:21] VITALS: BP 112/59; PULSE 57; TEMP 97.3
[2017-12-06] MEDS: Levothyroxine 50 MCG Tablet PO SCH (06:16)
[2017-12-06] MEDS: clonazePAM 0.5 MG Tablet PO SCH (08:54)
[2017-12-06] MEDS: hydroCHLOROthiazide 25 MG Tablet PO SCH (08:54)
[2017-12-06] MEDS: Senna/Docusate Sodium 8.6/50 MG Tablet PO SCH (08:55)
--- NOTE | 2017-12-06 13:39 | P.DSPSY ---
Psychiatry Discharge Summary Inpatient Psychiatric care?: Yes Advance Directives: No Mental Health Advance Directive: No Health Care Proxy: No - Admission Admission Date: December 03, 2017 11:57 - Admission Diagnosis (1) Schizoaffective disorder, bipolar type Code(s): F25.0 - Schizoaffective disorder, bipolar type Brief History: Mr. Brown is a 37-year-old male with a history of schizoaffective disorder who presented to the emergency department voluntarily for psychiatric evaluation. He is well-known to the psychiatric service here from previous ED visits and psychiatric admissions. He was most recently admitted under my care at the beginning of this month. Patient was evaluated by the psychiatric nurse practitioner in the emergency department. EMR reviewed. Patient seen and examined. Chart reviewed. Case discussed with nursing staff. On my examination today, the patient says that he has been taking his medications as prescribed and trying to stay away from alcohol, although he did apparently drink somewhat prior to admission. He reports that at the beginning of the week he began hallucinating and "kept downgrading" and told his roommates ultimately to drive him to [place] for psychiatric evaluation. He endorses vague visual hallucinations but no auditory hallucinations. He denies suicidal or homicidal ideation. He says that he was experiencing some suicidal ideation prior to admission but "never had a plan" and says that he is "too scared to take my own life." He does say that he has been feeling somewhat more depressed and "crying a lot." He believes this is related to "circumstantial stress" including his father's medical illness. No other psychotic or mood symptoms. Remainder of the psychiatric ROS is negative. No acute physical complaints. Past psychiatric history: History of schizoaffective disorder as noted above. Follows with Dr. Emmanuel for psychiatric care on an outpatient basis and has seen a psychotherapist in the past. He is open to resuming psychotherapy now. Multiple previous inpatient psychiatric hospitalizations, most recently at the beginning of this month. Family history: Unchanged from previous assessments. Chemical dependency history: Patient admits to recent alcohol use. He says that his car has broken down and so he cannot go to AA meetings. Social history: Patient resides with roommates. He notes that 1 of his roommates, Yogi has mental illness issues also. Patient reports that his family is supportive. Tobacco Use In Past 30 Days: Yes How Often Do You Have a Drink Containing Alcohol: Monthly or less Hospital Course: Patient was admitted to a locked, inpatient psychiatric unit. Appropriate precautions were in place throughout patient's hospital stay. Patient was seen and examined on the unit by psychiatry and also visited by the counselor. Psychotropic medications were adjusted. The patient's lithium was titrated in hopes of bringing the level within the therapeutic range. There was once again no evidence of any suicidality or homicidality on the inpatient unit. There was no evidence of self-care deficit. The patient has requested discharge from the inpatient psychiatric unit today. In discussing the case with nursing staff , the patient was no behavioral issue overnight. Case discussed with counselor. I have reminded the patient of his recent, recurrent brief hospitalizations and once again have encouraged that he remain inpatient for more extended stabilization. However, the patient persists in wanting to leave the hospital today, citing desire to return to work. He denies any suicidal or homicidal ideation, intent or plan. Mood is reportedly much improved versus admission, and I can elicit no depressive or hypomanic/manic symptoms. He denies any audiovisual hallucinations. I can elicit no delusional material. He describes his mental status as "an on kilter state of cognition." He denies any side effects from medications. I have reminded the patient of the need for follow-up lithium level. No physical complaints. Suicide and violence risk assessment on day of discharge both suggest lower imminent risk from mental illness, and the patient's level of function is adequate for outpatient care. The patient does not meet criteria for involuntary psychiatric hospitalization, but as noted above I do think he is missing an opportunity for more lasting stabilization by requesting a fairly hasty discharge. I will discharge the patient therefore AGAINST MEDICAL ADVICE. I have informed to the patient that he is leaving AGAINST MEDICAL ADVICE. Psychiatric follow-up as arranged by counselor. Patient is also to follow up with primary care. I have once again reminded the patient to return to the psychiatric emergency room for any concerning symptoms as part of a general safety plan. - Discharge Discharge Date: 12/06/17 - Discharge Diagnosis (1) Schizoaffective disorder, bipolar type Diagnosis: Principal Code(s): F25.0 - Schizoaffective disorder, bipolar type Status: Acute Discharge Disposition: Home - Discharge Instructions Discharge Diet: Regular Diet Activities You Can Perform: Weight Bearing As Tolerat - Discharge Time <= 30 minutes Mental Status Examination Appearance: Appropriate Consciousness: Alert Orientation: x4 Motor Activity: Normal gait, Other (No abnormal motor movements noted) Speech: Unremarkable Language: Adequate Fund of Knowledge: Adequate Attention and Concentration: Adequate Memory: Unremarkable Mood: Appropriate Affect: Appropriate, Euthymic, Other (Again somewhat interpersonally intense, which is typical of his baseline) Thought Process & Associations: Intact, Logical, Goal directed, Linear Thought Content: Appropriate Hallucination Type: None Delusion Type: None Suicidal Ideation: No Suicidal Plan: No Suicidal Intention: No Homicidal Ideation: No Homicidal Plan: No Homicidal Intention: No Mental Status Exam Remarks: Insight and judgment are perhaps fair Discharge/Advance Care Plan - Results Vital Signs: Last Vital Signs Temp 97.3 F L 12/06/17 05:20 Pulse 57 L 12/06/17 05:20 Resp 16 12/06/17 05:20 BP 112/59 L 12/06/17 05:20 Pulse Ox 95 12/06/17 05:20 Lab Results: Laboratory Results Hemoglobin A1c 5.2 % (4.3-6.0) 12/04/17 06:15 Triglycerides 219 mg/dL (42-150) H 12/04/17 06:15 Cholesterol 177 mg/dL (120-200) 12/04/17 06:15 LDL Cholesterol, Calc 92 mg/dL (0-99) 12/04/17 06:15 HDL Cholesterol 41.6 mg/dL (40.0-60.0) 12/04/17 06:15 TSH 1.050 uIU/mL (0.358-3.740) 12/02/17 18:25 Agency 0.2 meq/L (0.5-1.5) L 12/02/17 18:25 Summary of Procedures: None done. Pending Results: None - Medications Number of antipsychotic medications at discharge: 2 Appropriate use of more than 1 antipsychotic med: Justification other than those in allowable values 1-3, document here: (Prior to admission medication regimen) - Discharge Care Plan Goals to Promote Your Health: * To prevent worsening of your condition and complications * To maintain your health at the optimal level Directions to Meet Your Goals: Take your medications as prescribed Follow your dietary instruction Follow activity as directed Keep your appointments as scheduled Take your immunizations and boosters as scheduled If your symptoms worsen call your PCP, if no PCP go to Urgent Care Center or Emergency Room For 01/10 questions related to your inpatient stay or results of tests pending at discharge, please contact Dr. Javad Connolly MD at Smoking is Dangerous to Your Health. Avoid second hand smoking
== END 2017-12-06 15:35 | disposition left against medical advice (07) ==
LOC: NEPJ 17:46 → NEDA 12-03 11:57 → H260 12-03 12:34
PROVIDERS: ADMIT Psychiatry & Neurology Psychiatry; ATTEND Psychiatry & Neurology Psychiatry

== ENCOUNTER 2018-02-24 12:47 | Inpatient (IN) ==
--- NOTE | 2018-02-24 13:10 | ED ---
HPI General Chief complaint: Psychiatric Symptoms Stated complaint: Psych eval Time Seen by Provider: 02/24/18 12:59 History of Present Illness HPI narrative: 37-year-old male with history of schizoaffective disorder bipolar type presents for evaluation. He reports that for 1 day he has had worsening auditory and visual hallucinations, passive suicidal thoughts. Endorses occasional alcohol use. Denies any illicit drug use. Symptoms are moderate with no obvious aggravating relieving factors. He reports that he is compliant with most remote medications but has been using half dose of his prescribed clozapine because the full dose makes him feel anxious. His psychiatrist is Dr. Emmanuel. He has no medical complaints at this time. Related Data Home Medications Medication Instructions Recorded Confirmed clonazepam 0.5 mg PO BID 09/07/17 02/24/18 clozapine 200 mg PO HS 09/07/17 02/24/18 lithium carbonate 600 mg PO HS 02/24/18 02/24/18 lithium carbonate See Label Instructions .ROUTE 02/24/18 02/24/18 .COMPLEX lurasidone [Latuda] 80 mg PO DAILY 02/24/18 02/24/18 Previous Rx's Medication Instructions Recorded hydrochlorothiazide 25 mg PO DAILY tab 11/15/17 levothyroxine [Synthroid] 50 mcg PO DAILY@0600 tab 11/15/17 Allergies Allergy/AdvReac Type Severity Reaction Status Date / Time trazodone Allergy Intermediate Agitation Verified 12/03/17 17:05 Review of Systems ROS: all other systems reviewed are negative PMFSH Medical History Medical History Schizoaffective disorder, bipolar type (Acute) Hypertension (Acute) Hypothyroidism (Acute) Right femoral fracture (Acute) Schizophrenia (Acute) Social History Social History Substance History: No History of Abuse Second Hand Smoke Exposure: Yes Smoking Status: Never smoker Tobacco Type: Cigarettes How Often Do You Have a Drink Containing Alcohol: 2 to 3 times a week Recent Travel in [facility] within the Last 8 Weeks: No Recent Out of Country Travel within the Last 8 Weeks: No Exam Narrative Exam Narrative: GENERAL: Well-developed well-nourished male in no acute distress SKIN: Warm and dry. HEAD: Atraumatic. Normocephalic. EYES: Pupils equal and round. No scleral icterus. No injection or drainage. ENT: No nasal bleeding or discharge. Mucous membranes pink and moist. NECK: Trachea midline. No JVD. CARDIOVASCULAR: Regular rate and rhythm. No murmur appreciated. RESPIRATORY: No accessory muscle use. Clear to auscultation. Breath sounds equal bilaterally. GASTROINTESTINAL: Abdomen soft, non-tender, nondistended. Hepatic and splenic margins not palpable. MUSCULOSKELETAL: No obvious deformities. No clubbing. No cyanosis. No edema. NEUROLOGICAL: Awake and alert. No obvious cranial nerve deficits. Motor grossly within normal limits. Normal speech. PSYCHIATRIC: Flat affect; insight and judgment normal. Course Initial Documented Vital Signs Temperature 98.7 F 02/24/18 12:51 Pulse Rate 108 H 02/24/18 12:51 Respiratory Rate 22 02/24/18 12:51 Blood Pressure 173/87 H 02/24/18 12:51 Pulse Oximetry 97 02/24/18 12:51 Last Documented Vital Signs Temperature 98.7 F 02/24/18 12:51 Pulse Rate 81 02/24/18 15:39 Respiratory Rate 18 02/24/18 15:39 Blood Pressure 160/72 H 02/24/18 15:39 Pulse Oximetry 98 02/24/18 15:39 Medical Decision Making MDM Narrative Medical decision making narrative: Mental health screening discussed with the patient. Psychiatric screen ordered. Lab work reviewed, lithium is subtherapeutic, alcohol level slightly elevated. The patient is medically cleared for psychiatric disposition. Medical Screen Exam Complete: Yes Emergency Medical Condition: Yes Differential Diagnosis Differential Diagnosis: Medication noncompliance, schizoaffective disorder, acute psychosis, substance induced mood disorder, schizophrenia Lab Data Result diagrams: 02/24/18 13:30 02/24/18 13:30 Lab Results 02/24/18 02/24/18 02/24/18 Range/Units 13:30 13:30 13:30 WBC 11.1 H (4.0-11.0) th/mm3 RBC 5.01 (4.50-5.90) mil/mm3 Hgb 15.7 (13.0-17.0) gm/dL Hct 44.1 (39.0-51.0) % MCV 87.9 (80.0-100.0) fL MCH 31.4 (27.0-34.0) pg MCHC 35.7 (32.0-36.0) % RDW 12.7 (11.6-17.2) % Plt Count 130 L (150-450) th/mm3 MPV 10.0 (7.0-11.0) fL Neut % (Auto) 78.4 H (16.0-70.0) % Lymph % (Auto) 14.2 (9.0-44.0) % [place] % (Auto) 6.4 (0.0-8.0) % Eos % (Auto) 0.5 (0.0-4.0) % Baso % (Auto) 0.5 (0.0-2.0) % Neut # (Auto) 8.7 H (1.8-7.7) th/mm3 Lymph # (Auto) 1.6 (1.0-4.8) th/mm3 [place] # (Auto) 0.7 (0.0-0.9) th/mm3 Eos # (Auto) 0.1 (0.0-0.4) th/mm3 Baso # (Auto) 0.1 (0.0-0.2) th/mm3 WBC Differential . Differential Comment Auto diff final Sodium 138 (136-145) meq/L Potassium 4.0 (3.5-5.1) meq/L Chloride 108 H (98-107) meq/L Carbon Dioxide 23.1 (21.0-32.0) meq/L Anion Gap 7 (5-15) meq/L BUN 11 (7-18) mg/dL Creatinine 1.09 (0.60-1.30) mg/dL Estimated GFR 76 L (>89) mL/min Random Glucose 73 L (74-106) mg/dL Calcium 8.7 (8.5-10.1) mg/dL Magnesium 2.0 (1.5-2.5) mg/dL Total Bilirubin 0.4 (0.2-1.0) mg/dL AST 22 (15-37) U/L ALT 34 (12-78) U/L Alkaline Phosphatase 77 (45-117) U/L Total Protein 7.4 (6.4-8.2) g/dL Albumin 4.2 (3.4-5.0) g/dL TSH 1.070 (0.358-3.740) uIU/mL Urine Opiates Screen (Neg) Ur Barbiturates Screen (Neg) Ur Amphetamines Screen (Neg) U Benzodiazepines Scrn (Neg) [place] 0.3 L (0.5-1.5) meq/L Urine Cocaine Screen (Neg) U Cannabinoids Screen (Neg) Serum Alcohol 45 H (0-5) mg/dL 02/24/18 Range/Units 14:24 WBC (4.0-11.0) th/mm3 RBC (4.50-5.90) mil/mm3 Hgb (13.0-17.0) gm/dL Hct (39.0-51.0) % MCV (80.0-100.0) fL MCH (27.0-34.0) pg MCHC (32.0-36.0) % RDW (11.6-17.2) % Plt Count (150-450) th/mm3 MPV (7.0-11.0) fL Neut % (Auto) (16.0-70.0) % Lymph % (Auto) (9.0-44.0) % [place] % (Auto) (0.0-8.0) % Eos % (Auto) (0.0-4.0) % Baso % (Auto) (0.0-2.0) % Neut # (Auto) (1.8-7.7) th/mm3 Lymph # (Auto) (1.0-4.8) th/mm3 [place] # (Auto) (0.0-0.9) th/mm3 Eos # (Auto) (0.0-0.4) th/mm3 Baso # (Auto) (0.0-0.2) th/mm3 WBC Differential Differential Comment Sodium (136-145) meq/L Potassium (3.5-5.1) meq/L Chloride (98-107) meq/L Carbon Dioxide (21.0-32.0) meq/L Anion Gap (5-15) meq/L BUN (7-18) mg/dL Creatinine (0.60-1.30) mg/dL Estimated GFR (>89) mL/min Random Glucose (74-106) mg/dL Calcium (8.5-10.1) mg/dL Magnesium (1.5-2.5) mg/dL Total Bilirubin (0.2-1.0) mg/dL AST (15-37) U/L ALT (12-78) U/L Alkaline Phosphatase (45-117) U/L Total Protein (6.4-8.2) g/dL Albumin (3.4-5.0) g/dL TSH (0.358-3.740) uIU/mL Urine Opiates Screen Neg (Neg) Ur Barbiturates Screen Neg (Neg) Ur Amphetamines Screen Neg (Neg) U Benzodiazepines Scrn Neg (Neg) [place] (0.5-1.5) meq/L Urine Cocaine Screen Neg (Neg) U Cannabinoids Screen Neg (Neg) Serum Alcohol (0-5) mg/dL Discharge Plan Discharge Disposition Patient Disposition: ED Admit(ED Internal Use Only) Discharge Condition Condition: Stable Discharge Order Discharge Orders: ED Use Only Admit Order (Routine); Ordered 02/24/18 Ordered By: nAnita Licona Discharge Details Diagnosis: Schizoaffective disorder, bipolar type Physicians Team ED Provider: Morteza Brownlee ED Midlevel Provider: Reji Hagen Primary Care Provider: Primary Care Daphnie Monk Attending Provider: Javier Hinson Discharge Interventions Interventions: Vital Signs Last Done: 02/24/18 13:05 Status ED Status: Admitted Patient
[2018-02-24 13:46] LABS: Baso # (Auto) 0.1 th/mm3 (0.0-0.2); Baso % (Auto) 0.5 % (0.0-2.0); Eos # (Auto) 0.1 th/mm3 (0.0-0.4); Eos % (Auto) 0.5 % (0.0-4.0); Hematocrit 44.1 % (39.0-51.0); Hemoglobin 15.7 gm/dL (13.0-17.0); Lymph # (Auto) 1.6 th/mm3 (1.0-4.8); Lymph % (Auto) 14.2 % (9.0-44.0); Mean Corpuscular HGB Conc 35.7 % (32.0-36.0); Mean Corpuscular Hemoglobin 31.4 pg (27.0-34.0); Mean Corpuscular Volume 87.9 fL (80.0-100.0); Mono # (Auto) 0.7 th/mm3 (0.0-0.9); Mono % (Auto) 6.4 % (0.0-8.0); Neut # (Auto) 8.7 th/mm3 (1.8-7.7); Neut % (Auto) 78.4 % (16.0-70.0); Platelet Count 130 th/mm3 (150-450); Red Blood Count 5.01 mil/mm3 (4.50-5.90); Red Cell Distribution Width 12.7 % (11.6-17.2); White Blood Count 11.1 th/mm3 (4.0-11.0)
[2018-02-24 13:59] LABS: Albumin 4.2 g/dL (3.4-5.0); Anion Gap 7 meq/L (5-15); Aspartate Aminotransferase 22 U/L (15-37); Blood Urea Nitrogen 11 mg/dL (7-18); Calcium 8.7 mg/dL (8.5-10.1); Carbon Dioxide 23.1 meq/L (21.0-32.0); Chloride 108 meq/L (98-107); Glomerular Filtration Rate 76 mL/min (>89); Glucose,Random 73 mg/dL (74-106); Sodium 138 meq/L (136-145)
[2018-02-24 14:00] LABS: Alanine Aminotransferase 34 U/L (12-78)
[2018-02-24 14:02] LABS: Alcohol 45 mg/dL (0-5)
[2018-02-24 14:10] LABS: Alkaline Phosphatase 77 U/L (45-117); Total Protein 7.4 g/dL (6.4-8.2)
[2018-02-24 14:40] LABS: Amphetamine Screen,Urine Neg (Neg); Barbiturate Screen,Urine Neg (Neg); Cannabinoid Screen,Urine Neg (Neg); Cocaine Screen,Urine Neg (Neg)
[2018-02-24 15:02] LABS: Opiate Screen,Urine Neg (Neg)
[2018-02-24] MEDS ORDERED: Aluminum/Magnesium/Simethacone Susp 30 ML UDC PO PRN (15:50)
[2018-02-24] MEDS ORDERED: Haloperidol Inj 5 MG/ML Ampul IM ONE (17:14)
--- NOTE | 2018-02-24 18:05 | ED ---
HPI - Psych - General Source: patient Mode of arrival: ambulatory Limitations: no limitations - History of Present Illness MD complaint: altered mental status Onset (ago): hour(s) Duration: intermittent, changing over time, getting worse History of same: Yes Relieving factors: medication Exacerbating factors: alcohol, other (Not taking appropriate dosages of medication) Context: recent alcohol abuse, not taking psychiatric medications Associated psychiatric symptoms: suicidal ideation, auditory hallucinations Associated symptoms: denies other symptoms Treatments prior to arrival: none - General Chief Complaint: Psychiatric Symptoms Stated Complaint: Psych eval Time Seen by Provider: 02/24/18 12:59 - History of Present Illness HPI Narrative: This is a 37-year-old single male who is well-known to this facility and the psychiatric department. He presents voluntarily today stating that he is undergoing psychotic episodes. Reviewed electronic medical record, labs, and discussed case with staff. Patient's blood alcohol level 0.045. Patient was assessed in his room in [facility]. He was found awake, alert, and oriented x4. He is clad in [facility]. His speech is clear, logical although at times disorganized, and somewhat rapid and pressured. He is currently denying suicidal ideation but claims that he suffered from it earlier this morning and states that he thought of "hanging myself". Although, he does state "I do not have the balls to do it ". He reports that he had "occasionally doubled up on my Klonopin" which resulted in him running out. He states that Dr. Márquez had increased his Clozaril to 200 mg and he felt it was making him more anxious. So, he took it upon himself to break his Clazuril in half and only take approximately 100 mg at bedtime. Additionally, it is noted that his lithium level is subtherapeutic at 0.3. Patient reports that it approximately 830 this morning he "started hallucinating ". When asked to describe his hallucinations he states, "it was just psychosis I was unable to control my free will. The voices kept telling me I was going to and there". He reports that he then be can thinking about hanging himself. At this time he reports that he is only experiencing intermittent auditory hallucinations. When asked to elaborate on them he states that they are just "mind chat". He reports that he has been sleeping approximately 4-6 hours per night and that his appetite has been "good". Additionally, he reports that he has been having "a couple of beers per night". While here in [facility], he became internally stimulated and was observed talking to himself and punching the air. He was requesting medication for relief and was ordered and administered 5 mg of Haldol and 1 mg of Ativan IM. (Annita Licona) - Related Data Home Medications Medication Instructions Recorded Confirmed clonazepam 0.5 mg PO BID 09/07/17 02/24/18 clozapine 200 mg PO HS 09/07/17 02/24/18 lithium carbonate 600 mg PO HS 02/24/18 02/24/18 lithium carbonate See Label Instructions .ROUTE 02/24/18 02/24/18 .COMPLEX lurasidone [Latuda] 80 mg PO DAILY 02/24/18 02/24/18 Previous Rx's Medication Instructions Recorded hydrochlorothiazide 25 mg PO DAILY tab 11/15/17 levothyroxine [Synthroid] 50 mcg PO DAILY@0600 tab 11/15/17 Allergies Allergy/AdvReac Type Severity Reaction Status Date / Time trazodone Allergy Intermediate Agitation Verified 12/03/17 17:05 Review of Systems All other systems reviewed negative except as stated in HPI PMFSH - History History Provided By: Patient - Medical History Medical History: Medical History (Last Reviewed 02/24/18 @ 17:57 by LORETA Gutierrez) Schizoaffective disorder, bipolar type Hypertension Hypothyroidism Right femoral fracture Schizophrenia - Tobacco History Second Hand Smoke Exposure: Yes Tobacco Use In Past 30 Days: Yes Smoking Status: Never smoker Tobacco Type: Cigarettes - Alcohol History How Often Do You Have a Drink Containing Alcohol: 2 to 3 times a week - Substance Use History Substance History: No History of Abuse - Travel History Recent Travel in the [place] Within the Last 8 Weeks: No Recent Travel Out of the Country Within the Last 8 Weeks: No - Immunization History Tetanus Immunization: Unsure Psychiatric History - Psychiatric History Psychiatric Treatment History: History of Psychiatric Treatment, History of Hospitalization in a Psychiatric Facility History of Inpatient Treatment: Yes Firearms in Home: No Physical Exam - General Limitations: no limitations General appearance: alert, in no apparent distress - Head Head exam: atraumatic - Neurological Exam Neurological exam: Present: alert, oriented X3 - Psychiatric Psychiatric exam: Present: anxious, manic (Perhaps slightly hypomanic) Mental Status Examination Appearance: Appropriate Consciousness: Alert Orientation: x4 Motor Activity: Normal gait Speech: Pressured, Rapid Language: Adequate Fund of Knowledge: Adequate Attention and Concentration: Adequate (At times becoming a bit disorganized) Memory: Unremarkable Mood: Anxious, Manic Affect: Anxious Thought Process & Associations: Disorganized (At times) Thought Content: Bizarre thinking, Hallucinations Hallucination Type: Auditory Delusion Type: Bizarre (Loss of free will) Suicidal Ideation: No (Denying currently) Suicidal Plan: No (Denying currently) Suicidal Intention: No Homicidal Ideation: No Homicidal Plan: No Homicidal Intention: No Insight: Fair Judgment: Impulsive Initial Documented Vital Signs Temperature 98.7 F 02/24/18 12:51 Pulse Rate 108 H 02/24/18 12:51 Respiratory Rate 22 02/24/18 12:51 Blood Pressure 173/87 H 02/24/18 12:51 Pulse Oximetry 97 02/24/18 12:51 Last Documented Vital Signs Temperature 98.7 F 02/24/18 12:51 Pulse Rate 81 02/24/18 15:39 Respiratory Rate 18 02/24/18 15:39 Blood Pressure 160/72 H 02/24/18 15:39 Pulse Oximetry 98 02/24/18 15:39 MDM - Psych - Diagnosis (1) Schizoaffective disorder, bipolar type Code(s): F25.0 - Schizoaffective disorder, bipolar type Status: Acute - Differential Diagnosis Likely: chronic schizophrenia, bipolar disorder - Lab Data Result diagrams: 02/24/18 13:30 02/24/18 13:30 - [facility] Narrative Medical decision making narrative: Given this patient's extensive psychiatric history, his failure to take adequate dosages of his medication, and his intermittent endorsement of suicidal ideation I am admitting him to the inpatient unit for further evaluation and treatment as deemed necessary. I consulted with the on-call psychiatrist Dr. Hinson. The patient will be continued on his home medication regimen however, his Clozril will only be increased to 150 mg at this time, to be titrated back to 200 mg in a couple of days. Consents were obtained and signed as patient does have capacity. Some attention to his Klonopin dosage may be needed as the patient felt he had to double up "on occasion" to reach a therapeutic level. (Annita Licona) - Lab Data Lab Results 02/24/18 02/24/18 02/24/18 Range/Units 13:30 13:30 13:30 WBC 11.1 H (4.0-11.0) th/mm3 RBC 5.01 (4.50-5.90) mil/mm3 Hgb 15.7 (13.0-17.0) gm/dL Hct 44.1 (39.0-51.0) % MCV 87.9 (80.0-100.0) fL MCH 31.4 (27.0-34.0) pg MCHC 35.7 (32.0-36.0) % RDW 12.7 (11.6-17.2) % Plt Count 130 L (150-450) th/mm3 MPV 10.0 (7.0-11.0) fL Neut % (Auto) 78.4 H (16.0-70.0) % Lymph % (Auto) 14.2 (9.0-44.0) % [place] % (Auto) 6.4 (0.0-8.0) % Eos % (Auto) 0.5 (0.0-4.0) % Baso % (Auto) 0.5 (0.0-2.0) % Neut # (Auto) 8.7 H (1.8-7.7) th/mm3 Lymph # (Auto) 1.6 (1.0-4.8) th/mm3 [place] # (Auto) 0.7 (0.0-0.9) th/mm3 Eos # (Auto) 0.1 (0.0-0.4) th/mm3 Baso # (Auto) 0.1 (0.0-0.2) th/mm3 WBC Differential . Differential Comment Auto diff final Sodium 138 (136-145) meq/L Potassium 4.0 (3.5-5.1) meq/L Chloride 108 H (98-107) meq/L Carbon Dioxide 23.1 (21.0-32.0) meq/L Anion Gap 7 (5-15) meq/L BUN 11 (7-18) mg/dL Creatinine 1.09 (0.60-1.30) mg/dL Estimated GFR 76 L (>89) mL/min Random Glucose 73 L (74-106) mg/dL Calcium 8.7 (8.5-10.1) mg/dL Magnesium 2.0 (1.5-2.5) mg/dL Total Bilirubin 0.4 (0.2-1.0) mg/dL AST 22 (15-37) U/L ALT 34 (12-78) U/L Alkaline Phosphatase 77 (45-117) U/L Total Protein 7.4 (6.4-8.2) g/dL Albumin 4.2 (3.4-5.0) g/dL TSH 1.070 (0.358-3.740) uIU/mL Urine Opiates Screen (Neg) Ur Barbiturates Screen (Neg) Ur Amphetamines Screen (Neg) U Benzodiazepines Scrn (Neg) [place] 0.3 L (0.5-1.5) meq/L Urine Cocaine Screen (Neg) U Cannabinoids Screen (Neg) Serum Alcohol 45 H (0-5) mg/dL //18 Range/Units 14:24 WBC (4.0-11.0) th/mm3 RBC (4.50-5.90) mil/mm3 Hgb (13.0-17.0) gm/dL Hct (39.0-51.0) % MCV (80.0-100.0) fL MCH (27.0-34.0) pg MCHC (32.0-36.0) % RDW (11.6-17.2) % Plt Count (150-450) th/mm3 MPV (7.0-11.0) fL Neut % (Auto) (16.0-70.0) % Lymph % (Auto) (9.0-44.0) % [place] % (Auto) (0.0-8.0) % Eos % (Auto) (0.0-4.0) % Baso % (Auto) (0.0-2.0) % Neut # (Auto) (1.8-7.7) th/mm3 Lymph # (Auto) (1.0-4.8) th/mm3 [place] # (Auto) (0.0-0.9) th/mm3 Eos # (Auto) (0.0-0.4) th/mm3 Baso # (Auto) (0.0-0.2) th/mm3 WBC Differential Differential Comment Sodium (136-145) meq/L Potassium (3.5-5.1) meq/L Chloride (98-107) meq/L Carbon Dioxide (21.0-32.0) meq/L Anion Gap (5-15) meq/L BUN (7-18) mg/dL Creatinine (0.60-1.30) mg/dL Estimated GFR (>89) mL/min Random Glucose (74-106) mg/dL Calcium (8.5-10.1) mg/dL Magnesium (1.5-2.5) mg/dL Total Bilirubin (0.2-1.0) mg/dL AST (15-37) U/L ALT (12-78) U/L Alkaline Phosphatase (45-117) U/L Total Protein (6.4-8.2) g/dL Albumin (3.4-5.0) g/dL TSH (0.358-3.740) uIU/mL Urine Opiates Screen Neg (Neg) Ur Barbiturates Screen Neg (Neg) Ur Amphetamines Screen Neg (Neg) U Benzodiazepines Scrn Neg (Neg) [place] (0.5-1.5) meq/L Urine Cocaine Screen Neg (Neg) U Cannabinoids Screen Neg (Neg) Serum Alcohol (0-5) mg/dL
[2018-02-24] MEDS: clonazePAM 0.5 MG Tablet PO SCH (21:30)
[2018-02-24] MEDS: Ibuprofen 600 MG Tablet PO SCH (21:30)
[2018-02-25] MEDS: Ibuprofen 600 MG Tablet PO SCH ×3 (05:59→22:00)
[2018-02-25] MEDS: Levothyroxine 50 MCG Tablet PO SCH (06:02)
[2018-02-25 07:23] LABS: Calcium 9.2 mg/dL (8.5-10.1); Carbon Dioxide 28.4 meq/L (21.0-32.0); Potassium 4.2 meq/L (3.5-5.1)
[2018-02-25 07:27] LABS: Chol/HDL Ratio 5.2 Ratio; HDL Cholesterol 43.8 mg/dL (40.0-60.0)
[2018-02-25] MEDS: clonazePAM 0.5 MG Tablet PO SCH ×2 (08:21→20:34)
[2018-02-25] MEDS: Lurasidone 80 MG Tablet PO SCH (08:21)
[2018-02-25] MEDS: hydroCHLOROthiazide 25 MG Tablet PO SCH (08:21)
--- NOTE | 2018-02-25 14:20 | P.HPPSY ---
Provisional Diagnosis Admission Date: February 24, 2018 16:07 [place] I.: Schizoaffective disorder bipolar type currently hypomanic Competence Certification of Person's Competence To Provide Express and Informed Consent I have personally examined Noe Brown, a person being served at [facility] on, February 25, 2018 1343. Express and informed consent means consent voluntarily given in writing, by a competent person, after sufficient explanation and disclosure of the subject matter involved to enable the person to make a knowing and willful decision without any element of force, fraud, deceit, duress, or other form of constraint or coercion. This person is 18 years of age or older, is not now known to be incompetent to consent to treatment with a guardian advocate, and does not have a health care surrogate or proxy currently making medical treatment decisions. I have found this person to be one of the following: [] Competent to provide express and informed consent, as defined above, for voluntary admission to this facility and is competent to provide express and informed consent for treatment. He/she has the consistent capacity to make well reasoned, willful, and knowing decisions concerning his or her medical or mental health treatment. The person fully and consistently understands the purpose of the admission for examination/placement and is fully capable of personally exercising all rights assured under [place] [] Incompetent to provide express and informed consent to voluntary admission, and this is incompetent to provide express and informed consent to treatment. The person must be transferred to involuntary status and a petition for a guardian advocate filed with the Circuit Court. [] Refusing to provide express and informed consent to voluntary admission but is competent to provide express and informed consent for treatment. The person must be discharged or transferred to involuntary status. Form shall be completed within 24 hours of a person's arrival at the receiving facility and filed in the clinical record of each person: 1. Admitted on a voluntary basis 2. Permitted to provide express and informed consent to his/her own treatment 3. Allowed to transfer from involuntary to voluntary status 4. Prior to permitting a person to consent to his or her own treatment after having been previously found incompetent to consent to treatment. History of Present Illness Capacity: Has capacity Chief Complaint: Auditory hallucinations hypomanic symptoms. 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 Patient presents at this time with auditory hallucinations agitation rapid but organized speech and a history of having reduced his clozapine dosage, feeling that it was causing some rotation. Patient has had prior for schizoaffective disorder bipolar type. He was last here in November of this year. The acute deterioration is started in the past 2 weeks closely associated with his reduction and his positive pain dosage. The patient has good bit of education about his illness. He was questions regarding the nature of his feelings of a conspiracy of "twitches" (in this case warlock's) to influence him. He does describe some of the hallucinations that is command but mostly instructions for actions of a nonviolent nature. This seems to be an explanation of why he loses control of what seems to be rather rigid superego introjects. Specifically, father, uncle, and other idealized objects. These include the subject of a movie called "a beautiful mind ": Javier Bledsoe and a former [facility] football aguirre of fame wide drafter engineering: Georgette Brown. He tends to intellectualize in an effort to maintain a Sense of control. He frequently uses the phrase: "Not to be too rigid" when he is describing symptoms. Patient sees an outpatient Psychiatrist as well as a therapist once a month. He is in agreement with the psychiatrist and therapist regarding his medication , nevertheless altered the dosage without consultation. - Inpatient Certification I certify that the inpatient services were ordered in accordance with Medicare regulations governing the order. This includes certification that hospital inpatient services are reasonable and necessary and in the case of services not specified as inpatient-only under 42 CFR 419.22(n), that they are appropriately provided as inpatient services in accordance to with the 2-midnight benchmark under 43 CFR 412.3(e) I certify that inpatient psychiatric hospital services are medically necessary. Evaluation and treatment and/or diagnostic testing are expected to improve the patient's condition. The patient needs on a daily basis, active treatment furnished directly by or requiring the supervision of inpatient psychiatric facility personnel. Estimated Total Length of Stay (Days): 5 Plans for Post Hospital Care: Home Review of Systems Cardiovascular: Reports fast heart rate (With his agitation.) PMFSH - History History Provided By: Patient, Medical Record - Medical / Surgical Hx Neg / Unobtainable Medical Problems Denied: Yes - Medical History Medical History: Medical History (Last Reviewed 02/25/18 @ 14:09 by Rober Clark MD) Schizoaffective disorder, bipolar type (Acute) Right femoral fracture (Acute) Hypothyroidism (Acute) Hypertension (Acute) Schizophrenia - Tobacco History Second Hand Smoke Exposure: No Tobacco Use In Past 30 Days: Yes Smoking Status: Current every day smoker Tobacco Type: Cigarettes - Alcohol History How Often Do You Have a Drink Containing Alcohol: 4 or more times a week - Substance Use History Substance History: Past History - Substance Use Type Opiates Status: Early Remission Route Used: By Mouth Reason for Use: Calm Down - Travel History Recent Travel in the [place] Within the Last 8 Weeks: No Recent Travel Out of the Country Within the Last 8 Weeks: No - Immunization History Tetanus Immunization: Unsure Hx Influenza Vaccine This Season: No Quality Measures - Psychiatric History Psychological trauma history: Denied Medications and Allergies Active Medications: Active Medications Al Hydrox/Mg Hydrox/Simethicone (Mag-Al Plus Susp Liq) 30 ml PO Q6H PRN PRN Reason: DYSPEPSIA Al Hydroxide/Mg Hydroxide (Milk Of Magnesia Liq) 30 ml PO Q12H PRN PRN Reason: Mild Constipation Clonazepam (Klonopin) 0.5 mg PO BID [facility] Last Admin: 02/25/18 08:21 Dose: 0.5 mg Clozapine (Clozaril) 150 mg PO HS [facility] Last Admin: 02/24/18 21:29 Dose: 150 mg Hydrochlorothiazide (Hydrodiuril) 25 mg PO DAILY [facility] Last Admin: 02/25/18 08:21 Dose: 25 mg Ibuprofen (Motrin) 600 mg PO Q8HR [facility] Last Admin: 02/25/18 05:59 Dose: Not Given Levothyroxine Sodium (Synthroid) 50 mcg PO DAILY@0600 [facility] Last Admin: 02/25/18 06:02 Dose: 50 mcg [place] Carbonate ([place] Carbonate) 600 mg PO HS [facility] Last Admin: 02/24/18 21:30 Dose: 600 mg [place] Carbonate ([place] Carbonate) 300 mg PO DAILY [facility] Last Admin: 02/25/18 08:21 Dose: 300 mg Lurasidone HCl (Latuda) 80 mg PO DAILY [facility] Last Admin: 02/25/18 08:21 Dose: 80 mg Nicotine (Habitrol 21 Mg Patch.24 Hr) 1 patch T-DERMAL DAILY [facility] Last Admin: 02/25/18 08:21 Dose: 1 patch Allergies Allergy/AdvReac Type Severity Reaction Status Date / Time trazodone Allergy Intermediate Agitation Verified 12/03/17 17:05 Home Medications Medication Instructions Recorded Confirmed Type clonazepam 0.5 mg PO BID 09/07/17 02/24/18 History clozapine 200 mg PO HS 09/07/17 02/24/18 History lithium carbonate 600 mg PO HS 02/24/18 02/24/18 History lithium carbonate See Label Instructions .ROUTE 02/24/18 02/24/18 History .COMPLEX lurasidone [Latuda] 80 mg PO DAILY 02/24/18 02/24/18 History Results - Labs CBC & Chem 7: 02/24/18 13:30 02/25/18 06:35 Labs: Laboratory Results - last 24 hr 02/24/18 02/24/18 02/24/18 13:30 13:30 13:30 WBC 11.1 H RBC 5.01 Hgb 15.7 Hct 44.1 MCV 87.9 MCH 31.4 MCHC 35.7 RDW 12.7 Plt Count 130 L MPV 10.0 Neut % (Auto) 78.4 H Lymph % (Auto) 14.2 Placer % (Auto) 6.4 Eos % (Auto) 0.5 Baso % (Auto) 0.5 Neut # (Auto) 8.7 H Lymph # (Auto) 1.6 Placer # (Auto) 0.7 Eos # (Auto) 0.1 Baso # (Auto) 0.1 WBC Differential . Differential Comment Auto diff final Sodium 138 Potassium 4.0 Chloride 108 H Carbon Dioxide 23.1 Anion Gap 7 BUN 11 Creatinine 1.09 Estimated GFR 76 L Random Glucose 73 L Calcium 8.7 Magnesium 2.0 Total Bilirubin 0.4 AST 22 ALT 34 Alkaline Phosphatase 77 Total Protein 7.4 Albumin 4.2 Triglycerides Cholesterol LDL Cholesterol, Calc HDL Cholesterol Cholesterol/HDL Ratio TSH 1.070 Urine Opiates Screen Ur Barbiturates Screen Ur Amphetamines Screen U Benzodiazepines Scrn [place] 0.3 L Urine Cocaine Screen U Cannabinoids Screen Serum Alcohol 45 H 02/24/18 02/25/18 14:24 06:35 WBC RBC Hgb Hct MCV MCH MCHC RDW Plt Count MPV Neut % (Auto) Lymph % (Auto) Placer % (Auto) Eos % (Auto) Baso % (Auto) Neut # (Auto) Lymph # (Auto) Placer # (Auto) Eos # (Auto) Baso # (Auto) WBC Differential Differential Comment Sodium 138 Potassium 4.2 Chloride 106 Carbon Dioxide 28.4 Anion Gap 4 L BUN 12 Creatinine 1.28 Estimated GFR 63 L Random Glucose 99 Calcium 9.2 Magnesium Total Bilirubin AST ALT Alkaline Phosphatase Total Protein Albumin Triglycerides 278 H Cholesterol 228 H LDL Cholesterol, Calc 129 H HDL Cholesterol 43.8 Cholesterol/HDL Ratio 5.20 TSH Urine Opiates Screen Neg Ur Barbiturates Screen Neg Ur Amphetamines Screen Neg U Benzodiazepines Scrn Neg [place] Urine Cocaine Screen Neg U Cannabinoids Screen Neg Serum Alcohol Exam Vital signs: Vital Signs 02/24/18 15:39 02/24/18 18:06 02/24/18 21:59 Temperature 98.3 F 98.0 F Pulse Rate 81 88 73 Respiratory Rate 18 16 20 Blood Pressure 160/72 H 156/95 H 160/85 H Pulse Oximetry 98 98 99 02/25/18 05:50 Temperature 97.8 F Pulse Rate 67 Respiratory Rate 18 Blood Pressure 123/60 Pulse Oximetry 97 Intake & Output 02/24/18 02/25/18 02/25/18 18:59 06:59 18:59 Intake Total 720 / 720 Balance 720 / 720 Weight 81.647 kg 81.64 kg Intake: Oral 720 / 720 Other: Weight On Admission 81.64 kg Mental Status Examination Appearance: Appropriate Consciousness: Alert, Vigilant Orientation: x4 Motor Activity: Normal gait Speech: Pressured, Rapid Language: Adequate Fund of Knowledge: Adequate Attention and Concentration: Adequate (At times becoming a bit disorganized) Memory: Unremarkable Mood: Anxious, Manic Affect: Anxious Thought Process & Associations: Disorganized (At times) Thought Content: Bizarre thinking, Hallucinations Hallucination Type: Auditory Delusion Type: Bizarre (Loss of free will) Suicidal Ideation: No (Denying currently) Suicidal Plan: No (Denying currently) Suicidal Intention: No Homicidal Ideation: No Homicidal Plan: No Homicidal Intention: No Insight: Fair Judgment: Impulsive Assessment and Plan - Plan Plan: Estimated LOS: [5] days Patient will be reestablished on his medication as prescribed when last he was here in November. Plan is to titrate the lithium level up to therapeutic level. His current dosage 600 mg once a day and a very muscular young man likely to produce the level that we saw on admission of 0.3. Dosage will be increased to 600 mg every 12 H Justification for Continued Inpatient Stay: Patient cannot function in a less restrictive environment and is acutely psychotic and hypomanic.
[2018-02-25 16:40] LABS: Hemoglobin A1c 5.1 % (4.3-6.0)
--- NOTE | 2018-02-25 17:04 | ECG ---
Date Performed: 02/25/2018 Time Performed: 10:39:52 PTAGE: 37 years EKG: Sinus rhythm NORMAL ECG PREVIOUS TRACING : 09/06/2017 13.26 Since the previous tracing, no significant change noted DOCTOR: Jag Serrano Interpretating Date/Time 02/25/2018 17:03:58
[2018-02-26] MEDS: Ibuprofen 600 MG Tablet PO SCH ×2 (05:42→14:10)
[2018-02-26] MEDS: Levothyroxine 50 MCG Tablet PO SCH (05:49)
[2018-02-26] MEDS: hydroCHLOROthiazide 25 MG Tablet PO SCH (08:35)
[2018-02-26] MEDS: clonazePAM 0.5 MG Tablet PO SCH ×2 (08:35→20:52)
[2018-02-26] MEDS: Lurasidone 80 MG Tablet PO SCH (08:36)
--- NOTE | 2018-02-26 14:49 | P.PNPSY ---
Subjective Chief Complaint: Auditory hallucinations hypomanic symptoms. Remarks: February 26, 2018 Subjective: Patient shows much improved mood with none of the manic with none of the hypomania noted on admission. He currently is denying any auditory visual hallucinations. He denies any problems with the medication and indicates that he does not due for white count 4 another few days. Patient was seen with the nursing staff and the chart was reviewed. Mental Status Examination Appearance: Appropriate Consciousness: Alert, Vigilant Orientation: x4 Motor Activity: Normal gait Speech: Pressured, Rapid Language: Adequate Fund of Knowledge: Adequate Attention and Concentration: Adequate (At times becoming a bit disorganized) Memory: Unremarkable Mood: Anxious, Manic Affect: Anxious Thought Process & Associations: Disorganized (At times) Thought Content: Bizarre thinking, Hallucinations Hallucination Type: Auditory Delusion Type: Bizarre (Loss of free will) Suicidal Ideation: No (Denying currently) Suicidal Plan: No (Denying currently) Suicidal Intention: No Homicidal Ideation: No Homicidal Plan: No Homicidal Intention: No Insight: Fair Judgment: Impulsive Assessment and Plan - Plan Plan: Estimated LOS: [5] days Patient will be reestablished on his medication as prescribed when last he was here in November. Plan is to titrate the lithium level up to therapeutic level. His current dosage 600 mg once a day and a very muscular young man likely to produce the level that we saw on admission of 0.3. Dosage will be increased to 600 mg every 12 H Justification for Continued Inpatient Stay: Patient is improved but still not stable enough for a less restrictive environment where he might decompensate quickly
[2018-02-26 16:42] VITALS: RESP 18
[2018-02-27] MEDS: Ibuprofen 600 MG Tablet PO SCH ×3 (01:25→15:29)
[2018-02-27 06:31] VITALS: BP 108/66; PULSE 65; TEMP 97.6; O2SAT 98
[2018-02-27] MEDS: Levothyroxine 50 MCG Tablet PO SCH (08:18)
[2018-02-27] MEDS: clonazePAM 0.5 MG Tablet PO SCH (08:18)
[2018-02-27] MEDS: Lurasidone 80 MG Tablet PO SCH (08:19)
[2018-02-27] MEDS: hydroCHLOROthiazide 25 MG Tablet PO SCH (08:19)
--- NOTE | 2018-02-27 15:29 | P.DSPSY ---
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 Patient presents at this time with auditory hallucinations agitation rapid but organized speech and a history of having reduced his clozapine dosage, feeling that it was causing some rotation. Patient has had prior for schizoaffective disorder bipolar type. He was last here in November of this year. The acute deterioration is started in the past 2 weeks closely associated with his reduction and his positive pain dosage. The patient has good bit of education about his illness. He was questions regarding the nature of his feelings of a conspiracy of "twitches" (in this case warlock's) to influence him. He does describe some of the hallucinations that is command but mostly instructions for actions of a nonviolent nature. This seems to be an explanation of why he loses control of what seems to be rather rigid superego introjects. Specifically, father, uncle, and other idealized objects. These include the subject of a movie called "a beautiful mind ": Javier Bledsoe and a former [employer] football aguirre of fame wide coat room attendant: Georgette Brown. He tends to intellectualize in an effort to maintain a Sense of control. He frequently uses the phrase: "Not to be too rigid" when he is describing symptoms. Patient sees an outpatient Psychiatrist as well as a therapist once a month. He is in agreement with the psychiatrist and therapist regarding his medication , nevertheless altered the dosage without consultation. Tobacco Use In Past 30 Days: Yes How Often Do You Have a Drink Containing Alcohol: 4 or more times a week Hospital Course: Patient had an uneventful admission with improvement over the first 24 hours spiteful involved in all unit activities giving good responses in the groups and demonstrated a good understanding of his own problems. The patient recognizes his deterioration this time was due to his reducing his medications. - Discharge Discharge Date: 02/27/18 - Discharge Diagnosis (1) Schizoaffective disorder, bipolar type Code(s): F25.0 - Schizoaffective disorder, bipolar type Status: Acute Discharge Disposition: Home - Discharge Instructions Discharge Diet: Regular Diet - Discharge Time > 30 minutes Mental Status Examination Appearance: Appropriate Consciousness: Alert, Vigilant Orientation: x4 Motor Activity: Normal gait Speech: Pressured, Rapid Language: Adequate Fund of Knowledge: Adequate Attention and Concentration: Adequate (At times becoming a bit disorganized) Memory: Unremarkable Mood: Anxious, Manic Affect: Anxious Thought Process & Associations: Disorganized (At times) Thought Content: Bizarre thinking, Hallucinations Hallucination Type: Auditory Delusion Type: Bizarre (Loss of free will) Suicidal Ideation: No (Denying currently) Suicidal Plan: No (Denying currently) Suicidal Intention: No Homicidal Ideation: No Homicidal Plan: No Homicidal Intention: No Insight: Fair Judgment: Impulsive Discharge/Advance Care Plan - Results Vital Signs: Last Vital Signs Temp 97.6 F 02/27/18 06:30 Pulse 65 02/27/18 06:30 Resp 18 02/27/18 06:30 BP 108/66 02/27/18 06:30 Pulse Ox 98 02/27/18 06:30 Lab Results: Laboratory Results Hemoglobin A1c 5.1 % (4.3-6.0) 02/25/18 06:35 Triglycerides 278 mg/dL (42-150) H 02/25/18 06:35 Cholesterol 228 mg/dL (120-200) H 02/25/18 06:35 LDL Cholesterol, Calc 129 mg/dL (0-99) H 02/25/18 06:35 HDL Cholesterol 43.8 mg/dL (40.0-60.0) 02/25/18 06:35 TSH 1.070 uIU/mL (0.358-3.740) 02/24/18 13:30 [place] 0.3 meq/L (0.5-1.5) L 02/24/18 13:30 Summary of Procedures: None Pending Results: None - Medications Number of antipsychotic medications at discharge: 2 Appropriate use of more than 1 antipsychotic med: Minimum of three failed multiple trials of monotherapy - Discharge Care Plan Goals to Promote Your Health: * To prevent worsening of your condition and complications * To maintain your health at the optimal level Directions to Meet Your Goals: Take your medications as prescribed Follow your dietary instruction Follow activity as directed Keep your appointments as scheduled Take your immunizations and boosters as scheduled If your symptoms worsen call your PCP, if no PCP go to Urgent Care Center or Emergency Room For 01/10 questions related to your inpatient stay or results of tests pending at discharge, please contact Dr. Rober Clark MD at Smoking is Dangerous to Your Health. Avoid second hand smoking
== END 2018-02-27 16:00 | disposition home or self-care (01) ==
LOC: NEPE 12:47 → NEDH 16:07 → H260 21:18
PROVIDERS: ADMIT Psychiatry & Neurology Child & Adolescent Psychiatry; ATTEND Psychiatry & Neurology Child & Adolescent Psychiatry

== ENCOUNTER 2018-04-28 16:55 | Inpatient (IN) ==
--- NOTE | 2018-04-28 20:52 | ED ---
HPI General Chief complaint: Psychiatric Symptoms Stated complaint: Psych Eval Time Seen by Provider: 04/28/18 20:30 History of Present Illness HPI narrative: Is a 38-year-old male with a reported history of schizophrenia presents emergency department for evaluation of auditory and visual hallucination for the past few weeks. Patient states his been taking his medication as prescribed, he has been hospitalized for this before. He states that the voices are very disturbing to him and he has been having some thoughts of hurting himself without a specific plan. He does endorse drinking tonight and states that he had a "few beers" at noon today. States symptoms are severe , for the past few weeks, gradually worsening, context and associated signs symptoms as above. Related Data Previous Rx's Medication Instructions Recorded levothyroxine [Synthroid] 50 mcg PO DAILY@0600 tab 11/15/17 clonazepam 0.5 mg PO BID #14 tab 04/04/18 clozapine 200 mg PO HS 30 Days #60 tab 04/04/18 lithium carbonate [Lithobid] 600 mg PO QAM AND QHS 30 Days #120 04/04/18 tab lurasidone [Latuda] 80 mg PO DAILY #30 tab 04/04/18 Allergies Allergy/AdvReac Type Severity Reaction Status Date / Time trazodone Allergy Intermediate Agitation Verified 04/01/18 18:14 Review of Systems ROS: all other systems reviewed are negative PMFSH Social History Social History Substance History: Active Abuse Second Hand Smoke Exposure: Yes Smoking Status: Current every day smoker Tobacco Type: Cigarettes How Often Do You Have a Drink Containing Alcohol: 2 to 3 times a week Recent Travel in [facility] within the Last 8 Weeks: No Recent Out of Country Travel within the Last 8 Weeks: No Immunization History Tetanus Immunization: Unsure Exam Narrative Exam Narrative: GENERAL: Well-developed well-nourished smells heavily of alcohol. SKIN: Focused skin assessment warm/dry. HEAD: Atraumatic. Normocephalic. EYES: Pupils equal and round. No scleral icterus. No injection or drainage. ENT: No nasal bleeding or discharge. Mucous membranes pink and moist. NECK: Trachea midline. No JVD. CARDIOVASCULAR: Regular rate and rhythm. No murmur appreciated. RESPIRATORY: No accessory muscle use. Clear to auscultation. Breath sounds equal bilaterally. GASTROINTESTINAL: Abdomen soft, non-tender, nondistended. Hepatic and splenic margins not palpable. MUSCULOSKELETAL: No obvious deformities. No clubbing. No cyanosis. No edema. NEUROLOGICAL: Awake and alert. No obvious cranial nerve deficits. Motor grossly within normal limits. Normal speech. PSYCHIATRIC: Endorses audiovisual hallucination with suicidal ideation without planning. Rarely blinks. Calm and cooperative. Course Initial Documented Vital Signs Temperature 99 F 04/28/18 17:05 Pulse Rate 95 H 04/28/18 17:05 Respiratory Rate 16 04/28/18 17:05 Blood Pressure 157/97 H 04/28/18 17:05 Pulse Oximetry 99 04/28/18 17:05 Last Documented Vital Signs Temperature 99 F 04/28/18 17:05 Pulse Rate 95 H 04/28/18 17:05 Respiratory Rate 16 04/28/18 17:05 Blood Pressure 157/97 H 04/28/18 17:05 Pulse Oximetry 99 04/28/18 17:05 Medical Decision Making MDM Narrative Medical decision making narrative: Patient has no medical complaints to warrant further workup at this time, basic labs drawn according to psychiatric protocol. Think that he is medically cleared for psychiatric evaluation. He will remain under voluntary status. With his very vague suicidal ideation I do not think that he meets Quiros act criteria. Medical Screen Exam Complete: Yes Emergency Medical Condition: Yes Discharge Plan Discharge Disposition Patient Disposition: Sign Out(ED Internal Use Only) Physicians Team ED Provider: Sea Hernandez Rxs /Orders / Referrals /Forms Prescriptions: No Action levothyroxine [Synthroid] 50 mcg Tablet 50 mcg PO DAILY@0600 RF: 0 lithium carbonate [Lithobid] 300 mg Tablet Extended Release 600 mg PO QAM AND QHS 30 Days Qty: 120 RF: 0 clozapine 100 mg Tablet 200 mg PO HS 30 Days Qty: 60 RF: 0 clonazepam 0.5 mg Tablet 0.5 mg PO BID Qty: 14 RF: 0 lurasidone [Latuda] 80 mg Tablet 80 mg PO DAILY Qty: 30 RF: 0 Status ED Status: With Doctor
[2018-04-28 21:31] LABS: Baso # (Auto) 0.1 th/mm3 (0.0-0.2); Baso % (Auto) 0.7 % (0.0-2.0); Eos # (Auto) 0.2 th/mm3 (0.0-0.4); Eos % (Auto) 1.5 % (0.0-4.0); Hematocrit 48.4 % (39.0-51.0); Lymph # (Auto) 2.8 th/mm3 (1.0-4.8); Lymph % (Auto) 23.6 % (9.0-44.0); Mean Corpuscular HGB Conc 35.1 % (32.0-36.0); Mean Corpuscular Hemoglobin 30.4 pg (27.0-34.0); Mean Corpuscular Volume 86.7 fL (80.0-100.0); Mean Platelet Volume 9.5 fL (7.0-11.0); Mono # (Auto) 0.9 th/mm3 (0.0-0.9); Mono % (Auto) 7.4 % (0.0-8.0); Neut # (Auto) 7.9 th/mm3 (1.8-7.7); Neut % (Auto) 66.8 % (16.0-70.0); Platelet Count 169 th/mm3 (150-450); Red Blood Count 5.58 mil/mm3 (4.50-5.90); Red Cell Distribution Width 12.9 % (11.6-17.2); White Blood Count 11.8 th/mm3 (4.0-11.0)
[2018-04-28 21:44] LABS: Albumin 4.5 g/dL (3.4-5.0); Anion Gap 9 meq/L (5-15); Aspartate Aminotransferase 24 U/L (15-37); Blood Urea Nitrogen 10 mg/dL (7-18); Calcium 9.2 mg/dL (8.5-10.1); Carbon Dioxide 23.3 meq/L (21.0-32.0); Chloride 106 meq/L (98-107); Glomerular Filtration Rate 64 mL/min (>89); Glucose,Random 91 mg/dL (74-106); Magnesium 2.2 mg/dL (1.5-2.5); Potassium 3.8 meq/L (3.5-5.1); Sodium 138 meq/L (136-145)
[2018-04-28 21:45] LABS: Alanine Aminotransferase 32 U/L (12-78)
[2018-04-28 21:54] LABS: Alkaline Phosphatase 95 U/L (45-117); Total Protein 7.9 g/dL (6.4-8.2)
[2018-04-28 22:46] LABS: Amphetamine Screen,Urine Neg (Neg); Barbiturate Screen,Urine Neg (Neg); Cannabinoid Screen,Urine Neg (Neg); Cocaine Screen,Urine Neg (Neg)
[2018-04-28 22:47] LABS: Opiate Screen,Urine Neg (Neg)
[2018-04-28] MEDS ORDERED: clonazePAM 0.5 MG Tablet PO ONE (23:00)
[2018-04-29] MEDS ORDERED: LORazepam 1 MG Tablet PO PRN (01:00)
[2018-04-29] MEDS ORDERED: Aluminum/Magnesium/Simethacone Susp 30 ML UDC PO PRN (01:00)
[2018-04-29] MEDS ORDERED: Acetaminophen 325 MG Tablet PO PRN (01:00)
--- NOTE | 2018-04-29 11:01 | P.HPPSY ---
Provisional Diagnosis Admission Date: April 28, 2018 22:45 [place] I.: Schizoaffective disorder bipolar type [place] III.: Hypothyroid Competence Certification of Person's Competence To Provide Express and Informed Consent I have personally examined Noe Brown, a person being served at [facility] on, April 29, 2018 1047. Express and informed consent means consent voluntarily given in writing, by a competent person, after sufficient explanation and disclosure of the subject matter involved to enable the person to make a knowing and willful decision without any element of force, fraud, deceit, duress, or other form of constraint or coercion. This person is 18 years of age or older, is not now known to be incompetent to consent to treatment with a guardian advocate, and does not have a health care surrogate or proxy currently making medical treatment decisions. I have found this person to be one of the following: [xxx] Competent to provide express and informed consent, as defined above, for voluntary admission to this facility and is competent to provide express and informed consent for treatment. He/she has the consistent capacity to make well reasoned, willful, and knowing decisions concerning his or her medical or mental health treatment. The person fully and consistently understands the purpose of the admission for examination/placement and is fully capable of personally exercising all rights assured [place] Incompetent to provide express and informed consent to voluntary admission, and this is incompetent to provide express and informed consent to treatment. The person must be transferred to involuntary status and a petition for a guardian advocate filed with the Circuit Court. [] Refusing to provide express and informed consent to voluntary admission but is competent to provide express and informed consent for treatment. The person must be discharged or transferred to involuntary status. Form shall be completed within 24 hours of a person's arrival at the receiving facility and filed in the clinical record of each person: 1. Admitted on a voluntary basis 2. Permitted to provide express and informed consent to his/her own treatment 3. Allowed to transfer from involuntary to voluntary status 4. Prior to permitting a person to consent to his or her own treatment after having been previously found incompetent to consent to treatment. History of Present Illness Capacity: Has capacity Chief Complaint: "I feel Demonically possessed" History of Present Illness: The patient is a 38-year-old male with history of schizophrenia and well-known to [facility] psychiatric unit and presents to the emergency department voluntarily complaining of worsening auditory visual hallucinations for the past 2 weeks and acute incidents of suicidal ideations. The patient reported adherence to his medications and insists that he only drinks "a few beers" weekly. Patient's medical workup was significant for a lithium level of 0.5 and a GFR estimated to be 64. His urine drug screen was negative. Patient was admitted to the psychiatric unit and has been calm and cooperative with care. He was seen this morning for his initial psychiatric evaluation and he reports "I am embarrassed to be having an episode again." Patient reports that he started hearing voices, "and that made me angry but that just made it worse and I started getting paranoid the demons are after me I think I need to see a jewelry manager about this instead of changing my medications." The patient was somewhat ambivalent about his psychiatric care as he acknowledged that he is done better on higher doses of Clozaril but he is concerned for the side effects. He insists that he has recurrent panic attacks with heart racing episodes when his Clozaril dose goes above 250. Patient expressed belief that the Latuda has helped stabilize his mood. The patient is unsure whether or not the lithium has been an effective adjunctive treatment but he has been on it for many years. We discussed risk benefits side effects and alternatives to include trying alternative antipsychotics and discontinuing lithium but the patient chooses to continue his lithium at current doses and increase his Clozaril up to 250. Past psychiatric history: Past Diagnoses: Schizoaffective disorder bipolar type Hospitalizations: Multiple hospitalizations here [facility]; he had 7 admissions in 2018 and this is his second admission for 2019. Suicidal behavior: He denies any history of suicide attempt Past psychotropic medication trials: Current medications include Klonopin Clozaril lithium and Latuda. Outpatient MH treatment: Patient is followed by Dr. Márquez and he is seen there every 2 weeks to include getting his CBC checked for Clozaril but has been used for many years. Substance Use Treatment: He admits to involvement with AA in the past but denies that he had "severe alcoholism I never got any legal trouble because of it" Abuse/assault history: Denies Family psychiatric history: Patient has an uncle with bipolar and a father with substance abuse. Psychosocial history: The patient currently lives in a home with 2 roommates and reports that he is actively employed at the [employer]. Substance Use history: Tobacco use: The patient uses tobacco daily approximately half pack per day Alcohol use: He admits to drinking 1-2 beers per week but acknowledges that he should avoid alcohol altogether and he is willing to return to and get a sponsor to help him maintain sobriety. Cannabis use: Denies Stimulant use: Denies Opiate use: Denies Prescription drug abuse: Denies Significant past medical history: Hypertension and hypothyroid - Inpatient Certification I certify that the inpatient services were ordered in accordance with Medicare regulations governing the order. This includes certification that hospital inpatient services are reasonable and necessary and in the case of services not specified as inpatient-only under 42 CFR 419.22(n), that they are appropriately provided as inpatient services in accordance to with the 2-midnight benchmark under 43 CFR 412.3(e) I certify that inpatient psychiatric hospital services are medically necessary. Evaluation and treatment and/or diagnostic testing are expected to improve the patient's condition. The patient needs on a daily basis, active treatment furnished directly by or requiring the supervision of inpatient psychiatric facility personnel. Estimated Total Length of Stay (Days): 7 Plans for Post Hospital Care: Not yet determined PMFSH - History History Provided By: Patient - Medical History Medical History: Medical History (Last Reviewed 04/01/18 @ 18:34 by Nilo Marcano MD) Schizoaffective disorder, bipolar type (Acute) Right femoral fracture (Acute) Hypothyroidism (Acute) Hypertension (Acute) Schizophrenia - Tobacco History Second Hand Smoke Exposure: Yes Tobacco Use In Past 30 Days: Yes Smoking Status: Current every day smoker Tobacco Type: Cigarettes - Alcohol History How Often Do You Have a Drink Containing Alcohol: 2 to 3 times a week - Substance Use History Substance History: No History of Abuse - Travel History Recent Travel in the [place] Within the Last 8 Weeks: No Recent Travel Out of the Country Within the Last 8 Weeks: No - Immunization History Tetanus Immunization: Unsure Medications and Allergies Active Medications: Active Medications Acetaminophen (Tylenol) 650 mg PO Q4H PRN PRN Reason: Pain 1-5 or Temp >101F Al Hydrox/Mg Hydrox/Simethicone (Mag-Al Plus Susp Liq) 30 ml PO Q6H PRN PRN Reason: DYSPEPSIA Al Hydroxide/Mg Hydroxide (Milk Of Magnesia Liq) 30 ml PO DAILY PRN PRN Reason: CONSTIPATION Lorazepam (Ativan) 1 mg PO Q6H PRN PRN Reason: MODERATE TO SEVERE ANXIETY Lorazepam (Ativan Inj) 1 mg IM Q6H PRN PRN Reason: MODERATE TO SEVERE ANXIETY Nicotine (Habitrol 21 Mg Patch.24 Hr) 1 patch T-DERMAL DAILY DARREN Last Admin: 04/29/18 09:42 Dose: 1 patch Allergies Allergy/AdvReac Type Severity Reaction Status Date / Time trazodone Allergy Intermediate Agitation Verified 04/28/18 22:26 Results - Labs CBC & Chem 7: 04/28/18 21:20 04/28/18 21:20 Labs: Laboratory Results - last 24 hr 04/28/18 04/28/18 04/28/18 21:20 21:20 22:23 WBC 11.8 H RBC 5.58 Hgb 17.0 Hct 48.4 MCV 86.7 MCH 30.4 MCHC 35.1 RDW 12.9 Plt Count 169 MPV 9.5 Neut % (Auto) 66.8 Lymph % (Auto) 23.6 [place] % (Auto) 7.4 Eos % (Auto) 1.5 Baso % (Auto) 0.7 Neut # (Auto) 7.9 H Lymph # (Auto) 2.8 [place] # (Auto) 0.9 Eos # (Auto) 0.2 Baso # (Auto) 0.1 WBC Differential . Differential Comment Auto diff final Sodium 138 Potassium 3.8 Chloride 106 Carbon Dioxide 23.3 Anion Gap 9 BUN 10 Creatinine 1.26 Estimated GFR 64 L Random Glucose 91 Calcium 9.2 Magnesium 2.2 Total Bilirubin 0.6 AST 24 ALT 32 Alkaline Phosphatase 95 Total Protein 7.9 Albumin 4.5 TSH 1.740 Urine Opiates Screen Neg Ur Barbiturates Screen Neg Ur Amphetamines Screen Neg U Benzodiazepines Scrn Neg [place] Urine Cocaine Screen Neg U Cannabinoids Screen Neg Serum Alcohol Less than 3 04/29/18 05:45 WBC RBC Hgb Hct MCV MCH MCHC RDW Plt Count MPV Neut % (Auto) Lymph % (Auto) [place] % (Auto) Eos % (Auto) Baso % (Auto) Neut # (Auto) Lymph # (Auto) [place] # (Auto) Eos # (Auto) Baso # (Auto) WBC Differential Differential Comment Sodium Potassium Chloride Carbon Dioxide Anion Gap BUN Creatinine Estimated GFR Random Glucose Calcium Magnesium Total Bilirubin AST ALT Alkaline Phosphatase Total Protein Albumin TSH Urine Opiates Screen Ur Barbiturates Screen Ur Amphetamines Screen U Benzodiazepines Scrn [place] 0.5 Urine Cocaine Screen U Cannabinoids Screen Serum Alcohol Exam Vital signs: Vital Signs 04/28/18 17:05 04/29/18 03:06 04/29/18 05:40 Temperature 99 F 97.1 F L 97.8 F Pulse Rate 95 H 63 70 Respiratory Rate 16 17 17 Blood Pressure 157/97 H 132/95 H 116/64 Pulse Oximetry 99 99 96 Intake & Output 04/28/18 04/29/18 04/29/18 18:59 06:59 18:59 Intake Total 360 / 360 Balance 360 / 360 Weight 87.543 kg 200.1 kg Intake: Oral 360 / 360 Other: Weight On Admission 200.1 kg Mental Status Examination Appearance: Disheveled, Other Orientation: x4 Motor Activity: Normal gait Speech: Unremarkable Language: Adequate Fund of Knowledge: Adequate Attention and Concentration: Adequate Memory: Unremarkable Mood: Anxious Affect: Appropriate Thought Process & Associations: Intact Thought Content: Hallucinations Hallucination Type: Auditory, Visual Delusion Type: Bizarre, Paranoid Suicidal Ideation: Yes (Contract for safety in the hospital) Homicidal Ideation: No Insight: Fair Judgment: Impulsive Assessment and Plan - Assessment (1) Schizoaffective disorder, bipolar type Code(s): F25.0 - Schizoaffective disorder, bipolar type Status: Acute - Plan Plan: 1. Continue with admission to inpatient psychiatry at [facility]; voluntary /competent legal status. 2. Routine unit precautions. 3. Comfort medications ordered for as needed treatment of constipation, heartburn, diarrhea, and mild pain. 4. Hydroxyzine 50mg po q6H prn anxiety/insomnia. 5. Continue lithium 600 mg twice a day. 6. Repeat chemistries and lithium level within 3-5 days. 7. Continue Klonopin 0.5 mg twice a day. 8. Continue Latuda 80 mg at bedtime. 9. Increase Clozaril to 250 mg at bedtime. 10. patient will participate in the unit programming to include group therapies , milieu therapy and recreational therapies. 11. Discharge planning: The patient will return to Dr. Márquez for outpatient care , estimated LOS: 5 days Justification for Continued Inpatient Stay: Patient is a 38-year-old schizophrenic with multiple exacerbations of his psychosis over the last 2 years but enter episode his functioning level is fairly well as he is able to live independently and maintain employment. The patient has been reluctant to make medication changes because of his satisfaction with current level of functioning and a past history of side effects from higher doses of medications and other alternative medications but he is acknowledging that the frequent hospitalizations need to be addressed through medication changes. Patient prefers major changes to be made through his outpatient provider which is a reasonable request. We discussed risk benefits side effects and alternatives and we will try an increase of his Clozaril and then discharge within the next 3-5 days if his condition stabilizes. If patient does not respond to the increased dose of Clozaril then we will consider further changes to include further increase to the Clozaril versus replacing Latuda with a strong D2 antagonist. 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
[2018-04-29] MEDS: clonazePAM 0.5 MG Tablet PO SCH ×2 (14:02→21:00)
[2018-04-29] MEDS: Lurasidone 80 MG Tablet PO SCH (21:00)
[2018-04-30] MEDS: clonazePAM 0.5 MG Tablet PO SCH ×2 (08:38→21:16)
--- NOTE | 2018-04-30 10:12 | P.PNPSY ---
Subjective Chief Complaint: Follow-up treatment of psychosis Remarks: Patient seen for follow-up, chart reviewed, patient discussed with nursing staff ; we reviewed the patient's mood, thoughts, and behaviors from overnight and this morning. Nurse reports that the patient slept 6 hours overnight and appears to have rested comfortably. He is described as seclusive but he did come out for evening snacks. Over the evening shift he did continue to complain of auditory hallucinations but denies suicidal ideations. Nurse report from this morning indicates that the patient woke up feeling "much better now" and was denying auditory or visual hallucinations and denies suicidal ideations. Patient was seen at bedside where he had return to sleep after breakfast. He was easy to awaken. His affect appeared bright and he reports "my thoughts are clear and everything seems back to normal including my spirituality." The patient reports that he tolerated the increased dose of Clozaril without any heart palpitations. We discussed discharge plans and the patient accepts recommendation for further observation of his treatment and treatment response. Mental Status Examination Appearance: Appropriate, Other Consciousness: Alert Orientation: x4 Motor Activity: Normal gait Speech: Unremarkable Language: Adequate Fund of Knowledge: Adequate Attention and Concentration: Adequate Memory: Unremarkable Mood: Good Affect: Appropriate Thought Process & Associations: Intact Thought Content: Appropriate Hallucination Type: None Delusion Type: None Suicidal Ideation: No Homicidal Ideation: No Insight: Fair Judgment: Impulsive Assessment and Plan - Assessment (1) Schizoaffective disorder, bipolar type Code(s): F25.0 - Schizoaffective disorder, bipolar type Status: Acute - Plan Plan: April 29, 2018: Initial assessment and plan Patient is a 38-year-old schizophrenic with multiple exacerbations of his psychosis over the last 2 years but enter episode his functioning level is fairly well as he is able to live independently and maintain employment. The patient has been reluctant to make medication changes because of his satisfaction with current level of functioning and a past history of side effects from higher doses of medications and other alternative medications but he is acknowledging that the frequent hospitalizations need to be addressed through medication changes. Patient prefers major changes to be made through his outpatient provider which is a reasonable request. We discussed risk benefits side effects and alternatives and we will try an increase of his Clozaril and then discharge within the next 3-5 days if his condition stabilizes. If patient does not respond to the increased dose of Clozaril then we will consider further changes to include further increase to the Clozaril versus replacing Latuda with a strong D2 antagonist. 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 1. Continue with admission to inpatient psychiatry at [facility]; voluntary /competent legal status. 2. Routine unit precautions. 3. Comfort medications ordered for as needed treatment of constipation, heartburn, diarrhea, and mild pain. 4. Hydroxyzine 50mg po q6H prn anxiety/insomnia. 5. Continue lithium 600 mg twice a day. 6. Repeat chemistries and lithium level within 3-5 days. 7. Continue Klonopin 0.5 mg twice a day. 8. Continue Latuda 80 mg at bedtime. 9. Increase Clozaril to 250 mg at bedtime. 10. patient will participate in the unit programming to include group therapies , milieu therapy and recreational therapies. 11. Discharge planning: The patient will return to Dr. Márquez for outpatient care , estimated LOS: 5 days April 30, 2018: Good response to treatment, the patient is reporting remission of hallucinations and delusions and no longer complaining of suicidal ideations. The patient's rapid flight to [facility] is consistent with his past psychiatric history but continued observation indicated to ensure tolerability of recent increased dose of Clozaril and continued efficacy. Continue inpatient psychiatric treatment, voluntary status. Continue current medications unchanged. Repeat screening labs to ensure in improved renal function since admission. Patient to be advised of risks of kidney damage from continued lithium use based on the results of these labs. Discharge planning: The patient will return to his regular outpatient psychiatrist within 1 week of discharge. Justification for Continued Inpatient Stay: Patient remains an elevated risk for self-harm by acting out on command hallucinations and will require further inpatient stabilization and preparation of a safe discharge plan. Moving patient to a less restrictive environment at this time may result in decompensation.
[2018-04-30 10:26] LABS: Calcium 9.3 mg/dL (8.5-10.1); Carbon Dioxide 28.7 meq/L (21.0-32.0); Potassium 4.3 meq/L (3.5-5.1)
[2018-04-30 10:31] LABS: Chol/HDL Ratio 5.49 Ratio; HDL Cholesterol 40.4 mg/dL (40.0-60.0)
[2018-04-30 16:23] LABS: Hemoglobin A1c 5.2 % (4.3-6.0)
[2018-04-30] MEDS: Lurasidone 80 MG Tablet PO SCH (21:16)
[2018-05-01 06:07] VITALS: BP 111/60; PULSE 63; RESP 16; TEMP 96.7; O2SAT 97
[2018-05-01] MEDS: clonazePAM 0.5 MG Tablet PO SCH (09:37)
--- NOTE | 2018-05-01 11:02 | P.DSPSY ---
Psychiatry Discharge Summary Inpatient Psychiatric care?: Yes Advance Directives: No Mental Health Advance Directive: No Health Care Proxy: No - Admission Admission Date: April 28, 2018 22:45 - Admission Diagnosis (1) Schizoaffective disorder, bipolar type Code(s): F25.0 - Schizoaffective disorder, bipolar type Brief History: The patient is a 38-year-old male with history of schizophrenia and well-known to [facility] psychiatric unit and presents to the emergency department voluntarily complaining of worsening auditory visual hallucinations for the past 2 weeks and acute incidents of suicidal ideations. The patient reported adherence to his medications and insists that he only drinks "a few beers" weekly. Patient's medical workup was significant for a lithium level of 0.5 and a GFR estimated to be 64. His urine drug screen was negative. Patient was admitted to the psychiatric unit and has been calm and cooperative with care. He was seen this morning for his initial psychiatric evaluation and he reports "I am embarrassed to be having an episode again." Patient reports that he started hearing voices, "and that made me angry but that just made it worse and I started getting paranoid the demons are after me I think I need to see a management advisor about this instead of changing my medications." The patient was somewhat ambivalent about his psychiatric care as he acknowledged that he is done better on higher doses of Clozaril but he is concerned for the side effects. He insists that he has recurrent panic attacks with heart racing episodes when his Clozaril dose goes above 250. Patient expressed belief that the Latuda has helped stabilize his mood. The patient is unsure whether or not the lithium has been an effective adjunctive treatment but he has been on it for many years. We discussed risk benefits side effects and alternatives to include trying alternative antipsychotics and discontinuing lithium but the patient chooses to continue his lithium at current doses and increase his Clozaril up to 250. Past psychiatric history: Past Diagnoses: Schizoaffective disorder bipolar type Hospitalizations: Multiple hospitalizations here [place]; he had 7 admissions in 2018 and this is his second admission for 2019. Suicidal behavior: He denies any history of suicide attempt Past psychotropic medication trials: Current medications include Klonopin Clozaril lithium and Latuda. Outpatient MH treatment: Patient is followed by Dr. Márquez and he is seen there every 2 weeks to include getting his CBC checked for Clozaril but has been used for many years. Substance Use Treatment: He admits to involvement with AA in the past but denies that he had "severe alcoholism I never got any legal trouble because of it" Abuse/assault history: Denies Family psychiatric history: Patient has an uncle with bipolar and a father with substance abuse. Psychosocial history: The patient currently lives in a home with 2 roommates and reports that he is actively employed at the [employer]. Substance Use history: Tobacco use: The patient uses tobacco daily approximately half pack per day Alcohol use: He admits to drinking 1-2 beers per week but acknowledges that he should avoid alcohol altogether and he is willing to return to AA and get a sponsor to help him maintain sobriety. Cannabis use: Denies Stimulant use: Denies Opiate use: Denies Prescription drug abuse: Denies Significant past medical history: Hypertension and hypothyroid Tobacco Use In Past 30 Days: Yes How Often Do You Have a Drink Containing Alcohol: 2 to 3 times a week Hospital Course: Hospital course: Patient was admitted to a locked, inpatient psychiatric unit. Appropriate precautions were in place throughout patient's hospital stay. Patient was seen and examined on the unit by psychiatry and also visited by counselor. Psychotropic medications adjusted as clinically indicated and they remained well tolerated. The patient's Clozaril was increased from 200 mg at bedtime to 250 mg at bedtime. Patient's lithium was continued at 600 mg twice a day and a repeat chemistry lab indicated improvement of GFR since admission. There was a good response to inpatient treatment plan noted by nursing and provider observations, and the patient reported improvements in mood, anxiety, and there was no evidence of any hallucinations, delusions, suicidality or homicidality at time of discharge. Psychiatric follow-up as arranged by counselor. Patient is also to follow up with primary care. I have counseled the patient to abstain from substances of abuse including cannabis and have counseled patient to return to the psychiatric emergency room for any concerning symptoms as part of a general safety plan. I have counseled the patient on the risks benefits and side effects of continued lithium use in the context of his declining kidney function and he agrees to discuss further with his outpatient psychiatrist and primary care physician. Weighing the acute, chronic, and protective factors and based on the available evidence, I appellate court judge that the patient does not presently meet criteria for involuntary psychiatric hospitalization. Suicide risk assessment on day of discharge suggest lower than imminent risk from mental illness. Patient is denying suicidal ideation. There is no evidence of impairment in reality construction. We will bolster protective factors by relinking the patient with outpatient psychiatric services. There is no evidence of self-care deficit at time of discharge. There is no evidence to support an involuntary hospitalization therefore discharge order placed per patient's request. - Discharge Discharge Date: 05/01/18 Discharge Disposition: Home - Discharge Time > 30 minutes Mental Status Examination Appearance: Appropriate, Other Consciousness: Alert Orientation: x4 Motor Activity: Normal gait Speech: Unremarkable Language: Adequate Fund of Knowledge: Adequate Attention and Concentration: Adequate Memory: Unremarkable Mood: Good Affect: Appropriate Thought Process & Associations: Intact Thought Content: Appropriate Hallucination Type: None Delusion Type: None Suicidal Ideation: No Homicidal Ideation: No Insight: Fair Judgment: Impulsive Discharge/Advance Care Plan - Results Vital Signs: Last Vital Signs Temp 96.7 F L 05/01/18 06:05 Pulse 63 05/01/18 06:05 Resp 16 05/01/18 06:05 BP 111/60 05/01/18 06:05 Pulse Ox 97 05/01/18 06:05 Lab Results: Abnormal Lab Results 04/30/18 09:10 Hemoglobin A1c 5.2 Laboratory Results Hemoglobin A1c 5.2 % (4.3-6.0) 04/30/18 09:10 Triglycerides 271 mg/dL (42-150) H 04/30/18 09:10 Cholesterol 222 mg/dL (120-200) H 04/30/18 09:10 LDL Cholesterol, Calc 127 mg/dL (0-99) H 04/30/18 09:10 HDL Cholesterol 40.4 mg/dL (40.0-60.0) 04/30/18 09:10 TSH 1.740 uIU/mL (0.358-3.740) 04/28/18 21:20 [place] 0.5 meq/L (0.5-1.5) 04/29/18 05:45 Summary of Procedures: None ordered Pending Results: None - Medications Number of antipsychotic medications at discharge: 2 Appropriate use of more than 1 antipsychotic med: Documentation of augmentation of Clozapine - Discharge Care Plan Goals to Promote Your Health: * To prevent worsening of your condition and complications * To maintain your health at the optimal level Directions to Meet Your Goals: Take your medications as prescribed Follow your dietary instruction Follow activity as directed Keep your appointments as scheduled Take your immunizations and boosters as scheduled If your symptoms worsen call your PCP, if no PCP go to Urgent Care Center or Emergency Room For 01/10 questions related to your inpatient stay or results of tests pending at discharge, please contact Dr. Naresh Barnes MD at Smoking is Dangerous to Your Health. Avoid second hand smoking
== END 2018-05-01 10:00 | disposition home or self-care (01) | DRG 885 ==
LOC: NEPJ 16:55 → NEDA 22:45 → H260 23:09
PROVIDERS: ADMIT Psychiatry & Neurology Psychiatry; ATTEND Psychiatry & Neurology Psychiatry